=== PATIENT | female | born 1935 ===

== ENCOUNTER 2016-11-06 16:40 | Inpatient (IN) | payer MEDICARE, MEDICAID ==
[2016-11-06 16:40] VITALS: BMI 26.5
--- NOTE | 2016-11-06 17:38 | ED PDOC ---
Lower Extremity Pain/Injury Time Seen by Provider: 11/06/16 16:49 Chief Complaint (Nursing): Lower Extremity Problem/Injury Chief Complaint (Provider): Right lower extremity problem History Per: Other (custodial) History/Exam Limitations: clinical condition (AMS) Additional History Per: Halfway Additional Complaint(s): 81 year old female patient with various chronic illnesses (see PMH for full list ) is unsure why she was sent to ER. Yesi historian. Sent from custodial for further labs and imaging studies after an arterial Doppler which showed a possible iliac artery stenosis of her right leg. She reports pains to both of her legs for a long time. She reports fatigue and diffuse weakness. PMD: Oh Bernard MD, Oliver Cohen MD Past Medical History Reviewed: Historical Data, Nursing Documentation, Vital Signs Vital Signs: Last Vital Signs Temp 98.0 F 11/06/16 16:44 Pulse 72 11/06/16 16:44 Resp 18 11/06/16 16:44 BP 190/97 H 11/06/16 16:44 Pulse Ox 99 11/06/16 16:44 - Medical History PMH: Anemia, Arthritis, Asthma, Atrial Fibrillation, CAD, Cardia Arrhythmia, CHF , COPD, Dementia, Diabetes (type II), Fractures (left tibia), HTN, Hypercholesterolemia, Hypothyroidism, Peripheral Edema, End Stage Renal Disease (stage III), Chronic Kidney Disease Denies: Hepatitis, HIV, Seizures, Sexually Transmitted Disease - Surgical History Surgical History: Back Surgery, Pacemaker, Tonsillectomy - Family History Family History: States: Unknown Family Hx - Living Arrangements Living Arrangements: Halfway/Assist [facility] - Social History Current smoker - smoking cessation education provided: No Alcohol: None Drugs: Denies - Home Medications Home Medications: Ambulatory Orders Medication Instructions Recorded Albuterol/Ipratropium [Duoneb 3 3 ml IH Q6H PRN 09/16/16 mg/0.5 mg (3 ml) UD] Aspirin [Ecotrin] 81 mg PO DAILY 09/16/16 Atorvastatin [Lipitor] 40 mg PO HS 09/16/16 Carvedilol [Coreg] 25 mg PO Q12H 09/16/16 Docusate [Colace] 100 mg PO BID 09/16/16 Enoxaparin [Lovenox] 40 mg SC DAILY 09/16/16 Ferrous Sulfate [Feosol] 325 mg PO BID 09/16/16 Gabapentin [Neurontin] 100 mg PO HS 09/16/16 GlipiZIDE [Glucotrol] 5 mg PO DAILY 09/16/16 Insulin Aspart, Recombinant 2 - 8 unit SC ACHS 09/16/16 [Novolog] Insulin Detemir [Levemir] 8 unit SC HS 09/16/16 Lactulose [Generlac] 30 ml PO DAILY PRN 09/16/16 Levothyroxine [Synthroid] 50 mcg PO DAILY 09/16/16 Lidocaine 5% [Lidoderm] 1 patch TD DAILY 09/16/16 Lorazepam [Ativan] 0.5 mg PO HS 09/16/16 Memantine [Namenda] 10 mg PO BID 09/16/16 Montelukast [Singulair] 10 mg PO HS 09/16/16 Omeprazole [Omeprazole] 40 mg PO DAILY 09/16/16 SITagliptin [Januvia] 50 mg PO DAILY 09/16/16 Sertraline [Zoloft] 100 mg PO HS 09/16/16 Sevelamer Carbonate [Renvela] 800 mg PO DAILY 09/16/16 Valsartan [Diovan] 320 mg PO DAILY 09/16/16 amLODIPine [Norvasc] 5 mg PO DAILY 09/16/16 hydroCHLOROthiazide [Microzide] 12.5 mg PO HS 09/16/16 Budesonide/Formoterol Fumarate 1 inh INH BID 11/06/16 [Symbicort 80-4.5 Mcg Inhaler] Dorzolamide 2% [Trusopt] 1 drop OU BID 11/06/16 Guaifenesin/Dextromethorphan 10 - 100 mg PO Q4 PRN 11/06/16 [Robitussin Cough-Chest Dm Liq] Mupirocin 2% Ointment [Bactroban 1 appl TOP DAILY 11/06/16 Ointment] Zinc Sulfate [Zinc Sulfate] 220 mg PO DAILY 11/06/16 - Allergies Allergies/Adverse Reactions: Allergies Allergy/AdvReac Type Severity Reaction Status Date / Time acetaminophen [From Percocet] AdvReac VOMITING Verified 07/28/16 12:45 oxycodone HCl [From Percocet] AdvReac VOMITING Verified 07/28/16 12:45 Review of Systems ROS Statement: Except As Marked, All Systems Reviewed And Found Negative (may be unreliable as pt is a poor historian) Constitutional: Positive for: Weakness, Malaise. Negative for: Fever, Chills Respiratory: Positive for: Shortness of Breath Gastrointestinal: Positive for: Abdominal Pain Musculoskeletal: Positive for: Leg Pain Physical Exam - Reviewed Nursing Documentation Reviewed: Yes Vital Signs Reviewed: Yes - Physical Exam Appears: Positive for: Non-toxic, No Acute Distress Head Exam: Positive for: ATRAUMATIC, NORMOCEPHALIC Skin: Positive for: Warm, Dry, Pallor Eye Exam: Positive for: Normal appearance, EOMI, PERRL ENT: Positive for: Normal ENT Inspection (moist mucous membranes). Negative for : Pharyngeal Erythema, Tonsillar Exudate Neck: Positive for: Painless ROM, Supple Cardiovascular/Chest: Positive for: Regular Rate, Rhythm, Chest Non Tender. Negative for: Murmur Respiratory: Positive for: Normal Breath Sounds. Negative for: Respiratory Distress Pulses-Dorsalis Pedis (L): 1+ (faint DP pules) Pulses-Dorsalis Pedis (R): 0 Gastrointestinal/Abdominal: Positive for: Normal Exam, Soft. Negative for: Tenderness, Distended Back: Positive for: Normal Inspection. Negative for: Decreased ROM Extremity: Positive for: Other (right leg is cool compared to the left leg. Bilaterally: poor muscle bulk and contracture. Patient is able to move both legs minimally ). Negative for: Pedal Edema, Calf Tenderness Lymphatic: Negative for: Adenopathy Neurologic/Psych: Positive for: Alert, Oriented (x2), Mood/Affect (anxious affect), Other (poor strength bilateral legs) - Laboratory Results Result Diagrams: 11/06/16 17:40 11/06/16 17:40 - ECG O2 Sat by Pulse Oximetry: 99 (RA) Pulse Ox Interpretation: Normal Medical Decision Making Medical Decision Makin:49 Initial impression: iliac artery stenosis Initial plan: Reviewed custodial documents: doppler requires further imaging: CT or MR angiography of right lower extremity. Pt has had pacemaker so unable to undergo MRI. Discuss with Oh Bernard MD and Oliver Cohen MD. * type and screen * CMP * magnesium * phosphorous * CBC with differential * PTT coag * prothrombin time * accucheck * reevaluation GFR decreased, pt cannot have CTA at this time. DW Dr Cohen. Pt will be admitted to hospitalist service with nephrology consult for optimization of renal function to under CTA. LAVERN Oliva Hospitalist. Scribe Attestation: Documented by Gifty Wiseman, acting as a scribe for Luz Maria Spencer MD. Provider Scribe Attestation: All medical record entries made by the Scribe were at my direction and personally dictated by me. I have reviewed the chart and agree that the record accurately reflects my personal performance of the history, physical exam, medical decision making, and the department course for this patient. I have also personally directed, reviewed, and agree with the discharge instructions and disposition. Disposition - Clinical Impression Clinical Impression: Right iliac artery stenosis Counseled Patient/Family Regarding: Studies Performed, Diagnosis - Disposition Disposition Time: 17:30 Condition: GUARDED - Pt Status Changed To: Hospital Disposition Of: Inpatient - Admit Certification Admit to Inpatient:: After my assessment, the patient will require hospitalization for at least two midnights. This is because of the severity of symptoms shown, intensity of services needed, and/or the medical risk in this patient being treated as an outpatient. - POA Present On Arrival: None
[2016-11-06 18:26] LABS: BILIRUBIN,TOTAL 0.6 mg/dl (0.2-1.3); CALCIUM 9.9 mg/dL (8.4-10.2); MAGNESIUM 2.2 MG/DL (1.6-2.3); PHOSPHOROUS 3.9 mg/dl (2.5-4.5); POTASSIUM 4.2 MMOL/L (3.6-5.0); TOTAL PROTEIN 8.5 G/DL (6.3-8.2)
[2016-11-06 18:28] LABS: BASO % 0.3 % (0.0-2.0); EOS # 0.2 K/uL (0.0-0.7); EOS % 1.7 % (0.0-4.0); HEMATOCRIT 33.5 % (34.0-47.0); LYMPH # 1.8 K/uL (1.0-4.3); LYMPH % 19.1 % (20.0-40.0); MEAN CELL VOLUME 85.3 fl (81.0-99.0); MEAN CORPUSCULAR HEMOGLOBIN 28.6 pg (27.0-31.0); MEAN CORPUSCULAR HGB CONC 33.5 g/dL (33.0-37.0); MEAN PLATELET VOLUME 9.2 fl (7.2-11.7); MONO # 0.9 K/uL (0.0-0.8); MONO % 9.5 % (0.0-10.0); NEUT # 6.7 K/uL (1.8-7.0); NEUT % 69.4 % (50.0-75.0); NRBC % 0.3 % (0.0-0.0); RED CELL DISTRIBUTION WIDTH 16.3 % (11.5-14.5); WHITE BLOOD COUNT 9.6 K/uL (4.8-10.8)
[2016-11-06] MEDS ORDERED: Sodium Chloride 0.9% 250 ML IV STA (18:35)
[2016-11-06 19:11] LABS: PARTIAL THROMBOPLASTIN TIME 26.2 SECONDS (23.3-32.5)
--- NOTE | 2016-11-06 19:24 | CP.PCM.HP ---
History of Present Illness - History of Present Illness History of Present Illness: 81 yo female with known history of CAD, HTN, Asthma,/COPD, CHF, Chronic AFib and Dementia brought in from skilled nursing because of possible right iliac artery stenosis found on arterial doppler ordered because her right leg felt cold. Patient had not complained of pain and has been bed bound most of the time. Present on Admission - Present on Admission Any Indicators Present on Admission: No History of DVT/PE: No History of Uncontrolled Diabetes: No Urinary Catheter: No Decubitus Ulcer Present: No Review of Systems - Review of Systems Systems not reviewed;Unavailable: Dementia Past Patient History - Infectious Disease Hx of Infectious Diseases: None - Tetanus Immunizations Tetanus Immunization: Unknown - Past Medical History & Family History Past Medical History?: Yes - Past Social History Alcohol: None Drugs: Denies - CARDIAC Hx Atrial Fibrillation: Yes Hx Cardia Arrhythmia: Yes Hx Congestive Heart Failure: Yes Hx Hypercholesterolemia: Yes Hx Hypertension: Yes Hx Pacemaker: Yes Hx Peripheral Edema: Yes - PULMONARY Hx Asthma: Yes Hx Chronic Obstructive Pulmonary Disease (COPD): Yes - NEUROLOGICAL Hx Dementia: Yes Hx Seizures: No - HEENT Hx HEENT Problems: No - RENAL Hx Chronic Kidney Disease: Yes - ENDOCRINE/METABOLIC Hx Hypothyroidism: Yes - HEMATOLOGICAL/ONCOLOGICAL Hx Anemia: Yes Hx Human Immunodeficiency Virus (HIV): No - INTEGUMENTARY Hx Dermatological Problems: Yes Other/Comment: HERPES ZOSTER - MUSCULOSKELETAL/RHEUMATOLOGICAL Hx Arthritis: Yes Hx Fractures: Yes (left tibia) - GASTROINTESTINAL Hx Gastrointestinal Disorders: No - GENITOURINARY/GYNECOLOGICAL Hx Sexually Transmitted Disorders: No - PSYCHIATRIC Hx Psychophysiologic Disorder: No Hx Substance Use: No - SURGICAL HISTORY Hx Tonsillectomy: Yes - ANESTHESIA Hx Anesthesia: Yes Hx Anesthesia Reactions: No Hx Malignant Hyperthermia: No Meds Allergies/Adverse Reactions: Allergies Allergy/AdvReac Type Severity Reaction Status Date / Time acetaminophen [From Percocet] AdvReac VOMITING Verified 07/28/16 12:45 oxycodone HCl [From Percocet] AdvReac VOMITING Verified 07/28/16 12:45 Physical Exam - Constitutional Appears: No Acute Distress - Head Exam Head Exam: ATRAUMATIC - Eye Exam Eye Exam: PERRL - ENT Exam ENT Exam: Mucous Membranes Moist - Neck Exam Neck exam: Negative for: Meningismus - Respiratory Exam Respiratory Exam: absent: Rhonchi, Wheezes, Respiratory Distress - Cardiovascular Exam Cardiovascular Exam: Irregular Rhythm - GI/Abdominal Exam GI & Abdominal Exam: Soft. absent: Tenderness - Rectal Exam Rectal Exam: Deferred - Extremities Exam Additional comments: right leg felt cooler compared to the left - Neurological Exam Neurological exam: Alert (mostly non-verbal) - Psychiatric Exam Psychiatric exam: Flat Affect - Skin Skin Exam: Dry, Intact Results - Vital Signs Recent Vital Signs: Last Vital Signs Temp 98.0 F 11/06/16 16:44 Pulse 72 11/06/16 16:44 Resp 18 11/06/16 16:44 BP 190/97 H 11/06/16 16:44 Pulse Ox 99 11/06/16 17:54 - Labs Result Diagrams: 11/06/16 17:40 11/06/16 17:40 Labs: Laboratory Results - last 24 hr 11/06/16 17:40 WBC 9.6 RBC 3.92 Hgb 11.2 L D Hct 33.5 L MCV 85.3 MCH 28.6 MCHC 33.5 RDW 16.3 H Plt Count 232 D MPV 9.2 Neut % (Auto) 69.4 Lymph % (Auto) 19.1 L [place] % (Auto) 9.5 Eos % (Auto) 1.7 Baso % (Auto) 0.3 Neut # 6.7 Lymph # 1.8 [place] # 0.9 H Eos # 0.2 Baso # 0.0 PT 10.4 INR 1.00 APTT 26.2 Sodium 138 Potassium 4.2 Chloride 104 Carbon Dioxide 21 L Anion Gap 17 BUN 43 H Creatinine 1.5 H Est GFR ( Amer) 40 Est GFR (Non-Af Amer) 33 Random Glucose 178 H Calcium 9.9 Phosphorus 3.9 Magnesium 2.2 Total Bilirubin 0.6 AST 32 ALT 41 Alkaline Phosphatase 102 Total Protein 8.5 H Albumin 4.2 Globulin 4.4 H Albumin/Globulin Ratio 1.0 BBK History Checked Patient has bt Assessment & Plan (1) Right iliac artery stenosis Status: Acute Comment: admit to med/surg. unable to do MRA because of patient's pacemaker and unable to do CT because of poor renal function (2) Afib Status: Chronic Comment: in ventricular pace rhythm. rate controlled. continue Coreg (3) COPD (chronic obstructive pulmonary disease) Status: Chronic Comment: asymptomatic. Duoneb q 4hrs prn for SOB/wheezing (4) DM2 (diabetes mellitus, type 2) Status: Chronic Comment: HgA1C, BMP in am. accuchek ACHS. Levemir 10 units SC HS. Glipizide 5mg PO at breakfast (5) HTN (hypertension) Status: Chronic Priority: Medium Comment: BP uncontrolled. continue Norvasc, Coreg and Diovan (6) CKD (chronic kidney disease) stage 3, GFR 30-59 ml/min Status: Chronic Comment: careful IV hydration with NSS. renal consult with Dr Vu
[2016-11-06] MEDS ORDERED: Albuterol-Ipratrop 3 mg / 0.5 (3 ml) UD IH PRN (19:46)
[2016-11-06] MEDS: Sodium Chloride 0.9% 1,000 ML IV SCH (22:28)
[2016-11-07 07:13] LABS: CALCIUM 8.8 mg/dL (8.4-10.2); POTASSIUM 3.8 MMOL/L (3.6-5.0)
[2016-11-07 07:49] LABS: BASO % 0.3 % (0.0-2.0); EOS # 0.3 K/uL (0.0-0.7); EOS % 3.9 % (0.0-4.0); HEMATOCRIT 28.5 % (34.0-47.0); LYMPH # 1.9 K/uL (1.0-4.3); LYMPH % 29.1 % (20.0-40.0); MEAN CELL VOLUME 86.6 fl (81.0-99.0); MEAN CORPUSCULAR HEMOGLOBIN 29.3 pg (27.0-31.0); MEAN CORPUSCULAR HGB CONC 33.8 g/dL (33.0-37.0); MEAN PLATELET VOLUME 9.3 fl (7.2-11.7); MONO # 0.8 K/uL (0.0-0.8); MONO % 11.7 % (0.0-10.0); NEUT # 3.7 K/uL (1.8-7.0); NRBC % 0.1 % (0.0-0.0); RED CELL DISTRIBUTION WIDTH 15.7 % (11.5-14.5); WHITE BLOOD COUNT 6.7 K/uL (4.8-10.8)
[2016-11-07 08:37] VITALS: RESP 20
[2016-11-07] MEDS ORDERED: Levothyroxine 50 MCG TAB PO SCH (09:00)
[2016-11-07] MEDS: Lidocaine 5% Patch TD SCH (09:30)
--- NOTE | 2016-11-07 11:10 | PQF CHF ---
This form is a permanent part of the medical record 11/07/16 Dr. Oliva, Would you please clarify the TYPE of CHF if known. Documentation of a history of CHF. Medications include: Coreg, HCTZ. History of DM, CRF stage 3, HTN. Clarification of your documentation is requested to better reflect the severity of illness and intensity of treatment of your patient. Indicators present [x] Diagnosis of a history of CHF [x] BNP > 200 [] Imaging Finding of Pulmonary Edema /Pleural Effusions [] Fluid/Volume Overload [] Pitting edema [] Ejection Fraction < 40% (Indicative of Systolic Heart Failure) [x] Ejection Fraction > 40% (Indicative of Diastolic Heart Failure) [] Dyspnea / Orthopenea / Paroxysmal Nocturnal Dyspnea [] Other: Location in the medical record that reflects the above clinical findings: [] Treatment Provided: [x] PHYSICIAN'S RESPONSE Based on your medical judgment of the clinical indicators outlined above, are you treating this patient for a known or suspected: [] Acute CHF [] Systolic [] Diastolic [] Combined [x] Chronic CHF [] Systolic [x] Diastolic [] Combined [] Acute on Chronic CHF []Systolic [] Diastolic [] Combined [] CHF due hypertension [] Acute systolic []Chronic systolic [] Acute/ chronic systolic [] Other, please indicate: [] [] If Unable to Determine, please check the box, sign and date. Present On Admission (POA) Indicator: [] Present at the time of admission [] Not present at the time of admission [x] Clinically Undetermined In responding to this query, please exercise your independent professional judgment. The fact that a question is asked does not imply that any particular answer is desired or expected. Thank you for your clarification on this documentation. If you have any questions please [phone] * Thank you, Stephy Schumacher RN [facility]
[2016-11-07] MEDS: Sevelamer Carb 0.8 gm/Packet PO SCH (12:21)
--- NOTE | 2016-11-07 13:27 | CP.PCM.PN ---
Subjective - Date & Time of Evaluation Date of Evaluation: 11/07/16 Time of Evaluation: 11:00 - Subjective Subjective: Pt seen and examined. Appeared calm and relaxed while in bed. Denied any pain or numbness of the lower limbs. Objective - Vital Signs/Intake and Output Vital Signs (last 24 hours): Temp Pulse Resp BP Pulse Ox 97.4 F L 63 20 174/68 H 98 11/07/16 08:36 11/07/16 08:36 11/07/16 08:36 11/07/16 12:39 11/07/16 08:36 - Medications Medications: Current Medications Albuterol/Ipratropium (Duoneb 3 Mg/0.5 Mg (3 Ml) Ud) 3 ml IH Q6H PRN PRN Reason: Shortness of Breath Amlodipine Besylate (Norvasc) 5 mg PO DAILY [facility] Last Admin: 11/07/16 12:39 Dose: 5 mg Aspirin (Ecotrin) 81 mg PO DAILY [facility] Last Admin: 11/07/16 12:19 Dose: 81 mg Atorvastatin Calcium (Lipitor) 40 mg PO [facility] Last Admin: 11/07/16 00:16 Dose: 40 mg Carvedilol (Coreg) 25 mg PO 0100,1300 [facility] Docusate Sodium (Colace) 100 mg PO BID [facility] Last Admin: 11/07/16 09:30 Dose: Not Given Ferrous Sulfate (Feosol) 325 mg PO 1300,2100 [facility] Gabapentin (Neurontin) 100 mg PO HS [facility] Last Admin: 11/07/16 00:15 Dose: 100 mg Gabapentin (Neurontin) 300 mg PO TID [facility] Last Admin: 11/07/16 12:18 Dose: 300 mg Glipizide (Glucotrol) 5 mg PO DAILY [facility] Last Admin: 11/07/16 09:30 Dose: Not Given Heparin Sodium (Porcine) (Heparin) 5,000 units SC Q12 [facility] PRN Reason: Protocol Last Admin: 11/07/16 09:30 Dose: 5,000 units Home Med (Desloratadine [Clarinex]) 5 mg PO DAILY [facility] Home Med (Sevelamer Carbonate [Renvela]) 800 mg PO DAILY [facility] Hydrochlorothiazide (Microzide) 12.5 mg PO [facility] Last Admin: 11/07/16 00:16 Dose: 12.5 mg Sodium Chloride (Sodium Chloride 0.9%) 1,000 mls @ 80 mls/hr IV .[id number] [facility] Last Admin: 11/06/16 22:28 Dose: 80 mls/hr Levothyroxine Sodium (Synthroid) 50 mcg PO 0700 [facility] Lidocaine (Lidoderm) 1 ea TD DAILY [facility] Last Admin: 11/07/16 09:30 Dose: 1 ea Loratadine (Claritin) 10 mg PO DAILY [facility] Last Admin: 11/07/16 12:20 Dose: 10 mg Lorazepam (Ativan) 0.25 mg PO DAILY PRN PRN Reason: Anxiety Lorazepam (Ativan) 0.5 mg PO [facility] Last Admin: 11/07/16 00:14 Dose: 0.5 mg Memantine (Namenda) 10 mg PO BID [facility] Last Admin: 11/07/16 09:30 Dose: Not Given Montelukast Sodium (Singulair) 10 mg PO [facility] Last Admin: 11/07/16 00:16 Dose: 10 mg Sertraline HCl (Zoloft) 50 mg PO [facility] Last Admin: 11/07/16 00:17 Dose: 50 mg Sevelamer Carbonate (Renvela) 0.8 gm PO DAILY [facility] Last Admin: 11/07/16 12:21 Dose: 0.8 gm Sitagliptin Phosphate (Januvia) 50 mg PO DAILY [facility] Last Admin: 11/07/16 09:30 Dose: Not Given - Labs Labs: 11/07/16 05:50 11/07/16 05:50 PT 10.4 SECONDS (9.6-11.2) 11/06/16 17:40 INR 1.00 (0.92-1.08) 11/06/16 17:40 APTT 26.2 SECONDS (23.3-32.5) 11/06/16 17:40 - Constitutional Appears: No Acute Distress - Head Exam Head Exam: ATRAUMATIC - Eye Exam Eye Exam: absent: Scleral icterus - ENT Exam ENT Exam: Mucous Membranes Moist - Neck Exam Neck Exam: absent: Meningismus - Respiratory Exam Respiratory Exam: absent: Rhonchi, Wheezes, Respiratory Distress - Cardiovascular Exam Cardiovascular Exam: REGULAR RHYTHM, +S1, +S2 - GI/Abdominal Exam GI & Abdominal Exam: Soft. absent: Tenderness - Rectal Exam Rectal Exam: Deferred - Extremities Exam Extremities Exam: Normal Capillary Refill. absent: Pedal Edema Additional comments: both legs and feet felt equally warm, unable to feel pulsation on both feet but both have normal capillary refill - Neurological Exam Neurological Exam: Alert (but confused) - Psychiatric Exam Psychiatric exam: Flat Affect - Skin Skin Exam: Dry, Intact Assessment and Plan (1) Right iliac artery stenosis Status: Acute (2) Afib Status: Chronic (3) COPD (chronic obstructive pulmonary disease) Status: Chronic (4) DM2 (diabetes mellitus, type 2) Status: Chronic (5) HTN (hypertension) Status: Chronic (6) CKD (chronic kidney disease) stage 3, GFR 30-59 ml/min Status: Chronic - Assessment and Plan (Free Text) Assessment: 81 yo female with known history of CAD, HTN, Asthma,/COPD, CHF, Chronic AFib and Dementia brought in from snf because of possible right iliac artery stenosis found on arterial doppler. Arterial doppler ordered because her right leg felt cold. Patient had not complained of pain and has been bed bound most of the time. (1) Right iliac artery obstruction unable to do MRA because of patient's pacemaker unable to do CT angio because of poor renal function repeat arterial doppler both lower limbs equally warm to touch although yesterday right leg was cooler difficult to feel pedal pulses on both sides (2) Afib rate controlled. continue Coreg unsure why Eliquis was not restarted 2 weeks post CVA Eliquis 2.5mg PO BID (3) COPD (chronic obstructive pulmonary disease) asymptomatic. Duoneb q 4hrs prn for SOB/wheezing (4) DM2 (diabetes mellitus, type 2) BS relatively controlled Levemir 10 units SC HS. continue Januvia and Glipizide (5) HTN (hypertension) BP uncontrolled. continue Norvasc and Coreg (6) CKD (chronic kidney disease) stage 3, GFR 30-59 ml/min BUN/Crea: 42/1.7 careful IV hydration with NSS. renal consult with Dr Vu (7) DVT Prophylaxis pt on Eliquis
--- NOTE | 2016-11-07 14:59 | CP.PCM.CON ---
History of Present Illness - History of Present Illness History of Present Illness: 81 y/o female with Hx/o CHF, chronic A.fib,pace maker.HTN hypothyroidism & mild chronic renal insufficiency is admitted because she was found to have stenosis of Rt iliac artery & Pt had c/o pain in legs Renal consult is requested to evaluate abnormal kidney function Past Patient History - Infectious Disease Hx of Infectious Diseases: None - Tetanus Immunizations Tetanus Immunization: Unknown - Past Medical History & Family History Past Medical History?: Yes - Past Social History Smoking Status: Never Smoked - CARDIAC Hx Cardiac Disorders: Yes Hx Atrial Fibrillation: Yes Hx Cardia Arrhythmia: Yes Hx Congestive Heart Failure: Yes Hx Hypercholesterolemia: Yes Hx Hypertension: Yes Hx Pacemaker: Yes Hx Peripheral Edema: Yes - PULMONARY Hx Respiratory Disorders: Yes Hx Asthma: Yes Hx Chronic Obstructive Pulmonary Disease (COPD): Yes - NEUROLOGICAL Hx Neurological Disorder: Yes Hx Dementia: Yes Hx Seizures: No - HEENT Hx HEENT Problems: No - RENAL Hx Chronic Kidney Disease: Yes Hx Renal Failure: Yes (Stage 3 CKD) - ENDOCRINE/METABOLIC Hx Endocrine Disorders: Yes Hx Diabetes Mellitus Type 1: Yes Hx Hypothyroidism: Yes - HEMATOLOGICAL/ONCOLOGICAL Hx Blood Disorders: Yes Hx AIDS: No Hx Anemia: Yes Hx Bruising: Yes (Abdominal bruising) Hx Human Immunodeficiency Virus (HIV): No - INTEGUMENTARY Hx Dermatological Problems: No - MUSCULOSKELETAL/RHEUMATOLOGICAL Hx Musculoskeletal Disorders: Yes Hx Arthritis: Yes Hx Falls: Yes Hx Fractures: Yes (left tibia) Hx Unsteady Gait: Yes - GASTROINTESTINAL Hx Gastrointestinal Disorders: No - GENITOURINARY/GYNECOLOGICAL Hx Genitourinary Disorders: Yes Hx Incontinence: Yes Hx Sexually Transmitted Disorders: No - PSYCHIATRIC Hx Psychophysiologic Disorder: Yes Hx Anxiety: Yes Hx Depression: Yes Hx Substance Use: No - SURGICAL HISTORY Hx Surgeries: Yes Hx Tonsillectomy: Yes - ANESTHESIA Hx Anesthesia: Yes Hx Anesthesia Reactions: No Hx Malignant Hyperthermia: No Meds Allergies/Adverse Reactions: Allergies Allergy/AdvReac Type Severity Reaction Status Date / Time acetaminophen [From Percocet] AdvReac VOMITING Verified 07/28/16 12:45 oxycodone HCl [From Percocet] AdvReac VOMITING Verified 07/28/16 12:45 - Medications Medications: Current Medications Albuterol/Ipratropium (Duoneb 3 Mg/0.5 Mg (3 Ml) Ud) 3 ml IH Q6H PRN PRN Reason: Shortness of Breath Amlodipine Besylate (Norvasc) 5 mg PO DAILY [facility] Last Admin: 11/07/16 12:39 Dose: 5 mg Apixaban (Eliquis) 2.5 mg PO BID [facility] PRN Reason: Protocol Aspirin (Ecotrin) 81 mg PO DAILY [facility] Last Admin: 11/07/16 12:19 Dose: 81 mg Atorvastatin Calcium (Lipitor) 40 mg PO HS [facility] Last Admin: 11/07/16 00:16 Dose: 40 mg Carvedilol (Coreg) 25 mg PO 0100,1300 [facility] Last Admin: 11/07/16 13:00 Dose: 25 mg Docusate Sodium (Colace) 100 mg PO BID [facility] Last Admin: 11/07/16 09:30 Dose: Not Given Ferrous Sulfate (Feosol) 325 mg PO 1300,2100 [facility] Last Admin: 11/07/16 13:00 Dose: 325 mg Gabapentin (Neurontin) 100 mg PO HS [facility] Last Admin: 11/07/16 00:15 Dose: 100 mg Gabapentin (Neurontin) 300 mg PO TID [facility] Last Admin: 11/07/16 12:18 Dose: 300 mg Glipizide (Glucotrol) 5 mg PO DAILY [facility] Last Admin: 11/07/16 09:30 Dose: Not Given Home Med (Desloratadine [Clarinex]) 5 mg PO DAILY [facility] Home Med (Sevelamer Carbonate [Renvela]) 800 mg PO DAILY [facility] Hydrochlorothiazide (Microzide) 12.5 mg PO HS [facility] Last Admin: 11/07/16 00:16 Dose: 12.5 mg Sodium Chloride (Sodium Chloride 0.9%) 1,000 mls @ 80 mls/hr IV .[id number] [facility] Last Admin: 11/06/16 22:28 Dose: 80 mls/hr Levothyroxine Sodium (Synthroid) 50 mcg PO 0700 [facility] Lidocaine (Lidoderm) 1 ea TD DAILY [facility] Last Admin: 11/07/16 09:30 Dose: 1 ea Loratadine (Claritin) 10 mg PO DAILY [facility] Last Admin: 11/07/16 12:20 Dose: 10 mg Lorazepam (Ativan) 0.25 mg PO DAILY PRN PRN Reason: Anxiety Lorazepam (Ativan) 0.5 mg PO [facility] Last Admin: 11/07/16 00:14 Dose: 0.5 mg Memantine (Namenda) 10 mg PO BID [facility] Last Admin: 11/07/16 09:30 Dose: Not Given Montelukast Sodium (Singulair) 10 mg PO [facility] Last Admin: 11/07/16 00:16 Dose: 10 mg Sertraline HCl (Zoloft) 50 mg PO [facility] Last Admin: 11/07/16 00:17 Dose: 50 mg Sevelamer Carbonate (Renvela) 0.8 gm PO DAILY [facility] Last Admin: 11/07/16 12:21 Dose: 0.8 gm Sitagliptin Phosphate (Januvia) 50 mg PO DAILY [facility] Last Admin: 11/07/16 09:30 Dose: Not Given Physical Exam - Constitutional Appears: No Acute Distress - Head Exam Head Exam: ATRAUMATIC, NORMOCEPHALIC - Eye Exam Additional comments: Sclerae anicteric - ENT Exam ENT Exam: Mucous Membranes Moist - Neck Exam Additional comments: JVD neg @ 35 degrees - Respiratory Exam Respiratory Exam: NORMAL BREATHING PATTERN Additional comments: Lungs clear - Extremities Exam Additional comments: No edema or cyanosis. Rt foot is slighttly cold Results - Vital Signs Recent Vital Signs: Last Vital Signs Temp 97.4 F L 11/07/16 08:36 Pulse 63 11/07/16 08:36 Resp 20 11/07/16 08:36 BP 174/68 H 11/07/16 13:00 Pulse Ox 98 11/07/16 08:36 - Labs Result Diagrams: 11/07/16 05:50 11/07/16 05:50 Labs: Laboratory Results - last 24 hr 11/07/16 11/07/16 11/07/16 01:19 05:37 05:50 WBC 6.7 RBC 3.29 L Hgb 9.6 L Hct 28.5 L MCV 86.6 MCH 29.3 MCHC 33.8 RDW 15.7 H Plt Count 176 MPV 9.3 Neut % (Auto) 55.0 Lymph % (Auto) 29.1 [place] % (Auto) 11.7 H Eos % (Auto) 3.9 Baso % (Auto) 0.3 Neut # 3.7 Lymph # 1.9 [place] # 0.8 Eos # 0.3 Baso # 0.0 Sodium 139 Potassium 3.8 Chloride 106 Carbon Dioxide 25 Anion Gap 12 BUN 42 H Creatinine 1.7 H Est GFR ( Amer) 35 Est GFR (Non-Af Amer) 29 POC Glucose (mg/dL) 188 H 179 H Random Glucose 181 H Calcium 8.8 11/07/16 11:01 WBC RBC Hgb Hct MCV MCH MCHC RDW Plt Count MPV Neut % (Auto) Lymph % (Auto) [place] % (Auto) Eos % (Auto) Baso % (Auto) Neut # Lymph # [place] # Eos # Baso # Sodium Potassium Chloride Carbon Dioxide Anion Gap BUN Creatinine Est GFR ( Amer) Est GFR (Non-Af Amer) POC Glucose (mg/dL) 199 H Random Glucose Calcium Assessment & Plan - Assessment and Plan (Free Text) Assessment: Pt has Stge 111 CKD. Kidney function has been stable HTN Hx/o CHF Rt iliac artery stenisis Plan: Urinalysis Renal US Continue to monitor renal function Avoid potentially nephrotoxic meds
--- NOTE | 2016-11-07 15:26 | US ---
PROCEDURE: Duplex ultrasound of the right lower extremity arteries. HISTORY: cool extremity COMPARISON: None available. TECHNIQUE: Grayscale and duplex Doppler evaluation of the bilateral common femoral, superficial femoral, popliteal, posterior tibial and dorsalis pedis arteries was performed.. FINDINGS: RIGHT LOWER EXTREMITY: RIGHT COMMON FEMORAL ARTERY: Patent with triphasic doppler waveform. Maximal flow velocity of 102.7 cm/s. RIGHT SUPERFICIAL FEMORAL ARTERY: Patent with biphasic doppler waveform.Maximal flow velocity of 52.6 cm/s. RIGHT POPLITEAL ARTERY:Patent with biphasic doppler waveform.Maximal flow velocity of 127.8 cm/s. RIGHT ANTERIOR TIBIAL ARTERY: Patent with mono phasic doppler waveform. Maximal flow velocity of 20.2 cm/s. RIGHT POSTERIOR TIBIAL ARTERY: Patent with mono phasic doppler waveform. Maximal flow velocity of 31.1 cm/s. RIGHT DORSALIS PEDIS ARTERY: Patent with mono phasic doppler waveform. Maximal flow velocity of 32.6 cm/s. LEFT LOWER EXTREMITY: Not imaged. OTHER FINDINGS: Diffuse heterogeneous plaque within the visualized right lower extremity arteries. IMPRESSION: Patent right lower extremity arteries as visualized. Heterogeneous plaque seen diffusely. Reduced flow in the below-knee arteries. Please note that this report is in general agreement with the preliminary report provided by [facility].
--- NOTE | 2016-11-07 17:15 | US ---
PROCEDURE: Ultrasound of the Kidneys HISTORY: chronic renal failure COMPARISON: None available. TECHNIQUE: Sonogram of the kidneys. FINDINGS: RIGHT KIDNEY: Measures: 10.0 cm. Normal in size and contour with mild diffuse increased echogenicity. No stone, solid mass lesion or hydronephrosis visualized. LEFT KIDNEY: Measures: 9.2 cm. Normal in size and contour with mild diffuse increased echogenicity. No stone, solid mass lesion or hydronephrosis visualized. OTHER FINDINGS: None. IMPRESSION: Medical renal disease. No hydronephrosis or nephrolithiasis.
[2016-11-07 20:11] LABS: RBC URINE 7 /hpf (0-3); URINE BACTERIA MANY (<OCC); WBC URINE 59 /hpf (0-5)
[2016-11-07 20:12] LABS: URINE BILIRUBIN NEGATIVE (NEGATIVE); URINE COLOR YELLOW (YELLOW); URINE GLUCOSE (UA) NEGATIVE (Normal); URINE KETONE NEGATIVE (NEGATIVE)
[2016-11-07 20:14] LABS: URINE BLOOD NEGATIVE (NEGATIVE); URINE PROTEIN >=300 mg/dL (NEGATIVE); URINE UROBILINOGEN 0.2 mg/dL (0.2-1.0)
[2016-11-07 20:15] LABS: URINE LEUKOCYTE ESTERASE LARGE Leu/uL (Negative)
[2016-11-07] MEDS: Sodium Chloride 0.9% 1,000 ML IV SCH (20:46)
[2016-11-08] MEDS: Sodium Chloride 0.9% 1,000 ML IV SCH (04:32)
[2016-11-08] MEDS ORDERED: Levothyroxine 50 MCG TAB PO SCH (07:00)
[2016-11-08 09:30] VITALS: PULSE 50; TEMP 97.7; O2SAT 96
[2016-11-08] MEDS: Lidocaine 5% Patch TD SCH (09:44)
[2016-11-08] MEDS: Sevelamer Carb 0.8 gm/Packet PO SCH (09:45)
--- NOTE | 2016-11-08 11:24 | PQF GENQUE ---
This form is a permanent part of the medical record 11/08/16 Dr. Tomlin, Would you please clarify if there is an associated diagnosis or not to go along with the following documentation. 11/07 director cardiology: Right medial malleolus has a 1.0 x 0.5 DTI. Left medial malleolus has a 0.5 x 0.5 DTI. Left lateral malleolus has a 1.5 x 1.5 DTI. Clarification of your documentation is requested to better reflect the severity of illness and intensity of treatment of your patient. Above mentioned DTI were present on admission . Wound care consulted and recommended Prevalon boots, frequent repositioning and cavilon skin prep . PHYSICIAN'S RESPONSE Based on your medical judgment of the clinical indicators outlined above please clarify the following: [] Practitioner response [] If unable to determine, please check the box, sign and date. Present On Admission (POA) Indicator: x] Present at the time of admission [] Not present at the time of admission [] Clinically Undetermined In responding to this query, please exercise your independent professional judgment. The fact that a question is asked does not imply that any particular answer is desired or expected. Thank you for your clarification on this documentation. If you have any questions please [phone] * Thank you, Stephy Schumacher RN CDMP [facility]
--- NOTE | 2016-11-08 12:57 | CP.PCM.DIS ---
Provider - Provider Date of Admission: 11/06/16 18:48 Attending physician: Willie Oliva MD Primary care physician: Dr. Cohen Consults: nephro consult podiatry consult Time Spent in preparation of Discharge (in minutes): 30 Hospital Course - Lab Results Lab Results: Most Recent Lab Values WBC 6.7 K/uL (4.8-10.8) 11/07/16 05:50 RBC 3.29 Mil/uL (3.80-5.20) L 11/07/16 05:50 Hgb 9.6 g/dL (12.0-16.0) L 11/07/16 05:50 Hct 28.5 % (34.0-47.0) L 11/07/16 05:50 MCV 86.6 fl (81.0-99.0) 11/07/16 05:50 MCH 29.3 pg (27.0-31.0) 11/07/16 05:50 MCHC 33.8 g/dL (33.0-37.0) 11/07/16 05:50 RDW 15.7 % (11.5-14.5) H 11/07/16 05:50 Plt Count 176 K/uL (130-400) 11/07/16 05:50 MPV 9.3 fl (7.2-11.7) 11/07/16 05:50 Neut % (Auto) 55.0 % (50.0-75.0) 11/07/16 05:50 Lymph % (Auto) 29.1 % (20.0-40.0) 11/07/16 05:50 [place] % (Auto) 11.7 % (0.0-10.0) H 11/07/16 05:50 Eos % (Auto) 3.9 % (0.0-4.0) 11/07/16 05:50 Baso % (Auto) 0.3 % (0.0-2.0) 11/07/16 05:50 Neut # 3.7 K/uL (1.8-7.0) 11/07/16 05:50 Lymph # 1.9 K/uL (1.0-4.3) 11/07/16 05:50 [place] # 0.8 K/uL (0.0-0.8) 11/07/16 05:50 Eos # 0.3 K/uL (0.0-0.7) 11/07/16 05:50 Baso # 0.0 K/uL (0.0-0.2) 11/07/16 05:50 PT 10.4 SECONDS (9.6-11.2) 11/06/16 17:40 INR 1.00 (0.92-1.08) 11/06/16 17:40 APTT 26.2 SECONDS (23.3-32.5) 11/06/16 17:40 Sodium 139 mmol/l (132-148) 11/07/16 05:50 Potassium 3.8 MMOL/L (3.6-5.0) 11/07/16 05:50 Chloride 106 mmol/L (98-107) 11/07/16 05:50 Carbon Dioxide 25 mmol/L (22-30) 11/07/16 05:50 Anion Gap 12 (10-20) 11/07/16 05:50 BUN 42 mg/dl (7-17) H 11/07/16 05:50 Creatinine 1.7 mg/dL (0.7-1.2) H 11/07/16 05:50 Est GFR ( Amer) 35 11/07/16 05:50 Est GFR (Non-Af Amer) 29 11/07/16 05:50 POC Glucose (mg/dL) 138 mg/dL (65-110) H 11/08/16 06:43 Random Glucose 181 mg/dL (65-105) H 11/07/16 05:50 Calcium 8.8 mg/dL (8.4-10.2) 11/07/16 05:50 Phosphorus 3.9 mg/dl (2.5-4.5) 11/06/16 17:40 Magnesium 2.2 MG/DL (1.6-2.3) 11/06/16 17:40 Total Bilirubin 0.6 mg/dl (0.2-1.3) 11/06/16 17:40 AST 32 U/L (14-36) 11/06/16 17:40 ALT 41 U/L (9-52) 11/06/16 17:40 Alkaline Phosphatase 102 U/L (38-126) 11/06/16 17:40 Total Protein 8.5 G/DL (6.3-8.2) H 11/06/16 17:40 Albumin 4.2 g/dL (3.5-5.0) 11/06/16 17:40 Globulin 4.4 gm/dL (2.2-3.9) H 11/06/16 17:40 Albumin/Globulin Ratio 1.0 (1.0-2.1) 11/06/16 17:40 Urine Color Yellow (YELLOW) 11/07/16 19:00 Urine Clarity Cloudy (Clear) 11/07/16 19:00 Urine pH 5.0 (5.0-8.0) 11/07/16 19:00 Ur Specific [place] 1.016 (1.003-1.030) 11/07/16 19:00 Urine Protein >=300 mg/dL (NEGATIVE) 11/07/16 19:00 Urine Glucose (UA) Negative mg/dL (Normal) 11/07/16 19:00 Urine Ketones Negative mg/dL (NEGATIVE) 11/07/16 19:00 Urine Blood Negative (NEGATIVE) 11/07/16 19:00 Urine Nitrate Negative (NEGATIVE) 11/07/16 19:00 Urine Bilirubin Negative (NEGATIVE) 11/07/16 19:00 Urine Urobilinogen 0.2 mg/dL (0.2-1.0) 11/07/16 19:00 Ur Leukocyte Esterase Large Augie/uL (Negative) 11/07/16 19:00 Urine RBC (Auto) 7 /hpf (0-3) H 11/07/16 19:00 Urine Microscopic WBC 59 /hpf (0-5) H 11/07/16 19:00 Ur Squamous Epith Cells < 1 /hpf (0-5) 11/07/16 19:00 Urine Bacteria Many (<OCC) H 11/07/16 19:00 Blood Type B POSITIVE 11/06/16 17:40 Antibody Screen Negative 11/06/16 17:40 BBK History Checked Patient has bt 11/06/16 17:40 - Hospital Course Hospital Course: 81 yo female with known history of CAD, HTN, Asthma,/COPD, CHF, Chronic AFib and Dementia brought in from skilled nursing because of possible right iliac artery stenosis found on arterial doppler. Arterial doppler ordered because her right leg felt cold. Patient had not complained of pain and has been bed bound most of the time.patient hemodynamically stable, afebrile, pain free. Unable to do MRA because of patient's pacemaker Unable to do CT angio because of poor renal function Arterial doppler showed Patent right lower extremity arteries as visualized. Heterogeneous plaque seen diffusely. Reduced flow in the below-knee arteries. Both lower limbs equally warm to touch with present pulses Patient restarted on Eliquist that she was supposed to be on due to history of Afib . Continue Statin , ASa, gabapentin for neuropathic pain , BP and Dm control will discharge patient back to [facility] (1)Suspected Right iliac artery obstruction unable to do MRA because of patient's pacemaker unable to do CT angio because of poor renal function arterial doppler:Patent right lower extremity arteries as visualized. Heterogeneous plaque seen diffusely. Reduced flow in the below-knee arteries. both lower limbs equally warm to touch with present pulses Continue eliquist, ASa, Sttain, BP and DM control 2. PAD of LE continue current management 3. Afib rate controlled. continue Coreg unsure why Eliquis was not restarted 2 weeks post CVA Eliquis 2.5mg PO BID 4. COPD (chronic obstructive pulmonary disease) asymptomatic. Duoneb q 4hrs prn for SOB/wheezing 5. DM2 (diabetes mellitus, type 2) BS relatively controlled Levemir 10 units SC HS. continue Januvia and Glipizide 6 HTN (hypertension) BP uncontrolled. continue Norvasc , valsartan and Coreg 7. CKD (chronic kidney disease) stage 3, GFR 30-59 ml/min BUN/Crea: 42/1.7 careful IV hydration with NSS. renal consult with Dr Vu appreciated 8 DVT Prophylaxis pt on Eliquis 9. Hypothyroidism on synthroid 10. Anemia of chronic disease' Continue ferrous sulfate ' 11. Dementia on Namenda For [facility] placement 212. History of left ankle ORIF Discharge Exam - Head Exam Head Exam: ATRAUMATIC, NORMOCEPHALIC - Eye Exam Eye Exam: EOMI, PERRL - ENT Exam ENT Exam: Mucous Membranes Moist, Normal Exam - Neck Exam Neck exam: Normal Inspection - Respiratory Exam Respiratory Exam: Clear to PA & Lateral. absent: Rhonchi, Wheezes, Respiratory Distress - Cardiovascular Exam Cardiovascular Exam: Irregular Rhythm. absent: JVD - GI/Abdominal Exam GI & Abdominal Exam: Normal Bowel Sounds, Soft. absent: Rebound, Tenderness - Rectal Exam Rectal Exam: Deferred - Extremities Exam Extremities exam: normal inspection Additional comments: warm to touch both bilateral Le and no pain right medial malleolus , left medial malleolus and left lateral malleolus DT 0.5x 0.5 cm - Neurological Exam Neurological exam: Alert, CN II-XII Intact - Psychiatric Exam Psychiatric exam: Depressed, Flat Affect - Skin Skin Exam: Dry, Pallor, Warm Discharge Plan - Follow Up Plan Condition: STABLE Disposition: TRANSF TO SNF Patient education suggested?: No Referrals: Oliver Cohen MD [Family Provider] -
[2016-11-08 13:22] VITALS: BP 171/50
--- NOTE | 2016-11-08 17:57 | CP.PCM.PN ---
Subjective - Date & Time of Evaluation Date of Evaluation: 11/08/16 Time of Evaluation: 10:00 - Subjective Subjective: pt. is in bed confortable vital noted Objective - Vital Signs/Intake and Output Vital Signs (last 24 hours): Temp Pulse Resp BP Pulse Ox 97.7 F 50 L 20 171/50 H 96 11/08/16 09:00 11/08/16 09:00 11/08/16 09:00 11/08/16 13:21 11/08/16 09:00 - Medications Medications: Current Medications Albuterol/Ipratropium (Duoneb 3 Mg/0.5 Mg (3 Ml) Ud) 3 ml IH Q6H PRN PRN Reason: Shortness of Breath Amlodipine Besylate (Norvasc) 5 mg PO DAILY [facility] Last Admin: 11/08/16 09:46 Dose: 5 mg Apixaban (Eliquis) 2.5 mg PO BID [facility] PRN Reason: Protocol Last Admin: 11/08/16 16:57 Dose: 2.5 mg Aspirin (Ecotrin) 81 mg PO DAILY [facility] Last Admin: 11/08/16 09:44 Dose: 81 mg Atorvastatin Calcium (Lipitor) 40 mg PO [facility] Last Admin: 11/07/16 22:56 Dose: 40 mg Carvedilol (Coreg) 25 mg PO 0100,1300 [facility] Last Admin: 11/08/16 13:21 Dose: 25 mg Docusate Sodium (Colace) 100 mg PO BID [facility] Last Admin: 11/08/16 09:45 Dose: 100 mg Ferrous Sulfate (Feosol) 325 mg PO 1300,2100 [facility] Last Admin: 11/08/16 13:22 Dose: 325 mg Gabapentin (Neurontin) 100 mg PO HS [facility] Last Admin: 11/07/16 22:55 Dose: 100 mg Gabapentin (Neurontin) 300 mg PO TID [facility] Last Admin: 11/08/16 16:58 Dose: 300 mg Glipizide (Glucotrol) 5 mg PO DAILY [facility] Last Admin: 11/08/16 09:45 Dose: 5 mg Home Med (Desloratadine [Clarinex]) 5 mg PO DAILY [facility] Home Med (Sevelamer Carbonate [Renvela]) 800 mg PO DAILY [facility] Hydrochlorothiazide (Microzide) 12.5 mg PO [facility] Last Admin: 11/07/16 22:56 Dose: 12.5 mg Sodium Chloride (Sodium Chloride 0.9%) 1,000 mls @ 80 mls/hr IV .[id number] [facility] Last Admin: 11/08/16 04:32 Dose: 80 mls/hr Levothyroxine Sodium (Synthroid) 50 mcg PO 0700 [facility] Last Admin: 11/08/16 06:49 Dose: 50 mcg Lidocaine (Lidoderm) 1 ea TD DAILY [facility] Last Admin: 11/08/16 09:44 Dose: 1 ea Loratadine (Claritin) 10 mg PO DAILY [facility] Last Admin: 11/08/16 09:45 Dose: 10 mg Lorazepam (Ativan) 0.25 mg PO DAILY PRN PRN Reason: Anxiety Lorazepam (Ativan) 0.5 mg PO HS [facility] Last Admin: 11/08/16 00:07 Dose: 0.5 mg Memantine (Namenda) 10 mg PO BID [facility] Last Admin: 11/08/16 16:58 Dose: 10 mg Montelukast Sodium (Singulair) 10 mg PO HS [facility] Last Admin: 11/07/16 22:57 Dose: 10 mg Sertraline HCl (Zoloft) 50 mg PO HS [facility] Last Admin: 11/07/16 22:54 Dose: 50 mg Sevelamer Carbonate (Renvela) 0.8 gm PO DAILY [facility] Last Admin: 11/08/16 09:45 Dose: 0.8 gm Sitagliptin Phosphate (Januvia) 50 mg PO DAILY [facility] Last Admin: 11/08/16 09:45 Dose: 50 mg - Labs Labs: 11/07/16 05:50 11/07/16 05:50 PT 10.4 SECONDS (9.6-11.2) 11/06/16 17:40 INR 1.00 (0.92-1.08) 11/06/16 17:40 APTT 26.2 SECONDS (23.3-32.5) 11/06/16 17:40 - Constitutional Appears: No Acute Distress - ENT Exam ENT Exam: Mucous Membranes Moist - Respiratory Exam Respiratory Exam: NORMAL BREATHING PATTERN. absent: Chest Wall Tenderness - Cardiovascular Exam Cardiovascular Exam: absent: JVD, Rubs - GI/Abdominal Exam GI & Abdominal Exam: Normal Bowel Sounds - Extremities Exam Extremities Exam: absent: Calf Tenderness - Back Exam Back Exam: absent: CVA tenderness (L), CVA tenderness (R) - Neurological Exam Neurological Exam: Alert Assessment and Plan (1) Acute kidney injury Assessment & Plan: perhaps JOEL we do not have base line creat. pt. reported going home f/up outpatient. Status: Acute
--- NOTE | 2016-11-08 19:17 | CP.PCM.CON ---
History of Present Illness - History of Present Illness History of Present Illness: 81 year old female patient with PMHx of CAD, HTN, Asthma,/COPD, CHF, Chronic AFib and Demetia was seen at bedside this morning. Patient had Left ankle ORIF on 08/02/16 to fix Left bimalleolar fracture by Dr. Moreau. Patient was resting comfortably in bed at the time of visit. Being poor historian, the patient is unable to elaborate as to what happened in the custodial and why she was transferred to this hospital. Patient denies of any pedal complains at this time. No pain is induced upon palpation to bilateral lower extremities. Patient denies of any N/V/F/C or SOB today Past Patient History - Infectious Disease Hx of Infectious Diseases: None - Tetanus Immunizations Tetanus Immunization: Unknown - Past Medical History & Family History Past Medical History?: Yes - Past Social History Smoking Status: Never Smoked - CARDIAC Hx Cardiac Disorders: Yes Hx Atrial Fibrillation: Yes Hx Cardia Arrhythmia: Yes Hx Congestive Heart Failure: Yes Hx Hypercholesterolemia: Yes Hx Hypertension: Yes Hx Pacemaker: Yes Hx Peripheral Edema: Yes - PULMONARY Hx Respiratory Disorders: Yes Hx Asthma: Yes Hx Chronic Obstructive Pulmonary Disease (COPD): Yes - NEUROLOGICAL Hx Neurological Disorder: Yes Hx Dementia: Yes Hx Seizures: No - HEENT Hx HEENT Problems: No - RENAL Hx Chronic Kidney Disease: Yes Hx Renal Failure: Yes (Stage 3 CKD) - ENDOCRINE/METABOLIC Hx Endocrine Disorders: Yes Hx Diabetes Mellitus Type 1: Yes Hx Hypothyroidism: Yes - HEMATOLOGICAL/ONCOLOGICAL Hx Blood Disorders: Yes Hx AIDS: No Hx Anemia: Yes Hx Bruising: Yes (Abdominal bruising) Hx Human Immunodeficiency Virus (HIV): No - INTEGUMENTARY Hx Dermatological Problems: No - MUSCULOSKELETAL/RHEUMATOLOGICAL Hx Musculoskeletal Disorders: Yes Hx Arthritis: Yes Hx Falls: Yes Hx Fractures: Yes (left tibia) Hx Unsteady Gait: Yes - GASTROINTESTINAL Hx Gastrointestinal Disorders: No - GENITOURINARY/GYNECOLOGICAL Hx Genitourinary Disorders: Yes Hx Incontinence: Yes Hx Sexually Transmitted Disorders: No - PSYCHIATRIC Hx Psychophysiologic Disorder: Yes Hx Anxiety: Yes Hx Depression: Yes Hx Substance Use: No - SURGICAL HISTORY Hx Surgeries: Yes Hx Tonsillectomy: Yes - ANESTHESIA Hx Anesthesia: Yes Hx Anesthesia Reactions: No Hx Malignant Hyperthermia: No Meds Home Medications: Home Medication List Medication Instructions Recorded Confirmed Type Apixaban [Eliquis] 2.5 mg PO BID tab 11/08/16 Rx Desloratadine [Clarinex] 5 mg PO DAILY 11/08/16 Rx Gabapentin [Neurontin] 300 mg PO TID cap 11/08/16 Rx Allergies/Adverse Reactions: Allergies Allergy/AdvReac Type Severity Reaction Status Date / Time acetaminophen [From Percocet] AdvReac VOMITING Verified 07/28/16 12:45 oxycodone HCl [From Percocet] AdvReac VOMITING Verified 07/28/16 12:45 Physical Exam - Constitutional Appears: Well, Non-toxic, No Acute Distress - Extremities Exam Additional comments: Bilateral lower extremities exam DERM: No open wound is noted. No erythema is noted. No drainage. No sign of acute infection is noted. VASC: No welling is noted to bilateral lower extremities. Non-palpable DP and PT noted bilaterally. DIGITAL CONTENT SPECIALIST less than 3 seconds to all digits B/L NEURO: Gross sensation is intact ORTHO: No pain induced on palpation to bilateral lower extremities. No pain on palpation to Left ankle (3 month s/p Left ankle ORIF). Decreased dorsiflexion noted to Left ankle less than 10 degrees noted. No pain on passive ROM of left ankle noted. - Neurological Exam Neurological exam: Alert, Oriented x3 - Psychiatric Exam Psychiatric exam: Normal Affect, Normal Mood - Skin Skin Exam: Normal Color, Warm Results - Vital Signs Recent Vital Signs: Last Vital Signs Temp 97.7 F 11/08/16 09:00 Pulse 50 L 11/08/16 09:00 Resp 20 11/08/16 09:00 BP 171/50 H 11/08/16 13:21 Pulse Ox 96 11/08/16 09:00 - Labs Result Diagrams: 11/07/16 05:50 11/07/16 05:50 Labs: Laboratory Results - last 24 hr 11/07/16 11/07/16 11/07/16 17:34 19:00 22:20 POC Glucose (mg/dL) 212 H 124 H Urine Color Yellow Urine Clarity Cloudy Urine pH 5.0 Ur Specific [place] 1.016 Urine Protein >=300 Urine Glucose (UA) Negative Urine Ketones Negative Urine Blood Negative Urine Nitrate Negative Urine Bilirubin Negative Urine Urobilinogen 0.2 Ur Leukocyte Esterase Large Urine RBC (Auto) 7 H Urine Microscopic WBC 59 H Ur Squamous Epith Cells < 1 Urine Bacteria Many H 11/08/16 11/08/16 06:43 10:54 POC Glucose (mg/dL) 138 H 195 H Urine Color Urine Clarity Urine pH Ur Specific [place] Urine Protein Urine Glucose (UA) Urine Ketones Urine Blood Urine Nitrate Urine Bilirubin Urine Urobilinogen Ur Leukocyte Esterase Urine RBC (Auto) Urine Microscopic WBC Ur Squamous Epith Cells Urine Bacteria Assessment & Plan - Assessment and Plan (Free Text) Assessment: 81 year old female patient presenting 3 month s/p Left ankle ORIF Plan: Patient was seen, evaluated and treated with all questions and concerns addressed labs and vitals reviewed discussed in detail with Dr. Moreau Patient is stable from podiatry standpoint No dressing is necessary to bilateral lower extremities at this time Patient was advised to follow up with podiatry clinic as an out patient if any problems occur
== END 2016-11-08 18:24 | DRG 300 ==
LOC: H.ER 16:40 → H.ERHOLD 18:48 → H.MEDSURG1 23:00
DX: I70.291 Other atherosclerosis of native arteries of extremities, right leg (principal); I74.3 Embolism and thrombosis of arteries of the lower extremities; N17.9 Acute kidney failure, unspecified; I13.0 Hypertensive heart and chronic kidney disease with heart failure and stage 1 through stage 4 chronic kidney disease, or unspecified chronic kidney disease; I50.32 Chronic diastolic (congestive) heart failure; N18.3 Chronic kidney disease, stage 3 (moderate); E11.22 Type 2 diabetes mellitus with diabetic chronic kidney disease; I48.2 Chronic atrial fibrillation; D63.8 Anemia in other chronic diseases classified elsewhere; F03.90 Unspecified dementia, unspecified severity, without behavioral disturbance, psychotic disturbance, mood disturbance, and anxiety; I25.10 Atherosclerotic heart disease of native coronary artery without angina pectoris; J44.9 Chronic obstructive pulmonary disease, unspecified; E03.9 Hypothyroidism, unspecified; J45.909 Unspecified asthma, uncomplicated; I73.89 Other specified peripheral vascular diseases; M19.90 Unspecified osteoarthritis, unspecified site; E78.00 Pure hypercholesterolemia, unspecified; Z95.0 Presence of cardiac pacemaker; Z79.82 Long term (current) use of aspirin; Z88.6 Allergy status to analgesic agent; Z74.01 Bed confinement status; Z87.81 Personal history of (healed) traumatic fracture

== ENCOUNTER 2016-11-14 19:04 | Observation (INO) | payer MEDICARE, MEDICAID ==
[2016-11-14 19:04] VITALS: BMI 26.5
[2016-11-14 21:28] LABS: HEMATOCRIT 29.6 % (34.0-47.0); MEAN CORPUSCULAR HGB CONC 33.8 g/dL (33.0-37.0); RED CELL DISTRIBUTION WIDTH 16.2 % (11.5-14.5)
[2016-11-14 22:07] LABS: BILIRUBIN,TOTAL 0.5 mg/dl (0.2-1.3); TOTAL PROTEIN 6.9 G/DL (6.3-8.2)
--- NOTE | 2016-11-14 23:53 | ED PDOC ---
HPI: General Adult Time Seen by Provider: 11/14/16 19:58 Chief Complaint (Nursing): Psychiatric Evaluation Chief Complaint (Provider): Sent from long-term for evaluation by crisis History Per: Patient, Other History/Exam Limitations: no limitations Additional Complaint(s): PT yelling in Er stating to call the police because the EMS who brought her to the hospital are bad men. No report from long-term. When notes reviewed it states that patient is aggressive in long-term. Order for transport and psychiatric consult. Pt denies complaints. Past Medical History Reviewed: Historical Data, Nursing Documentation, Vital Signs Vital Signs: Last Vital Signs Temp Pulse 54 L 11/14/16 23:08 Resp 18 11/14/16 23:08 BP 154/71 H 11/14/16 23:08 Pulse Ox 99 11/14/16 23:08 - Medical History PMH: Anemia, Anxiety, Arthritis, Asthma, Atrial Fibrillation, CAD, Cardia Arrhythmia, CHF, COPD, Dementia, Depression, Diabetes (type II), Fractures ( left tibia), HTN, Hypercholesterolemia, Hypothyroidism, Peripheral Edema, End Stage Renal Disease (stage III), Chronic Kidney Disease Denies: Hepatitis, HIV, Seizures, Sexually Transmitted Disease - Surgical History Surgical History: Back Surgery, Pacemaker, Tonsillectomy - Family History Family History: States: Unknown Family Hx - Home Medications Home Medications: Ambulatory Orders Medication Instructions Recorded Albuterol/Ipratropium [Duoneb 3 3 ml IH Q6H PRN 09/16/16 mg/0.5 mg (3 ml) UD] Aspirin [Ecotrin] 81 mg PO DAILY 09/16/16 Atorvastatin [Lipitor] 40 mg PO HS 09/16/16 Carvedilol [Coreg] 25 mg PO Q12H 09/16/16 Docusate [Colace] 100 mg PO BID 09/16/16 Ferrous Sulfate [Feosol] 325 mg PO BID 09/16/16 GlipiZIDE [Glucotrol] 5 mg PO DAILY 09/16/16 Levothyroxine [Synthroid] 50 mcg PO DAILY 09/16/16 Lorazepam [Ativan] 0.5 mg PO HS 09/16/16 Memantine [Namenda] 10 mg PO BID 09/16/16 Montelukast [Singulair] 10 mg PO HS 09/16/16 SITagliptin [Januvia] 50 mg PO DAILY 09/16/16 Sertraline [Zoloft] 100 mg PO HS 09/16/16 hydroCHLOROthiazide [Microzide] 12.5 mg PO HS 09/16/16 Apixaban [Eliquis] 2.5 mg PO BID tab 11/08/16 Gabapentin [Neurontin] 300 mg PO TID cap 11/08/16 - Allergies Allergies/Adverse Reactions: Allergies Allergy/AdvReac Type Severity Reaction Status Date / Time acetaminophen [From Percocet] AdvReac VOMITING Verified 11/14/16 19:21 oxycodone HCl [From Percocet] AdvReac VOMITING Verified 11/14/16 19:21 Review of Systems ROS Statement: Except As Marked, All Systems Reviewed And Found Negative Psych: Positive for: Other Physical Exam - Reviewed Nursing Documentation Reviewed: Yes Vital Signs Reviewed: Yes - Physical Exam Appears: Positive for: Well, Non-toxic, No Acute Distress Head Exam: Positive for: ATRAUMATIC, NORMAL INSPECTION, NORMOCEPHALIC Skin: Positive for: Normal Color, Warm, DRY Eye Exam: Positive for: Normal appearance ENT: Positive for: Normal ENT Inspection Neck: Positive for: Normal, Painless ROM Cardiovascular/Chest: Positive for: Regular Rate, Rhythm Respiratory: Positive for: CNT, Normal Breath Sounds Gastrointestinal/Abdominal: Positive for: Normal Exam, Bowel Sounds, Soft Back: Positive for: Normal Inspection Extremity: Positive for: Normal ROM Neurologic/Psych: Positive for: Alert, Oriented - Laboratory Results Result Diagrams: 11/14/16 21:21 11/14/16 21:35 - ECG O2 Sat by Pulse Oximetry: 99 Pulse Ox Interpretation: Normal Medical Decision Making Medical Decision Making: Endorsed pending urine and crisis evaluation. Disposition - Clinical Impression Clinical Impression: Aggressive behavior - Patient ED Disposition Is Patient to be Admitted: Transfer of Care - Disposition Disposition: Transfer of Care Disposition Time: 00:05 Condition: STABLE
[2016-11-15] MEDS ORDERED: Sodium Chloride 0.9% 250 ML IV STA (00:52)
[2016-11-15 00:57] LABS: RBC URINE 9 /hpf (0-3); URINE BACTERIA FEW (<OCC); URINE BILIRUBIN NEGATIVE (NEGATIVE); URINE BLOOD NEGATIVE (NEGATIVE); URINE COLOR YELLOW (YELLOW); URINE GLUCOSE (UA) 50 mg/dL (Normal); URINE KETONE NEGATIVE (NEGATIVE); URINE LEUKOCYTE ESTERASE SMALL Leu/uL (Negative); URINE PROTEIN >=500 mg/dL (NEGATIVE); URINE UROBILINOGEN 0.2-1.0 mg/dL (0.2-1.0); WBC URINE 34 /hpf (0-5)
--- NOTE | 2016-11-15 01:41 | ED PDOC ---
- Laboratory Results Result Diagrams: 11/14/16 21:21 11/14/16 21:35 - ECG O2 Sat by Pulse Oximetry: 99 - Progress ED Course And Treament: Care of patient transferred from Marisol Braden PA-C Urine reviewed with elevated wbc noted/neg for nitrate/rbc creatinine 1.6. d/w DR. Garcia Hospitalist. Patient to be admitted for med/surg observation for UTI/renal insufficiency/altered mentation. Disposition - Clinical Impression Clinical Impression: Aggression, Altered mental status - POA Present On Arrival: None - Disposition Disposition: Hospitalized as Observation Patient Disposition Time: 01:41 Condition: STABLE
[2016-11-15] MEDS ORDERED: Albuterol-Ipratrop 3 mg / 0.5 (3 ml) UD IH PRN (01:49)
--- NOTE | 2016-11-15 01:54 | CP.PCM.HP ---
History of Present Illness - History of Present Illness History of Present Illness: CC: agitation, confusion HPI: This is an 81 y/o female with MHx significant for A fib on Apixiban, HTN CAD, CKD with Cr ?1.6 range (unclear), CHF, DM2, asthma, and dementia who is brought in from [place] with worsening agitation and confusion. She somnolent after receiving ativan and while rousable, unable to provide any history at this time. ROS: Unable to obtain due to patient mental status MHx: A fib on Apixiban, HTN CAD, CKD with Cr ?1.6 range (unclear), CHF, DM2, asthma, and dementia SHx: Back surgery, PPM Allergies: Acetaminophen, oxycodone Medication: as per med list Family Hx: Possibly CAD and DM2 in family Social Hx: Lives in [place], no EtOH or tobacco Surrogate: daughter, information on chart Present on Admission - Present on Admission Any Indicators Present on Admission: No Past Patient History - Infectious Disease Hx of Infectious Diseases: None - Tetanus Immunizations Tetanus Immunization: Unknown - Past Medical History & Family History Past Medical History?: Yes - Past Social History Smoking Status: Never Smoked - CARDIAC Hx Atrial Fibrillation: Yes Hx Cardia Arrhythmia: Yes Hx Congestive Heart Failure: Yes Hx Hypercholesterolemia: Yes Hx Hypertension: Yes Hx Pacemaker: Yes Hx Peripheral Edema: Yes - PULMONARY Hx Asthma: Yes Hx Chronic Obstructive Pulmonary Disease (COPD): Yes - NEUROLOGICAL Hx Dementia: Yes Hx Seizures: No - HEENT Hx HEENT Problems: No - RENAL Hx Chronic Kidney Disease: Yes - ENDOCRINE/METABOLIC Hx Hypothyroidism: Yes - HEMATOLOGICAL/ONCOLOGICAL Hx Anemia: Yes Hx Human Immunodeficiency Virus (HIV): No - INTEGUMENTARY Hx Dermatological Problems: No - MUSCULOSKELETAL/RHEUMATOLOGICAL Hx Arthritis: Yes Hx Fractures: Yes (left tibia) - GASTROINTESTINAL Hx Gastrointestinal Disorders: No - GENITOURINARY/GYNECOLOGICAL Hx Sexually Transmitted Disorders: No - PSYCHIATRIC Hx Anxiety: Yes Hx Depression: Yes - SURGICAL HISTORY Hx Tonsillectomy: Yes - ANESTHESIA Hx Anesthesia: Yes Hx Anesthesia Reactions: No Hx Malignant Hyperthermia: No Meds Allergies/Adverse Reactions: Allergies Allergy/AdvReac Type Severity Reaction Status Date / Time acetaminophen [From Percocet] AdvReac VOMITING Verified 11/14/16 19:21 oxycodone HCl [From Percocet] AdvReac VOMITING Verified 11/14/16 19:21 Physical Exam - Constitutional Appears: No Acute Distress, Confused Additional comments: somnolent - Head Exam Head Exam: ATRAUMATIC, NORMOCEPHALIC - Eye Exam Eye Exam: EOMI, PERRL - ENT Exam ENT Exam: Mucous Membranes Moist - Neck Exam Neck exam: Positive for: Full Rom - Respiratory Exam Respiratory Exam: Clear to Auscultation Bilateral, NORMAL BREATHING PATTERN - Cardiovascular Exam Cardiovascular Exam: REGULAR RHYTHM, +S1, +S2 - GI/Abdominal Exam GI & Abdominal Exam: Normal Bowel Sounds, Soft - Extremities Exam Extremities exam: Positive for: full ROM, normal inspection - Neurological Exam Neurological exam: Alert, CN II-XII Intact Additional comments: asleep but rousable; cannot perform much exam at this time - Psychiatric Exam Psychiatric exam: Agitated - Skin Skin Exam: Dry, Warm Results - Vital Signs Recent Vital Signs: Last Vital Signs Temp Pulse 57 L 11/14/16 23:56 Resp 16 11/14/16 23:56 BP 176/73 H 11/14/16 23:56 Pulse Ox 99 11/15/16 01:42 - Labs Result Diagrams: 11/14/16 21:21 11/14/16 21:35 Labs: Laboratory Results - last 24 hr 11/14/16 11/14/16 11/14/16 21:21 21:35 21:41 WBC 7.0 RBC 3.44 L Hgb 10.0 L Hct 29.6 L MCV 86.0 MCH 29.0 MCHC 33.8 RDW 16.2 H Plt Count 226 Sodium 141 Potassium 4.0 Chloride 104 Carbon Dioxide 23 Anion Gap 19 BUN 32 H Creatinine 1.6 H Est GFR ( Amer) 38 Est GFR (Non-Af Amer) 31 Random Glucose 250 H Calcium 9.0 Total Bilirubin 0.5 AST 37 H ALT 35 Alkaline Phosphatase 135 H D Total Protein 6.9 Albumin 3.5 Globulin 3.4 Albumin/Globulin Ratio 1.0 Urine Color Urine Clarity Urine pH Ur Specific [place] Urine Protein Urine Glucose (UA) Urine Ketones Urine Blood Urine Nitrate Urine Bilirubin Urine Urobilinogen Ur Leukocyte Esterase Urine RBC (Auto) Urine Microscopic WBC Ur Squamous Epith Cells Urine Bacteria Urine Opiates Screen Urine Methadone Screen Ur Barbiturates Screen Ur Phencyclidine Scrn Ur Amphetamines Screen U Benzodiazepines Scrn U Oth Cocaine Metabols U Cannabinoids Screen Alcohol, Quantitative < 10 11/15/16 00:32 WBC RBC Hgb Hct MCV MCH MCHC RDW Plt Count Sodium Potassium Chloride Carbon Dioxide Anion Gap BUN Creatinine Est GFR ( Amer) Est GFR (Non-Af Amer) Random Glucose Calcium Total Bilirubin AST ALT Alkaline Phosphatase Total Protein Albumin Globulin Albumin/Globulin Ratio Urine Color Yellow Urine Clarity Cloudy Urine pH 6.0 Ur Specific [place] 1.017 Urine Protein >=500 Urine Glucose (UA) 50 Urine Ketones Negative Urine Blood Negative Urine Nitrate Negative Urine Bilirubin Negative Urine Urobilinogen 0.2-1.0 Ur Leukocyte Esterase Small Urine RBC (Auto) 9 H Urine Microscopic WBC 34 H Ur Squamous Epith Cells 7 H Urine Bacteria Few H Urine Opiates Screen Negative Urine Methadone Screen Negative Ur Barbiturates Screen Negative Ur Phencyclidine Scrn Negative Ur Amphetamines Screen Negative U Benzodiazepines Scrn Negative U Oth Cocaine Metabols Negative U Cannabinoids Screen Negative Alcohol, Quantitative Assessment & Plan (1) Altered mental status, unspecified Assessment and Plan: 81 y/o female with multiple medical conditions coming in for agitation and likely UTI. 1) UTI -- f/u cultures, ceftriaxone for now, can be transitioned to PO medication if improving 2) Dementia/Agitation/AMS -- possibly some contribution by infection -Will cont home dementia medications -PRN ativan or haldol for agitation -Psych consult in AM -Treat UTI 3) CKD -- appears Cr is close to last time; possibly her current baseline -continue low dose IVF -dose medications renally -repeat BMP in AM 4) Afib/CAD/CHF -- no acute issues; continue home regimen; on eliquis which appears renally dosed 5) DM2 -- hold hypoglycemics overnight, if eating and renal function stable, resume; SSI and DM diet for now 6) DVT PPx -- on eliquis Status: Acute (2) Urinary tract infection Status: Acute (3) Atrial fibrillation, chronic Status: Chronic (4) CAD (coronary artery disease) Status: Chronic (5) CHF (congestive heart failure) Status: Chronic (6) DM2 (diabetes mellitus, type 2) Status: Chronic (7) CKD (chronic kidney disease) stage 3, GFR 30-59 ml/min Status: Chronic (8) DVT prophylaxis Status: Acute
[2016-11-15] MEDS ORDERED: Sodium Chloride 0.9% 1,000 ML IV SCH (02:00)
[2016-11-15] MEDS ORDERED: cefTRIAXone (Rocephin) 1 gm Inj ONE (02:47)
[2016-11-15] MEDS ORDERED: Labetalol 5mg/ml (4ml) IVP STA (03:11)
[2016-11-15] MEDS ORDERED: Labetalol 5mg/ml (4ml) ONE (03:15)
[2016-11-15] MEDS ORDERED: Levothyroxine 50 MCG TAB PO SCH (06:30)
[2016-11-15 07:30] LABS: BASO % 0.4 % (0.0-2.0); EOS # 0.4 K/uL (0.0-0.7); EOS % 6.2 % (0.0-4.0); HEMATOCRIT 29.4 % (34.0-47.0); LYMPH # 1.5 K/uL (1.0-4.3); LYMPH % 23.6 % (20.0-40.0); MEAN CELL VOLUME 86.9 fl (81.0-99.0); MEAN CORPUSCULAR HEMOGLOBIN 28.9 pg (27.0-31.0); MEAN CORPUSCULAR HGB CONC 33.3 g/dL (33.0-37.0); MEAN PLATELET VOLUME 8.9 fl (7.2-11.7); MONO # 0.6 K/uL (0.0-0.8); MONO % 8.7 % (0.0-10.0); NEUT # 3.9 K/uL (1.8-7.0); NEUT % 61.1 % (50.0-75.0); RED CELL DISTRIBUTION WIDTH 16.3 % (11.5-14.5); WHITE BLOOD COUNT 6.5 K/uL (4.8-10.8)
[2016-11-15] MEDS: Insulin Lispro (humaLOG) 100 Units/ml Inj SC SCH ×3 (07:40→17:18)
[2016-11-15 07:48] LABS: CALCIUM 8.6 mg/dL (8.4-10.2); POTASSIUM 3.9 MMOL/L (3.6-5.0)
--- NOTE | 2016-11-15 11:20 | CARD ---
APPROVED REPORT EKG Measurement Heart [id number] MI 272P [id number] <Conclusion> Sinus rhythm with 1st degree AV block with premature atrial complexes Left axis deviation Left bundle branch block Abnormal ECG
--- NOTE | 2016-11-15 13:30 | CP.PCM.CON ---
History of Present Illness - History of Present Illness History of Present Illness: psychiatry consult ordered by dr. mathews reason: agitation, dementia cc: "huh" hpi: pt with dementia, chronic medical problems. recently transfered to a new shelter. allegedly aggressive towards staff there. pt receieved ativan in the ER and is sedated currently. pt is slepeing and difficult to arouse as she falls back to sleep. her chart and medications were reviewed. medical- hx of afib, see history/physical for details. social: lives in shelter. daughter is involved no history of substance use mse: somnolent, arouses and answers to name. falls back to sleep. no aggression here. poor i/j. assessment: dementia with behavioral disturbance adjustment disorder plan: continue outpt meds if agitation when pt less sedated, please reconsult psych.- ativan may lead to more confusion and should be avoided. if no agitation, can return to shelter Past Patient History - Infectious Disease Hx of Infectious Diseases: None - Tetanus Immunizations Tetanus Immunization: Unknown - Past Medical History & Family History Past Medical History?: Yes - Past Social History Smoking Status: Never Smoked - CARDIAC Hx Cardiac Disorders: Yes Hx Congestive Heart Failure: Yes Hx Hypertension: Yes - PULMONARY Hx Respiratory Disorders: Yes Hx Chronic Obstructive Pulmonary Disease (COPD): Yes - NEUROLOGICAL Hx Neurological Disorder: Yes - HEENT Hx HEENT Problems: No - RENAL Hx Chronic Kidney Disease: Yes Other/Comment: CKD - ENDOCRINE/METABOLIC Hx Endocrine Disorders: Yes Hx Hypothyroidism: Yes - HEMATOLOGICAL/ONCOLOGICAL Hx Blood Disorders: Yes Hx AIDS: No Hx Anemia: Yes Hx Human Immunodeficiency Virus (HIV): No - INTEGUMENTARY Hx Dermatological Problems: No - MUSCULOSKELETAL/RHEUMATOLOGICAL Hx Musculoskeletal Disorders: Yes Hx Arthritis: Yes Hx Falls: Yes Hx Fractures: Yes (left tibia) Hx Unsteady Gait: Yes - GASTROINTESTINAL Hx Gastrointestinal Disorders: No - GENITOURINARY/GYNECOLOGICAL Hx Genitourinary Disorders: No - PSYCHIATRIC Hx Psychophysiologic Disorder: Yes Hx Anxiety: Yes Hx Depression: Yes - SURGICAL HISTORY Hx Surgeries: Yes Hx Tonsillectomy: Yes Other/Comment: pacemaker left chest - ANESTHESIA Hx Anesthesia: Yes Hx Anesthesia Reactions: No Hx Malignant Hyperthermia: No Meds Allergies/Adverse Reactions: Allergies Allergy/AdvReac Type Severity Reaction Status Date / Time acetaminophen [From Percocet] AdvReac VOMITING Verified 11/14/16 19:21 oxycodone HCl [From Percocet] AdvReac VOMITING Verified 11/14/16 19:21 - Medications Medications: Current Medications Albuterol/Ipratropium (Duoneb 3 Mg/0.5 Mg (3 Ml) Ud) 3 ml IH Q6H PRN PRN Reason: Shortness of Breath Apixaban (Eliquis) 2.5 mg PO BID [facility] PRN Reason: Protocol Last Admin: 11/15/16 09:33 Dose: Not Given Aspirin (Ecotrin) 81 mg PO DAILY [facility] Last Admin: 11/15/16 09:32 Dose: Not Given Atorvastatin Calcium (Lipitor) 40 mg PO HS [facility] Carvedilol (Coreg) 25 mg PO Q12@1000,2200 [facility] Docusate Sodium (Colace) 100 mg PO BID [facility] Last Admin: 11/15/16 09:32 Dose: Not Given Ferrous Sulfate (Feosol) 325 mg PO BID [facility] Last Admin: 11/15/16 09:34 Dose: Not Given Gabapentin (Neurontin) 300 mg PO TID [facility] Last Admin: 11/15/16 09:35 Dose: Not Given Ceftriaxone Sodium 1 gm/ (Sodium Chloride) 100 mls @ 100 mls/hr IVPB DAILY@ 2200 [facility] Insulin Human Lispro (Humalog) 0 units SC ACHS [facility] PRN Reason: Protocol Last Admin: 11/15/16 07:40 Dose: 2 units Levothyroxine Sodium (Synthroid) 50 mcg PO DAILY@0630 [facility] Last Admin: 11/15/16 07:42 Dose: Not Given Lorazepam (Ativan) 0.5 mg PO HS [facility] Memantine (Namenda) 10 mg PO BID [facility] Last Admin: 11/15/16 09:35 Dose: Not Given Montelukast Sodium (Singulair) 10 mg PO HS [facility] Sertraline HCl (Zoloft) 50 mg PO HS [facility] Results - Vital Signs Recent Vital Signs: Last Vital Signs Temp 98.4 F 11/15/16 08:44 Pulse 51 L 11/15/16 08:44 Resp 20 11/15/16 08:44 BP 167/60 H 11/15/16 08:44 Pulse Ox 98 11/15/16 08:44 - Labs Result Diagrams: 11/15/16 07:16 11/15/16 07:16 Labs: Laboratory Results - last 24 hr 11/15/16 11/15/16 11/15/16 05:41 07:16 11:00 WBC 6.5 RBC 3.38 L Hgb 9.8 L Hct 29.4 L MCV 86.9 MCH 28.9 MCHC 33.3 RDW 16.3 H Plt Count 209 MPV 8.9 Neut % (Auto) 61.1 Lymph % (Auto) 23.6 [place] % (Auto) 8.7 Eos % (Auto) 6.2 H Baso % (Auto) 0.4 Neut # 3.9 Lymph # 1.5 [place] # 0.6 Eos # 0.4 Baso # 0.0 Sodium 142 Potassium 3.9 Chloride 105 Carbon Dioxide 23 Anion Gap 18 BUN 28 H Creatinine 1.3 H Est GFR ( Amer) 48 Est GFR (Non-Af Amer) 39 POC Glucose (mg/dL) 210 H 162 H Random Glucose 212 H Calcium 8.6
--- NOTE | 2016-11-15 14:50 | RAD ---
HISTORY: Chest pressure COMPARISON: Comparison made with chest radiograph dated 07/28/2016. FINDINGS: LUNGS: Suspect minor bibasilar atelectasis. PLEURA: No significant pleural effusion identified, no pneumothorax apparent. CARDIOVASCULAR: No change multi lead pacemaker/ defibrillator. Heart is mildly enlarged. Is calcifications seen along the aortic knob. OSSEOUS STRUCTURES: Mild multilevel degenerative spondylosis of the thoracic spine. Mild degenerative changes both shoulder girdles. . VISUALIZED UPPER ABDOMEN: Normal. OTHER FINDINGS: None. IMPRESSION: Suspect minor bibasilar atelectasis.
--- NOTE | 2016-11-15 16:13 | CP.PCM.DIS ---
Provider - Provider Date of Admission: 11/15/16 01:46 Attending physician: Radha Garcia MD Primary care physician: Dr. Cohen Consults: Psychiatry consult Time Spent in preparation of Discharge (in minutes): 20 Hospital Course - Lab Results Lab Results: Most Recent Lab Values WBC 6.5 K/uL (4.8-10.8) 11/15/16 07:16 RBC 3.38 Mil/uL (3.80-5.20) L 11/15/16 07:16 Hgb 9.8 g/dL (12.0-16.0) L 11/15/16 07:16 Hct 29.4 % (34.0-47.0) L 11/15/16 07:16 MCV 86.9 fl (81.0-99.0) 11/15/16 07:16 MCH 28.9 pg (27.0-31.0) 11/15/16 07:16 MCHC 33.3 g/dL (33.0-37.0) 11/15/16 07:16 RDW 16.3 % (11.5-14.5) H 11/15/16 07:16 Plt Count 209 K/uL (130-400) 11/15/16 07:16 MPV 8.9 fl (7.2-11.7) 11/15/16 07:16 Neut % (Auto) 61.1 % (50.0-75.0) 11/15/16 07:16 Lymph % (Auto) 23.6 % (20.0-40.0) 11/15/16 07:16 [place] % (Auto) 8.7 % (0.0-10.0) 11/15/16 07:16 Eos % (Auto) 6.2 % (0.0-4.0) H 11/15/16 07:16 Baso % (Auto) 0.4 % (0.0-2.0) 11/15/16 07:16 Neut # 3.9 K/uL (1.8-7.0) 11/15/16 07:16 Lymph # 1.5 K/uL (1.0-4.3) 11/15/16 07:16 [place] # 0.6 K/uL (0.0-0.8) 11/15/16 07:16 Eos # 0.4 K/uL (0.0-0.7) 11/15/16 07:16 Baso # 0.0 K/uL (0.0-0.2) 11/15/16 07:16 Sodium 142 mmol/l (132-148) 11/15/16 07:16 Potassium 3.9 MMOL/L (3.6-5.0) 11/15/16 07:16 Chloride 105 mmol/L (98-107) 11/15/16 07:16 Carbon Dioxide 23 mmol/L (22-30) 11/15/16 07:16 Anion Gap 18 (10-20) 11/15/16 07:16 BUN 28 mg/dl (7-17) H 11/15/16 07:16 Creatinine 1.3 mg/dL (0.7-1.2) H 11/15/16 07:16 Est GFR ( Amer) 48 11/15/16 07:16 Est GFR (Non-Af Amer) 39 11/15/16 07:16 POC Glucose (mg/dL) 162 mg/dL (65-110) H 11/15/16 11:00 Random Glucose 212 mg/dL (65-105) H 11/15/16 07:16 Calcium 8.6 mg/dL (8.4-10.2) 11/15/16 07:16 Total Bilirubin 0.5 mg/dl (0.2-1.3) 11/14/16 21:35 AST 37 U/L (14-36) H 11/14/16 21:35 ALT 35 U/L (9-52) 11/14/16 21:35 Alkaline Phosphatase 135 U/L (38-126) H D 11/14/16 21:35 Total Protein 6.9 G/DL (6.3-8.2) 11/14/16 21:35 Albumin 3.5 g/dL (3.5-5.0) 11/14/16 21:35 Globulin 3.4 gm/dL (2.2-3.9) 11/14/16 21:35 Albumin/Globulin Ratio 1.0 (1.0-2.1) 11/14/16 21:35 Urine Color Yellow (YELLOW) 11/15/16 00:32 Urine Clarity Cloudy (Clear) 11/15/16 00:32 Urine pH 6.0 (5.0-8.0) 11/15/16 00:32 Ur Specific [place] 1.017 (1.003-1.030) 11/15/16 00:32 Urine Protein >=500 mg/dL (NEGATIVE) 11/15/16 00:32 Urine Glucose (UA) 50 mg/dL (Normal) 11/15/16 00:32 Urine Ketones Negative mg/dL (NEGATIVE) 11/15/16 00:32 Urine Blood Negative (NEGATIVE) 11/15/16 00:32 Urine Nitrate Negative (NEGATIVE) 11/15/16 00:32 Urine Bilirubin Negative (NEGATIVE) 11/15/16 00:32 Urine Urobilinogen 0.2-1.0 mg/dL (0.2-1.0) 11/15/16 00:32 Ur Leukocyte Esterase Small Augie/uL (Negative) 11/15/16 00:32 Urine RBC (Auto) 9 /hpf (0-3) H 11/15/16 00:32 Urine Microscopic WBC 34 /hpf (0-5) H 11/15/16 00:32 Ur Squamous Epith Cells 7 /hpf (0-5) H 11/15/16 00:32 Urine Bacteria Few (<OCC) H 11/15/16 00:32 Urine Opiates Screen Negative (NEGATIVE) 11/15/16 00:32 Urine Methadone Screen Negative (NEGATIVE) 11/15/16 00:32 Ur Barbiturates Screen Negative (NEGATIVE) 11/15/16 00:32 Ur Phencyclidine Scrn Negative (NEGATIVE) 11/15/16 00:32 Ur Amphetamines Screen Negative (NEGATIVE) 11/15/16 00:32 U Benzodiazepines Scrn Negative (NEGATIVE) 11/15/16 00:32 U Oth Cocaine Metabols Negative (NEGATIVE) 11/15/16 00:32 U Cannabinoids Screen Negative (NEGATIVE) 11/15/16 00:32 Alcohol, Quantitative < 10 mg/dl (0-10) 11/14/16 21:41 - Hospital Course Hospital Course: This is an 81 y/o female with PMHx significant for dementia ,A fib on Apixiban, HTN CAD, CKD stage III , PAD , CHF, DM2, asthma, who is brought in from [place] with worsening agitation and confusion. As per [place] patient was more aggressive towards staff so was sent over for psych eval and admission.In Er she received Ativan and became somnolent so was placed under observation in me/surg. Her UA showed bacteria with small LE , suspicious for UTI so she was started on rocephin IV. Psychiatry was consulted for management of her dementia with behavioral problems. Will discharge patient to [facility] for adjustment of her psych meds. AVOID Ativan for now. [employer] change to PO bactrim for 5 days for suspected UTI 1. Dementia with behavioral problems patient has history of dementia with behavioral problems psych management.Will admit to [facility] for further management continue namenda 2. Adjustment disorder recent change of NH placement 3. PAD of LE continue current management with statin, eliquist 4 Afib rate controlled. continue Coreg Eliquis 2.5mg PO BID 5. COPD (chronic obstructive pulmonary disease) asymptomatic. Duoneb q 4hrs prn for SOB/wheezing 6. DM2 (diabetes mellitus, type 2) controlled Levemir 10 units SC HS. continue Januvia and Glipizide 7 HTN (hypertension) BP uncontrolled. continue Norvasc , valsartan and Coreg 8. CKD (chronic kidney disease) stage 3, GFR 30-59 ml/min BUN/Crea: 42/1.7 careful IV hydration with NSS. renal consult with Dr Vu appreciated 9 DVT Prophylaxis pt on Eliquis 10. Hypothyroidism on synthroid 11. Anemia of chronic disease' Continue ferrous sulfate ' 12. History of left ankle ORIF Discharge Exam - Head Exam Head Exam: ATRAUMATIC, NORMOCEPHALIC - Eye Exam Eye Exam: EOMI, Normal appearance, PERRL Pupil Exam: NORMAL ACCOMODATION - ENT Exam ENT Exam: Mucous Membranes Moist, Normal Exam - Neck Exam Neck exam: Full Rom, Normal Inspection - Respiratory Exam Respiratory Exam: Clear to PA & Lateral, NORMAL BREATHING PATTERN. absent: Rhonchi, Wheezes, Respiratory Distress - Cardiovascular Exam Cardiovascular Exam: Irregular Rhythm, +S1. absent: JVD - GI/Abdominal Exam GI & Abdominal Exam: Normal Bowel Sounds, Soft. absent: Distended, Guarding, Rebound, Tenderness - Rectal Exam Rectal Exam: Deferred - Extremities Exam Additional comments: right medial malleolus, left medial and lateral malleolus 1 x 1 cm DTI - Neurological Exam Neurological exam: Alert, CN II-XII Intact Additional comments: demented and agitated - Psychiatric Exam Psychiatric exam: Agitated - Skin Skin Exam: Dry, Pallor, Warm Discharge Plan - Discharge Medications Prescriptions: Sulfamethoxazole/Trimethoprim [Bactrim DS 800 mg-160 mg] 1 tab PO Q12 #10 tab risperiDONE [RisperDAL Tab] 0.25 mg PO Q6 PRN #30 tab PRN Reason: Agitation - Follow Up Plan Condition: STABLE Disposition: DISCHARGE TO PSYCH HOSPITAL Patient education suggested?: No Instructions: Dementia (GEN) Additional Instructions: follow up with Dr. Cohen Follow up with hospitalist team as out patient
[2016-11-15 16:22] VITALS: RESP 18; TEMP 98.5; O2SAT 99
[2016-11-15 17:24] VITALS: BP 160/60; PULSE 60
[2016-11-15] MEDS ORDERED: Povidone Iodine Topical 10% Sol ONE (17:32)
--- NOTE | 2016-11-18 09:16 | AN ---
The patient has been seen today, chart reviewed, case discussed with treatment team members. HISTORY OF PRESENTING COMPLAINT: This is an 81-year-old patient with dementia and also depression and also medical history of hypertension, coronary artery disease, chronic kidney disease, congestive heart failure, diabetes, asthma and also having significant problems with behavior and becoming increasingly agitated, stating she has moved to a new senior care. The patient, therefore, was sent to the [facility] for evaluation of her confusion and agitation. The patient was found to be confused, because of a urinary tract infection and possibly other infections and has been admitted to the [address] [place] [address] Unit and stabilized with antibiotics and other medications and also stabilized for other medical conditions and was seen by the psychiatrist for a consult and has been transferred to [facility] geriatric psych unit of [facility] for further inpatient treatment and stabilization of the behavior disturbance and dementia, as well as there is underlying depression. The patient has been currently maintained on Zoloft 50 mg at bedtime, seroquel 12.5mg q. 6 hours p.r.n. Transferred from [address] [place] [address], presenting with aggressive behaviors to psychiatric unit for further treatnd admission. Also, other p.r.n. medications for stabilization of the aggressive behavior. There is no known history of any previous admissions to psychiatric facilities. The patient currently lives with family and has been recently placed in a senior care and was changed to a different senior care, which may be causing a significant increase in aggressive behaviors and agitation. PAST PSYCHIATRIC HISTORY: Significant for history of dementia and depression. PAST MEDICAL HISTORY: Significant medical problems including atrial fibrillation, hypertension, coronary artery disease, diabetes, status post urinary tract infection, also has chronic kidney disease as well as asthma and medically stabilized in the medical unit before transferred to the psychiatric unit. FAMILY HISTORY: There is no known history of any mental illness in the family. The patient's daughter is power of physiotherapy aide and she was the one who has signed the patient for admission. ALCOHOL AND SUBSTANCE ABUSE: not reported__. Interview at times screaming and does not want to believe that she is in the hospital. She has also been talking about talking to her daughter that is why she has been placed in the hospital. She is also upset about being in the hospital. Mood is very agitated. Affect is labile. She is not exhibiting any hallucinations. Denies suicidal ideation, plan or intent, but remains internally preoccupied with poor insight and poor judgment, suicidal ideation, disorganized thinking and needs to be redirected during the interview. Poor memory, poor concentration and poor cognition, poor insight and poor judgment. DIAGNOSTIC IMPRESSION: DSM-V diagnosis of dementia of Alzheimer's type with behavior disturbances. 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 PLAN OF TREATMENT: I have discussed with the patient the risk and benefits and rationale to continue the medical medications and also to start the patient on Seroquel 12.5 twice a day to address the underlying aggressive behaviors and agitation and also start the patient on Depakote 125 mg sprinkles twice a day for the mood outburst and will use Ativan as p.r.n. for severe agitation. We will continue to monitor the patient very aggressive behaviors and agitation and use the other medications to stabilize the aggressive behaviors and also have hospitalist to follow up with the patient regarding all the medical issues and closely monitor the patient for any medical problems. We will continue to engage the patient in the unit therapeutic regimen and will also engage the patient's family to get more collateral information and also regarding further disposition management. Sudeep Araya MD cc: [phone] TT: 11/17/2016 19:00:08 [place] 11/18/2016 08:14:56 [place]
== END 2016-11-15 18:47 ==
LOC: H.ER 19:04 → INTOOBSV 11-15 01:46 → H.ERHOLD 11-15 01:46 → H.MEDSURG1 11-15 04:01
PROVIDERS: ADMIT Internal Medicine; ATTEND Internal Medicine
DX: F03.91 Unspecified dementia, unspecified severity, with behavioral disturbance (principal); N39.0 Urinary tract infection, site not specified; I13.2 Hypertensive heart and chronic kidney disease with heart failure and with stage 5 chronic kidney disease, or end stage renal disease; I48.2 Chronic atrial fibrillation; I25.10 Atherosclerotic heart disease of native coronary artery without angina pectoris; D63.8 Anemia in other chronic diseases classified elsewhere; E03.9 Hypothyroidism, unspecified; E11.22 Type 2 diabetes mellitus with diabetic chronic kidney disease; F43.20 Adjustment disorder, unspecified; I73.9 Peripheral vascular disease, unspecified; J44.9 Chronic obstructive pulmonary disease, unspecified; E78.00 Pure hypercholesterolemia, unspecified; I50.9 Heart failure, unspecified; N18.3 Chronic kidney disease, stage 3 (moderate)
CPT/HCPCS: 36415; 71010; 80048; 80053; 81003; 82948; 85025; 85027; 87086; 87181; 93005; 96360; 96365; 96372; 96374; 99285; G0378; G0480; J0696; J2060; J7040

== ENCOUNTER 2016-11-15 15:44 | Inpatient (IN) | payer MEDICARE, MEDICAID ==
[2016-11-15] MEDS ORDERED: Magnesium Hydroxide Susp 30 ml UD PO PRN (21:36)
[2016-11-15] MEDS ORDERED: Alum-Mag Hydrox-Simethicone Susp (30 mL) PO PRN (21:36)
[2016-11-15] MEDS ORDERED: Bismuth Subsalicylate 262 mg/15 ml Sus (240 ml) PO PRN (21:36)
[2016-11-16] MEDS: Levothyroxine 50 MCG TAB PO SCH (08:53)
[2016-11-16] MEDS: Albuterol-Ipratrop 3 mg / 0.5 (3 ml) UD IH PRN (09:16)
[2016-11-16 10:12] LABS: CHOLESTEROL 158 mg/dL (0-199); IRON 50 ug/dL (37-170)
--- NOTE | 2016-11-16 11:00 | CP.PCM.CON ---
Addendum entered and electronically signed by Gabby Dunlap DPM 11/16/16 15:14 : Floor consult discussed with Dr. Hardy. Alvaro Moreau Original Note: History of Present Illness - History of Present Illness History of Present Illness: 81 year old female patient with PMHx of CAD, HTN, Asthma,/COPD, CHF, Chronic AFib and Demetia was seen at bedside psych this morning. Patient had Left ankle ORIF on 08/02/16 to fix Left bimalleolar fracture by Dr. Moreau. Patient presents with healing surgical site to lateral aspect of Left ankle. Patient was resting comfortably in bed at the time of visit. Patient denies of any pedal complains at this time. No pain is induced upon palpation to bilateral lower extremities. Patient denies of any N/V/F/C or SOB today Past Patient History - Infectious Disease Hx of Infectious Diseases: None - Tetanus Immunizations Tetanus Immunization: Unknown - Past Medical History & Family History Past Medical History?: Yes - Past Social History Smoking Status: Never Smoked - CARDIAC Hx Cardiac Disorders: Yes Hx Congestive Heart Failure: Yes Hx Hypertension: Yes Hx Pacemaker: Yes - PULMONARY Hx Respiratory Disorders: Yes Hx Chronic Obstructive Pulmonary Disease (COPD): Yes - NEUROLOGICAL Hx Neurological Disorder: Yes Hx Dementia: Yes - HEENT Hx HEENT Problems: No - RENAL Hx Chronic Kidney Disease: Yes Other/Comment: CKD - ENDOCRINE/METABOLIC Hx Endocrine Disorders: Yes Hx Diabetes Mellitus Type 1: Yes Hx Diabetes Mellitus Type 2: Yes Hx Hypothyroidism: Yes - HEMATOLOGICAL/ONCOLOGICAL Hx Blood Disorders: Yes Hx AIDS: No Hx Anemia: Yes Hx Human Immunodeficiency Virus (HIV): No - INTEGUMENTARY Hx Dermatological Problems: No - MUSCULOSKELETAL/RHEUMATOLOGICAL Hx Musculoskeletal Disorders: Yes Hx Arthritis: Yes Hx Falls: Yes Hx Fractures: Yes (left tibia) Hx Unsteady Gait: Yes - GASTROINTESTINAL Hx Gastrointestinal Disorders: No - GENITOURINARY/GYNECOLOGICAL Hx Genitourinary Disorders: No Hx Incontinence: Yes - PSYCHIATRIC Hx Substance Use: No - SURGICAL HISTORY Hx Surgeries: Yes Hx Tonsillectomy: Yes Other/Comment: pacemaker left chest - ANESTHESIA Hx Anesthesia: Yes Hx Anesthesia Reactions: No Hx Malignant Hyperthermia: No Meds Allergies/Adverse Reactions: Allergies Allergy/AdvReac Type Severity Reaction Status Date / Time acetaminophen [From Percocet] AdvReac VOMITING Verified 11/14/16 19:21 oxycodone HCl [From Percocet] AdvReac VOMITING Verified 11/14/16 19:21 - Medications Medications: Current Medications Al Hydrox/Mg Hydrox/Simethicone (Maalox Plus 30 Ml) 30 ml PO Q4 PRN PRN Reason: Dyspepsia Albuterol/Ipratropium (Duoneb 3 Mg/0.5 Mg (3 Ml) Ud) 3 ml IH Q6H PRN PRN Reason: Shortness of Breath Last Admin: 11/16/16 09:16 Dose: 3 ml Apixaban (Eliquis) 2.5 mg PO BID [facility] PRN Reason: Protocol Last Admin: 11/16/16 08:51 Dose: 2.5 mg Aspirin (Ecotrin) 81 mg PO DAILY [facility] Last Admin: 11/16/16 08:47 Dose: 81 mg Atorvastatin Calcium (Lipitor) 40 mg PO HS [facility] Bismuth Subsalicylate (Pepto-Bismol) 524 mg PO Q4 PRN PRN Reason: Diarrhea Carvedilol (Coreg) 25 mg PO Q12H [facility] Last Admin: 11/16/16 09:40 Dose: 25 mg Docusate Sodium (Colace) 100 mg PO BID [facility] Last Admin: 11/16/16 08:48 Dose: 100 mg Ferrous Sulfate (Feosol) 325 mg PO BID [facility] Last Admin: 11/16/16 08:51 Dose: 325 mg Gabapentin (Neurontin) 300 mg PO TID [facility] Last Admin: 11/16/16 08:47 Dose: 300 mg Insulin Human Regular (Humulin R) 0 units SC [facility] PRN Reason: Protocol Levothyroxine Sodium (Synthroid) 50 mcg PO DAILY@0630 [facility] Last Admin: 11/16/16 08:53 Dose: 50 mcg Lorazepam (Ativan) 0.5 mg PO HS PRN PRN Reason: Insomnia Stop: 11/29/16 21:37 Lorazepam (Ativan) 0.5 mg PO Q6 PRN PRN Reason: Anixety/Agitation Stop: 11/29/16 21:37 Last Admin: 11/16/16 08:47 Dose: 0.5 mg Magnesium Hydroxide (Milk Of Magnesia) 30 ml PO HS PRN PRN Reason: Constipation Memantine (Namenda) 10 mg PO BID [facility] Last Admin: 11/16/16 08:52 Dose: 10 mg Montelukast Sodium (Singulair) 10 mg PO HS [facility] Sertraline HCl (Zoloft) 50 mg PO HS [facility] Valsartan (Diovan) 320 mg PO DAILY [facility] Last Admin: 11/16/16 08:50 Dose: 320 mg Physical Exam - Constitutional Appears: Well, Non-toxic, No Acute Distress - Extremities Exam Additional comments: Bilateral lower extremities exam DERM: No open wound is noted. No erythema is noted. No drainage. No sign of acute infection is noted. A dried scab noted to lateral aspect of Left ankle measuring 1.5cm x 1cm. No drainage, No sign of infection is noted. Another dried scab noted to dorsal PIPJ of Left 2nd digit measuring 1cm x 0.6cm. Mild erythema is noted around the scab. No drainage, no sign of infection sis noted. VASC: No welling is noted to bilateral lower extremities. Non-palpable DP and PT noted bilaterally. DIVERSITY INTERN less than 3 seconds to all digits B/L NEURO: Gross sensation is intact ORTHO: No pain induced on palpation to bilateral lower extremities. No pain on palpation to Left ankle (3 month s/p Left ankle ORIF). Decreased dorsiflexion noted to Left ankle less than 10 degrees noted. No pain on passive ROM of left ankle noted. - Psychiatric Exam Psychiatric exam: Depressed, Normal Affect - Skin Skin Exam: Normal Color, Warm Results - Vital Signs Recent Vital Signs: Last Vital Signs Temp Pulse 58 L 11/16/16 09:40 Resp BP 177/70 H 11/16/16 09:40 Pulse Ox - Labs Labs: Laboratory Results - last 24 hr 11/16/16 09:41 Iron 50 TIBC 258 % Saturation 19 L Ferritin 87.6 Triglycerides 173 H D Cholesterol 158 LDL Cholesterol Direct 62 HDL Cholesterol 42 Free T4 0.59 L Thyroxine (T4) 14.0 H TSH 3rd Generation 7.50 H Assessment & Plan - Assessment and Plan (Free Text) Assessment: 81 year old female patient presenting 3 month s/p Left ankle ORIF with healing surgical sites Plan: Patient was seen, evaluated and treated with all questions and concerns addressed labs and vitals reviewed discussed in detail with Dr. Moreau Dressed with DSD Multipodus boots ordered for the patient to prevent decubitus ulcer formation to heels Patient is stable from podiatry standpoint No dressing is necessary to bilateral lower extremities at this time Patient was advised to follow up with podiatry clinic as an out patient if any problems occur
[2016-11-16] MEDS: Insulin Regular 100 units/ml SC SCH ×3 (12:19→21:05)
--- NOTE | 2016-11-16 12:35 | PCM.PYCHPN ---
Psychiatric Progress Note - Psychiatric Progress Note Patient seen today, length of contact: pt seen and evaluated Patient Chief Complaint: pt has remained agitated and anxiious with significant cognitive impairment. Problems Identified/Issues Discussed: pt was admitted from [address] [place] [address] because of severe dementia and behavioral agitation and severe depression DSM 5 Symptoms Update: dementia with behavioral disturbances Medication Change: Yes (seroquel 12.5 mg bid) Mental Status Examination - Cognitive Function Orientation: Person Memory: Impaired Attention: Poor Concentration: Poor Association: WNL Fund of Knowledge: Poor - Mood Mood: Anxious - Affect Affect: Broad - Speech Speech: Soft - Formal Thought Process Formal Thought Process: Paranoia - Suicidal Ideation Suicidal Ideation: No - Homicidal Ideation Homicidal Ideation: No Goal/Treatment Plan - Goal/Treatment Plan Progress Toward Problem(s) and Goals/Treatment Plan: gui continue to titrate meds to stabilize the pt and engage pt in therapy and groups.; will continue to titrate seroquel to stabilize the mood and behavior with seroquel and zoloft momitor for agittation. hospitalist to follow up for hTN,AFIB,cAD,CKD
[2016-11-16 18:12] LABS: FOLATE 18.1 ng/mL
[2016-11-17] MEDS: Levothyroxine 50 MCG TAB PO SCH (09:40)
[2016-11-17] MEDS: Insulin Regular 100 units/ml SC SCH ×3 (13:33→17:24)
--- NOTE | 2016-11-17 14:19 | PCM.PYCHPN ---
Psychiatric Progress Note - Psychiatric Progress Note Patient seen today, length of contact: pt seen and evaluated Patient Chief Complaint: pt has remained agitated and anxiious with significant cognitive impairment. Problems Identified/Issues Discussed: pt was admitted from [address] [place] [address] because of severe dementia and behavioral agitation and severe depression DSM 5 Symptoms Update: dementia with behavior disturbances major depression Medication Change: Yes (will add depakote 125 mg am and hs to the regimen) Mental Status Examination - Cognitive Function Orientation: Person Memory: Impaired Attention: Poor Concentration: Poor Association: WNL Fund of Knowledge: Poor - Mood Mood: Anxious - Affect Affect: Broad - Speech Speech: Soft - Formal Thought Process Formal Thought Process: Paranoia - Suicidal Ideation Suicidal Ideation: No - Homicidal Ideation Homicidal Ideation: No Goal/Treatment Plan - Goal/Treatment Plan Progress Toward Problem(s) and Goals/Treatment Plan: gui continue to titrate meds to stabilize the pt and engage pt in therapy and groups.; will continue to titrate seroquel to stabilize the mood and behavior with seroquel momitor for agittation. hospitalist to follow up for hTN,AFIB,cAD,CKD will add depakote 125v mg bid for severe agitation and mood outbursts
[2016-11-17] MEDS: Divalproex 125 mg Sprinkle Capsule PO SCH (15:39)
[2016-11-17] MEDS ORDERED: Divalproex 125 mg Sprinkle Capsule PO SCH (22:00)
[2016-11-18] MEDS: Divalproex 125 mg Sprinkle Capsule PO SCH (09:54)
[2016-11-18] MEDS: Levothyroxine 50 MCG TAB PO SCH (09:54)
[2016-11-18] MEDS: Insulin Regular 100 units/ml SC SCH ×5 (09:57→21:18)
--- NOTE | 2016-11-18 15:21 | CON ---
DATE: 11/18/2016 ROOM: 305 HISTORY OF PRESENT ILLNESS: This is an 81-year-old female with known history of type 2 diabetes and hypertension, who was admitted here for closer psychiatric evaluation and management because of recen t agitation and generalized anxiety and worsening dementia and is now being referred for diabetic jemal luation and management. PAST MEDICAL HISTORY: As mentioned above, history of type 2 diabetes, previously on glipizide given as 10 mg once daily at home; history of hypertensive cardiovascular disease and dyslipidemia, history of coronary artery disease with previous admissions for congestive heart failure. She also has hist ory of chronic atrial fibrillation as noted. There is significant history of generalized anxiety and depression with senile dementia of the Alzheimer's type and apparently worsening in the last few mon ths prior to admission. She underwent an open reduction and internal fixation of the left ankle in 09/2015 because of a bimalleolar fracture as noted. FAMILY HISTORY: Positive for diabetes and hypertension. SOCIAL HISTORY: The patient has supportive family. No known substance use. REVIEW OF SYSTEMS: Not possible at this time, but as per review of the chart notes, the patient was noted by the family and the nursing staff on the medical floor to be increasing bouts of agitation, r estlessness and worsening dementia with behavioral changes. Also admits to recent easy fatigability and tiredness and suboptimal energy level with episodic dizziness and lightheadedness. No chest pain s or palpitations or PNDs. Her oral intake has been variable and suboptimal with dyspepsia, nausea a nd vague upper abdominal pain and habitual constipation. PHYSICAL EXAMINATION: GENERAL: This is an average built female in no apparent distress. VITAL SIGNS: Blood pressure of 140/80, pulse of 70 beats per minute and regular, temperature 98, res pirations 20. Height is 5 feet 4 inches, weight is 185 pounds. HEENT: Head normocephalic. Eyes anicteric with pink conjunctivae. Fundoscopy not possible at this time. Ears, nose and throat otherwise normal. NECK: Supple. Thyroid gland is normal size. No carotid bruits or cervical adenopathy. CARDIOPULMONARY: An adynamic precordium. S1, S2 is rapid and regular. LUNGS: Show scattered rhonchi. ABDOMEN: Flat, soft with positive bowel sounds. EXTREMITIES: No peripheral edema. Pulses are +2 bilaterally. LABORATORY DATA: Chemistries: Hemoglobin A1c is 7.5%. TSH is 7.50. T4 is 14.0. Free T4 of 0.59. Her chemistries are pending at this time, but there is no current one for this admission. Her gluco se levels have ranged from 227-249 and 293 mg/dL. ASSESSMENT: This is an 81-year-old female with uncontrolled and decompensated type 2 diabetes with r ecent hyperglycemic accelerations related to a subtherapeutic regimen as given. There is also signif icant history of cardiac vasculopathy with coronary artery disease and peripheral arterial disease an d vasculopathy. 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 PLAN OF MANAGEMENT: As discussed with the patient and the staff, we will start her right away on gli pizide given at a dose of 10 mg b.i.d. before meals as ordered. We will titrate incrementally as ind icated to optimize metabolic control. We will also consider the addition of Januvia if hyperglycemic levels persist. We will obtain serial chemistries and supplement accordingly as needed. We will al so repeat the thyroid studies and adjust her levothyroxine dose accordingly. We will follow. Rachel Andersen MD cc: [id number] TT: 11/18/2016 15:20:17 Confirmation # [id number] Dictation # [id number]
[2016-11-18 15:46] LABS: BASO % 0.4 % (0.0-2.0); EOS # 0.3 K/uL (0.0-0.7); EOS % 5.3 % (0.0-4.0); HEMATOCRIT 29.6 % (34.0-47.0); LYMPH # 1.4 K/uL (1.0-4.3); LYMPH % 23.7 % (20.0-40.0); MEAN CELL VOLUME 87.7 fl (81.0-99.0); MEAN CORPUSCULAR HEMOGLOBIN 29.7 pg (27.0-31.0); MEAN CORPUSCULAR HGB CONC 33.8 g/dL (33.0-37.0); MEAN PLATELET VOLUME 8.9 fl (7.2-11.7); MONO # 0.4 K/uL (0.0-0.8); MONO % 7.1 % (0.0-10.0); NEUT # 3.7 K/uL (1.8-7.0); NEUT % 63.5 % (50.0-75.0); NRBC % 0.1 % (0.0-0.0); RED CELL DISTRIBUTION WIDTH 16.2 % (11.5-14.5); WHITE BLOOD COUNT 5.9 K/uL (4.8-10.8)
[2016-11-18 15:55] LABS: BILIRUBIN,TOTAL 0.4 mg/dl (0.2-1.3); CALCIUM 8.6 mg/dL (8.4-10.2); POTASSIUM 4.7 MMOL/L (3.6-5.0); TOTAL PROTEIN 6.4 G/DL (6.3-8.2)
--- NOTE | 2016-11-18 17:10 | PCM.PYCHPN ---
Psychiatric Progress Note - Psychiatric Progress Note Patient seen today, length of contact: chart reviewed and case discussed with team Patient Chief Complaint: pt currently on 3ns for management of mood, dementia and behavior Problems Identified/Issues Discussed: pt with alteration in cognition, intermittent explosive behavior, lability in mood, and behavioral changes Medical Problems: pt with history of diabetes and abnormal thyroid function test-dr hernandez was called for consult. pt with history of fall in 08/03 and fx of ankle, receiving care from wound care nurse, pt was started on valproic acid this weekend, was reported by staff and pt's family that pt is sensitive to valproic acid and becomes overly sedated. Family met with social sciences department chair as well as primary rn and expressed desire to have pt taken off of valproic acid. pt was also started on quetiapine this past weekend. pt has hx of decreased hgb/hct with changes in rdw. pt requires total care per staff, is reportedly requesting to use restroom frequently. Vital signs have been stable for pt, heart rate is been bradycardic with the maintenance of b/p. abnormal thyroid studies were also noted. Dr. hernandez was called to evaluate pt for both diabetes and thyroid disease. pt later part of afternoon was noted to become alert and began yelling, demanding and required frequent redirection. pt with hx of elevated D Dimer. Diagnostic Results: per psychiatry per medicine per nursing per social sciences department chair per recreational therapist Medication Change: Yes (stop depakote, starte quetiapine 12.5 po bid and hs) Medical Record Reviewed: Yes Consults ordered or reviewed: dr. hernandez Mental Status Examination - Cognitive Function Orientation: Person Memory: Impaired Attention: Poor Concentration: Poor Association: WNL Fund of Knowledge: Poor Decription of patient's judgement and insights: poor - Mood Mood: Anxious - Affect Affect: Broad - Speech Speech: Soft - Formal Thought Process Formal Thought Process: Paranoia, Loosening of associations - Suicidal Ideation Suicidal Ideation: No - Homicidal Ideation Homicidal Ideation: No Goal/Treatment Plan - Goal/Treatment Plan Need for Continued Stay: Remain at risks for inpatient hospitalization, Discharge may exacerbated symptoms, Failed transitioning, Severe functional impairment Progress Toward Problem(s) and Goals/Treatment Plan: inpt milieu vital signs and clinical assessment per protocol and per status falls precautions skin precautions-pt being followed by supervisor frame sample and pattern will stop valproic acid 2nd reported somnolence with valproic acid will start quetiapine 12.5 po bid and hs for mood, anxiety will decrease sertraline from 50mg to 25mg po daily possible excitation hospitalist to re evaluate pt related to elevated D dimer pt and ot assessment weight bearing, transfer , ability to feed self discharge planning in progress access to prn [place] Speaking provider Estimated Date of D/C: 11/25/16 - Smoking Cessation Smoking Cessation Initiated: No Reason for not providing: deferred
[2016-11-18] MEDS ORDERED: Lidocaine 5% Patch TD ONE (23:00)
[2016-11-19 08:20] LABS: IRON 75 ug/dL (37-170)
[2016-11-19 08:25] LABS: ALB/GLOB RATIO 0.9 (1.0-2.1); BILIRUBIN,TOTAL 0.4 mg/dl (0.2-1.3); CALCIUM 8.7 mg/dL (8.4-10.2); POTASSIUM 4.6 MMOL/L (3.6-5.0); TOTAL PROTEIN 6.5 G/DL (6.3-8.2)
[2016-11-19 08:39] LABS: T4 11.5 ug/dl (5.5-11.0)
[2016-11-19 08:52] LABS: THYROID STIMULATING HORMONE 4.76 mIU/ML (0.46-4.68)
--- NOTE | 2016-11-19 09:50 | CP.PCM.PN ---
Subjective - Date & Time of Evaluation Date of Evaluation: 11/19/16 Time of Evaluation: 09:46 - Subjective Subjective: 81 year old female was seen resting at bedside regarding healed wound to left 2nd digit. No pain elicited on palpation of the left 2nd digit. Denies any n/v /f/c/sob/cp. Objective - Vital Signs/Intake and Output Vital Signs (last 24 hours): Temp Pulse Resp BP Pulse Ox 97.2 F L 67 20 144/75 11/19/16 06:00 11/19/16 06:00 11/19/16 06:00 11/19/16 06:00 - Medications Medications: Current Medications Al Hydrox/Mg Hydrox/Simethicone (Maalox Plus 30 Ml) 30 ml PO Q4 PRN PRN Reason: Dyspepsia Albuterol/Ipratropium (Duoneb 3 Mg/0.5 Mg (3 Ml) Ud) 3 ml IH Q6H PRN PRN Reason: Shortness of Breath Last Admin: 11/16/16 09:16 Dose: 3 ml Apixaban (Eliquis) 2.5 mg PO BID [facility] PRN Reason: Protocol Last Admin: 11/18/16 16:15 Dose: 2.5 mg Aspirin (Ecotrin) 81 mg PO DAILY [facility] Last Admin: 11/18/16 09:55 Dose: 81 mg Atorvastatin Calcium (Lipitor) 40 mg PO HS [facility] Last Admin: 11/18/16 21:18 Dose: 40 mg Bismuth Subsalicylate (Pepto-Bismol) 524 mg PO Q4 PRN PRN Reason: Diarrhea Carvedilol (Coreg) 25 mg PO Q12H [facility] Last Admin: 11/18/16 21:57 Dose: 25 mg Docusate Sodium (Colace) 100 mg PO BID [facility] Last Admin: 11/18/16 16:16 Dose: 100 mg Ferrous Sulfate (Feosol) 325 mg PO BID [facility] Last Admin: 11/18/16 16:13 Dose: 325 mg Gabapentin (Neurontin) 300 mg PO TID [facility] Last Admin: 11/18/16 16:18 Dose: 300 mg Glipizide (Glucotrol) 10 mg PO BIDAC [facility] Last Admin: 11/18/16 16:13 Dose: 10 mg Ibuprofen (Motrin Tab) 400 mg PO Q6 PRN PRN Reason: Pain, moderate (4-7) Insulin Human Regular (Humulin R) 0 units SC ACHS [facility] PRN Reason: Protocol Last Admin: 11/18/16 21:18 Dose: Not Given Levothyroxine Sodium (Synthroid) 50 mcg PO DAILY@0630 [facility] Last Admin: 11/18/16 09:54 Dose: 50 mcg Lidocaine (Lidoderm) 1 ea TD DAILY [facility] Lorazepam (Ativan) 0.5 mg PO HS PRN PRN Reason: Insomnia Stop: 11/29/16 21:37 Lorazepam (Ativan) 0.5 mg PO Q6 PRN PRN Reason: Anixety/Agitation Stop: 11/29/16 21:37 Last Admin: 11/18/16 21:56 Dose: 0.5 mg Lorazepam (Ativan) 0.5 mg IM Q4H PRN PRN Reason: agitated combative behavior Magnesium Hydroxide (Milk Of Magnesia) 30 ml PO HS PRN PRN Reason: Constipation Memantine (Namenda) 10 mg PO BID [facility] Last Admin: 11/18/16 16:17 Dose: 10 mg Montelukast Sodium (Singulair) 10 mg PO HS [facility] Last Admin: 11/18/16 21:17 Dose: 10 mg Quetiapine Fumarate (Seroquel) 12.5 mg PO BID [facility] Last Admin: 11/18/16 17:31 Dose: 12.5 mg Quetiapine Fumarate (Seroquel) 12.5 mg PO HS [facility] Last Admin: 11/18/16 21:16 Dose: 12.5 mg Sertraline HCl (Zoloft) 25 mg PO DAILY [facility] Last Admin: 11/18/16 17:33 Dose: 25 mg Valsartan (Diovan) 320 mg PO DAILY [facility] Last Admin: 11/18/16 09:57 Dose: 320 mg - Labs Labs: 11/18/16 15:15 11/19/16 07:52 - Constitutional Appears: Well, Non-toxic, No Acute Distress - Extremities Exam Additional comments: Left lower extremity focused exam: VASC: Non-palpable DP and PT pulses. REROLLER HAND less than 3 seconds to all digits. Skin temperature is warm to cool from proximal to distal. DERM: Dried sanginous material noted to the dorsal aspect of the left 2nd digit and lateral aspect of the left ankle. No open lesions, no drainage, no erythema , no acute signs of infection noted. NEURO: Gross sensation is intact ORTHO: No pain induced on palpation to lower extremities. No pain on palpation to Left ankle (3 month s/p Left ankle ORIF). - Neurological Exam Neurological Exam: Alert, Awake, Oriented x3 - Psychiatric Exam Psychiatric exam: Normal Affect, Normal Mood Assessment and Plan - Assessment and Plan (Free Text) Assessment: 81 year old female patient presenting 3 month s/p Left ankle ORIF with healing surgical sites Plan: Patient was seen, evaluated and treated with all questions and concerns addressed Chart and vitals discussed in detail with Dr. Moreau Dressed with DSD Multipodus boots ordered for the patient to prevent decubitus ulcer formation to heels Patient is stable from podiatry standpoint No dressing is necessary to bilateral lower extremities at this time Patient was advised to follow up with podiatry clinic as an out patient if any problems occur
[2016-11-19] MEDS: Lidocaine 5% Patch TD SCH (10:19)
[2016-11-19] MEDS: Insulin Regular 100 units/ml SC SCH ×4 (10:21→21:26)
[2016-11-19] MEDS: Levothyroxine 50 MCG TAB PO SCH (10:22)
--- NOTE | 2016-11-19 11:02 | RAD ---
PROCEDURE: Radiographs of the Left Shoulder HISTORY: Pain COMPARISON: 07/28/2016 FINDINGS: BONES: There is no acute displaced fracture or bone destruction. Bone alignment is normal. JOINTS: There is mild degenerative osteoarthrosis in the acromioclavicular and glenohumeral joints. SOFT TISSUES: There is linear calcification overlying the greater tuberosity. OTHER FINDINGS: None. IMPRESSION: Mild degenerative osteoarthrosis in the acromioclavicular and glenohumeral joints. Linear calcification overlying greater tuberosity could represent calcific tendinitis.
--- NOTE | 2016-11-19 14:20 | PN ---
DATE: 11/19/2016 ROOM: 305 SUBJECTIVE: This is an 81-year-old female with recent acute exacerbation of COPD and is now transfer red to the psychiatric unit because of progressive dementia and associated behavioral disturbances an d is now being followed closely for metabolic management. She remains clinically euthyroid, but the repeat thyroid study showed a T4 of 11.5 mcg/dL with a TSH of 4.76 indicative of subclinical hypothyr oidism as noted thereof. Her latest chemistry showed a BUN of 30, sodium 142, potassium 4.6, chlorid e 104, CO2 29, glucose 120, creatinine 1.4. So, at this time, we will continue the low-dose levothyr oxine replacement therapy with 50 mcg once daily as given. We will titrate incrementally as indicate d to optimize metabolic control. The thyroid antibodies have been sent out, which will confirm and/o r negate the presence of underlying thyroid autoimmunity. Her glycemic levels have ranged from 125 t o 130 mg/dL. So at this time, we will also continue the low dose monotherapy for type 2 diabetes usi ng glipizide 10 mg b.i.d. before meals as ordered. We will titrate incrementally as indicated to opt imize metabolic control. We will consider the addition of a DPP4 inhibitor to optimize her metabolic control if hyperglycemic levels supervene. For now, we will continue the glucose monitoring a.c. an d at bedtime with the low-dose correction scale using regular insulin as ordered. We will also obtai n serial chemistries and supplement accordingly as needed. We will follow and advise accordingly. Rachel Andersen MD cc: [id number] TT: 11/19/2016 14:19:18 Confirmation # [id number] Dictation # [id number] tn
--- NOTE | 2016-11-19 16:56 | PCM.PYCHPN ---
Psychiatric Progress Note - Psychiatric Progress Note Patient seen today, length of contact: chart reviewed and case discussed with team Patient Chief Complaint: pt currently on 3ns for management of mood, dementia and behavior-staff report that pt may be somewhat less agitated with current medication regimen. pt is receiving total care and requires assistance with meals, adls. vital signs are stable per staff. pt was re evaluated by podiatry today. Problems Identified/Issues Discussed: pt with alteration in cognition, intermittent explosive behavior, lability in mood, and behavioral changes , requires total care Medical Problems: pt seen and re evaluated by podiatry Diagnostic Results: per psychiatry per medicine per nursing per nursing home social worker per recreational therapist DSM 5 Symptoms Update: alteration in mood, alteration in self care , alteration in cognition. Medication Change: No Medical Record Reviewed: Yes Consults ordered or reviewed: podiatry Mental Status Examination - Cognitive Function Orientation: Person Memory: Impaired Attention: Poor Concentration: Poor Association: WNL Fund of Knowledge: Poor Decription of patient's judgement and insights: poor - Mood Mood: Anxious - Affect Affect: Broad - Speech Speech: Soft - Formal Thought Process Formal Thought Process: Paranoia, Loosening of associations - Suicidal Ideation Suicidal Ideation: No - Homicidal Ideation Homicidal Ideation: No Goal/Treatment Plan - Goal/Treatment Plan Need for Continued Stay: Remain at risks for inpatient hospitalization, Discharge may exacerbated symptoms, Failed transitioning, Severe functional impairment Progress Toward Problem(s) and Goals/Treatment Plan: inpt milieu vital signs and clinical assessment per protocol and per status falls precautions skin precautions-pt being followed by pattern generator operator pt and ot assessment weight bearing, transfer , ability to feed self discharge planning in progress access to prn [place] Speaking provider Estimated Date of D/C: 11/25/16 - Smoking Cessation Smoking Cessation Initiated: No Reason for not providing: deferred
[2016-11-20] MEDS: Levothyroxine 50 MCG TAB PO SCH (09:25)
[2016-11-20] MEDS: Lidocaine 5% Patch TD SCH (09:27)
[2016-11-20] MEDS: Insulin Regular 100 units/ml SC SCH ×4 (09:28→22:27)
--- NOTE | 2016-11-20 12:11 | CP.PCM.CON ---
History of Present Illness - History of Present Illness History of Present Illness: Hospitalist Consult Note (Patient was seen and examined at 11:45 AM 11/20/16 Psychiatry 305-1) This is an 81 y/o female with PMHx significant for dementia ,A fib on Apixiban, HTN CAD, CKD stage III , PAD , CHF, DM2, asthma, who was brought in from [place] with worsening agitation and confusion. As per NH patient was more aggressive towards staff so was sent over for psych eval and admission.In Er she received Ativan and became somnolent so was placed under observation in me/surg. Her UA showed bacteria with small LE , suspicious for UTI so she was started on rocephin IV and then given 5 days of Bactrim. Psychiatry was consulted for management of her dementia with behavioral problems. She was discharged to in- patient Psychiatry unit on 11/15/16. ROS is not possible as patient is awake but does not answer questions at the time of my exam. The following was obtained from review of prior records: PMHx: Afib, HTN, CAD, CKD, DM 2, HF, Asthma, Dementia PSHx: Back Surgery, Left Ankle ORIF ALL: Acetaminophen, Oxycodone Medications: Please see list below Social Hx: Lives in [place], NO alcohol, NO tobacco Family Hx:CAD, DM2 EXAM: Please see below Assessment and Plan: 1. Dementia with behavioral problems Patient has history of dementia with behavioral problems Treatment as per Psychiatry 2. Adjustment disorder Treatment as per Psychiatry 3. PAD of LE ASA 81 mg PO 1x/day Eliquis 2.5 mg PO 2x/day Atorvastatin 40 mg PO QHS 4. Afib Rate controlled. Coreg 25 mg PO Q12H Eliquis 2.5mg PO BID 5. COPD (chronic obstructive pulmonary disease) Duoneb q 4hrs prn for SOB/wheezing Singulair 10 mg PO QHS 6. DM2 (diabetes mellitus, type 2) Controlled Glucotrol 10 mg PO 2x/day RISS 7. HTN (hypertension) BP uncontrolled Coreg 25 mg PO Q12H Diovan 320 mg PO 1x/day 8. CKD (chronic kidney disease) stage 3, GFR 30-59 ml/min BUN/Cr: 30/1.4 eGFR=36 9. Elevated D-Dimer This could be secondary to the CKD Patient is already on Eliquis as above 10. Hypothyroidism Synthroid 50 mcg PO 1x/day 11. Anemia of chronic disease' HgB/Hct is stable 12. History of left ankle ORIF Review of Systems - Review of Systems Review of Systems: PLEASE SEE HPI Past Patient History - Infectious Disease Hx of Infectious Diseases: None - Tetanus Immunizations Tetanus Immunization: Unknown - Past Medical History & Family History Past Medical History?: Yes Pertinent Family History: PLEASE SEE HPI ABOVE - Past Social History Smoking Status: Never Smoked - CARDIAC Hx Cardiac Disorders: Yes Hx Congestive Heart Failure: Yes Hx Hypertension: Yes Hx Pacemaker: Yes - PULMONARY Hx Respiratory Disorders: Yes Hx Chronic Obstructive Pulmonary Disease (COPD): Yes - NEUROLOGICAL Hx Neurological Disorder: Yes Hx Dementia: Yes - HEENT Hx HEENT Problems: No - RENAL Hx Chronic Kidney Disease: Yes Other/Comment: CKD - ENDOCRINE/METABOLIC Hx Endocrine Disorders: Yes Hx Diabetes Mellitus Type 1: Yes Hx Diabetes Mellitus Type 2: Yes Hx Hypothyroidism: Yes - HEMATOLOGICAL/ONCOLOGICAL Hx Blood Disorders: Yes Hx AIDS: No Hx Anemia: Yes Hx Human Immunodeficiency Virus (HIV): No - INTEGUMENTARY Hx Dermatological Problems: No - MUSCULOSKELETAL/RHEUMATOLOGICAL Hx Musculoskeletal Disorders: Yes Hx Arthritis: Yes Hx Falls: Yes Hx Fractures: Yes (left tibia) Hx Unsteady Gait: Yes - GASTROINTESTINAL Hx Gastrointestinal Disorders: No - GENITOURINARY/GYNECOLOGICAL Hx Genitourinary Disorders: No Hx Incontinence: Yes - PSYCHIATRIC Hx Substance Use: No - SURGICAL HISTORY Hx Surgeries: Yes Hx Tonsillectomy: Yes Other/Comment: pacemaker left chest - ANESTHESIA Hx Anesthesia: Yes Hx Anesthesia Reactions: No Hx Malignant Hyperthermia: No Meds Allergies/Adverse Reactions: Allergies Allergy/AdvReac Type Severity Reaction Status Date / Time acetaminophen [From Percocet] AdvReac VOMITING Verified 11/14/16 19:21 oxycodone HCl [From Percocet] AdvReac VOMITING Verified 11/14/16 19:21 - Medications Medications: Current Medications Al Hydrox/Mg Hydrox/Simethicone (Maalox Plus 30 Ml) 30 ml PO Q4 PRN PRN Reason: Dyspepsia Albuterol/Ipratropium (Duoneb 3 Mg/0.5 Mg (3 Ml) Ud) 3 ml IH Q6H PRN PRN Reason: Shortness of Breath Last Admin: 11/16/16 09:16 Dose: 3 ml Apixaban (Eliquis) 2.5 mg PO BID [facility] PRN Reason: Protocol Last Admin: 11/20/16 09:25 Dose: 2.5 mg Aspirin (Ecotrin) 81 mg PO DAILY [facility] Last Admin: 11/20/16 09:25 Dose: 81 mg Atorvastatin Calcium (Lipitor) 40 mg PO HS [facility] Last Admin: 11/19/16 21:24 Dose: 40 mg Bismuth Subsalicylate (Pepto-Bismol) 524 mg PO Q4 PRN PRN Reason: Diarrhea Carvedilol (Coreg) 25 mg PO Q12H [facility] Last Admin: 11/20/16 09:28 Dose: 25 mg Docusate Sodium (Colace) 100 mg PO BID [facility] Last Admin: 11/20/16 09:24 Dose: 100 mg Ferrous Sulfate (Feosol) 325 mg PO BID [facility] Last Admin: 11/20/16 09:24 Dose: 325 mg Gabapentin (Neurontin) 300 mg PO TID [facility] Last Admin: 11/20/16 09:26 Dose: 300 mg Glipizide (Glucotrol) 10 mg PO BIDAC [facility] Last Admin: 11/20/16 09:25 Dose: 10 mg Ibuprofen (Motrin Tab) 400 mg PO Q6 PRN PRN Reason: Pain, moderate (4-7) Insulin Human Regular (Humulin R) 0 units SC ACHS [facility] PRN Reason: Protocol Last Admin: 11/20/16 09:28 Dose: Not Given Levothyroxine Sodium (Synthroid) 50 mcg PO DAILY@0630 [facility] Last Admin: 11/20/16 09:25 Dose: 50 mcg Lidocaine (Lidoderm) 1 ea TD DAILY [facility] Last Admin: 11/20/16 09:27 Dose: 1 ea Lorazepam (Ativan) 0.5 mg PO HS PRN PRN Reason: Insomnia Stop: 11/29/16 21:37 Lorazepam (Ativan) 0.5 mg PO Q6 PRN PRN Reason: Anixety/Agitation Stop: 11/29/16 21:37 Last Admin: 11/18/16 21:56 Dose: 0.5 mg Lorazepam (Ativan) 0.5 mg IM Q4H PRN PRN Reason: agitated combative behavior Last Admin: 11/19/16 18:15 Dose: 0.5 mg Magnesium Hydroxide (Milk Of Magnesia) 30 ml PO HS PRN PRN Reason: Constipation Memantine (Namenda) 10 mg PO BID [facility] Last Admin: 11/20/16 09:26 Dose: 10 mg Montelukast Sodium (Singulair) [address] [facility] Last Admin: 11/18/16 21:17 Dose: 10 mg Quetiapine Fumarate (Seroquel) 12.5 mg PO BID [facility] Last Admin: 11/20/16 09:26 Dose: 12.5 mg Quetiapine Fumarate (Seroquel) 12.5 mg PO [facility] Last Admin: 11/19/16 21:24 Dose: 12.5 mg Sertraline HCl (Zoloft) 50 mg PO DAILY [facility] Last Admin: 11/20/16 09:25 Dose: 50 mg Valsartan (Diovan) 320 mg PO DAILY [facility] Last Admin: 11/20/16 09:30 Dose: 320 mg Physical Exam - Constitutional Appears: Non-toxic, No Acute Distress - Head Exam Head Exam: ATRAUMATIC, NORMAL INSPECTION, NORMOCEPHALIC - Eye Exam Additional comments: PATIENT WOULD NOT FOLLOW LIGHT TO TEST FOR EOM RIGHT PUPIL IS ROUND, DILATED AND FIXED,NONREACTIVE TO LIGHT LEFT PUPIL IS REACTIVE TO LIGHT AND IS ROUND - ENT Exam ENT Exam: Mucous Membranes Moist, Normal Exam, Normal External Ear Exam Additional comments: PATIENT WOULD NOT OPEN MOUTH TO EXAMINE THE OROPHARYNX - Neck Exam Neck exam: Positive for: Normal Inspection Additional comments: NO LYMPHADENOPATHY NO THYROMEGALY - Respiratory Exam Respiratory Exam: Clear to Auscultation Bilateral, NORMAL BREATHING PATTERN Additional comments: LIMITED BY LACK OF PATIENT PARTICIPATION - Cardiovascular Exam Cardiovascular Exam: REGULAR RHYTHM, +S1, +S2 Additional comments: NO M/R/G - GI/Abdominal Exam Additional comments: BS X 4, SOFT, CENTRAL OBESITY, NO HSM - Extremities Exam Additional comments: PULSES IN THE BILATERAL UE ARE STRONGER THAN IN THE LE NO EDEMA CAPILLAR REFILL IS 2 SECONDS LEFT FOOT LATERAL MALLEOULUS THERE IS A DRY ESCHAR WITHOUT ANY SIGNS OF CELLULITS LEFT FOOT TOE #2 DORSAL ASPECT THERE IS A DRY ESCHAR WITHOUT ANY SIGNS OF CELLULITIS Results - Vital Signs Recent Vital Signs: Last Vital Signs Temp 97 F L 11/20/16 06:00 Pulse 63 11/20/16 09:28 Resp 18 11/20/16 06:00 BP 149/65 11/20/16 09:28 Pulse Ox - Labs Result Diagrams: 11/18/16 15:15 11/19/16 07:52 Labs: Laboratory Results - last 24 hr 11/19/16 11/20/16 20:21 05:53 POC Glucose (mg/dL) 172 H 141 H
--- NOTE | 2016-11-20 16:59 | PN ---
DATE: 11/20/2016 ROOM: 305 SUBJECTIVE: This is an 81-year-old female with recent acute exacerbation of COPD and supervening con gestive heart failure and has since then improved clinically and hemodynamically as noted thereof. S he has been transferred to the psychiatric unit because of behavioral disturbances and increasing shirley tation and progressive dementia and is now being followed closely for metabolic management. Her late st chemistry showed a BUN of , sodium 142, potassium 4.6, chloride 104, CO2 25, glucose 120, cre atinine 1.4. Her glucose values are fluctuating, but improved and have ranged from 141-172 and 242 m g/dL. Her latest thyroid study showed a T4 of 11.5 with a TSH of 4.76. So at this time, we will con tinue low-dose correction scale using regular insulin as ordered. We will also continue the glipizid e given as 10 mg b.i.d. before meals as ordered. We will also continue her levothyroxine given at th e smallest dose of 50 mcg once daily as ordered. We will titrate incrementally as indicated to optim ize metabolic control. We will obtain serial chemistries and supplement accordingly as needed. We w ill also reinforce diabetic education and dietary instructions at the time of this admission. We gui l follow and advise accordingly. Rachel Andersen MD cc: [id number] TT: 11/20/2016 16:58:37 Confirmation # [id number] Dictation # [id number] adriano
--- NOTE | 2016-11-20 21:04 | PCM.PYCHPN ---
Psychiatric Progress Note - Psychiatric Progress Note Patient seen today, length of contact: chart reviewed and case discussed with team Patient Chief Complaint: pt currently on 3ns for management of mood, dementia and behavior-staff report that pt may be somewhat less agitated with current medication regimen. pt is receiving total care and requires assistance with meals, adls. vital signs are stable per staff. staff pt is somewhat calmer in am as progression of day with approx. 5pm -6pm becomes increasingly upset, yelling not responding to verbal redirection moving about in bed continues to require 1 to 1 for safety. Problems Identified/Issues Discussed: pt with alteration in cognition, intermittent explosive behavior, lability in mood, and behavioral changes , requires total care Medical Problems: pt seen and re evaluated by podiatry seen and evaluated by hospitalist Diagnostic Results: per psychiatry per medicine per nursing per social media project manager per recreational therapist DSM 5 Symptoms Update: changes in cognition changes in behavior Medication Change: No Medical Record Reviewed: Yes Mental Status Examination - Cognitive Function Orientation: Person Memory: Impaired Attention: Poor Concentration: Poor Association: WNL Fund of Knowledge: Poor Decription of patient's judgement and insights: poor - Mood Mood: Anxious - Affect Affect: Broad - Speech Speech: Soft - Formal Thought Process Formal Thought Process: Paranoia, Loosening of associations - Suicidal Ideation Suicidal Ideation: No - Homicidal Ideation Homicidal Ideation: No Goal/Treatment Plan - Goal/Treatment Plan Need for Continued Stay: Remain at risks for inpatient hospitalization, Discharge may exacerbated symptoms, Failed transitioning, Severe functional impairment Progress Toward Problem(s) and Goals/Treatment Plan: inpt milieu vital signs and clinical assessment per protocol and per status falls precautions skin precautions-pt being followed by head turning machine operator pt and ot assessment weight bearing, transfer , ability to feed self discharge planning in progress access to prn Portuguese Speaking provider daughter YESI called reviewed clinical status, current medications, case was discussed with dr beavers last evening-review concerns /"sun downing syndrome " -possible consideration of standing medication at 5pm (?0.5mg lorazepam) short acting, perhaps decrease escalation-daughter requests that staff discuss with dr beavers if something like lorazepam, review that seroquel has also recently been started and is gradually being titrated-should this be continued or per shaps rx be written so that alternative rx might be picked up by family and brought in. Estimated Date of D/C: 11/25/16 - Smoking Cessation Smoking Cessation Initiated: No Reason for not providing: deferred
[2016-11-21] MEDS: Levothyroxine 50 MCG TAB PO SCH (06:16)
[2016-11-21] MEDS: Insulin Regular 100 units/ml SC SCH ×4 (07:30→21:01)
[2016-11-21] MEDS: Lidocaine 5% Patch TD SCH (08:32)
--- NOTE | 2016-11-21 17:34 | PCM.PYCHPN ---
Psychiatric Progress Note - Psychiatric Progress Note Patient seen today, length of contact: chart reviewed and case discussed with team Patient Chief Complaint: pt is seen seated in rukhsana chair by nurse's station. pt continues to be on 1 to 1 for safety. staff report that pt was able to participate in unit based bingo, was seen conversing with peers, later eating with assistance. as of this writing pt has not been noted to yelling or screaming, seen to smiling at times , laughing, wearing yankees cap earlier won during unit based bingo. requested to be assisted to bed in order to use toilet/sanders. POA called unit today spoke with one of the primary rn-requesting that per haps nudexta be considered. pt currently on 3ns for management of mood, dementia and behavior-staff report that pt may be somewhat less agitated with current medication regimen. pt is receiving total care and requires assistance with meals, adls. vital signs are stable per staff. staff pt is somewhat calmer in am as progression of day with approx. 5pm -6pm becomes increasingly upset, yelling not responding to verbal redirection moving about in bed continues to require 1 to 1 for safety. Problems Identified/Issues Discussed: pt with alteration in cognition, intermittent explosive behavior, lability in mood, and behavioral changes , requires total care Medical Problems: pt seen and re evaluated by podiatry seen and evaluated by hospitalist pt seen by bander and cellophaner machine Diagnostic Results: per psychiatry per medicine per nursing per high school social science teacher per recreational therapist DSM 5 Symptoms Update: alteration in mood alteration in thought process alteration in cognition Medication Change: No Medical Record Reviewed: Yes Mental Status Examination - Cognitive Function Orientation: Person Memory: Impaired Attention: Poor Concentration: Poor Association: WNL Fund of Knowledge: Poor Decription of patient's judgement and insights: impaired - Mood Mood: Anxious - Affect Affect: Broad - Speech Speech: Soft - Formal Thought Process Formal Thought Process: Paranoia, Loosening of associations - Suicidal Ideation Suicidal Ideation: No - Homicidal Ideation Homicidal Ideation: No Goal/Treatment Plan - Goal/Treatment Plan Need for Continued Stay: Remain at risks for inpatient hospitalization, Discharge may exacerbated symptoms, Failed transitioning, Severe functional impairment Progress Toward Problem(s) and Goals/Treatment Plan: inpt milieu vital signs and clinical assessment per protocol and per status falls precautions skin precautions-pt being followed by rn spine pt and ot assessment weight bearing, transfer , ability to feed self discharge planning in progress access to prn Barbadian Speaking provider daughter POA called reviewed clinical status, current medications, case was discussed with dr beavers last evening-review concerns /"sun downing syndrome " -possible consideration of standing medication at 5pm (?0.5mg lorazepam) short acting, perhaps decrease escalation-daughter requests that staff discuss with dr beavers if something like lorazepam, review that seroquel has also recently been started and is gradually being titrated-should this be continued or per should rx be written so that alternative rx might be picked up by family and brought in. pt's poa later called unit speaking with a member of the care team requesting that nuedexta be considered. pharmacy was called, medication nor individual parts not on formulary. message left outpatient pharmacy manager to call unit in am or if possible provide pharmacy clinical consult related to pt's current medication profile, mildly elevated bun/creatinine along with nuedexta be clinically indicated. once consult is obtained, then should any changes or additions be considered. repeat cmp ordered for am to obtain update results. continue 1 to 1 for safety Estimated Date of D/C: 11/25/16 - Smoking Cessation Smoking Cessation Initiated: No Reason for not providing: pt deferred
[2016-11-22 07:42] LABS: ALB/GLOB RATIO 0.9 (1.0-2.1); BILIRUBIN,TOTAL 0.4 mg/dl (0.2-1.3); TOTAL PROTEIN 6.8 G/DL (6.3-8.2)
[2016-11-22] MEDS: Lidocaine 5% Patch TD SCH (10:14)
[2016-11-22] MEDS: Insulin Regular 100 units/ml SC SCH ×2 (10:17→12:15)
[2016-11-22] MEDS: Levothyroxine 50 MCG TAB PO SCH (10:17)
--- NOTE | 2016-11-22 13:31 | PN ---
DATE: 11/22/2016 ROOM: 305 This is an 81-year-old female with recent behavioral disturbances and underlying progressive dementia and presented initially with congestive heart failure with acute exacerbation of the same and has im proved clinically and hemodynamically as noted thereof. However, her thyroid studies have been sligh tly abnormal as noted on admission and has been followed closely still at the present time. Her latest chemistry showed a BUN of 28, sodium 144, potassium 4.0, chloride 104, CO2 26, glucose 178 and creatinine 1.1. Her latest thyroid study showed a T4 of 11.5 with a TSH of 4.76. So at this time, we will continue the low-dose levothyroxine replacement therapy given as 50 mcg once daily as ordered. We will repeat the thyroid function studies and adjust her dose regimen according ly. We will also continue the glipizide given as 10 mg b.i.d. before meals with a low-dose correctio n scale using regular insulin as given. We will consider the addition of Januvia if hyperglycemic le vels persist accordingly. We will follow. Rachel Andersen MD cc: [id number] TT: 11/22/2016 13:30:50 Confirmation # [id number] Dictation # [id number] en
--- NOTE | 2016-11-22 19:59 | PCM.PYCHPN ---
Psychiatric Progress Note - Psychiatric Progress Note Patient seen today, length of contact: chart reviewed and case discussed with team Patient Chief Complaint: pt seen laying in bed, arrousable to verbal stimulus from sleep. pt report was was yelling, screaming not responding to redirection-required prn lorazepam. pt requires total care. pt was complaining of pain today and medicated with motrin. requires total care. Problems Identified/Issues Discussed: pt with alteration in cognition, intermittent explosive behavior, lability in mood, and behavioral changes , requires total care Medical Problems: pt seen and re evaluated by podiatry seen and evaluated by hospitalist pt seen by cheese pancake roller Diagnostic Results: per psychiatry per medicine per nursing per case management social worker per recreational therapist DSM 5 Symptoms Update: alteration in cognition alteration in self care alteration in glycemic control alteration in thyroid function-hypo Medication Change: No Medical Record Reviewed: Yes Consults ordered or reviewed: pt seen by dr mary lagos physical therapy evaluation and treatment at bedside Mental Status Examination - Cognitive Function Orientation: Person Memory: Impaired Attention: Poor Concentration: Poor Association: WNL Fund of Knowledge: Poor Decription of patient's judgement and insights: poor - Mood Mood: Anxious - Affect Affect: Broad - Speech Speech: Soft - Formal Thought Process Formal Thought Process: Paranoia, Loosening of associations - Suicidal Ideation Suicidal Ideation: No - Homicidal Ideation Homicidal Ideation: No Goal/Treatment Plan - Goal/Treatment Plan Need for Continued Stay: Remain at risks for inpatient hospitalization, Discharge may exacerbated symptoms, Failed transitioning, Severe functional impairment Progress Toward Problem(s) and Goals/Treatment Plan: inpt milieu vital signs and clinical assessment per protocol and per status falls precautions skin precautions-pt being followed by nocturnist physician pt and ot assessment weight bearing, transfer , ability to feed self discharge planning in progress access to prn Korean Speaking provider PHARMACY CALLED PHARMACY WILL PROVIDE EVALUATION OF CURRENT MEDICATIONS, CURRENT BUN/CREAT-ANY POTENTIAL NEED FOR MEDICATION ADJUSTMENT, POSSIBLE INTERACTION OF NUEDEXTA PER PT REQUEST PRIOR NOTES daughter POA called reviewed clinical status, current medications, case was discussed with dr beavers last evening-review concerns /"sun downing syndrome " -possible consideration of standing medication at 5pm (?0.5mg lorazepam) short acting, perhaps decrease escalation-daughter requests that staff discuss with dr beavers if something like lorazepam, review that seroquel has also recently been started and is gradually being titrated-should this be continued or per should rx be written so that alternative rx might be picked up by family and brought in. pt's poa later called unit speaking with a member of the care team requesting that nuedexta be considered. pharmacy was called, medication nor individual parts not on formulary. message left pharmacy informatics manager to call unit in am or if possible provide pharmacy clinical consult related to pt's current medication profile, mildly elevated bun/creatinine along with nuedexta be clinically indicated. once consult is obtained, then should any changes or additions be considered. repeat cmp ordered for am to obtain update results. continue 1 to 1 for safety Estimated Date of D/C: 11/29/16 - Smoking Cessation Smoking Cessation Initiated: No Reason for not providing: DEFERRED
[2016-11-23] MEDS: Lidocaine 5% Patch TD SCH (08:57)
[2016-11-23] MEDS: Levothyroxine 50 MCG TAB PO SCH (08:57)
[2016-11-23] MEDS: Insulin Regular 100 units/ml SC SCH ×4 (09:38→22:18)
--- NOTE | 2016-11-23 12:24 | PCM.PYCHPN ---
Psychiatric Progress Note - Psychiatric Progress Note Patient seen today, length of contact: discussed with team Patient Chief Complaint: help me...help me!! Problems Identified/Issues Discussed: pt in room screaming Medication Change: No Medical Record Reviewed: Yes Mental Status Examination - Cognitive Function Orientation: Person Memory: Impaired Attention: Poor Concentration: Poor Association: Loose Fund of Knowledge: Poor Decription of patient's judgement and insights: poor - Mood Mood: Anxious - Affect Affect: Broad - Speech Speech: Loud - Formal Thought Process Formal Thought Process: Paranoia, Loosening of associations - Suicidal Ideation Suicidal Ideation: No - Homicidal Ideation Homicidal Ideation: No Goal/Treatment Plan - Goal/Treatment Plan Need for Continued Stay: Remain at risks for inpatient hospitalization, Discharge may exacerbated symptoms, Failed transitioning, Severe functional impairment Progress Toward Problem(s) and Goals/Treatment Plan: dementia with behavioral disturbance will increase the seroquel continue current treatment of primary team Estimated Date of D/C: 11/29/16
--- NOTE | 2016-11-23 13:46 | PN ---
DATE: 11/23/2016 ROOM: 305 SUBJECTIVE: This is an 81-year-old female with progressive dementia of the Alzheimer's type and rece nt behavioral disturbances and is now being followed closely in the psychiatric unit for evaluation a nd management. She also has early hypothyroidism and currently tolerating the levothyroxine given at the very low dose of 50 mcg daily as ordered. Her latest chemistries showed a BUN of 28, sodium 144 , potassium 4.0, chloride 104, CO2 26, glucose 178, and creatinine 1.1. Her glucose levels have rang ed from 193-248 and 255 mg/dL, also indicative of suboptimal metabolic control of her diabetic condit ion. So at this time, we will modify her current diabetic regimen and add Januvia given as 50 mg onc e daily in the morning as ordered. We will continue the glipizide given as 10 mg b.i.d. before meals as ordered. We will continue the low-dose correction scale using regular insulin as given. We will also continue the levothyroxine given as 50 mcg once daily in the morning. We will obtain serial ch emistries and supplement accordingly as needed. We will also repeat the thyroid studies and adjust h er dose regimen accordingly. We will follow. Rachel Andersen MD cc: [id number] TT: 11/23/2016 13:45:49 Confirmation # [id number] Dictation # [id number] tn
[2016-11-24] MEDS: Levothyroxine 50 MCG TAB PO SCH (08:44)
[2016-11-24] MEDS: Insulin Regular 100 units/ml SC SCH ×3 (08:46→17:07)
[2016-11-24] MEDS: Lidocaine 5% Patch TD SCH (08:47)
--- NOTE | 2016-11-24 13:41 | PCM.PYCHPN ---
Psychiatric Progress Note - Psychiatric Progress Note Patient seen today, length of contact: discussed with team Patient Chief Complaint: no c/o Problems Identified/Issues Discussed: pt more calm today. no evidence of medication side effects. remains unpredictable. Medication Change: No Medical Record Reviewed: Yes Mental Status Examination - Cognitive Function Orientation: Person Memory: Impaired Attention: Poor Concentration: Poor Association: Loose Fund of Knowledge: Poor Decription of patient's judgement and insights: poor - Mood Mood: Anxious - Affect Affect: Broad - Speech Speech: Appropriate - Formal Thought Process Formal Thought Process: Paranoia, Loosening of associations - Suicidal Ideation Suicidal Ideation: No - Homicidal Ideation Homicidal Ideation: No Goal/Treatment Plan - Goal/Treatment Plan Need for Continued Stay: Remain at risks for inpatient hospitalization, Discharge may exacerbated symptoms, Failed transitioning, Severe functional impairment Progress Toward Problem(s) and Goals/Treatment Plan: dementia with behavioral disturbance will continue the seroquel- may need to increase in upcoming days continue current treatment of primary team Estimated Date of D/C: 11/29/16
--- NOTE | 2016-11-24 15:11 | PN ---
DATE: 11/24/2016 ROOM: 305. SUBJECTIVE: This is an 81-year-old female with recent acute exacerbation of COPD and supervening con gestive heart failure and has since then improved clinically and hemodynamically as noted thereof. S he has been transferred to the psychiatric unit for closer evaluation and management of progressively worsening behavioral disturbances with associated dementia of the Alzheimer's type and is now also b allison followed closely for metabolic management. Her latest chemistry showed a BUN of 28, sodium 144, potassium 4.0, chloride 104, CO2 of 26, glucose 178, and creatinine 1.1. Her glucose levels have ra nged from 193-248 and 245 mg/dL. So at this time, we will continue the Januvia given as 50 mg once d aily in the morning as ordered and we will titrate incrementally as indicated to optimize metabolic c ontrol. We will continue the glipizide given as 10 mg b.i.d. before meals. We will also continue the same lo w dose levothyroxine replacement therapy given as 50 mcg once daily in the morning as ordered. We wi ll titrate incrementally as indicated to optimize metabolic control. We will obtain serial chemistri es and supplement accordingly as needed. We will also obtain serial thyroid studies and titrate her dose regimen accordingly. We will follow. Rachel Andersen MD cc: [phone] TT: 11/24/2016 15:08:42 Confirmation # [id number] Dictation # [id number] jordan
[2016-11-25] MEDS: Levothyroxine 50 MCG TAB PO SCH (06:34)
[2016-11-25 08:59] LABS: ALB/GLOB RATIO 0.9 (1.0-2.1); BILIRUBIN,TOTAL 0.4 mg/dl (0.2-1.3); CALCIUM 8.5 mg/dL (8.4-10.2); POTASSIUM 4.2 MMOL/L (3.6-5.0); TOTAL PROTEIN 6.4 G/DL (6.3-8.2)
[2016-11-25] MEDS: Insulin Regular 100 units/ml SC SCH ×4 (09:04→22:43)
[2016-11-25] MEDS: Lidocaine 5% Patch TD SCH (09:09)
--- NOTE | 2016-11-25 13:49 | PN ---
DATE: 11/25/2016 ROOM: 305 This is an 81-year-old female with recent uncontrolled type 2 diabetes and also concomitant hypothyro idism, now being followed closely for metabolic management. She also had recent behavioral disturban alyssa related to progressive dementia and is now being followed closely at the psychiatric unit. Her glycemic levels have ranged from 168-191 and 193 mg/dL. Her latest chemistry showed a BUN of 28, sodium 144, potassium 4.0, chloride 104, CO2 26, glucose 178 and creatinine 1.1. So at this time, we will continue the modified regimen with Januvia added at 50 mg once daily in the morning together with glipizide given as 10 mg b.i.d. before meals as ordered. We will titrate incre mentally as indicated to optimize metabolic control. We will also continue the levothyroxine given a s 50 mcg once daily in the morning as ordered. We will obtain serial chemistries and supplement acco rdingly as needed. We will also obtain serial thyroid studies and titrate her dose regimen according ly. We will follow. Rachel Andersen MD cc: [phone] TT: 11/25/2016 13:48:58 Confirmation # [id number] Dictation # [id number] en
--- NOTE | 2016-11-25 16:05 | PCM.PYCHPN ---
Psychiatric Progress Note - Psychiatric Progress Note Patient seen today, length of contact: Patient evaluated, case discussed with team, chart reviewed, 35 min Patient Chief Complaint: "I'm okay" Problems Identified/Issues Discussed: Patient was calm during the morning time, but this afternoon has recently started screaming from people to call the police. She continues to need 1:1 was safety and monitoring. She denies AH/VH, but is not able to give a clear reason why she is screaming. She is paranoid towards the staff that they are keeping her prisoner in the hospital. Medication Change: Yes (Increase Seroquel to 25 mg PO HS) Medical Record Reviewed: Yes Mental Status Examination - Cognitive Function Orientation: Person Memory: Impaired Attention: Poor Concentration: Poor Association: Loose Fund of Knowledge: Poor Decription of patient's judgement and insights: Poor I/J - Mood Mood: Anxious - Affect Affect: Broad - Speech Speech: Appropriate - Formal Thought Process Formal Thought Process: Paranoia, Loosening of associations Psychotic Thoughts and Behaviors: +Paranoia towards staff, denies AH/VH - Suicidal Ideation Suicidal Ideation: No - Homicidal Ideation Homicidal Ideation: No Goal/Treatment Plan - Goal/Treatment Plan Need for Continued Stay: Remain at risks for inpatient hospitalization, Discharge may exacerbated symptoms, Failed transitioning, Severe functional impairment Progress Toward Problem(s) and Goals/Treatment Plan: 81 yo female with dementia with behavioral disturbances with acute behavioral problems. -Increase Seroquel to 25 mg PO HS, continue Seroquel 25 mg PO BID -Continue Sertraline 50 mg PO Daily -Individual, group and milieu tx Estimated Date of D/C: 11/29/16
--- NOTE | 2016-11-26 09:50 | CP.PCM.PN ---
Subjective - Date & Time of Evaluation Date of Evaluation: 11/26/16 Time of Evaluation: 09:47 - Subjective Subjective: 81 year old female was seen resting comfortably at bedside regarding healed wound to left 2nd digit. No pain elicited on palpation of the left 2nd digit. Patient has a one to one who states that she has been up all night fighting. Objective - Vital Signs/Intake and Output Vital Signs (last 24 hours): Temp Pulse Resp BP Pulse Ox 97.6 F 55 L 19 164/90 H 11/26/16 05:50 11/26/16 05:50 11/26/16 05:50 11/26/16 05:50 - Medications Medications: Current Medications Al Hydrox/Mg Hydrox/Simethicone (Maalox Plus 30 Ml) 30 ml PO Q4 PRN PRN Reason: Dyspepsia Albuterol/Ipratropium (Duoneb 3 Mg/0.5 Mg (3 Ml) Ud) 3 ml IH Q6H PRN PRN Reason: Shortness of Breath Last Admin: 11/16/16 09:16 Dose: 3 ml Aspirin (Ecotrin) 81 mg PO DAILY [facility] Last Admin: 11/25/16 09:06 Dose: 81 mg Atorvastatin Calcium (Lipitor) 40 mg PO HS [facility] Last Admin: 11/25/16 21:01 Dose: 40 mg Bismuth Subsalicylate (Pepto-Bismol) 524 mg PO Q4 PRN PRN Reason: Diarrhea Carvedilol (Coreg) 12.5 mg PO Q12H [facility] Last Admin: 11/26/16 02:46 Dose: Not Given Docusate Sodium (Colace) 100 mg PO BID [facility] Last Admin: 11/25/16 17:21 Dose: Not Given Ferrous Sulfate (Feosol) 325 mg PO BID [facility] Last Admin: 11/25/16 17:21 Dose: Not Given Gabapentin (Neurontin) 300 mg PO TID [facility] Last Admin: 11/25/16 17:22 Dose: Not Given Glipizide (Glucotrol) 10 mg PO BIDAC [facility] Last Admin: 11/25/16 17:21 Dose: Not Given Ibuprofen (Motrin Tab) 400 mg PO Q6 PRN PRN Reason: Pain, moderate (4-7) Last Admin: 11/26/16 03:01 Dose: 400 mg Insulin Human Regular (Humulin R) 0 units SC ACHS MOUNA PRN Reason: Protocol Last Admin: 11/25/16 22:43 Dose: Not Given Levothyroxine Sodium (Synthroid) 50 mcg PO DAILY@0630 [facility] Last Admin: 11/25/16 06:34 Dose: 50 mcg Lidocaine (Lidoderm) 1 ea TD DAILY [facility] Last Admin: 11/25/16 09:09 Dose: 1 ea Lorazepam (Ativan) 0.5 mg PO HS PRN PRN Reason: Insomnia Stop: 11/29/16 21:37 Last Admin: 11/23/16 22:12 Dose: 0.5 mg Lorazepam (Ativan) 0.5 mg PO Q6 PRN PRN Reason: Anixety/Agitation Stop: 11/29/16 21:37 Last Admin: 11/26/16 03:18 Dose: 0.5 mg Lorazepam (Ativan) 0.5 mg IM Q4H PRN PRN Reason: agitated combative behavior Last Admin: 11/23/16 11:22 Dose: 0.5 mg Magnesium Hydroxide (Milk Of Magnesia) 30 ml PO HS PRN PRN Reason: Constipation Memantine (Namenda) 10 mg PO BID [facility] Last Admin: 11/25/16 17:21 Dose: Not Given Montelukast Sodium (Singulair) 10 mg PO HS [facility] Last Admin: 11/25/16 21:01 Dose: 10 mg Quetiapine Fumarate (Seroquel) 25 mg PO BID [facility] Last Admin: 11/25/16 17:22 Dose: Not Given Quetiapine Fumarate (Seroquel) 25 mg PO HS [facility] Last Admin: 11/25/16 21:01 Dose: 25 mg Sertraline HCl (Zoloft) 50 mg PO DAILY [facility] Last Admin: 11/25/16 09:11 Dose: 50 mg Sitagliptin Phosphate (Januvia) 50 mg PO DAILY [facility] Last Admin: 11/25/16 09:03 Dose: 50 mg Valsartan (Diovan) 320 mg PO DAILY [facility] Last Admin: 11/25/16 09:02 Dose: 320 mg - Labs Labs: 11/18/16 15:15 11/25/16 07:45 - Constitutional Appears: No Acute Distress - Extremities Exam Additional comments: Left lower extremity focused exam: VASC: Non-palpable DP and PT pulses. SHAREMILKER less than 3 seconds to all digits. Skin temperature is warm to cool from proximal to distal. DERM: Dried sanginous material noted to the dorsal aspect of the left 2nd digit and lateral aspect of the left ankle. No open lesions, no drainage, no erythema , no acute signs of infection noted. NEURO: Gross sensation is intact ORTHO: No pain induced on palpation to lower extremities. No pain on palpation to Left ankle (3 month s/p Left ankle ORIF). Assessment and Plan - Assessment and Plan (Free Text) Assessment: 81 year old female patient presenting 3 month s/p Left ankle ORIF with healing surgical sites Plan: Patient was seen, evaluated and treated with all questions and concerns addressed Chart and vitals reviewed Discussed in detail with Dr. Moreau Multipodus boots ordered for the patient to prevent decubitus ulcer formation to heels Patient is stable from podiatry standpoint No dressing is necessary to bilateral lower extremities at this time Patient was advised to follow up with Dr. Moreau as an outpatient if any problems occur
--- NOTE | 2016-11-26 12:10 | PCM.PYCHPN ---
Psychiatric Progress Note - Psychiatric Progress Note Patient seen today, length of contact: Patient evaluated, case discussed with team, chart reviewed Patient Chief Complaint: "I'm okay" Problems Identified/Issues Discussed: Yesterday the patient was very agitated, screaming for several hours in the afternoon and throughout the night. This morning she is calm. She continues to need 1:1 was safety and monitoring. She denies AH/VH, but is not able to give a clear reason why she is screaming. She is paranoid towards the staff. Medication Change: Yes (Increase Seroquel to 50 mg PO Daily@1700/ 50 mg PO HS) Medical Record Reviewed: Yes Mental Status Examination - Cognitive Function Orientation: Person Memory: Impaired Attention: Poor Concentration: Poor Association: Loose Fund of Knowledge: Poor Decription of patient's judgement and insights: Poor I/J - Mood Mood: Anxious - Affect Affect: Broad - Speech Speech: Appropriate - Formal Thought Process Formal Thought Process: Paranoia, Loosening of associations Psychotic Thoughts and Behaviors: +Paranoia - Suicidal Ideation Suicidal Ideation: No - Homicidal Ideation Homicidal Ideation: No Goal/Treatment Plan - Goal/Treatment Plan Need for Continued Stay: Remain at risks for inpatient hospitalization, Discharge may exacerbated symptoms, Failed transitioning, Severe functional impairment Progress Toward Problem(s) and Goals/Treatment Plan: 81 yo female with dementia with behavioral disturbances with acute behavioral problems, continues to have periods of agitation, yelling and paranoia. -Increase Seroquel to 50 mg PO Daily@1700/ 50 mg PO HS -Continue Sertraline 50 mg PO Daily -1:1 for safety -Individual, group and milieu tx Estimated Date of D/C: 11/29/16
[2016-11-26] MEDS: Insulin Regular 100 units/ml SC SCH ×4 (13:08→22:00)
[2016-11-26] MEDS: Levothyroxine 50 MCG TAB PO SCH (13:20)
[2016-11-26] MEDS: Lidocaine 5% Patch TD SCH (13:25)
--- NOTE | 2016-11-26 13:43 | RAD ---
PROCEDURE: Left Ankle Radiographs. HISTORY: s/p left ankle surgery COMPARISON: 08/02/2016 FINDINGS: BONES: Status post ORIF medial malleolar fracture with oblique compression screw and distal fibular fracture with plate and screw fixation device. No evidence of hardware loosening. No change in osseous alignment. No additional abnormality identified. JOINTS: Normal. No osteoarthritis. Ankle mortise maintained. Talar dome intact SOFT TISSUES: Normal. OTHER FINDINGS: None. IMPRESSION: Stable findings status post ORIF medial malleolar and distal fibular fractures.
[2016-11-27] MEDS: Lidocaine 5% Patch TD SCH (12:05)
[2016-11-27] MEDS: Insulin Regular 100 units/ml SC SCH ×3 (12:08→22:00)
[2016-11-27] MEDS: Levothyroxine 50 MCG TAB PO SCH (12:10)
--- NOTE | 2016-11-27 12:13 | PCM.PYCHPN ---
Psychiatric Progress Note - Psychiatric Progress Note Patient seen today, length of contact: Patient evaluated, case discussed with team, chart reviewed Patient Chief Complaint: "I'm okay" Problems Identified/Issues Discussed: Patient was calmer yesterday, but continues to have intermittent periods of agitation/yelling. She continues to need 1:1 due to her erratic behavior. Today she is calm. She continues to need 1:1 was safety and monitoring. She denies AH/VH/paranoia Medication Change: Yes (Increase Seroquel to 50 mg PO BIDHS) Medical Record Reviewed: Yes Mental Status Examination - Cognitive Function Orientation: Person Memory: Impaired Attention: Poor Concentration: Poor Association: Loose Fund of Knowledge: Poor Decription of patient's judgement and insights: Poor insight/judgment - Mood Mood: Anxious - Affect Affect: Broad - Speech Speech: Appropriate - Formal Thought Process Formal Thought Process: Loosening of associations Psychotic Thoughts and Behaviors: Denies AH/VH/paranoia, but continues to have intermittent periods of yelling. - Suicidal Ideation Suicidal Ideation: No - Homicidal Ideation Homicidal Ideation: No Goal/Treatment Plan - Goal/Treatment Plan Need for Continued Stay: Remain at risks for inpatient hospitalization, Discharge may exacerbated symptoms, Failed transitioning, Severe functional impairment Progress Toward Problem(s) and Goals/Treatment Plan: 81 yo female with dementia with behavioral disturbances with acute behavioral problems, continues to have periods of agitation, yelling and paranoia. -Increase Seroquel to 50 mg PO BIDHS -Continue Sertraline 50 mg PO Daily -1:1 for safety -Individual, group and milieu tx Estimated Date of D/C: 12/02/16
[2016-11-28] MEDS: Insulin Regular 100 units/ml SC SCH ×4 (08:19→21:18)
[2016-11-28] MEDS: Levothyroxine 50 MCG TAB PO SCH (09:24)
[2016-11-28] MEDS: Lidocaine 5% Patch TD SCH (09:25)
--- NOTE | 2016-11-28 09:26 | PN ---
DATE: 11/27/2016 ROOM: 305 This is an 81-year-old female with recent uncontrolled type 2 diabetes and hypertension, presenting h ere with congestive heart failure and now being followed closely in the psychiatric unit for endocrin e evaluation and management. Her glycemic levels are fluctuating, but much improved at this time and the latest glucose levels have ranged from 101-192 mg/dL. It was 136-226 last night as noted. Her latest chemistry showed a BUN of 38, sodium 143, potassium 4.2, chloride 104, CO2 of 26, glucose 150, and creatinine 1.7. Her latest thyroid studies showed a T4 of 11.5 mcg/dL with a TSH of 4.76. So, at this time, we will continue the same levothyroxine given at the low dose of 50 mcg once daily as ordered. We will also continue the Januvia given as 50 mg once daily as ordered. We will titrate incrementally as indicated. We will also continue the glipizide given as 10 mg b.i.d. before meals as ordered. We will titrate incrementally as indicated to optimize metabolic control. We will maricel haque. Rachel Andersen MD cc: [id number] TT: 11/27/2016 16:03:07 Confirmation # [id number] Dictation # [id number] sn
--- NOTE | 2016-11-28 09:56 | PCM.PYCHPN ---
Psychiatric Progress Note - Psychiatric Progress Note Patient seen today, length of contact: Patient evaluated, case discussed with team, chart reviewed Patient Chief Complaint: "I'm okay" Problems Identified/Issues Discussed: Patient has been improving clinically. She was calmer yesterday without any episodes of agitation/yelling. She continues to be disoriented due to dementia and loose on conversation. Will continue 1:1 for safety at this time, but will consider discontinuing it due to her improvement clinically. She denies AH/VH/ paranoia Medication Change: No Medical Record Reviewed: Yes Mental Status Examination - Cognitive Function Orientation: Person Memory: Impaired Attention: Poor Concentration: Poor Association: Loose Fund of Knowledge: Poor Decription of patient's judgement and insights: I/J limited by dementia - Mood Mood: Neutral - Affect Affect: Broad - Speech Speech: Appropriate - Formal Thought Process Formal Thought Process: Loosening of associations Psychotic Thoughts and Behaviors: Denies AH/VH/paranoia - Suicidal Ideation Suicidal Ideation: No - Homicidal Ideation Homicidal Ideation: No Goal/Treatment Plan - Goal/Treatment Plan Need for Continued Stay: Remain at risks for inpatient hospitalization, Discharge may exacerbated symptoms, Failed transitioning, Severe functional impairment Progress Toward Problem(s) and Goals/Treatment Plan: 81 yo female with dementia with behavioral disturbances with acute behavioral problems, now starting to improve. -Continue Seroquel 50 mg PO BIDHS -Continue Sertraline 50 mg PO Daily -1:1 for safety -Individual, group and milieu tx Estimated Date of D/C: 12/02/16
--- NOTE | 2016-11-28 18:38 | PN ---
DATE: 11/28/2016 ROOM: 305 This is an 81-year-old female with recent uncontrolled type 2 diabetes and overt hypothyroidism and i s now being followed closely for metabolic management. She also presented here with rapid atrial fib rillation and congestive heart failure and has now improved clinically and hemodynamically as noted t hereof. Her latest glucose levels have ranged from 101-230 and 260 mg/dL. It was 192 at bedtime last night. The latest chemistry showed a BUN of 38, sodium 143, potassium 4.2, chloride 104, CO2 26, glucose 15 2 and creatinine 1.7. Her latest thyroid study showed a T4 of 11.5 with a TSH of 4.76. So at this time, we will continue the levothyroxine given as 50 mcg once daily as ordered. We will r epeat the thyroid studies in the morning and adjust and titrate her dose regimen accordingly. We gui l also continue the dual oral hypoglycemic therapy with Januvia given as 50 mg daily and glipizide gi linda as 10 mg b.i.d. before meals as ordered. We will titrate incrementally as indicated to optimize metabolic control. We will follow. Rachel Andersen MD cc: [id number] TT: 11/28/2016 18:37:47 Confirmation # [id number] Dictation # [id number] en
[2016-11-29 06:08] VITALS: O2SAT 18
[2016-11-29] MEDS: Insulin Regular 100 units/ml SC SCH ×4 (08:35→21:09)
[2016-11-29] MEDS: Levothyroxine 50 MCG TAB PO SCH (09:47)
[2016-11-29] MEDS: Lidocaine 5% Patch TD SCH (09:48)
[2016-11-29 10:47] LABS: ALB/GLOB RATIO 0.9 (1.0-2.1); BILIRUBIN,TOTAL 0.4 mg/dl (0.2-1.3); CALCIUM 9.2 mg/dL (8.4-10.2); POTASSIUM 4.2 MMOL/L (3.6-5.0); TOTAL PROTEIN 6.7 G/DL (6.3-8.2)
[2016-11-29 11:03] LABS: T4 12.4 ug/dl (5.5-11.0)
[2016-11-29 11:17] LABS: THYROID STIMULATING HORMONE 5.25 mIU/ML (0.46-4.68)
--- NOTE | 2016-11-29 11:33 | PN ---
DATE: 11/29/2016 LOCATION: Room 305. SUBJECTIVE: This is an 81-year-old female with recent congestive heart failure and accelerated hyper tension who is now improved hemodynamically and is being followed closely at the psychiatric unit for evaluation of progressively worsening behavioral changes and associated dementia. She is being foll owed also closely from the endocrine viewpoint for management of uncontrolled type 2 diabetes and hyp othyroidism as noted above. LABORATORY DATA: Her latest chemistries showed a BUN of 39, sodium 145, potassium 4.2, chloride 105, CO2 28, glucose 141, and creatinine 1.4. Her glucose levels today have ranged from 141-184 mg/dL. It was 230-260 last night, as noted. The latest thyroid study showed a T4 of 12.4 and a TSH is still pending at this time. PLAN: So for now, we will continue the same dual oral hypoglycemic drug therapy as given with Januvi a at 50 mg once daily and glipizide 10 mg b.i.d. before meals as ordered. We will also continue the levothyroxine 50 mcg daily as ordered. We will titrate incrementally as indicated to optimize metabo lic control. We will follow. Rachel Andersen MD cc: [phone] TT: 11/29/2016 11:32:37 Confirmation # [id number] Dictation # [id number]
--- NOTE | 2016-11-29 12:59 | PCM.PYCHPN ---
Psychiatric Progress Note - Psychiatric Progress Note Patient seen today, length of contact: Patient evaluated, case discussed with team, chart reviewed Patient Chief Complaint: "I'm okay" Problems Identified/Issues Discussed: Patient continues to improve clinically. She was calmer yesterday but had one episode of yelling, otherwise no significant events, no threats. She continues to be disoriented due to dementia and loose on conversation. Will d/ c 1:1 at this time given clinical improvement and continue to monitor the patient. She denies AH/VH/paranoia Medication Change: No Medical Record Reviewed: Yes Mental Status Examination - Cognitive Function Orientation: Person Memory: Impaired Attention: Poor Concentration: Poor Association: Loose Fund of Knowledge: Poor Decription of patient's judgement and insights: I/J poor due to dementia - Mood Mood: Neutral - Affect Affect: Broad - Speech Speech: Appropriate - Formal Thought Process Formal Thought Process: Loosening of associations Psychotic Thoughts and Behaviors: NO AH/VH/paranoia - Suicidal Ideation Suicidal Ideation: No - Homicidal Ideation Homicidal Ideation: No Goal/Treatment Plan - Goal/Treatment Plan Need for Continued Stay: Remain at risks for inpatient hospitalization, Discharge may exacerbated symptoms, Failed transitioning, Severe functional impairment Progress Toward Problem(s) and Goals/Treatment Plan: 81 yo female with dementia with behavioral disturbances with acute behavioral problems, now starting to improve. -Continue Seroquel 50 mg PO BIDHS -Continue Sertraline 50 mg PO Daily -Discontinue 1:1 -Individual, group and milieu tx Estimated Date of D/C: 12/02/16
[2016-11-30] MEDS: Levothyroxine 50 MCG TAB PO SCH (08:23)
[2016-11-30] MEDS: Insulin Regular 100 units/ml SC SCH ×4 (08:33→16:14)
[2016-11-30 08:43] LABS: BASO % 0.4 % (0.0-2.0); EOS # 0.3 K/uL (0.0-0.7); EOS % 5.3 % (0.0-4.0); HEMATOCRIT 32.3 % (34.0-47.0); LYMPH # 1.4 K/uL (1.0-4.3); LYMPH % 20.8 % (20.0-40.0); MEAN CELL VOLUME 86.4 fl (81.0-99.0); MEAN CORPUSCULAR HEMOGLOBIN 28.8 pg (27.0-31.0); MEAN CORPUSCULAR HGB CONC 33.4 g/dL (33.0-37.0); MEAN PLATELET VOLUME 8.8 fl (7.2-11.7); MONO # 0.5 K/uL (0.0-0.8); MONO % 7.9 % (0.0-10.0); NEUT # 4.3 K/uL (1.8-7.0); NEUT % 65.6 % (50.0-75.0); RED CELL DISTRIBUTION WIDTH 15.7 % (11.5-14.5); WHITE BLOOD COUNT 6.6 K/uL (4.8-10.8)
--- NOTE | 2016-11-30 10:24 | PCM.RRTMUL ---
[employer] Nurse Assessment - Ventilator Settings Peak Flow:: 150 - Vital Signs Blood Pressure:: 200/100 Pulse Rate:: 55 Summary - Summary of Event Summary of Event: S: 81 y/o female with a PMHx of dementia, atrial fibrillation, DM, HTN, CAD, and CKD had [employer] called this morning due to hypertension and reported left-sided chest/shoulder pain. Pt had no other complaints. Nurse reports she was not given her antihypertensive medications today. Denied headaches, changes in vision, weakness, numbness/tingling, SOB/palpitations, N/V/D. O: Vitals on presentation: BP: 226/91, HR: 60 RR: 16 O2: 100% on RA Gen: altered secondary to dementia, complaining of left shoulder pain, NAD CVS: irregular, No MRG Lungs: scattered wheezes bilaterally Ext: radial pulses 2+ bilaterally, hands cool but equal bilaterally without cyanosis or discrepancy in temps -Legs: no pedal edema/erythema, Homans neg b/l During [employer] -discovered htn medications as well as Eliquis have been discontinued -12 lead EKG: atrial fibrillation -ordered stat Norvasc 5mg and Diovan 325 -CBC with diff ordered -discontinued Lidocaine patch and Ibuprofen -Given 650mg Tylenol instead as the pt has CKD -Given Vapor Rub for shoulder pain instead of Lidocaine patch -retake BP @ 9:15 am was 174/74, pt no longer complained of arm pain A/P: 81 y/o female had [employer] called for HTN and left shoulder pain -retake BP: 174/74 -stable hemoglobin, restarted on eliquis 2.5 mg BID -arm pain resolved -replaced Lidocaine/Ibuprofen due to pts comorbities -will be given Vicks Vapor Rub for shoulder pain TID
--- NOTE | 2016-11-30 10:54 | PCM.PYCHPN ---
Psychiatric Progress Note - Psychiatric Progress Note Patient seen today, length of contact: Patient evaluated, case discussed with team, chart reviewed Patient Chief Complaint: "I'm okay" Problems Identified/Issues Discussed: Patient reported chest pain to staff early, but then later reported that she did not have chest pain. A [employer] MANAGER was called, patient evaluted by medical team and is currently medically stable, +pacemaker. No current complaints of chest pain. She continues to have periods of yelling and screaming today and had to be placed back on a 1:1 due to erratic behavior and was given a PRN ativan for acute agitation. +Paranoia towards staff. Medication Change: Yes (Increase Seroquel to 100 mg PO HS) Medical Record Reviewed: Yes Mental Status Examination - Cognitive Function Orientation: Person Memory: Impaired Attention: Poor Concentration: Poor Association: Loose Fund of Knowledge: Poor Decription of patient's judgement and insights: Poor I/J - Mood Mood: Neutral - Affect Affect: Broad - Speech Speech: Appropriate - Formal Thought Process Formal Thought Process: Loosening of associations Psychotic Thoughts and Behaviors: NO AH/VH, + paranoia - Suicidal Ideation Suicidal Ideation: No - Homicidal Ideation Homicidal Ideation: No Goal/Treatment Plan - Goal/Treatment Plan Need for Continued Stay: Remain at risks for inpatient hospitalization, Discharge may exacerbated symptoms, Failed transitioning, Severe functional impairment Progress Toward Problem(s) and Goals/Treatment Plan: 81 yo female with dementia with behavioral disturbances with acute behavioral problems, continues to be paranoid with episodes of screaming. -Continue Seroquel 50 mg PO BID and increase Seroquel to 100 mg PO HS -Continue Sertraline 50 mg PO Daily -Place on 1:1 for safety -Individual, group and milieu tx Estimated Date of D/C: 12/03/16 - Smoking Cessation Smoking Cessation Initiated: No Reason for not providing: Not indicated
--- NOTE | 2016-11-30 14:35 | PN ---
DATE: 11/30/2016 ROOM: 305, psychiatry. SUBJECTIVE: This is an 81-year-old female with recent uncontrolled type 2 diabetes and hypothyroidis m and is now being followed closely for metabolic management. She is undergoing closer to a [facility] evaluation and management for recent behavioral changes and progressive dementia as noted thereof . Her latest glucose levels have ranged from 133 to 192 mg/dL. It was 218 to 227 last night as note d. The latest chemistry showed a BUN of 39, sodium 145, potassium 4.2, chloride 105, CO2 28, glucose 141, and creatinine 1.4. Her latest thyroid study showed a T4 of 12.4 with a TSH of 5 ____ . Will follow. Rachel Andersen MD cc: [phone] TT: 11/30/2016 14:35:02 Confirmation # [id number] Dictation # [id number] jn
--- NOTE | 2016-11-30 19:17 | CARD ---
APPROVED REPORT EKG Measurement Heart [id number] <Conclusion> Poor data quality, interpretation may be adversely affected Sinus bradycardia with 1st degree AV block with premature supraventricular complexes Left axis deviation Left bundle branch block Abnormal ECG
[2016-12-01] MEDS: Levothyroxine 50 MCG TAB PO SCH ×2 (05:53→12:53)
--- NOTE | 2016-12-01 08:45 | PCM.PYCHPN ---
Psychiatric Progress Note - Psychiatric Progress Note Patient seen today, length of contact: Patient evaluated, case discussed with team, chart reviewed Patient Chief Complaint: "I'm okay" Problems Identified/Issues Discussed: Patient continues to have intermittent periods of agitation, screaming and yelling. She was placed back on 1:1 for continued erratic behavior. She continues to be paranoid towards staff. No current medical complaints or complaints of chest pain. Medication Change: No Medical Record Reviewed: Yes Mental Status Examination - Cognitive Function Orientation: Person Memory: Impaired Attention: Poor Concentration: Poor Association: Loose Fund of Knowledge: Poor Decription of patient's judgement and insights: Poor I/J - Mood Mood: Neutral - Affect Affect: Broad - Speech Speech: Appropriate - Formal Thought Process Formal Thought Process: Loosening of associations Psychotic Thoughts and Behaviors: +Paranoia - Suicidal Ideation Suicidal Ideation: No - Homicidal Ideation Homicidal Ideation: No Goal/Treatment Plan - Goal/Treatment Plan Need for Continued Stay: Remain at risks for inpatient hospitalization, Discharge may exacerbated symptoms, Failed transitioning, Severe functional impairment Progress Toward Problem(s) and Goals/Treatment Plan: 81 yo female with dementia with behavioral disturbances with acute behavioral problems, continues to be paranoid with episodes of screaming. -Continue Seroquel 50 mg PO BID/100 mg PO HS -Continue Sertraline 50 mg PO Daily -Continue 1:1 for safety -Individual, group and milieu tx Estimated Date of D/C: 12/05/16
[2016-12-01] MEDS: Insulin Regular 100 units/ml SC SCH ×3 (12:58→16:32)
--- NOTE | 2016-12-01 13:36 | PN ---
DATE: 12/01/2016 ROOM: 305 This is an 81-year-old female with recent uncontrolled type 2 diabetes and hypothyroidism, currently being followed closely for metabolic management. She also was transferred to the psychiatric unit fo r evaluation of progressive dementia and behavioral disturbances thereof. Her latest glucose levels have ranged from 133-202 and 210 mg/dL. The latest chemistry showed a BUN of 38, sodium 143, potassium 4.2, chloride 104, CO2 26, glucose 150 and creatinine 1.7. So at this time, we will continue the dual oral hypoglycemic drug therapy as given with glipizide giv en as 10 mg b.i.d. and Januvia given as 50 mg once daily as ordered. We will also continue the levot hyroxine given as 50 mcg once daily as ordered. We will titrate incrementally as indicated to optimi ze metabolic control. We will follow. Rachel Andersen MD cc: [phone] TT: 12/01/2016 13:35:41 Confirmation # [id number] Dictation # [id number] en
[2016-12-02] MEDS: Insulin Regular 100 units/ml SC SCH ×3 (08:16→16:53)
[2016-12-02] MEDS: Levothyroxine 50 MCG TAB PO SCH (09:45)
--- NOTE | 2016-12-02 12:42 | PCM.PYCHPN ---
Psychiatric Progress Note - Psychiatric Progress Note Patient seen today, length of contact: Patient evaluated, case discussed with team, chart reviewed Patient Chief Complaint: "I'm okay" Problems Identified/Issues Discussed: Patient continues to have intermittent periods of agitation, screaming and yelling. She continues to need 1:1 due to erratic behavior and agitation. No current medical complaints or complaints of chest pain. Medication Change: No Medical Record Reviewed: Yes Mental Status Examination - Cognitive Function Orientation: Person Memory: Impaired Attention: Poor Concentration: Poor Association: Loose Fund of Knowledge: Poor Decription of patient's judgement and insights: Poor I/J - Mood Mood: Neutral - Affect Affect: Broad - Speech Speech: Appropriate - Formal Thought Process Formal Thought Process: Loosening of associations Psychotic Thoughts and Behaviors: NO AH/VH/paranoia - Suicidal Ideation Suicidal Ideation: No - Homicidal Ideation Homicidal Ideation: No Goal/Treatment Plan - Goal/Treatment Plan Need for Continued Stay: Remain at risks for inpatient hospitalization, Discharge may exacerbated symptoms, Failed transitioning, Severe functional impairment Progress Toward Problem(s) and Goals/Treatment Plan: 81 yo female with dementia with behavioral disturbances with acute behavioral problems, continues to be paranoid with episodes of screaming. -Continue Seroquel 50 mg PO BID/100 mg PO HS -Continue Sertraline 50 mg PO Daily -Start Ativan 0.5 mg PO Daily@1700 as this has helped the patient remain calm as a PRN -Continue 1:1 for safety -Individual, group and milieu tx Estimated Date of D/C: 12/05/16
--- NOTE | 2016-12-02 16:01 | PN ---
DATE: 12/02/2016 ROOM: 305 This is an 81-year-old female with recent uncontrolled type 2 diabetes now being followed closely on the psychiatric unit for evaluation of progressive dementia and associated behavioral disturbances as noted thereof. Her glucose levels are still fluctuating and have ranged from 210-211 and 220 mg/dL. Her latest chem istry showed a BUN of 39, sodium 145, potassium 4.2, chloride 105, CO2 28, glucose 141, and creatinin e 1.4. Her latest thyroid study showed a T4 of 12.5 with a TSH of 5.25, indicative of subclinical hy pothyroidism with transient effects of the so-called acute sick euthyroid syndrome with elevated thyr oxine levels as noted. She remains clinically euthyroid at this time, however. So for now, we will continue the same dual oral hypoglycemic therapy as ordered and modified with Tylor uvia given as 50 mg once daily and glipizide given as mg b.i.d. before meals. We will repeat t he titrate as indicated. and supplement accordingly as needed. We will follow and advise accordingly. Rachel Andersen MD cc: [id number] TT: 12/02/2016 16:01:07 Confirmation # [id number] Dictation # [id number] en
[2016-12-03 07:57] LABS: BILIRUBIN,TOTAL 0.4 mg/dl (0.2-1.3); CALCIUM 9.3 mg/dL (8.4-10.2); POTASSIUM 3.8 MMOL/L (3.6-5.0); TOTAL PROTEIN 6.8 G/DL (6.3-8.2)
[2016-12-03 08:09] LABS: T4 12.3 ug/dl (5.5-11.0)
[2016-12-03 08:22] LABS: THYROID STIMULATING HORMONE 5.55 mIU/ML (0.46-4.68)
--- NOTE | 2016-12-03 10:00 | PCM.PYCHPN ---
Psychiatric Progress Note - Psychiatric Progress Note Patient seen today, length of contact: Patient evaluated, case discussed with team, chart reviewed Patient Chief Complaint: "I'm okay" Problems Identified/Issues Discussed: Patient did not have any episodes of agitation or screaming yesterday. She is starting to improve clinically. Will discontinue 1:1 at this time and continue to monitor the patient. Patient has no other acute complaints. Medication Change: No Medical Record Reviewed: Yes Mental Status Examination - Cognitive Function Orientation: Person Memory: Impaired Attention: Poor Concentration: Poor Association: Loose Fund of Knowledge: Poor Decription of patient's judgement and insights: Poor I/J - Mood Mood: Neutral - Affect Affect: Broad - Speech Speech: Appropriate - Formal Thought Process Formal Thought Process: Loosening of associations Psychotic Thoughts and Behaviors: Improving clinically, not expressing paranoia - Suicidal Ideation Suicidal Ideation: No - Homicidal Ideation Homicidal Ideation: No Goal/Treatment Plan - Goal/Treatment Plan Need for Continued Stay: Remain at risks for inpatient hospitalization, Failed transitioning, Severe functional impairment Progress Toward Problem(s) and Goals/Treatment Plan: 81 yo female with dementia with behavioral disturbances with acute behavioral problems, now improving clinically. -Continue Seroquel 50 mg PO BID/100 mg PO HS -Continue Sertraline 50 mg PO Daily -Continue Ativan 0.5 mg PO Daily@1700 -Discontinue 1:1 -Individual, group and milieu tx Estimated Date of D/C: 12/06/16
[2016-12-03] MEDS: Levothyroxine 50 MCG TAB PO SCH (10:08)
[2016-12-03] MEDS: Insulin Regular 100 units/ml SC SCH ×4 (10:34→21:01)
--- NOTE | 2016-12-04 07:07 | PN ---
DATE: 12/03/2016 Room 305. SUBJECTIVE: This is an 81-year-old female with recent uncontrolled ____ followed closely for metabol ic management. However, at this time because of the current psychological and mental capacity of the patient with progressive dementia, we will give insulin coverage only for inpatient use at this time . She will be sent home on dual oral hypoglycemic drug therapy as given. Her glucose values today h ave ranged from 127 to ____ mg/dL. Her latest chemistry showed a BUN of 44, sodium 146, potassium 3. 8, chloride ____, CO2 26, glucose 124 and creatinine 1.7. Her thyroid study showed a T4 of 12.3 with a TSH of 5.55 and a free T4 of 0.67 indicative of subclinical hypothyroidism with superimposed acute sick euthyroid syndrome. Because of the advanced age of the patient, we will prudently keep her on the lower dose of the levothyroxine at 50 mcg once daily as ordered. We will continue also the dual oral hypoglycemic drug therapy as given with Januvia given as 50 mg once daily and Glucotrol at 10 mg b.i.d. as ordered. We will titrate incrementally as indicated to optimize metabolic control. We wi ll obtain serial chemistries and supplement accordingly as needed. We will follow. Rachel Andersen MD cc: [id number] TT: 12/03/2016 16:54:58 Confirmation # [id number] Dictation # [id number] tn
[2016-12-04] MEDS: Levothyroxine 50 MCG TAB PO SCH (12:47)
--- NOTE | 2016-12-04 12:51 | PCM.PYCHPN ---
Psychiatric Progress Note - Psychiatric Progress Note Patient seen today, length of contact: Patient evaluated, case discussed with team, chart reviewed Patient Chief Complaint: "I'm okay" Problems Identified/Issues Discussed: Patient had several episodes of screaming yesterday. Insurance Healthcare Representative discussed the patient's lack of significant improvement with the patient's daughter and . As patient is not improving significantly clinically, she would benefit from a retrial of depakote. Medication Change: Yes (Start Depakote 125 mg PO Daily @1700) Medical Record Reviewed: Yes Mental Status Examination - Cognitive Function Orientation: Person Memory: Impaired Attention: Poor Concentration: Poor Association: Loose Fund of Knowledge: Poor Decription of patient's judgement and insights: Poor I/J - Mood Mood: Neutral - Affect Affect: Broad - Speech Speech: Appropriate - Formal Thought Process Formal Thought Process: Paranoia, Loosening of associations Psychotic Thoughts and Behaviors: No AH/VH, +Paranoia - Suicidal Ideation Suicidal Ideation: No - Homicidal Ideation Homicidal Ideation: No Goal/Treatment Plan - Goal/Treatment Plan Need for Continued Stay: Remain at risks for inpatient hospitalization, Failed transitioning, Severe functional impairment Progress Toward Problem(s) and Goals/Treatment Plan: 81 yo female with dementia with behavioral disturbances with acute behavioral problems, improves at times, but patient continues to have intermittent paranoia , episodes of screaming and agitation. -Continue Seroquel 50 mg PO BID/100 mg PO HS -Continue Sertraline 50 mg PO Daily -Continue Ativan 0.5 mg PO Daily@1700 -Start Depakote 125 mg PO Daily@1700 -Individual, group and milieu tx Estimated Date of D/C: 12/10/16
[2016-12-04] MEDS: Insulin Regular 100 units/ml SC SCH ×4 (12:57→21:07)
--- NOTE | 2016-12-04 16:17 | PN ---
DATE: 12/04/2016 ROOM: 305 This is an 81-year-old female with recent transfer to psychiatry for closer evaluation and management of progressive dementia with behavioral changes and is also being followed from the endocrine [facility] for management of type 2 diabetes and hypothyroidism as noted thereof. Her glycemic levels are f luctuating related to the variability of her oral intake. Her latest glucose levels have ranged from 117-154 and 221 mg/dL. It was 185-200 overnight as noted. Her latest chemistry showed a BUN 44, sodium 146, potassium 3.8, chloride 105, CO2 26, glucose 134, and creatinine 1.7. So, at this time, will continue the dual oral hypoglycemic drug therapy as given with Januvia given a s 50 mg once daily and glipizide given as 10 mg b.i.d. before meals as ordered. Will continue also t he levothyroxine given at 50 mcg once daily as ordered. Will titrate incrementally as indicated to o ptimize metabolic control. Will follow and advise accordingly. Rachel Andersen MD cc: [id number] TT: 12/04/2016 16:16:27 Confirmation # [id number] Dictation # [id number] mn
[2016-12-04] MEDS: Divalproex 125 mg Sprinkle Capsule PO SCH (16:49)
[2016-12-05] MEDS: Insulin Regular 100 units/ml SC SCH ×4 (06:07→21:08)
--- NOTE | 2016-12-05 12:14 | PCM.PYCHPN ---
Psychiatric Progress Note - Psychiatric Progress Note Patient seen today, length of contact: Patient evaluated, case discussed with team, chart reviewed Patient Chief Complaint: "I'm okay" Problems Identified/Issues Discussed: Patient had several episodes of screaming yesterday and was paranoid and agitated towards staff. Today the patient is calm this morning, but her episodes of agitation usually start in the afternoon. Medication Change: No Medical Record Reviewed: Yes Mental Status Examination - Cognitive Function Orientation: Person Memory: Impaired Attention: Poor Concentration: Poor Association: Loose Fund of Knowledge: Poor Decription of patient's judgement and insights: Poor I/J - Mood Mood: Neutral - Affect Affect: Broad - Speech Speech: Appropriate - Formal Thought Process Formal Thought Process: Paranoia, Loosening of associations Psychotic Thoughts and Behaviors: +Intermittent paranoia - Suicidal Ideation Suicidal Ideation: No - Homicidal Ideation Homicidal Ideation: No Goal/Treatment Plan - Goal/Treatment Plan Need for Continued Stay: Remain at risks for inpatient hospitalization, Failed transitioning, Severe functional impairment Progress Toward Problem(s) and Goals/Treatment Plan: 81 yo female with dementia with behavioral disturbances with acute behavioral problems, improves at times, but patient continues to have intermittent paranoia , episodes of screaming and agitation. -Continue Seroquel 50 mg PO BID/100 mg PO HS -Continue Sertraline 50 mg PO Daily -Continue Ativan 0.5 mg PO Daily@1700 -Continue Depakote 125 mg PO Daily@1700 -Individual, group and milieu tx Estimated Date of D/C: 12/10/16
[2016-12-05] MEDS: Levothyroxine 50 MCG TAB PO SCH (12:55)
--- NOTE | 2016-12-05 13:45 | CP.PCM.PN ---
Subjective - Date & Time of Evaluation Date of Evaluation: 12/05/16 Time of Evaluation: 13:30 - Subjective Subjective: PODIATRY PROGRESS NOTE FOR DR. MOREAU: 81 yo female patient seen at bedside in [facility] today for f/u of healed ulceration to left 2nd toe. Pt seen resting comfortably in bed at this time eating lunch. Appears calm and cooperative. Denies any pain or discomfort to the feet/ankles today. Of note, patient is 4 months s/p ORIF of left ankle. Objective - Vital Signs/Intake and Output Vital Signs (last 24 hours): Temp Pulse Resp BP Pulse Ox 97.4 F L 61 18 162/76 H 18 L 12/05/16 06:00 12/05/16 12:54 12/05/16 06:00 12/05/16 12:54 11/29/16 06:00 - Medications Medications: Current Medications Al Hydrox/Mg Hydrox/Simethicone (Maalox Plus 30 Ml) 30 ml PO Q4 PRN PRN Reason: Dyspepsia Albuterol/Ipratropium (Duoneb 3 Mg/0.5 Mg (3 Ml) Ud) 3 ml IH Q6H PRN PRN Reason: Shortness of Breath Last Admin: 11/16/16 09:16 Dose: 3 ml Amlodipine Besylate (Norvasc) 5 mg PO DAILY [facility] Last Admin: 12/05/16 12:54 Dose: 5 mg Apixaban (Eliquis) 2.5 mg PO Q12H MOUNA PRN Reason: Protocol Last Admin: 12/05/16 12:49 Dose: 2.5 mg Aspirin (Ecotrin) 81 mg PO DAILY [facility] Last Admin: 12/05/16 12:49 Dose: 81 mg Atorvastatin Calcium (Lipitor) 40 mg PO HS [facility] Last Admin: 12/04/16 21:06 Dose: 40 mg Bismuth Subsalicylate (Pepto-Bismol) 524 mg PO Q4 PRN PRN Reason: Diarrhea Divalproex Sodium (Depakote Sprinkles) 125 mg PO DAILY@1700 [facility] Last Admin: 12/04/16 16:49 Dose: 125 mg Docusate Sodium (Colace) 100 mg PO BID [facility] Last Admin: 12/05/16 12:43 Dose: 100 mg Ferrous Sulfate (Feosol) 325 mg PO BID [facility] Last Admin: 12/05/16 12:51 Dose: 325 mg Gabapentin (Neurontin) 300 mg PO TID [facility] Last Admin: 12/05/16 12:54 Dose: 300 mg Glipizide (Glucotrol) 10 mg PO BIDAC [facility] Last Admin: 12/05/16 12:51 Dose: 10 mg Hydrochlorothiazide (Hydrodiuril) 25 mg PO DAILY [facility] Last Admin: 12/05/16 12:52 Dose: 25 mg Insulin Human Regular (Humulin R) 0 units [facility] PRN Reason: Protocol Last Admin: 12/05/16 12:51 Dose: Not Given Levothyroxine Sodium (Synthroid) 50 mcg PO DAILY@0630 [facility] Last Admin: 12/05/16 12:55 Dose: 50 mcg Lorazepam (Ativan) 0.5 mg IM Q4H PRN PRN Reason: agitated combative behavior Last Admin: 12/01/16 16:55 Dose: 0.5 mg Lorazepam (Ativan) 0.5 mg PO DAILY@1700 [facility] Last Admin: 12/04/16 16:22 Dose: 0.5 mg Magnesium Hydroxide (Milk Of Magnesia) 30 ml PO HS PRN PRN Reason: Constipation Memantine (Namenda) 10 mg PO BID [facility] Last Admin: 12/05/16 12:53 Dose: 10 mg Montelukast Sodium (Singulair) 10 mg PO HS [facility] Last Admin: 12/04/16 21:06 Dose: 10 mg Quetiapine Fumarate (Seroquel) 100 mg PO HS [facility] Last Admin: 12/04/16 21:06 Dose: 100 mg Quetiapine Fumarate (Seroquel) 100 mg PO DAILY@1700 [facility] Last Admin: 12/04/16 16:27 Dose: 100 mg Sertraline HCl (Zoloft) 50 mg PO DAILY [facility] Last Admin: 12/05/16 12:56 Dose: 50 mg Sitagliptin Phosphate (Januvia) 50 mg PO DAILY [facility] Last Admin: 12/05/16 12:52 Dose: 50 mg Tramadol HCl (Ultram) 50 mg PO Q6 PRN PRN Reason: Other Last Admin: 12/04/16 20:30 Dose: 50 mg Valsartan (Diovan) 320 mg PO DAILY [facility] Last Admin: 12/05/16 12:48 Dose: 320 mg - Labs Labs: 11/30/16 08:25 12/03/16 07:20 - Constitutional Appears: Non-toxic, No Acute Distress - Extremities Exam Extremities Exam: absent: Calf Tenderness Additional comments: Left lower extremity exam: VASC: DP/PT pulses are non-palpable, cft <4 sec to digits x 10, skin temp runs warm to cool, slight edema noted to the dorsum of 2nd toe DERM: dried sanginous material noted to the dorsal aspect of the left 2nd digit and lateral aspect of the left ankle (at surgical incision site), no open lesions, no drainage, slight erythema noted to the dorsum of left 2nd toe today , no increase in callor to touch NEURO: gross pedal sensation is intact ORTHO: no pain to palpation of 2nd digit, no pain to palpation of ankle surgical site (medial and laterally). - Neurological Exam Neurological Exam: Alert, Awake - Psychiatric Exam Psychiatric exam: Normal Affect, Normal Mood Assessment and Plan - Assessment and Plan (Free Text) Assessment: 81 year old female patient w/ left 2nd digit digit healed ulceration, 4 months s /p left ankle ORIF w/ healing surgical sites. Plan: -Pt seen and evaluated at bedside in [facility] -Chart, labs and vitals reviewed: afebrile -Pt to wear offloading prevalon boots to heels at all times while in bed for prevention of decubiti to heels -Stable per podiatry -No dressings needed -Will order arterial duplex for left lower extremity to assess pedal flow -Will d/w Dr. Moreau -Pt to f/u w/ Dr. Moreau as an outpatient.
--- NOTE | 2016-12-05 15:27 | PN ---
DATE: 12/05/2016 [facility]. This is an 81-year-old female with known history of type 2 diabetes and hypertension and underlying h ypothyroidism now being followed closely for metabolic management. She is also undergoing closer psy chiatric evaluation and management for recent progressive dementia of the Alzheimer's type and associ ated behavioral disturbances thereof. Her latest glucose levels have improved and have ranged from 121-151 mg/dL. It was 213-221 last nigh t at noted. So at this time, will continue the same dual oral hypoglycemic drug therapy as given with Januvia giv en as 50 mg once daily and glipizide given as 10 mg b.i.d. as ordered. Will continue the low-dose co rrection scale using regular insulin as ordered. Will titrate incrementally as indicated to optimize metabolic control. Will obtain serial chemistries and supplement accordingly as needed. Will maricel haque. Rachel Andersen MD cc: [phone] TT: 12/05/2016 15:27:05 Confirmation # [id number] Dictation # [id number] jordan
[2016-12-05] MEDS: Divalproex 125 mg Sprinkle Capsule PO SCH (16:04)
[2016-12-06] MEDS: Levothyroxine 50 MCG TAB PO SCH (09:05)
[2016-12-06] MEDS: Insulin Regular 100 units/ml SC SCH ×2 (09:08→12:47)
--- NOTE | 2016-12-06 13:47 | PN ---
DATE: 12/06/2016 ROOM: 305 This is an 81-year-old female with recent uncontrolled type 2 diabetes, presenting with glycemic fluc tuations and is now being followed closely for metabolic management. Her glycemic levels have ranged from 155-242 mg/dL. Her bedtime glucoses have ranged from 190-202 mg /dL. Her latest chemistries showed a BUN of 44, sodium 146, potassium 3.8, chloride 105, CO2 26, glu cose 134 and creatinine 1.7. So at this time, we will continue the same dual oral hypoglycemic drug therapy as given with glipizid e given as 10 mg b.i.d. and Januvia at 50 mg once daily. We will consider the addition of basal insu alicja only if hyperglycemic levels persist. We will also continue her levothyroxine given at the low d ose of 50 mcg once daily as ordered. We will titrate incrementally as indicated to optimize metaboli c control. We will also repeat the chemistries and supplement accordingly as needed. We will follow . Rachel Andersen MD cc: [phone] TT: 12/06/2016 13:46:44 Confirmation # [id number] Dictation # [id number] en
[2016-12-06] MEDS: Divalproex 125 mg Sprinkle Capsule PO SCH (16:01)
--- NOTE | 2016-12-06 17:03 | PCM.PYCHPN ---
Psychiatric Progress Note - Psychiatric Progress Note Patient seen today, length of contact: Patient evaluated, case discussed with team, chart reviewed Patient Chief Complaint: "I'm okay" Problems Identified/Issues Discussed: Patient continues to have intermittent periods of screaming, yelling and paranoia towards staff. She has poor insight into her dementia or her disruptive behaviors. When she is not have periods of agitation, she is usually calm and pleasant. Medication Change: No Medical Record Reviewed: Yes Mental Status Examination - Cognitive Function Orientation: Person Memory: Impaired Attention: Poor Concentration: Poor Association: Loose Fund of Knowledge: Poor Decription of patient's judgement and insights: Poor I/J - Mood Mood: Neutral - Affect Affect: Broad - Speech Speech: Appropriate - Formal Thought Process Formal Thought Process: Paranoia, Loosening of associations Psychotic Thoughts and Behaviors: +Intermittent episodes of paranoia - Suicidal Ideation Suicidal Ideation: No - Homicidal Ideation Homicidal Ideation: No Goal/Treatment Plan - Goal/Treatment Plan Need for Continued Stay: Remain at risks for inpatient hospitalization, Failed transitioning, Severe functional impairment Progress Toward Problem(s) and Goals/Treatment Plan: 81 yo female with dementia with behavioral disturbances with acute behavioral problems, improves at times, but patient continues to have intermittent paranoia , episodes of screaming and agitation. -Continue Seroquel 50 mg PO BID/100 mg PO HS -Continue Sertraline 50 mg PO Daily -Continue Ativan 0.5 mg PO Daily@1700 -Continue Depakote 125 mg PO Daily@1700 -Individual, group and milieu tx Estimated Date of D/C: 12/11/16
[2016-12-07] MEDS: Levothyroxine 50 MCG TAB PO SCH (06:58)
[2016-12-07 07:48] LABS: BILIRUBIN,TOTAL 0.4 mg/dl (0.2-1.3); POTASSIUM 3.4 MMOL/L (3.6-5.0); TOTAL PROTEIN 6.5 G/DL (6.3-8.2)
[2016-12-07 08:05] LABS: T4 9.84 ug/dl (5.5-11.0)
[2016-12-07 08:18] LABS: THYROID STIMULATING HORMONE 2.16 mIU/ML (0.46-4.68)
[2016-12-07] MEDS ORDERED: Divalproex 125 mg Sprinkle Capsule PO SCH (09:00)
[2016-12-07] MEDS: Insulin Regular 100 units/ml SC SCH ×4 (09:37→21:19)
--- NOTE | 2016-12-07 10:23 | PN ---
DATE: 12/07/2016 ROOM: 305 SUBJECTIVE: This is an 81-year-old female with recent progressive dementia and associated behavioral disturbances now being followed closely at the psychiatric unit and also being followed for metaboli c management. Her glycemic levels are fluctuating as noted and the glucose levels have ranged from 2 05-217 and 293 mg/dL. Her latest chemistry showed a BUN of 50, sodium 143, potassium 3.4, chloride 1 03, CO2 25, glucose 205 and creatinine 2.0. So at this time, she actually continues to have hypergly cemic accelerations despite the maximal dual oral hypoglycemic therapy as given. With renal insuffic iency, we cannot go higher on the dose of Januvia as given at 50 mg daily. She is also on glipizide given as 10 mg b.i.d. before meals as ordered. She really at this time is insulin-requiring for a mo re suboptimal metabolic control of her diabetic condition. However, with her advanced age and mental and emotional instability, would be very careful and cautions to give and prescribe insulin therapy for outpatient home management. We may decide to add basal insulin and/or premixed insulin just for inpatient diabetic management. We will follow. Rachel Andersen MD cc: [phone] TT: 12/07/2016 10:22:52 Confirmation # [id number] Dictation # [id number] tn
--- NOTE | 2016-12-07 10:57 | PCM.PYCHPN ---
Psychiatric Progress Note - Psychiatric Progress Note Patient seen today, length of contact: discussed with team Patient Chief Complaint: no c/o Problems Identified/Issues Discussed: pt has no complaints of medication side effects. no behavioral problems overnight. Medication Change: No Medical Record Reviewed: Yes Mental Status Examination - Cognitive Function Orientation: Person Memory: Impaired Attention: WNL Concentration: WNL Association: WN Fund of Knowledge: [facility] Decription of patient's judgement and insights: improving - Mood Mood: Neutral - Affect Affect: Broad - Speech Speech: Appropriate - Formal Thought Process Formal Thought Process: No Impairment Psychotic Thoughts and Behaviors: some reports of paranoid thoughts - Suicidal Ideation Suicidal Ideation: No - Homicidal Ideation Homicidal Ideation: No Goal/Treatment Plan - Goal/Treatment Plan Need for Continued Stay: Remain at risks for inpatient hospitalization, Failed transitioning, Severe functional impairment Progress Toward Problem(s) and Goals/Treatment Plan: dementia with behavioral disturbance continue current treatment per primary team Estimated Date of D/C: 12/11/16
[2016-12-07] MEDS: Divalproex 125 mg Sprinkle Capsule PO SCH (16:12)
[2016-12-08] MEDS: Insulin Regular 100 units/ml SC SCH (06:30)
--- NOTE | 2016-12-08 08:56 | CP.PCM.PN ---
Subjective - Date & Time of Evaluation Date of Evaluation: 12/08/16 Time of Evaluation: 08:45 - Subjective Subjective: PODIATRY PROGRESS NOTE FOR DR. MOREAU: 81 yo female patient seen at bedside in [facility] today for f/u of ulceration to left 2nd toe. Pt seen resting comfortably in bed at time of visit. Denies f/n /v/c/sob/cp. Denies any pain or discomfort the left foot or ankle today. Nursing reports low grade fever overnight (100.9) however afebrile currently. Objective - Vital Signs/Intake and Output Vital Signs (last 24 hours): Temp Pulse Resp BP Pulse Ox 97.1 F L 79 20 108/52 L 18 L 12/08/16 06:00 12/08/16 06:00 12/08/16 06:00 12/08/16 06:00 11/29/16 06:00 - Medications Medications: Current Medications Al Hydrox/Mg Hydrox/Simethicone (Maalox Plus 30 Ml) 30 ml PO Q4 PRN PRN Reason: Dyspepsia Albuterol/Ipratropium (Duoneb 3 Mg/0.5 Mg (3 Ml) Ud) 3 ml IH Q6H PRN PRN Reason: Shortness of Breath Last Admin: 11/16/16 09:16 Dose: 3 ml Amlodipine Besylate (Norvasc) 5 mg PO DAILY [facility] Last Admin: 12/07/16 09:38 Dose: 5 mg Apixaban (Eliquis) 2.5 mg PO Q12 MOUNA PRN Reason: Protocol Last Admin: 12/07/16 21:00 Dose: 2.5 mg Aspirin (Ecotrin) 81 mg PO DAILY [facility] Last Admin: 12/07/16 09:34 Dose: 81 mg Atorvastatin Calcium (Lipitor) 40 mg PO HS [facility] Last Admin: 12/07/16 21:01 Dose: 40 mg Bismuth Subsalicylate (Pepto-Bismol) 524 mg PO Q4 PRN PRN Reason: Diarrhea Divalproex Sodium (Depakote Sprinkles) 125 mg PO DAILY@1700 [facility] Last Admin: 12/07/16 16:12 Dose: 125 mg Docusate Sodium (Colace) 100 mg PO BID [facility] Last Admin: 12/07/16 16:13 Dose: 100 mg Ferrous Sulfate (Feosol) 325 mg PO BID [facility] Last Admin: 12/07/16 16:13 Dose: 325 mg Gabapentin (Neurontin) 300 mg PO TID [facility] Last Admin: 12/07/16 16:13 Dose: 300 mg Glipizide (Glucotrol) 10 mg PO BIDAC [facility] Last Admin: 12/07/16 16:13 Dose: 10 mg Hydrochlorothiazide (Hydrodiuril) 25 mg PO DAILY [facility] Last Admin: 12/07/16 09:37 Dose: 25 mg Insulin Human Regular (Humulin R) 0 units SC [facility] PRN Reason: Protocol Last Admin: 12/08/16 06:30 Dose: Not Given Levothyroxine Sodium (Synthroid) 50 mcg PO DAILY@0630 [facility] Last Admin: 12/07/16 06:58 Dose: 50 mcg Lorazepam (Ativan) 0.5 mg PO DAILY@1700 [facility] Last Admin: 12/07/16 16:17 Dose: 0.5 mg Magnesium Hydroxide (Milk Of Magnesia) 30 ml PO HS PRN PRN Reason: Constipation Memantine (Namenda) 10 mg PO BID [facility] Last Admin: 12/07/16 16:13 Dose: 10 mg Montelukast Sodium (Singulair) 10 mg PO HS [facility] Last Admin: 12/07/16 21:00 Dose: 10 mg Quetiapine Fumarate (Seroquel) 100 mg PO HS [facility] Last Admin: 12/07/16 21:00 Dose: 100 mg Quetiapine Fumarate (Seroquel) 100 mg PO DAILY@1700 [facility] Last Admin: 12/07/16 16:13 Dose: 100 mg Sertraline HCl (Zoloft) 50 mg PO DAILY [facility] Last Admin: 12/07/16 09:36 Dose: 50 mg Sitagliptin Phosphate (Januvia) 50 mg PO DAILY [facility] Last Admin: 12/07/16 09:34 Dose: 50 mg Tramadol HCl (Ultram) 50 mg PO Q6 PRN PRN Reason: Other Last Admin: 12/07/16 16:17 Dose: 50 mg Valsartan (Diovan) 320 mg PO DAILY [facility] Last Admin: 12/07/16 09:36 Dose: 320 mg - Labs Labs: 11/30/16 08:25 12/07/16 06:30 - Constitutional Appears: Non-toxic, No Acute Distress - Extremities Exam Extremities Exam: absent: Calf Tenderness Additional comments: Left lower extremity exam: VASC: DP/PT pulses are non-palpable, cft <4 sec to digits x 10, skin temp runs warm to cool, slight edema noted to the dorsum of 2nd toe DERM: dried sanginous material noted to the dorsal aspect of the left 2nd digit and lateral aspect of the left ankle (at surgical incision site), no open lesions, no drainage, slight erythema noted to the dorsum of left 2nd toe today , no increase in callor to touch NEURO: gross pedal sensation is intact ORTHO: no pain to palpation of 2nd digit, no pain to palpation of ankle surgical site (medial and laterally). - Neurological Exam Neurological Exam: Alert, Awake, Oriented x3 - Psychiatric Exam Psychiatric exam: Normal Affect, Normal Mood Assessment and Plan - Assessment and Plan (Free Text) Assessment: 81 year old female patient w/ left 2nd digit digit healed ulceration, 4 months s /p left ankle ORIF w/ healing surgical sites. Plan: -Pt seen and evaluated at bedside in [facility] -Plan discussed w/ attending Dr. Moreau -Chart, labs and vitals reviewed: afebrile -Pt to wear offloading prevalon boots to heels at all times while in bed for prevention of decubiti to heels -Stable per podiatry -No dressings needed at this time -Arterial duplex complete, awaiting report --Pt to f/u w/ Dr. Moreau as an outpatient. -will continue to follow
[2016-12-08] MEDS: Levothyroxine 50 MCG TAB PO SCH (09:32)
--- NOTE | 2016-12-08 11:50 | PN ---
DATE: 12/08/2016 ROOM: 305 This is an 81-year-old female with recent uncontrolled type 2 diabetes and hypothyroidism, now being followed closely for metabolic management. She is also undergoing closer psychiatric management here at the geropsych unit because of recent behavioral disturbances related to progressive dementia of t he Alzheimer's type. Her latest glucose levels are still fluctuating and have ranged from 278-238 and 388 mg/dL. So at this time, we will actually have no choice at this point but to add a basal and bolus insulin t herapy to optimize metabolic control as her glycemic levels continue to have progressively worsening glycemic accelerations as noted over the last few days inpatient. We will actually be adding a very low dose of a basal and bolus insulin drug combination with Humalog to be given as 6 units subQ t.i.d . before meals to start at lunchtime today as ordered. We will titrate incrementally as indicated to optimize metabolic control. We will also be modifying her coverage scale to obviate hypoglycemia an d detailed orders have been given with coverage to be given only above 300 as noted. We will also be adding basal insulin to start with Levemir given as 12 units subQ at bedtime daily to start tonight. We will titrate incrementally as indicated to optimize metabolic control. We will obtain serial ch emistries and supplement accordingly as needed. We will also be continuing her dual oral hypoglycemi c drug therapy as given. She is currently on glipizide given as 10 mg b.i.d. before meals and Januvi a at 50 mg once daily as ordered. We are hoping that this is only a temporary glycemic or metabolic decompensation and we are hoping to give the insulin therapy only for inpatient diabetic management, but if she improves remarkably over the next few days with the initiation of insulin therapy, then we may have to consider continuing the aforementioned also for outpatient diabetic management. We will have to discuss with social studies teacher regarding teaching the family to administer insulin therapy to discharge the patient at this time. We will obtain serial chemistries and supplement accordingly as needed. We will follow. Rachel Andersen MD cc: [id number] TT: 12/08/2016 11:50:01 Confirmation # [id number] Dictation # [id number] en
--- NOTE | 2016-12-08 12:31 | PCM.PYCHPN ---
Psychiatric Progress Note - Psychiatric Progress Note Patient seen today, length of contact: discussed with team Patient Chief Complaint: no c/o Problems Identified/Issues Discussed: pt has no complaints of medication side effects. no behavioral problems overnight. Medication Change: No Medical Record Reviewed: Yes Mental Status Examination - Cognitive Function Orientation: Person Memory: Impaired Attention: WNL Concentration: WNL Association: WN Fund of Knowledge: [facility] Decription of patient's judgement and insights: poor - Mood Mood: Neutral - Affect Affect: Broad - Speech Speech: Appropriate - Formal Thought Process Formal Thought Process: No Impairment - Suicidal Ideation Suicidal Ideation: No - Homicidal Ideation Homicidal Ideation: No Goal/Treatment Plan - Goal/Treatment Plan Need for Continued Stay: Remain at risks for inpatient hospitalization, Failed transitioning, Severe functional impairment Progress Toward Problem(s) and Goals/Treatment Plan: dementia with behavioral disturbance continue current treatment per primary team Estimated Date of D/C: 12/11/16
[2016-12-08] MEDS: Insulin Lispro (humaLOG) 100 Units/ml Inj SC SCH ×4 (12:35→16:43)
[2016-12-08] MEDS: Divalproex 125 mg Sprinkle Capsule PO SCH (16:04)
[2016-12-08] MEDS: Albuterol-Ipratrop 3 mg / 0.5 (3 ml) UD IH PRN (17:37)
[2016-12-08] MEDS: Insulin Detemir 100 Units/ml Inj SC SCH (21:14)
[2016-12-08] MEDS ORDERED: Insulin Regular 100 units/ml SC SCH (22:00)
[2016-12-09] MEDS: Insulin Regular 100 units/ml SC SCH ×6 (06:36→16:52)
[2016-12-09 07:34] LABS: POTASSIUM 3.8 MMOL/L (3.6-5.0)
--- NOTE | 2016-12-09 08:21 | PCM.PYCHPN ---
Psychiatric Progress Note - Psychiatric Progress Note Patient seen today, length of contact: Patient evaluated, case discussed with team, chart reviewed Patient Chief Complaint: "I'm okay" Problems Identified/Issues Discussed: Patient has improved clinically. She did not have episodes of yelling or paranoia over the weekend. She continues to have poor insight into her dementia , but is in better behavioral control. She is calm, pleasant, and able to engage in simple conversations with staff. No adverse effects to medications noted. Medication Change: No Medical Record Reviewed: Yes Mental Status Examination - Cognitive Function Orientation: Person Memory: Impaired Attention: Poor Concentration: Poor Association: Loose Fund of Knowledge: Poor Decription of patient's judgement and insights: Poor I/J due to dementia, but patient has been in good behavioral control - Mood Mood: Neutral - Affect Affect: Broad - Speech Speech: Appropriate - Formal Thought Process Formal Thought Process: No Impairment Psychotic Thoughts and Behaviors: NO AH/VH - Suicidal Ideation Suicidal Ideation: No - Homicidal Ideation Homicidal Ideation: No Goal/Treatment Plan - Goal/Treatment Plan Progress Toward Problem(s) and Goals/Treatment Plan: 81 yo female with dementia with behavioral disturbances with acute behavioral problems, now improving. -Continue Seroquel 50 mg PO BID/100 mg PO HS -Continue Sertraline 50 mg PO Daily -Continue Ativan 0.5 mg PO Daily@1700 -Continue Depakote 125 mg PO Daily@1700 -Individual, group and milieu tx Estimated Date of D/C: 12/11/16
--- NOTE | 2016-12-09 08:26 | US ---
PROCEDURE: Duplex ultrasound of the bilateral lower extremity arteries. HISTORY: Assess pedal flow (left 2nd digit ulcer) COMPARISON: None available. TECHNIQUE: Grayscale and duplex Doppler evaluation of the bilateral common femoral, superficial femoral, popliteal, posterior tibial and dorsalis pedis arteries was performed.. FINDINGS: LEFT LOWER EXTREMITY: LEFT COMMON FEMORAL ARTERY: Atherosclerotic disease, biphasic waveform. Maximal flow velocity of 74 cm/s. LEFT SUPERFICIAL FEMORAL ARTERY: Atherosclerotic disease, biphasic waveform Maximal flow velocity of cm/s. LEFT POPLITEAL ARTERY:Widely patent. Maximal flow velocity of 109 cm/s. LEFT POSTERIOR TIBIAL ARTERY: Monophasic waveform. Maximal flow velocity of 20.0 cm/s. LEFT DORSALIS PEDIS ARTERY: Atherosclerotic disease, monophasic waveform Maximal flow velocity of 75.0 cm/s. OTHER FINDINGS: None. IMPRESSION: Atherosclerotic disease which is diffuse without focal critical stenoses.
[2016-12-09] MEDS: Levothyroxine 50 MCG TAB PO SCH (09:01)
--- NOTE | 2016-12-09 16:13 | PN ---
DATE: 12/09/2016 ROOM: 305 This is an 81-year-old female with recent uncontrolled type 2 diabetes with extremes of glycemic fluc tuations and is now being followed closely for metabolic management. She is also being followed clos diana at the geropsych unit for recent progressive dementia and behavioral disturbances related thereof . Her glycemic levels are fluctuating, but much improved at this time and the latest chemistries lisa wed BUN of 69, sodium 141, potassium 3.8, chloride 101, CO2 of 25, glucose 140 and creatinine 2.8. S o, her glucose levels have ranged from 93-148 and 207 mg/dL. So, at this time, we will continue the basal insulin given as Levemir at 12 units subQ at bedtime christophe ly as ordered. We held off the Humalog ordered as 6 units before meals because of the patient's vari able and suboptimal oral intake. We will continue also the low-dose correction scale using regular i nsulin as ordered. We will follow and advise accordingly. Rachel Andersen MD cc: [id number] TT: 12/09/2016 16:12:29 Confirmation # [id number] Dictation # [id number] sn
[2016-12-09] MEDS: Divalproex 125 mg Sprinkle Capsule PO SCH (16:51)
[2016-12-09] MEDS: Insulin Detemir 100 Units/ml Inj SC SCH (21:23)
[2016-12-10] MEDS: Insulin Regular 100 units/ml SC SCH ×2 (08:46→13:12)
[2016-12-10] MEDS: Levothyroxine 50 MCG TAB PO SCH (08:47)
--- NOTE | 2016-12-10 11:03 | CP.PCM.PN ---
Subjective - Date & Time of Evaluation Date of Evaluation: 12/10/16 Time of Evaluation: 10:45 - Subjective Subjective: PODIATRY PROGRESS NOTE FOR DR. APGAN: 81 yo female patient seen at bedside in [facility] today for f/u of ulceration to left 2nd toe. Pt seen resting comfortably in bed at time of visit. Nursing reports no acute events overnight and stable mood/cooperative. Pt denies any pain or discomfort to the left ankle or foot today. Denies f/n/v/c/sob/cp. Objective - Vital Signs/Intake and Output Vital Signs (last 24 hours): Temp Pulse Resp BP Pulse Ox 97.1 F L 64 20 105/64 18 L 12/10/16 06:00 12/10/16 06:00 12/10/16 06:00 12/10/16 06:00 11/29/16 06:00 - Medications Medications: Current Medications Al Hydrox/Mg Hydrox/Simethicone (Maalox Plus 30 Ml) 30 ml PO Q4 PRN PRN Reason: Dyspepsia Albuterol/Ipratropium (Duoneb 3 Mg/0.5 Mg (3 Ml) Ud) 3 ml IH Q6H PRN PRN Reason: Shortness of Breath Last Admin: 12/08/16 17:37 Dose: 3 ml Amlodipine Besylate (Norvasc) 5 mg PO DAILY [facility] Last Admin: 12/10/16 08:47 Dose: Not Given Apixaban (Eliquis) 2.5 mg PO Q12 MOUNA PRN Reason: Protocol Last Admin: 12/10/16 08:44 Dose: 2.5 mg Aspirin (Ecotrin) 81 mg PO DAILY [facility] Last Admin: 12/10/16 08:45 Dose: 81 mg Atorvastatin Calcium (Lipitor) 40 mg PO HS [facility] Last Admin: 12/09/16 21:22 Dose: 40 mg Bismuth Subsalicylate (Pepto-Bismol) 524 mg PO Q4 PRN PRN Reason: Diarrhea Divalproex Sodium (Depakote Sprinkles) 125 mg PO DAILY@1700 [facility] Last Admin: 12/09/16 16:51 Dose: 125 mg Docusate Sodium (Colace) 100 mg PO BID [facility] Last Admin: 12/10/16 08:45 Dose: 100 mg Ferrous Sulfate (Feosol) 325 mg PO BID [facility] Last Admin: 12/10/16 08:46 Dose: 325 mg Gabapentin (Neurontin) 300 mg PO TID [facility] Last Admin: 12/10/16 08:44 Dose: 300 mg Glipizide (Glucotrol) 10 mg PO BIDAC [facility] Last Admin: 12/10/16 08:46 Dose: 10 mg Hydrochlorothiazide (Hydrodiuril) 25 mg PO DAILY [facility] Last Admin: 12/10/16 08:44 Dose: Not Given Insulin Detemir (Levemir) 12 units SC [facility] Last Admin: 12/09/16 21:23 Dose: 12 u Insulin Human Regular (Humulin R) 0 units SC [facility] PRN Reason: Protocol Last Admin: 12/10/16 08:46 Dose: Not Given Levothyroxine Sodium (Synthroid) 50 mcg PO DAILY@0630 [facility] Last Admin: 12/10/16 08:47 Dose: 50 mcg Lorazepam (Ativan) 0.5 mg PO DAILY@1700 [facility] Last Admin: 12/09/16 16:50 Dose: 0.5 mg Magnesium Hydroxide (Milk Of Magnesia) 30 ml PO HS PRN PRN Reason: Constipation Memantine (Namenda) 10 mg PO BID [facility] Last Admin: 12/10/16 08:42 Dose: 10 mg Montelukast Sodium (Singulair) 10 mg PO [facility] Last Admin: 12/09/16 21:15 Dose: 10 mg Quetiapine Fumarate (Seroquel) 100 mg PO HS [facility] Last Admin: 12/09/16 21:14 Dose: 100 mg Quetiapine Fumarate (Seroquel) 100 mg PO DAILY@1700 [facility] Last Admin: 12/09/16 16:51 Dose: 100 mg Sertraline HCl (Zoloft) 50 mg PO DAILY [facility] Last Admin: 12/10/16 08:48 Dose: 50 mg Sitagliptin Phosphate (Januvia) 50 mg PO DAILY [facility] Last Admin: 12/10/16 08:47 Dose: 50 mg Tramadol HCl (Ultram) 50 mg PO Q6 PRN PRN Reason: Pain, moderate (4-7) Last Admin: 12/09/16 18:35 Dose: 50 mg Valsartan (Diovan) 320 mg PO DAILY [facility] Last Admin: 12/10/16 08:45 Dose: Not Given - Labs Labs: 11/30/16 08:25 12/09/16 07:03 - Constitutional Appears: Non-toxic, No Acute Distress - Extremities Exam Extremities Exam: absent: Calf Tenderness Additional comments: Left lower extremity exam: VASC: DP/PT pulses are non-palpable, cft <4 sec to digits x 10, skin temp runs warm to cool, slight edema noted to the dorsum of 2nd toe DERM: there is a thickened hyperkeratotic lesion noted to dorsum of left 2nd digit, erythema noted to 2nd toe w/ no increase in callor, no fluctuance, no malodor, dried sanguinous material noted to lateral aspect of ankle (surgical incision site) w/ no open wounds, NEURO: gross pedal sensation is intact ORTHO: no pain to palpation of 2nd digit, no pain to palpation of ankle surgical site (medial and laterally). - Neurological Exam Neurological Exam: Alert, Awake - Psychiatric Exam Psychiatric exam: Normal Affect, Normal Mood Assessment and Plan - Assessment and Plan (Free Text) Assessment: 81 year old female patient w/ left 2nd digit digit healed ulceration, 4 months s /p left ankle ORIF w/ healing surgical site & left 2nd digit ulceration. Plan: -Pt S&E at bedside in [facility] -Chart, labs vitals reviewed: afebrile, WBC 6.6 (11/30/16) -Left arterial duplex: atherosclerotic disease w/o focal critical stenosis -Left 2nd digit hyperkeratotic lesion aseptically debrided w/ sterile #15 blade -Upon removal of hyperkeratotic lesion, there was an ulceration noted to dorsum of the PIPJ w/ head of proximal phlanax exposed -Discussed findings w/ nurse Monroy -No purulence noted, healthy granular tissue and bleeding noted -Cleansed and dressed with mupiricin ointment and DSD -Mupiricin ointment ordered -Will change dressing tomorrow -Order in for left foot x-rays (r/o OM 2nd digit) -CBC, ESR ordered, will follow- up -Will continue to follow
--- NOTE | 2016-12-10 11:39 | CP.PCM.CON ---
History of Present Illness - History of Present Illness History of Present Illness: This patient who is 19 years old I was called to see her because of abnormal kidney function. Patient is not giving much history however the chart reviewed and indicated she has history of diabetes hypertension chronic A. fib and asthma coronary artery disease. He was noted that serum creatinine has been rising slowly. The medications reviewed and noted that she has been taking Diovan and hydrochlorothiazide him on the rest of the medication. Review of Systems - Constitutional Constitutional: As Per HPI - EENT Nose/Mouth/Throat: As Per HPI - Cardiovascular Cardiovascular: absent: Chest Pain, Dyspnea, Edema - Respiratory Respiratory: absent: Cough, Dyspnea, Hemoptysis, Dyspnea on Exertion - Gastrointestinal Gastrointestinal: absent: Abdominal Pain, Bloating, Diarrhea, Vomiting - Genitourinary Genitourinary: absent: Hematuria, Pyuria, Urinary Incontinence - Musculoskeletal Musculoskeletal: Muscle Weakness - Neurological Neurological: Abnormal Gait - Psychiatric Psychiatric: As Per HPI Past Patient History - Infectious Disease Hx of Infectious Diseases: None - Tetanus Immunizations Tetanus Immunization: Unknown - Past Medical History & Family History Past Medical History?: Yes - Past Social History Smoking Status: Never Smoked - CARDIAC Hx Cardiac Disorders: Yes Hx Congestive Heart Failure: Yes Hx Hypertension: Yes Hx Pacemaker: Yes - PULMONARY Hx Respiratory Disorders: Yes Hx Chronic Obstructive Pulmonary Disease (COPD): Yes - NEUROLOGICAL Hx Neurological Disorder: Yes Hx Dementia: Yes - HEENT Hx HEENT Problems: No - RENAL Hx Chronic Kidney Disease: Yes Other/Comment: CKD - ENDOCRINE/METABOLIC Hx Endocrine Disorders: Yes Hx Diabetes Mellitus Type 1: Yes Hx Diabetes Mellitus Type 2: Yes Hx Hypothyroidism: Yes - HEMATOLOGICAL/ONCOLOGICAL Hx Blood Disorders: Yes Hx AIDS: No Hx Anemia: Yes Hx Human Immunodeficiency Virus (HIV): No - INTEGUMENTARY Hx Dermatological Problems: No - MUSCULOSKELETAL/RHEUMATOLOGICAL Hx Musculoskeletal Disorders: Yes Hx Arthritis: Yes Hx Falls: Yes Hx Fractures: Yes (left tibia) Hx Unsteady Gait: Yes - GASTROINTESTINAL Hx Gastrointestinal Disorders: No - GENITOURINARY/GYNECOLOGICAL Hx Genitourinary Disorders: No Hx Incontinence: Yes - PSYCHIATRIC Hx Substance Use: No - SURGICAL HISTORY Hx Surgeries: Yes Hx Tonsillectomy: Yes Other/Comment: pacemaker left chest - ANESTHESIA Hx Anesthesia: Yes Hx Anesthesia Reactions: No Hx Malignant Hyperthermia: No Meds Allergies/Adverse Reactions: Allergies Allergy/AdvReac Type Severity Reaction Status Date / Time acetaminophen [From Percocet] AdvReac VOMITING Verified 11/14/16 19:21 oxycodone HCl [From Percocet] AdvReac VOMITING Verified 11/14/16 19:21 - Medications Medications: Current Medications Al Hydrox/Mg Hydrox/Simethicone (Maalox Plus 30 Ml) 30 ml PO Q4 PRN PRN Reason: Dyspepsia Albuterol/Ipratropium (Duoneb 3 Mg/0.5 Mg (3 Ml) Ud) 3 ml IH Q6H PRN PRN Reason: Shortness of Breath Last Admin: 12/08/16 17:37 Dose: 3 ml Amlodipine Besylate (Norvasc) 5 mg PO DAILY [facility] Last Admin: 12/10/16 08:47 Dose: Not Given Apixaban (Eliquis) 2.5 mg PO Q12 [facility] PRN Reason: Protocol Last Admin: 12/10/16 08:44 Dose: 2.5 mg Aspirin (Ecotrin) 81 mg PO DAILY [facility] Last Admin: 12/10/16 08:45 Dose: 81 mg Atorvastatin Calcium (Lipitor) 40 mg PO HS [facility] Last Admin: 12/09/16 21:22 Dose: 40 mg Bismuth Subsalicylate (Pepto-Bismol) 524 mg PO Q4 PRN PRN Reason: Diarrhea Divalproex Sodium (Depakote Sprinkles) 125 mg PO DAILY@1700 [facility] Last Admin: 12/09/16 16:51 Dose: 125 mg Docusate Sodium (Colace) 100 mg PO BID [facility] Last Admin: 12/10/16 08:45 Dose: 100 mg Ferrous Sulfate (Feosol) 325 mg PO BID [facility] Last Admin: 12/10/16 08:46 Dose: 325 mg Gabapentin (Neurontin) 300 mg PO TID [facility] Last Admin: 12/10/16 08:44 Dose: 300 mg Glipizide (Glucotrol) 10 mg PO BIDAC [facility] Last Admin: 12/10/16 08:46 Dose: 10 mg Insulin Detemir (Levemir) 12 units SC HS [facility] Last Admin: 12/09/16 21:23 Dose: 12 u Insulin Human Regular (Humulin R) 0 units SC ACHS [facility] PRN Reason: Protocol Last Admin: 12/10/16 08:46 Dose: Not Given Levothyroxine Sodium (Synthroid) 50 mcg PO DAILY@0630 [facility] Last Admin: 12/10/16 08:47 Dose: 50 mcg Lorazepam (Ativan) 0.5 mg PO DAILY@1700 [facility] Last Admin: 12/09/16 16:50 Dose: 0.5 mg Magnesium Hydroxide (Milk Of Magnesia) 30 ml PO HS PRN PRN Reason: Constipation Memantine (Namenda) 10 mg PO BID [facility] Last Admin: 12/10/16 08:42 Dose: 10 mg Montelukast Sodium (Singulair) 10 mg PO [facility] Last Admin: 12/09/16 21:15 Dose: 10 mg Quetiapine Fumarate (Seroquel) 100 mg PO HS [facility] Last Admin: 12/09/16 21:14 Dose: 100 mg Quetiapine Fumarate (Seroquel) 100 mg PO DAILY@1700 [facility] Last Admin: 12/09/16 16:51 Dose: 100 mg Sertraline HCl (Zoloft) 50 mg PO DAILY [facility] Last Admin: 12/10/16 08:48 Dose: 50 mg Sitagliptin Phosphate (Januvia) 50 mg PO DAILY [facility] Last Admin: 12/10/16 08:47 Dose: 50 mg Tramadol HCl (Ultram) 50 mg PO Q6 PRN PRN Reason: Pain, moderate (4-7) Last Admin: 12/09/16 18:35 Dose: 50 mg Physical Exam - Constitutional Appears: No Acute Distress - ENT Exam ENT Exam: Mucous Membranes Dry - Respiratory Exam Respiratory Exam: NORMAL BREATHING PATTERN. absent: Chest Wall Tenderness, Rales - Cardiovascular Exam Cardiovascular Exam: absent: Gallop, JVD, Rubs - GI/Abdominal Exam GI & Abdominal Exam: Normal Bowel Sounds. absent: Distended - Extremities Exam Extremities exam: Negative for: calf tenderness - Back Exam Back exam: absent: CVA tenderness (L), CVA tenderness (R) - Neurological Exam Neurological exam: Alert Results - Vital Signs Recent Vital Signs: Last Vital Signs Temp 97.1 F L 12/10/16 06:00 Pulse 64 12/10/16 06:00 Resp 20 12/10/16 06:00 BP 105/64 12/10/16 06:00 Pulse Ox 18 L 11/29/16 06:00 - Labs Result Diagrams: 11/30/16 08:25 12/09/16 07:03 Labs: Laboratory Results - last 24 hr 12/09/16 12/09/16 12/10/16 16:02 20:49 05:59 POC Glucose (mg/dL) 106 150 H 93 12/10/16 10:46 POC Glucose (mg/dL) 159 H Assessment & Plan (1) Acute kidney injury Assessment and Plan: Patient appeared to have acute kidney injury serum creatinine has been rising clinically she appeared to be dry and blood pressure coming down Most likely related to dehydration and use of ARB.and diuretics. So my recommendation to discontinue Diovan temporary until kidney function come back to normal also discontinue hydrochlorothiazide temporary as well patient need to be reexamined and reevaluated at later time to decide as to when to go back on this medication. I ordered a stat Spot urine for sodium osmolality and creatinine And forced fluid by mouth Repeat blood work tomorrow Status: Acute
--- NOTE | 2016-12-10 13:16 | PCM.PYCHPN ---
Psychiatric Progress Note - Psychiatric Progress Note Patient seen today, length of contact: Patient evaluated, case discussed with team, chart reviewed Patient Chief Complaint: "I'm okay" Problems Identified/Issues Discussed: Patient has improved clinically. She did not any have episodes of yelling or paranoia for several days. She continues to have poor insight into her dementia, but is in better behavioral control. She is calm, pleasant, and able to engage in simple conversations with staff. No adverse effects to medications noted. Medication Change: Yes Medical Record Reviewed: Yes Mental Status Examination - Cognitive Function Orientation: Person Memory: Impaired Attention: Poor Concentration: Poor Association: Loose Fund of Knowledge: Poor Decription of patient's judgement and insights: Poor I/J due to dementia - Mood Mood: Neutral - Affect Affect: Broad - Speech Speech: Appropriate - Formal Thought Process Formal Thought Process: No Impairment Psychotic Thoughts and Behaviors: Denies AH/VH/paranoia - Suicidal Ideation Suicidal Ideation: No - Homicidal Ideation Homicidal Ideation: No Goal/Treatment Plan - Goal/Treatment Plan Progress Toward Problem(s) and Goals/Treatment Plan: 81 yo female with dementia with behavioral disturbances with acute behavioral problems, now improving. -Continue Seroquel 50 mg PO BID/100 mg PO HS -Continue Sertraline 50 mg PO Daily -Stop Ativan 0.5 mg PO Daily@1700 -Continue Depakote 125 mg PO Daily@1700 -Nephrology consult appreciated -Individual, group and milieu tx -Likely discharged tomorrow if the patient is medically clear Estimated Date of D/C: 12/11/16
[2016-12-10 15:18] LABS: HEMATOCRIT 28.7 % (34.0-47.0); MEAN CELL VOLUME 86.2 fl (81.0-99.0); MEAN CORPUSCULAR HEMOGLOBIN 29.2 pg (27.0-31.0); MEAN CORPUSCULAR HGB CONC 33.9 g/dL (33.0-37.0); WHITE BLOOD COUNT 10.5 K/uL (4.8-10.8)
[2016-12-10] MEDS: Divalproex 125 mg Sprinkle Capsule PO SCH (17:09)
[2016-12-10] MEDS ORDERED: Insulin Detemir 100 Units/ml Inj SC SCH (22:00)
[2016-12-11] MEDS: Levothyroxine 50 MCG TAB PO SCH (06:25)
--- NOTE | 2016-12-11 08:05 | PN ---
DATE: 12/10/2016 ROOM: 305 This is an 81-year-old female with recent uncontrolled type 2 insulin-requiring diabetes and concomit ant hypothyroidism, now being followed closely for metabolic management. She is also undergoing clos er psychiatric management for recent behavioral disturbances associated with progressive dementia. Her glycemic levels are fluctuating but much improved at this time. The latest glucose levels have r anged from 93-159 mg/dL today. Her glucose levels ranged from 106-150 last night as noted. Her late st chemistries showed a BUN of 69, sodium 141, potassium 3.8, chloride 101, CO2 25, glucose 140, and creatinine 2.8. So at this time, will continue the low-dose basal insulin given as Levemir 12 units subQ at bedtime d aily as given ____. Actually we lowered dosing to 8 units subQ at bedtime daily to start tonight. W ill also continue the oral hypoglycemic therapy given as Glucotrol at 10 mg b.i.d. with meals and Tylor uvia 50 mg once daily in the morning as ordered. Will continue the low-dose correction scale using r egular insulin as given. Will continue the levothyroxine ordered at 50 mcg once daily as ordered. W ill titrate incrementally as indicated to optimize metabolic control. Will follow. Rachel Andersen MD cc: [phone] TT: 12/10/2016 15:07:57 Confirmation # [id number] Dictation # [id number] jordan
--- NOTE | 2016-12-11 08:11 | CP.PCM.PN ---
Subjective - Date & Time of Evaluation Date of Evaluation: 12/11/16 Time of Evaluation: 07:00 - Subjective Subjective: PODIATRY PROGRESS NOTE FOR DR. PAGAN: 81 yo female patient seen at bedside in [facility] today for f/u of ulceration to left 2nd toe. Pt seen resting comfortably at bed at time of visit. Appears quite lethargic and dozing to sleep at this time. Unable to answer questions at this time. Per nursing, no acute events overnight. Awaiting x-ray of the left foot. Objective - Vital Signs/Intake and Output Vital Signs (last 24 hours): Temp Pulse Resp BP Pulse Ox 96.8 F L 75 20 128/84 18 L 12/11/16 06:00 12/11/16 06:00 12/10/16 16:07 12/11/16 06:00 11/29/16 06:00 - Medications Medications: Current Medications Al Hydrox/Mg Hydrox/Simethicone (Maalox Plus 30 Ml) 30 ml PO Q4 PRN PRN Reason: Dyspepsia Albuterol/Ipratropium (Duoneb 3 Mg/0.5 Mg (3 Ml) Ud) 3 ml IH Q6H PRN PRN Reason: Shortness of Breath Last Admin: 12/08/16 17:37 Dose: 3 ml Amlodipine Besylate (Norvasc) 5 mg PO DAILY [facility] Last Admin: 12/10/16 08:47 Dose: Not Given Apixaban (Eliquis) 2.5 mg PO Q12 [facility] PRN Reason: Protocol Last Admin: 12/10/16 21:35 Dose: 2.5 mg Aspirin (Ecotrin) 81 mg PO DAILY [facility] Last Admin: 12/10/16 08:45 Dose: 81 mg Atorvastatin Calcium (Lipitor) 40 mg PO HS [facility] Last Admin: 12/10/16 21:35 Dose: 40 mg Bismuth Subsalicylate (Pepto-Bismol) 524 mg PO Q4 PRN PRN Reason: Diarrhea Divalproex Sodium (Depakote Sprinkles) 125 mg PO DAILY@1700 [facility] Last Admin: 12/10/16 17:09 Dose: 125 mg Docusate Sodium (Colace) 100 mg PO BID [facility] Last Admin: 12/10/16 17:07 Dose: 100 mg Ferrous Sulfate (Feosol) 325 mg PO BID [facility] Last Admin: 12/10/16 17:10 Dose: 325 mg Gabapentin (Neurontin) 300 mg PO TID [facility] Last Admin: 12/10/16 17:12 Dose: 300 mg Glipizide (Glucotrol) 10 mg PO BIDAC [facility] Last Admin: 12/10/16 17:09 Dose: 10 mg Insulin Detemir (Levemir) 8 units SC [facility] Last Admin: 12/10/16 21:11 Dose: 8 u Insulin Human Regular (Humulin R) 0 units SC [facility] PRN Reason: Protocol Last Admin: 12/10/16 13:12 Dose: Not Given Levothyroxine Sodium (Synthroid) 50 mcg PO DAILY@0630 [facility] Last Admin: 12/11/16 06:25 Dose: 50 mcg Lorazepam (Ativan) 0.5 mg PO DAILY@1700 [facility] Last Admin: 12/10/16 17:07 Dose: 0.5 mg Magnesium Hydroxide (Milk Of Magnesia) 30 ml PO PRN PRN Reason: Constipation Memantine (Namenda) 10 mg PO BID [facility] Last Admin: 12/10/16 17:09 Dose: 10 mg Montelukast Sodium (Singulair) 10 mg PO [facility] Last Admin: 12/10/16 21:36 Dose: 10 mg Mupirocin (Bactroban Ointment) 1 applic TOP BID [facility] Last Admin: 12/10/16 19:22 Dose: Not Given Quetiapine Fumarate (Seroquel) 100 mg PO [facility] Last Admin: 12/10/16 21:35 Dose: 100 mg Quetiapine Fumarate (Seroquel) 100 mg PO DAILY@1700 [facility] Last Admin: 12/10/16 17:09 Dose: 100 mg Sertraline HCl (Zoloft) 50 mg PO DAILY [facility] Last Admin: 12/10/16 08:48 Dose: 50 mg Sitagliptin Phosphate (Januvia) 50 mg PO DAILY [facility] Last Admin: 12/10/16 08:47 Dose: 50 mg Tramadol HCl (Ultram) 50 mg PO Q6 PRN PRN Reason: Pain, moderate (4-7) Last Admin: 12/09/16 18:35 Dose: 50 mg - Labs Labs: 12/10/16 13:13 12/09/16 07:03 - Constitutional Appears: Non-toxic, No Acute Distress - Extremities Exam Additional comments: Left lower extremity exam: Dressing to LLE appears c/d/i VASC: DP/PT pulses are non-palpable, cft <4 sec to digits x 10, skin temp runs warm to cool, slight edema noted to the dorsum of 2nd toe DERM: ulceration noted to dorsum of PIPJ left 2nd digit, 100% granular, slight sero-sanguinous drainage, no purulence, no malodor, no fluctuance, probe to bone (+) exposed proximal phalangeal head seen, lateral ankle surgical incision site appears scabbed over and healing (no drainage) NEURO: gross pedal sensation is intact ORTHO: no pain to palpation of 2nd digit, no pain to palpation of ankle surgical site (medial and laterally). - Neurological Exam Additional comments: lethargic and sleeping Assessment and Plan - Assessment and Plan (Free Text) Assessment: 81 year old female patient w/ left 2nd digit digit ulceration, 4 months s/p left ankle ORIF w/ healing surgical site Plan: -Pt S&E at bedside in [facility] -Chart, labs vitals reviewed: afebrile, WBC 10.5, ESR elevated (116) -Awaiting x-rays of left foot (r/o osteo) -Left arterial duplex: atherosclerotic disease w/o focal critical stenosis -Bactroban applied to wound, dressed w/ DSD -Will continue to follow
[2016-12-11] MEDS: Insulin Regular 100 units/ml SC SCH ×3 (08:24→16:21)
[2016-12-11 09:48] LABS: CALCIUM 8.9 mg/dL (8.4-10.2); POTASSIUM 3.6 MMOL/L (3.6-5.0)
--- NOTE | 2016-12-11 11:56 | CP.PCM.PN ---
Subjective - Date & Time of Evaluation Date of Evaluation: 12/11/16 Time of Evaluation: 11:53 - Subjective Subjective: No new event reported Appeared to be comfortable Serum creatinine coming down and BUn and coming down. Unfortunately no urinalysis yet Blood pressure noted to be trending up We will add a clonidine 0.1 mg every 12 hours as antihypertensive medication because we cannot use ARB or MANISHA inhibitor at the present we will wait until the for recovery of the kidney function And meantime since kidney function improving acute kidney injury recovering slowly and BUN/creatinine trending down therefore patient can be discharged to custodial and she cannot follow-up and repeat the blood tests in about 2 days at the custodial And blood pressure could be monitored as well He meantime I suggest to force of fluid by mouth In summary Acute kidney injury patient recovering and from renal stand point or you can be discharged to custodial and follow-up at the custodial Objective - Vital Signs/Intake and Output Vital Signs (last 24 hours): Temp Pulse Resp BP Pulse Ox 96.8 F L 56 L 20 162/66 H 18 L 12/11/16 06:00 12/11/16 08:36 12/10/16 16:07 12/11/16 08:36 11/29/16 06:00 - Medications Medications: Current Medications Al Hydrox/Mg Hydrox/Simethicone (Maalox Plus 30 Ml) 30 ml PO Q4 PRN PRN Reason: Dyspepsia Albuterol/Ipratropium (Duoneb 3 Mg/0.5 Mg (3 Ml) Ud) 3 ml IH Q6H PRN PRN Reason: Shortness of Breath Last Admin: 12/08/16 17:37 Dose: 3 ml Amlodipine Besylate (Norvasc) 5 mg PO DAILY [facility] Last Admin: 12/11/16 08:36 Dose: 5 mg Apixaban (Eliquis) 2.5 mg PO Q12 [facility] PRN Reason: Protocol Last Admin: 12/11/16 08:22 Dose: 2.5 mg Aspirin (Ecotrin) 81 mg PO DAILY [facility] Last Admin: 12/11/16 08:22 Dose: 81 mg Atorvastatin Calcium (Lipitor) 40 mg PO HS [facility] Last Admin: 12/10/16 21:35 Dose: 40 mg Bismuth Subsalicylate (Pepto-Bismol) 524 mg PO Q4 PRN PRN Reason: Diarrhea Divalproex Sodium (Depakote Sprinkles) 125 mg PO DAILY@1700 [facility] Last Admin: 12/10/16 17:09 Dose: 125 mg Docusate Sodium (Colace) 100 mg PO BID [facility] Last Admin: 12/11/16 08:21 Dose: 100 mg Ferrous Sulfate (Feosol) 325 mg PO BID [facility] Last Admin: 12/11/16 08:23 Dose: 325 mg Gabapentin (Neurontin) 300 mg PO TID [facility] Last Admin: 12/11/16 08:27 Dose: 300 mg Glipizide (Glucotrol) 10 mg PO BIDAC [facility] Last Admin: 12/11/16 08:23 Dose: 10 mg Insulin Detemir (Levemir) 8 units SC [facility] Last Admin: 12/10/16 21:11 Dose: 8 u Insulin Human Regular (Humulin R) 0 units SC [facility] PRN Reason: Protocol Last Admin: 12/11/16 08:24 Dose: Not Given Levothyroxine Sodium (Synthroid) 50 mcg PO DAILY@0630 [facility] Last Admin: 12/11/16 06:25 Dose: 50 mcg Lorazepam (Ativan) 0.5 mg PO DAILY@1700 [facility] Last Admin: 12/10/16 17:07 Dose: 0.5 mg Magnesium Hydroxide (Milk Of Magnesia) 30 ml PO PRN PRN Reason: Constipation Memantine (Namenda) 10 mg PO BID [facility] Last Admin: 12/11/16 08:26 Dose: 10 mg Montelukast Sodium (Singulair) 10 mg PO HS [facility] Last Admin: 12/10/16 21:36 Dose: 10 mg Mupirocin (Bactroban Ointment) 1 applic TOP BID [facility] Last Admin: 12/11/16 08:19 Dose: 1 applic Quetiapine Fumarate (Seroquel) 100 mg PO [facility] Last Admin: 12/10/16 21:35 Dose: 100 mg Quetiapine Fumarate (Seroquel) 100 mg PO DAILY@1700 [facility] Last Admin: 12/10/16 17:09 Dose: 100 mg Sertraline HCl (Zoloft) 50 mg PO DAILY [facility] Last Admin: 12/11/16 08:27 Dose: 50 mg Sitagliptin Phosphate (Januvia) 50 mg PO DAILY [facility] Last Admin: 12/11/16 08:26 Dose: 50 mg Tramadol HCl (Ultram) 50 mg PO Q6 PRN PRN Reason: Pain, moderate (4-7) Last Admin: 12/09/16 18:35 Dose: 50 mg - Labs Labs: 12/10/16 13:13 12/11/16 09:10 Assessment and Plan (1) Acute kidney injury Status: Acute
--- NOTE | 2016-12-11 12:28 | RAD ---
PROCEDURE: Left Foot Radiographs. HISTORY: L 2nd digit ulcer (r/o OM) COMPARISON: None. FINDINGS: BONES: No acute fracture. Old healed fracture of distal 4th metatarsal diaphysis. There is no bony erosion or periosteal reaction to suggest acute osteomyelitis. There is questionable articular erosion of the 5th proximal phalanx distal aspect. This is seen only in the frontal but not the oblique view. There is some irregularity subchondral sclerosis of the distal 1st metatarsal articular surface. There is no joint space narrowing. Questionable old inflammatory arthropathy versus osteoarthritis. Status post ORIF distal fibula and medial malleolus. JOINTS: As above SOFT TISSUES: Vascular calcification. OTHER FINDINGS: None. IMPRESSION: No acute fracture. No evidence of osteomyelitis 2nd digit. Possible erosion distal articular surface 5th proximal phalanx. Possible old erosion versus osteoarthritis 1st metatarsal head articular surface.
--- NOTE | 2016-12-11 13:43 | PCM.PYCHDC ---
Mental Status Examination - Mental Status Examination Orientation: Person Memory: Impaired Mood: Neutral Affect: Broad Speech: Appropriate Attention: Poor Concentration: Poor Association: Loose Fund of Knowledge: Poor Formal Thought Process: Loosening of associations Description of patient's judgement and insight: Poor I/J due to dementia Psychotic Thoughts and Behaviors: Denies AH/VH/paranoia Suicidal Ideation: No Current Homicidal Ideation?: No Discharge Summary - Discharge Note Reason for Hospitalization: This is an 81 y/o female with PMHx significant for dementia ,A fib on Apixiban, HTN CAD, CKD stage III , PAD , CHF, DM2, asthma, who was brought in from [place] with worsening agitation and confusion. As per NH patient was more aggressive towards staff so was sent over for psych eval and admission.In Er she received Ativan and became somnolent so was placed under observation in me/surg. Her UA showed bacteria with small LE , suspicious for UTI so she was started on rocephin IV and then given 5 days of Bactrim. Psychiatry was consulted for management of her dementia with behavioral problems. She was discharged to in- patient Psychiatry unit on 11/15/16. ROS is not possible as patient is awake but does not answer questions at the time of my exam. The following was obtained from review of prior records: PMHx: Afib, HTN, CAD, CKD, DM 2, HF, Asthma, Dementia PSHx: Back Surgery, Left Ankle ORIF ALL: Acetaminophen, Oxycodone Medications: Please see list below Social Hx: Lives in [place], NO alcohol, NO tobacco Family Hx:CAD, DM2 Laboratory Data: Abnormal Lab Results 12/10/16 12/10/16 12/10/16 13:13 15:38 19:59 WBC 10.5 D RBC 3.33 L Hgb 9.7 L Hct 28.7 L MCV 86.2 MCH 29.2 MCHC 33.9 RDW 15.0 H Plt Count 263 ESR 116 H Sodium Potassium Chloride Carbon Dioxide Anion Gap BUN Creatinine Est GFR ( Amer) Est GFR (Non-Af Amer) POC Glucose (mg/dL) 188 H 213 H Random Glucose Calcium 12/11/16 12/11/16 12/11/16 06:30 09:10 10:58 WBC RBC Hgb Hct MCV MCH MCHC RDW Plt Count ESR Sodium 143 Potassium 3.6 Chloride 104 Carbon Dioxide 24 Anion Gap 19 BUN 74 H Creatinine 2.0 H Est GFR ( Amer) 29 Est GFR (Non-Af Amer) 24 POC Glucose (mg/dL) 143 H 143 H Random Glucose 126 H Calcium 8.9 Consultations:: List each consultation separately and include: 1. Reason for request. 2. Findings. 3. Follow-up Consultations: Medicine consult, nephrology consult, podiatry consult Summary of Hospital Course include:: 1. Description of specific treatment plan utilized for patients during their course of treatmen. 2. Summarize the time- course for resolution of acute symptoms and/or regressed behaviors. 3. Describe issues identified and worked on during hospitalization. 4. Describe medication utilized. 5. Describe medical problems identified and treated. 6. Reassessment of suicide risk Summary of Hospital Course: Patient was admitted to the geriatric psychiatry unit. She was stabilized on Seroquel, Sertraline and Depakote. She no longer has episodes of agitation, yelling or paranoia. She continues to have poor insight into her dementia. - Final Diagnosis (DSM 5) Condition upon Discharge: FAIR DSM 5: Dementia with behavioral disturbances Disposition: TRANSF TO SNF Follow-up Treatment Plan: 81 yo female with dementia with behavioral disturbances with acute behavioral problems, now improved. -Continue Seroquel, Sertraline, Depakote -Nephrology consult appreciated, patient's acute renal insuffiency improving. She is medically stable for discharge -Individual, group and milieu tx -Podiatry consult appreciated -Discharge today back to assisted - Smoking Cessation Smoking Cessation Medication prescribed: No Reason for not providing: Not indicated - Antipsychotic Medications Pt discharged on 2 or more routine antipsychotic medications: No
[2016-12-11 15:37] VITALS: BP 143/60; PULSE 59; RESP 19; TEMP 97.7
[2016-12-11] MEDS: Divalproex 125 mg Sprinkle Capsule PO SCH (16:20)
--- NOTE | 2016-12-11 16:56 | PN ---
DATE: 12/11/2016 ROOM: 305 SUBJECTIVE: This is an 81-year-old female with recent uncontrolled type 2 insulin-requiring diabetes and overt hypothyroidism now being followed closely for metabolic management. Her oral intake lanette nues to be suboptimal and variable at this time and the latest chemistries showed a BUN of 74, sodium 143, potassium 3.6, chloride 104, CO2 24, glucose 126, and creatinine 2.0. Her glucose levels have ranged from 143-213 mg/dL. So at this time, we will continue the low-dose basal insulin given as Lev royce at 8 units subQ at bedtime daily as ordered. We will continue the low-dose correction scale usi ng regular insulin as given. We will also continue the dual oral hypoglycemic drug therapy with Domenico via given as 50 mg once daily and Glucotrol given as 10 mg b.i.d. before meals as ordered. We will t itrate incrementally as indicated to optimize metabolic control. We will follow and advise according ly. Rachel Andersen MD cc: [phone] TT: 12/11/2016 16:54:57 Confirmation # [id number] Dictation # [id number] tn
--- NOTE | 2016-12-13 07:01 | AN ---
DATE OF ADMISSION : 11/16/2016 The patient has been seen today, chart reviewed and case discussed with treatment team members. HISTORY OF PRESENTING COMPLAINT: This is an 81-year-old female with a significant history of dementia with behavior disturbances and also several medical problems including hypertension, coronary artery disease, has been admitted and being transferred from [address] [place] [address] to the psychiatric unit at [facility] because of patient's history of becoming increasingly agitated on the unit and has become very behaviorally disruptive and also her memory and cognitive impairment has significantly impaired her and she is _more agitated, labile, angry and therefore was posing a danger to others and therefore was brought in for inpatient psychiatric admission to the geriatric psych unit. The patient, while at the unit was prescribed medications for blood pressure and coronary artery disease and atrial fibrillation and also she has been prescribed Zoloft 50 mg daily and also on p.r.n. medication. The patient has been presenting on the unit with being agitated, labile and very disorganized with poor memory, poor cognition, poor insight and poor judgment. The patient has been closely observed on the unit for any aggressive behaviors and agitation and being constantly monitored and blood pressure as well as other vital signs and monitoring and medical problems as well. PAST PSYCHIATRIC HISTORY: Not well known, except the patient used to live at home prior to coming to this hospital and had a history of dementia for a while and has not been in proper treatment for the same. MEDICAL HISTORY: Significant for atrial fibrillation, hypertension, coronary artery disease, chronic kidney disease. FAMILY HISTORY: Not known at this time. SOCIAL HISTORY: There is no history of alcohol and substance abuse. Prior history of trauma and abuse not known. PERSONAL HISTORY: Not significant. MENTAL STATUS EXAMINATION: The patient appears to be very confused, disorganized with poor hygiene and poor ADLs. The patient is alert and oriented to self only. Does not know the place, does not know the date, very confused regarding her surroundings. The patient's mood is very anxious, irritable and affect is labile. The patient is not exhibiting any overt hallucinations or paranoid ideation, but appears to be internally preoccupied with poor insight and poor judgment. The patient at this time is being very agitated, labile and angry, but is not exhibiting any suicidal ideation and she is not threatening to hurt anyone in the unit. The patient is being maintained on close observation on the unit. DIAGNOSTIC IMPRESSION: DSM 5 diagnosis is dementia, a neurocognitive disorder _ ___ dementia with behavior disturbances. 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 PLAN OF TREATMENT: We will maintain the patient on close observation because of aggressive behaviors and agitation and use p.r.n. medications for agitation. We will start the patient on Seroquel 12.5 mg twice a day for agitation and aggressive behavior and will also add Depakote 125 mg at 5:00 p.m. for the mood outbursts and anger outbursts and will continue Zoloft 50 mg daily for depression. We will continue to engage the patient in therapy and groups on the unit. Will also have a medical consult called regarding patient's medical issues of hypertension, atrial fibrillation and coronary artery disease. Will continue to monitor the patient for aggressive behavior and agitation and use p.r.n. medications and further titrate the medication to stabilize the patient. Once the patient is stabilized, treatment team will initiate disposition planning. The patient, when stabilized, will benefit from going to a nursing facility for further management. Sudeep Araya MD cc: [phone] TT: 12/12/2016 21:47:02 maria r TAN
== END 2016-12-11 16:45 | DRG 884 ==
LOC: H.STEP 18:21
PROVIDERS: ADMIT Psychiatry & Neurology Psychiatry; ATTEND Psychiatry & Neurology Psychiatry
PROC: GZ51ZZZ Individual Psychotherapy, Behavioral (ICD-10-PCS; principal; 2016-11-16)
DX: F03.91 Unspecified dementia, unspecified severity, with behavioral disturbance (principal); N17.9 Acute kidney failure, unspecified; E11.22 Type 2 diabetes mellitus with diabetic chronic kidney disease; I13.0 Hypertensive heart and chronic kidney disease with heart failure and stage 1 through stage 4 chronic kidney disease, or unspecified chronic kidney disease; E11.65 Type 2 diabetes mellitus with hyperglycemia; I50.9 Heart failure, unspecified; N39.0 Urinary tract infection, site not specified; I48.2 Chronic atrial fibrillation; J44.9 Chronic obstructive pulmonary disease, unspecified; E86.0 Dehydration; E06.3 Autoimmune thyroiditis; D63.8 Anemia in other chronic diseases classified elsewhere; N18.3 Chronic kidney disease, stage 3 (moderate); J45.909 Unspecified asthma, uncomplicated; I25.10 Atherosclerotic heart disease of native coronary artery without angina pectoris; Z95.0 Presence of cardiac pacemaker; I73.9 Peripheral vascular disease, unspecified; Z79.84 Long term (current) use of oral hypoglycemic drugs; F43.20 Adjustment disorder, unspecified; E07.81 Sick-euthyroid syndrome; E78.5 Hyperlipidemia, unspecified

== ENCOUNTER 2017-01-16 18:50 | Inpatient (IN) | payer MEDICARE, MEDICAID ==
--- NOTE | 2017-01-16 19:46 | CP.PCM.CON ---
History of Present Illness - History of Present Illness History of Present Illness: Patient seen in [facility] ED after being sent from Dr. Moreau's office regarding left ankle wound and 2nd digit wound. Patient is unable to provide meaningful responses to questioning at this time, but is accompanied by her daughters who relate HPI. State that Dr. Moreau surgical fixed a left ankle fracture in July of 2016. Admits they were unable to follow up post-operatively until today because patient was admitted to and currently resides at [facility]. Mentions patient was hospitalized in October and November of this year unrelated to left foot or ankle. Presents now complaining of wound at left ankle and 2nd digit. Admits to pain in area, but not able to rate scale of pain. States patient was receiving antibiotics at rehab facility, but do not know names of medications. Unable to assess ROS at this time. Review of Systems - Review of Systems Review of Systems: Unable to assess. Past Patient History - Infectious Disease Hx of Infectious Diseases: None - Tetanus Immunizations Tetanus Immunization: Unknown - Past Medical History & Family History Past Medical History?: Yes - Past Social History Smoking Status: Never Smoked - CARDIAC Hx Cardiac Disorders: Yes Hx Congestive Heart Failure: Yes Hx Hypertension: Yes Hx Pacemaker: Yes - PULMONARY Hx Respiratory Disorders: Yes Hx Chronic Obstructive Pulmonary Disease (COPD): Yes - NEUROLOGICAL Hx Neurological Disorder: Yes Hx Dementia: Yes - HEENT Hx HEENT Problems: No - RENAL Hx Chronic Kidney Disease: Yes Other/Comment: CKD - ENDOCRINE/METABOLIC Hx Endocrine Disorders: Yes Hx Diabetes Mellitus Type 1: Yes Hx Diabetes Mellitus Type 2: Yes Hx Hypothyroidism: Yes - HEMATOLOGICAL/ONCOLOGICAL Hx Blood Disorders: Yes Hx AIDS: No Hx Anemia: Yes Hx Human Immunodeficiency Virus (HIV): No - INTEGUMENTARY Hx Dermatological Problems: No - MUSCULOSKELETAL/RHEUMATOLOGICAL Hx Musculoskeletal Disorders: Yes Hx Arthritis: Yes Hx Falls: Yes Hx Fractures: Yes (left tibia) Hx Unsteady Gait: Yes - GASTROINTESTINAL Hx Gastrointestinal Disorders: No - GENITOURINARY/GYNECOLOGICAL Hx Genitourinary Disorders: No Hx Incontinence: Yes - PSYCHIATRIC Hx Substance Use: No - SURGICAL HISTORY Hx Surgeries: Yes Hx Tonsillectomy: Yes Other/Comment: pacemaker left chest - ANESTHESIA Hx Anesthesia: Yes Hx Anesthesia Reactions: No Hx Malignant Hyperthermia: No Meds Allergies/Adverse Reactions: Allergies Allergy/AdvReac Type Severity Reaction Status Date / Time acetaminophen [From Percocet] AdvReac VOMITING Verified 01/16/17 18:55 oxycodone HCl [From Percocet] AdvReac VOMITING Verified 01/16/17 18:55 - Medications Medications: Current Medications Vancomycin HCl 500 mg/ Sodium (Chloride) 100 mls @ 100 mls/hr IV STAT STA Stop: 01/16/17 20:10 Piperacillin Sod/Tazobactam (Sod 2.25 gm/ Sodium Chloride) 100 mls @ 100 mls/ hr IV STAT STA Stop: 01/16/17 20:09 Physical Exam - Constitutional Appears: Confused - Extremities Exam Additional comments: LLE exam: Vascular: DP and PT pulses non-palpable, CFT >5sec, temperature cool to touch, pedal hair absent. Neuro: unable to assess. Derm: Wound at dorsal 2nd PIPJ, full thickness with head of proximal phalanx exposed, no drainage at this time, no malodor; borders intact, friable; surrounding skin with erythema to 2nd digit, mild edema, no calor. Wound at lateral ankle surgical site full thickness with portion of internal hardware exposed, no drainage, no malodor; borders intact, friable; surrounding skin with localized erythema, mild edema, no calor. MSK: ROM decreased at all joints with flexion contracture at knee and plantarflexion at ankle. Mild pain on palpation of second digit and distal fibula. - Neurological Exam Neurological exam: Altered - Additional Findings Additional findings: Left ankle radiographs: Internal hardware intact with signs of healing at fracture site. Left foot radiographs: 2nd digit proximal phalanx head suspicious for osteomyelitis. Results - Vital Signs Recent Vital Signs: Last Vital Signs Temp 98.0 F 01/16/17 18:56 Pulse 80 01/16/17 18:56 Resp 16 01/16/17 18:56 BP 164/71 H 01/16/17 18:56 Pulse Ox 99 01/16/17 18:56 - Labs Result Diagrams: 01/16/17 20:30 01/16/17 20:00 Assessment & Plan - Assessment and Plan (Free Text) Assessment: Left lateral ankle full thickness wound, 2nd digit full thickness wound. Plan: -evaluated and treated with family present, all questions addressed and answered. -discussed with Dr. Moreau. -discussed treatment plan with family to their understanding. Family signed consent for surgical procedure in Dr. Moreau's office before coming to ED. -wounds cleansed with sterile saline. -wound cultures taken of 2nd digit wound and lateral ankle wound. -left ankle and foot radiographs ordered, reviewed. -wound dressed with silvadene, DSD, kerlix. Dressings to remain clean, dry and intact. -ordered offloading boots to be worn at all times when in bed to offload heel. -patient to be NWB to E. -patient to be admitted for IV abx, pain management and medical optimization for surgery. -patient will need cardiac and renal clearance. -plan for left ankle hardware removal and possible 2nd digit amputation once medically cleared and stable. -Tried to contact Maya at [facility] [phone] to obtain more detailed, but no response.
--- NOTE | 2017-01-16 19:53 | ED PDOC ---
Lower Extremity Pain/Injury Time Seen by Provider: 01/16/17 19:02 Chief Complaint (Nursing): Lower Extremity Problem/Injury Chief Complaint (Provider): LEFT foot pain History Per: Family History/Exam Limitations: clinical condition (dementia) Onset/Duration Of Symptoms: Days (1 month) Current Symptoms Are (Timing): Constant Severity: Severe Additional Complaint(s): Pt sent to ER for further evaluation of severe LEFT foot pain and worsening infection Seen by Dr Moreau Podiatry today. Concern for necrosis. Past Medical History Vital Signs: Last Vital Signs Temp 98.0 F 01/16/17 18:56 Pulse 80 01/16/17 18:56 Resp 16 01/16/17 18:56 BP 164/71 H 01/16/17 18:56 Pulse Ox 99 01/16/17 18:56 - Medical History PMH: Anemia, Anxiety, Arthritis, Asthma, Atrial Fibrillation, CAD, Cardia Arrhythmia, CHF, COPD, Dementia, Depression, Diabetes (type II), Fractures ( left tibia), HTN, Hypercholesterolemia, Hypothyroidism, Peripheral Edema, End Stage Renal Disease (stage III), Chronic Kidney Disease Denies: Hepatitis, HIV, Seizures, Sexually Transmitted Disease - Surgical History Surgical History: Back Surgery, Pacemaker, Tonsillectomy - Family History Family History: States: Unknown Family Hx - Home Medications Home Medications: Ambulatory Orders Medication Instructions Recorded Albuterol/Ipratropium [Duoneb 3 3 ml IH Q6H PRN 09/16/16 mg/0.5 mg (3 ml) UD] Aspirin [Ecotrin] 81 mg PO DAILY 09/16/16 Atorvastatin [Lipitor] 40 mg PO HS 09/16/16 Docusate [Colace] 100 mg PO BID 09/16/16 Ferrous Sulfate [Feosol] 325 mg PO BID 09/16/16 Levothyroxine [Synthroid] 50 mcg PO DAILY 09/16/16 Memantine [Namenda] 10 mg PO BID 09/16/16 Montelukast [Singulair] 10 mg PO HS 09/16/16 SITagliptin [Januvia] 50 mg PO DAILY 09/16/16 Sertraline [Zoloft] 50 mg PO HS 09/16/16 Apixaban [Eliquis] 2.5 mg PO BID tab 11/08/16 amLODIPine [Norvasc] 5 mg PO DAILY #30 tab 11/15/16 Divalproex [Depakote Sprinkles] 125 mg PO DAILY@1700 12/11/16 GlipiZIDE [Glucotrol] 10 mg PO BIDAC tab 12/11/16 Insulin Detemir [Levemir] 8 units SC HS vial 12/11/16 Mupirocin 2% Ointment [Bactroban 1 applic TOP BID 12/11/16 Ointment] QUEtiapine [Seroquel] 100 mg PO DAILY@1700 tab 12/11/16 QUEtiapine [Seroquel] 100 mg PO HS tab 12/11/16 - Allergies Allergies/Adverse Reactions: Allergies Allergy/AdvReac Type Severity Reaction Status Date / Time acetaminophen [From Percocet] AdvReac VOMITING Verified 01/16/17 18:55 oxycodone HCl [From Percocet] AdvReac VOMITING Verified 01/16/17 18:55 Review of Systems Review Of Systems: ROS cannot be obtained secondary to pt's inabilty to answer questions. Physical Exam - Reviewed Nursing Documentation Reviewed: Yes Vital Signs Reviewed: Yes - Physical Exam Appears: Positive for: In Acute Distress (moderate painful distress) Head Exam: Positive for: ATRAUMATIC, NORMOCEPHALIC Skin: Positive for: Warm, Dry, Pallor Eye Exam: Positive for: EOMI, PERRL Neck: Positive for: Painless ROM, Supple Cardiovascular/Chest: Negative for: Murmur, Tachycardia Respiratory: Negative for: Accessory Muscle Use, Respiratory Distress Gastrointestinal/Abdominal: Positive for: Soft. Negative for: Tenderness Back: Positive for: Normal Inspection Extremity: Positive for: Other (LEFT foot dressing: deferred to podiatry) Lymphatic: Negative for: Adenopathy Neurologic/Psych: Positive for: Alert, Mood/Affect (anxious affect). Negative for: Oriented - Laboratory Results Result Diagrams: 01/16/17 20:30 01/16/17 20:00 - ECG ECG Rhythm: Positive for: Sinus Rhythm, Left Bundle Branch Block O2 Sat by Pulse Oximetry: 99 Pulse Ox Interpretation: Normal Medical Decision Making Medical Decision Making: LAVERN Tomlin and Dr Stoery Hospitalists, Podiatry resident, Dr Otoole Cardiology , and Dr Vu Nephrology. Pt to be admitted for infected wound failing outpatient management, potential surgical intervention. Disposition - Clinical Impression Clinical Impression: Foot infection - Disposition Disposition Time: 20:00 Condition: SERIOUS - Pt Status Changed To: Hospital Disposition Of: Inpatient - Admit Certification Admit to Inpatient:: After my assessment, the patient will require hospitalization for at least two midnights. This is because of the severity of symptoms shown, intensity of services needed, and/or the medical risk in this patient being treated as an outpatient. - POA Present On Arrival: None
[2017-01-16 19:58] LABS: VENOUS BLOOD GAS BASE EXCESS 1.7 mmol/L (0.0-2.0); VENOUS BLOOD GAS PCO2 17 mmHg (40-60); VENOUS BLOOD PH 7.67 (7.32-7.43)
[2017-01-16 20:18] LABS: ALB/GLOB RATIO 0.9 (1.0-2.1); ALKALINE PHOSPHATASE 135 U/L (38-126); ALT/SGPT 35 U/L (9-52); AST/SGOT 30 U/L (14-36); BILIRUBIN,TOTAL 0.5 mg/dl (0.2-1.3); BLOOD UREA NITROGEN 28 mg/dl (7-17); CALCIUM 9.1 mg/dL (8.4-10.2); CARBON DIOXIDE 17 mmol/L (22-30); CHLORIDE 105 mmol/L (98-107); GFR AFRICAN-AMERICAN > 60; GLUCOSE,RANDOM 151 mg/dL (65-105); MAGNESIUM 1.9 MG/DL (1.6-2.3); POTASSIUM 3.6 MMOL/L (3.6-5.0); SODIUM 131 mmol/l (132-148); TOTAL PROTEIN 6.9 G/DL (6.3-8.2)
[2017-01-16 20:20] LABS: BASO # 0.1 K/uL (0.0-0.2); BASO % 0.5 % (0.0-2.0); EOS # 0.2 K/uL (0.0-0.7); EOS % 2.1 % (0.0-4.0); HEMATOCRIT 28.9 % (34.0-47.0); LYMPH # 1.9 K/uL (1.0-4.3); LYMPH % 18.5 % (20.0-40.0); MEAN CELL VOLUME 85.3 fl (81.0-99.0); MEAN CORPUSCULAR HEMOGLOBIN 28.2 pg (27.0-31.0); MEAN CORPUSCULAR HGB CONC 33.1 g/dL (33.0-37.0); MEAN PLATELET VOLUME 7.8 fl (7.2-11.7); MONO # 0.6 K/uL (0.0-0.8); NEUT # 7.5 K/uL (1.8-7.0); NEUT % 72.9 % (50.0-75.0); NRBC % 0.1 % (0.0-0.0); RED CELL DISTRIBUTION WIDTH 16.1 % (11.5-14.5); WHITE BLOOD COUNT 10.3 K/uL (4.8-10.8)
[2017-01-16] MEDS ORDERED: Silver Sulfadiazine 1% CREAM (50 gm) ONE (20:34)
[2017-01-16 20:55] LABS: PARTIAL THROMBOPLASTIN TIME 30.8 Seconds (25.6-37.1)
--- NOTE | 2017-01-16 21:25 | CP.PCM.HP ---
History of Present Illness - History of Present Illness History of Present Illness: PCP: Oliver Cohen MD Chief Complaint: Left foot wound with pain HPI: The Hx is obtained from the medical records as the patient Has dementia and is confused. She is an 81 years old female with Hx of A Fib on Apixaban, CHF , COPD, CAD Fractured Left Tibia and PVD who is being followed by Podiatry because of a non healing wound at the left ankle and the 2nd toe of the left foot with severe left foot pain. She was sent to the ED By Dr Moreau of Podiatry for further evaluation with concerning for necrosis of the mentioned wounds. PMH: Anemia, Anxiety, Arthritis, Asthma, A Fib, CAD, Cardiac Arrhythmia, CHF, COPD, Dementia, Depression, DM II), Fractures (left tibia), HTN, HLD, Hypothyroidism, Peripheral Edema, ESRD (stage III), PSH: Back Surgery, Pacemaker, Tonsillectomy FH: Possibly CAD and DM2 in family SH: Lives in [place], no EtOH or tobacco Allergies: Acetaminophen, Oxycokone Present on Admission - Present on Admission Any Indicators Present on Admission: Yes History of DVT/PE: No History of Uncontrolled Diabetes: Yes Urinary Catheter: No Decubitus Ulcer Present: No Review of Systems - Review of Systems Systems not reviewed;Unavailable: Dementia Review of Systems: Review of system is limited because of the Patient's Dementia Past Patient History - Infectious Disease Hx of Infectious Diseases: None - Tetanus Immunizations Tetanus Immunization: Unknown - Past Medical History & Family History Past Medical History?: Yes - Past Social History Smoking Status: Never Smoked Chewing Tobacco Use: No Cigar Use: No Alcohol: None Drugs: Denies Home Situation {Lives}: Fdc - CARDIAC Hx Atrial Fibrillation: Yes Hx Cardia Arrhythmia: Yes Hx Congestive Heart Failure: Yes Hx Hypercholesterolemia: Yes Hx Hypertension: Yes Hx Pacemaker: Yes Hx Peripheral Edema: Yes - PULMONARY Hx Asthma: Yes Hx Chronic Obstructive Pulmonary Disease (COPD): Yes - NEUROLOGICAL Hx Dementia: Yes Hx Seizures: No - HEENT Hx HEENT Problems: No - RENAL Hx Chronic Kidney Disease: Yes - ENDOCRINE/METABOLIC Hx Hypothyroidism: Yes - HEMATOLOGICAL/ONCOLOGICAL Hx Anemia: Yes Hx Human Immunodeficiency Virus (HIV): No - INTEGUMENTARY Hx Dermatological Problems: No - MUSCULOSKELETAL/RHEUMATOLOGICAL Hx Arthritis: Yes Hx Fractures: Yes (left tibia) - GASTROINTESTINAL Hx Gastrointestinal Disorders: No - GENITOURINARY/GYNECOLOGICAL Hx Sexually Transmitted Disorders: No - PSYCHIATRIC Hx Anxiety: Yes Hx Depression: Yes - SURGICAL HISTORY Hx Tonsillectomy: Yes - ANESTHESIA Hx Anesthesia: Yes Hx Anesthesia Reactions: No Hx Malignant Hyperthermia: No Meds Allergies/Adverse Reactions: Allergies Allergy/AdvReac Type Severity Reaction Status Date / Time acetaminophen [From Percocet] AdvReac VOMITING Verified 01/16/17 18:55 oxycodone HCl [From Percocet] AdvReac VOMITING Verified 01/16/17 18:55 Physical Exam - Constitutional Appears: No Acute Distress - Head Exam Head Exam: ATRAUMATIC, NORMAL INSPECTION, NORMOCEPHALIC - Eye Exam Eye Exam: EOMI, Normal appearance Pupil Exam: NORMAL ACCOMODATION, PERRL - ENT Exam ENT Exam: Mucous Membranes Moist, Normal Exam, Normal External Ear Exam, Normal Oropharynx - Neck Exam Neck exam: Positive for: Full Rom, Normal Inspection. Negative for: Lymphadenopathy, Tenderness - Respiratory Exam Respiratory Exam: Clear to Auscultation Bilateral. absent: Rales, Rhonchi, Wheezes - Cardiovascular Exam Cardiovascular Exam: REGULAR RHYTHM, RRR, +S1, +S2 - GI/Abdominal Exam GI & Abdominal Exam: Normal Bowel Sounds, Soft. absent: Mass, Organomegaly, Tenderness - Rectal Exam Rectal Exam: Deferred - Extremities Exam Additional comments: Wound on dorsal of the Second toe left foot, no drainage. second wound at lateral left ankle at the surgical site with portion of the internal hardware esposed. - Back Exam Back exam: NORMAL INSPECTION. absent: CVA tenderness (L), CVA tenderness (R) - Neurological Exam Neurological exam: Alert, CN II-XII Intact, Reflexes Normal Additional comments: The patinet is confused, not oriented to person, place nor time - Psychiatric Exam Psychiatric exam: Flat Affect - Skin Skin Exam: Dry, Intact, Normal Color Results - Vital Signs Recent Vital Signs: Last Vital Signs Temp 98.0 F 01/16/17 18:56 Pulse 80 01/16/17 18:56 Resp 16 01/16/17 18:56 BP 164/71 H 01/16/17 18:56 Pulse Ox 99 01/16/17 21:24 - Labs Result Diagrams: 01/16/17 20:30 01/16/17 20:00 Labs: Laboratory Results - last 24 hr 01/16/17 01/16/1717 19:54 20:00 20:00 WBC RBC Hgb Hct MCV MCH MCHC RDW Plt Count MPV Neut % (Auto) Lymph % (Auto) Arroyo % (Auto) Eos % (Auto) Baso % (Auto) Neut # Lymph # Arroyo # Eos # Baso # PT 13.5 H INR 1.2 APTT 30.8 pO2 147 H VBG pH 7.67 H* VBG pCO2 17 L* VBG HCO3 26.3 VBG Total CO2 20.1 L VBG O2 Sat (Calc) 100.0 H VBG Base Excess 1.7 VBG Potassium 3.6 A-a O2 Difference -19.0 Sodium 132.0 131 L Chloride 105.0 105 Glucose 152 H Lactate 1.1 FiO2 21.0 Crit Value Called To Su champion Crit Value Called By 15 Crit Value Read Back Y Blood Gas Notified Time 1957 Potassium 3.6 Carbon Dioxide 17 L Anion Gap 13 BUN 28 H Creatinine 0.9 Est GFR ( Amer) > 60 Est GFR (Non-Af Amer) > 60 Random Glucose 151 H Calcium 9.1 Phosphorus 3.0 Magnesium 1.9 Total Bilirubin 0.5 AST 30 ALT 35 Alkaline Phosphatase 135 H D Total Protein 6.9 Albumin 3.2 L Globulin 3.7 Albumin/Globulin Ratio 0.9 L Venous Blood Potassium 3.6 01/16/17 20:30 WBC 10.3 RBC 3.39 L Hgb 9.6 L Hct 28.9 L MCV 85.3 MCH 28.2 MCHC 33.1 RDW 16.1 H Plt Count 556 H D MPV 7.8 Neut % (Auto) 72.9 Lymph % (Auto) 18.5 L Arroyo % (Auto) 6.0 Eos % (Auto) 2.1 Baso % (Auto) 0.5 Neut # 7.5 H Lymph # 1.9 Arroyo # 0.6 Eos # 0.2 Baso # 0.1 PT INR APTT pO2 VBG pH VBG pCO2 VBG HCO3 VBG Total CO2 VBG O2 Sat (Calc) VBG Base Excess VBG Potassium A-a O2 Difference Sodium Chloride Glucose Lactate FiO2 Crit Value Called To Crit Value Called By Crit Value Read Back Blood Gas Notified Time Potassium Carbon Dioxide Anion Gap BUN Creatinine Est GFR ( Amer) Est GFR (Non-Af Amer) Random Glucose Calcium Phosphorus Magnesium Total Bilirubin AST ALT Alkaline Phosphatase Total Protein Albumin Globulin Albumin/Globulin Ratio Venous Blood Potassium Assessment & Plan - Assessment and Plan (Free Text) Assessment: #. Non healing surgical wound at Lateral left ankle and second toe of the left foot #. Anemia #. A. Fib #. CHF #. CAD #. DM II #. COPD #. Dementia Plan: 81 years old female with Hx of A Fib on Apixaban, CHF, COPD, CAD Fractured Left Tibia and PVD who is being followed by Podiatry because of a non healing wound at the left ankle and the 2nd toe of the left foot with severe left foot pain. She was sent to the ED By Dr Moreau of Podiatry for further evaluation with concerning for necrosis of the mentioned wounds. #. Non healing surgical wound at Lateral left ankle and second toe of the left foot - Consult Dr Moreau podiatry - Vancomycin - Zosyn #. Anemia - Ferrous Sufate - follow Hb #. A. Fib rate controlled on Apizaban - Hold Apixaban for 24 hours before surgery #. CAD - Consult Dr José Luis Veras for Cardiac clearance for Surgery - ASA/ lipitor #. DM II - Diabetic diet - Novolog sliding scale according to Accucheck - Levemir - Hold Glipizide and Jauniva #. COPD - Duoneb #. Dehydration - IV Fluids #. Hyponatremia - IV NS - Follow Electrolytes #. Dementia - Namenda #. DVT prophylaxis with SCD ,Hold Apixaban 24hrs prior to Surgery - Date & Time Date: 01/16/17 Time: 21:25
[2017-01-17] MEDS: Piperacillin/Tazobact 3.375 GM in Sodium Chloride 0.9% 100 ML IVPB SCH ×4 (03:37→23:01)
[2017-01-17] MEDS ORDERED: LOPERAMIDE HCL 1 MG PO PRN (06:12)
[2017-01-17] MEDS ORDERED: Magnesium Hydroxide Susp 30 ml UD PO PRN (06:12)
[2017-01-17] MEDS ORDERED: CALCIUM CARBONATE 200 MG PO PRN (06:12)
[2017-01-17] MEDS ORDERED: Albuterol-Ipratrop 3 mg / 0.5 (3 ml) UD IH PRN (06:12)
[2017-01-17] MEDS ORDERED: Alum-Mag Hydrox-Simethicone Susp (30 mL) PO PRN (06:51)
[2017-01-17 08:33] LABS: BLOOD UREA NITROGEN 24 mg/dl (7-17); CALCIUM 8.7 mg/dL (8.4-10.2); CARBON DIOXIDE 21 mmol/L (22-30); CHLORIDE 106 mmol/L (98-107); GFR AFRICAN-AMERICAN > 60; GLUCOSE,RANDOM 148 mg/dL (65-105); POTASSIUM 3.7 MMOL/L (3.6-5.0); SODIUM 135 mmol/l (132-148)
--- NOTE | 2017-01-17 08:47 | CARD ---
APPROVED REPORT EKG Measurement Heart [id number] [id number] <Conclusion> Normal sinus rhythm Left axis deviation Left bundle branch block Abnormal ECG
[2017-01-17] MEDS: Levothyroxine 50 MCG TAB PO SCH (08:51)
[2017-01-17] MEDS: Insulin Lispro (humaLOG) 100 Units/ml Inj SC SCH ×4 (08:51→22:24)
[2017-01-17] MEDS ORDERED: QUINIDINE PO SCH (09:00)
[2017-01-17] MEDS ORDERED: DEXTROMETHORPHAN HBR PO SCH (09:00)
--- NOTE | 2017-01-17 10:35 | PQF GENQUE ---
Dr. Moreau, Type of left second digit wound: i.e.post-op or traumatic or unknown etiology ? versus Ulcer of left second digit ?: type if known: i.e. DM: or etiology unknown OR: Unable to determine OR: Other explanation of clinical finding I Signed:Podiatry consult: wounds cleansed with sterile saline-wound cultures taken of 2nd digit wound and lateral ankle wound. -wound dressed with silvadene, DSD, kerlix. Dressings to remain clean, dry and intact. -patient to be admitted for IV abx, pain management and medical optimization for surgery. -plan for left ankle hardware removal and possible 2nd digit amputation once This form is a permanent part of the medical record Clarification of your documentation is requested to better reflect the severity of illness and intensity of treatment of your patient. Indicators present [] Specify: [] [] Specify: [] [] Specify: [] [] Specify: [] Location in the medical record that reflects the above clinical findings: [] Treatment Provided: [] PHYSICIAN'S RESPONSE Based on your medical judgment of the clinical indicators outlined above please clarify the following: [] Practitioner response [] If unable to determine, please check the box, sign and date. Present On Admission (POA) Indicator: [] Present at the time of admission [] Not present at the time of admission [] Clinically Undetermined In responding to this query, please exercise your independent professional judgment. The fact that a question is asked does not imply that any particular answer is desired or expected. Thank you for your clarification on this documentation. If you have any questions please call. * Thank you, Christel Ramirez RN BSN ext. #[phone] MTDD
--- NOTE | 2017-01-17 10:44 | RAD ---
HISTORY: LEFT foot cellulitis/necrosis COMPARISON: November 14, 2016 FINDINGS: LUNGS: No active pulmonary disease. PLEURA: No significant pleural effusion identified, no pneumothorax apparent. CARDIOVASCULAR: Cardiomegaly. No evidence of acute, significant cardiovascular disease. Position/ configuration of pacemaker Satisfactory. OSSEOUS STRUCTURES: No significant abnormalities. VISUALIZED UPPER ABDOMEN: Normal. OTHER FINDINGS: None. IMPRESSION: No active disease. No significant interval change compared to the prior examination(s).
--- NOTE | 2017-01-17 10:45 | PQF GENQUE ---
Dr. Domonique Lopes, 2 (two) queries as follows: (1) In agreement with the following ; 01/16/2017:Nurses Note: Pressure Ulcer Assessment: Right Buttocks:Partial thickness loss of dermis presenting as a shallow open ulcer and Right Heel: Purple or maroon localized area of discolored intact skin (2) If in agreement:Present on Admission? OR: Disagree OR: Other explanation of clinical finding H and P: Pressure Ulcer POA: No Wound consult pending This form is a permanent part of the medical record Clarification of your documentation is requested to better reflect the severity of illness and intensity of treatment of your patient. Indicators present [] Specify: [] [] Specify: [] [] Specify: [] [] Specify: [] Location in the medical record that reflects the above clinical findings: [] Treatment Provided: [] PHYSICIAN'S RESPONSE Based on your medical judgment of the clinical indicators outlined above please clarify the following: [] Practitioner response [] If unable to determine, please check the box, sign and date. Present On Admission (POA) Indicator: [] Present at the time of admission [] Not present at the time of admission [] Clinically Undetermined In responding to this query, please exercise your independent professional judgment. The fact that a question is asked does not imply that any particular answer is desired or expected. Thank you for your clarification on this documentation. If you have any questions please call. * Thank you, Christel Ramirez RN BSN ext. #[phone] MTDD
--- NOTE | 2017-01-17 10:55 | CP.PCM.PN ---
Subjective - Date & Time of Evaluation Date of Evaluation: 01/17/17 Time of Evaluation: 10:45 - Subjective Subjective: [facility] Progress Note (Patient was seen and examined at 10:45 AM 664-1 with Joy who translated Citizen Of [place] and with Nurse Jacquie) 81 year old female (PMHx: Atrial Fibrillation on Apixaban, CHF, COPD/Asthma, CAD , Fractured Left Tibia, PVD, Dementia) who is being followed by Podiatry because of a non healing wound involving the left ankle and the left 2nd toe, was sent to the ED By Care Nurse Rn Dr Moreau of Podiatry for further evaluation and treatment for the aforementioned wounds. ROS Says NO to everything Please note that the realiability of the ROS is low secondary to the patient's history of dementia Exam: General: Could not provide date, day, month, president, but knows that she is in [facility] HEENT: Right Pupil is dilated and fixed, Left Pupil is round and reactive to light and accomodation, NO pharyngeal erythema/exudate, NO thyromegaly, NO cervical/submandibular/supraclavicular lymphadenopathy Cardio: Systolic Ejection Murmur heard in all of the auscultatory saini, Irregularly Irregular Rhythm Respiratory: CTA B/L, NO R/R/W (please note that the patient would not follow instructions for deep respirations GI: BSx4, Soft, Central Obesity, NT, NO guarding/rebound tenderness Ext: Left Lower Extremities with clean dry bandages, Right Foot Lateral Posterior Aspect: dry blister, Pulses in the bilateral LE could not be palpated , B/L Radial Pulses are strong and equal, NO edema noted Skin: Left inner buttock superior aspect: Stage II Ulcer without signs of cellulitis ([facility] [place] and Wound Care Consult) Assessment and Plan: 1). Nonhealing Wound Involving Left Lateral Ankle and Left Foot Toe #2 Ulcer ( possibly secondary to Hx DM 2 and likely PVD cosidering pulse could not be palpated in the Bilateral LE) Zosyn 3.375 gm IV Q6H Vancomycin 1 gm IV Q12H Ultram 50 mg PO Q8H PRN Moderate Pain Silver Sulfadiazine 1% Topical Daily in AM Podiatry Dr. Moreau Plan: Removal of hardware from Left Ankle and Amputation of Left Toe #2 with Podiatry Team on 01/20/17 Awaiting clearance from Nephrology (Dr. Vu) and Cardiology (Dr. Veras) F/U Wound Cultures 01/16/17 F/U Foot/Ankle X Ray 01/16/17 F/U Blood Culture 01/16/17 2). Hyponatremia Na was 131 upon admission and with hydration (NS with 10 mEQ KCl @ 60 mL/hour) it has improved to 135 Monitor 3). Hx Atrial Fibrillation Holding Apixaban after 10 PM 01/17/17 for planned surgery on 01/20/17 As patient's [id number] score is high at 6 (Hx HTN, Age > 75, Hx DM 2, Hx Vascular Disease, and Female Sex), she high risk for thromboembolism and therefore bridging anticoagulation with Lovenox will be used on 01/18/17 and will hold this for 01/19/17 4). Hx CAD/Pacemaker Cardiology Dr. Veras for clearance for planned surgery on 01/20/17 5). Hx HTN Norvasc 5 mg PO 1x/day 6). Hx HLD Atorvastatin 40 mg PO QHS 7). Hx DM 2 Levemir 8 units SC QHS Lispro ISS ACHS 8). Hx Hypothyroidism Synthroid 50 mcg PO 1x/day 9). Hx CKD Stage III Ne[address] Vu for clearance for planned surgery on 01/20/17 10). Hx COPD/Asthma Duoneb Q6H RN SOB/Cough Singulair 10 mg PO QHS 11). Hx Dementia Namenda 10 mg PO 2x/day 12). Hx Anxiety/Depression Seroquel 100 mg PO QHS Zoloft 25 mg PO QHS 13). Stage II Left Superior Inner Buttock Pressure Ulcer Cavilon Nemaha for now and cover and follow up further recommendations from Wound Care. 13). Prophylactic Measures Maalox Plus 30 ml Q4H PRN indigestion Colace 100 mg PO 2x/day Imodium 2 mg PO Q6H PRN Diarrhea MOM 30 mL PO QHS PRN Constipation Prochlorperazine 25 mg RC Q12H PRN N/V Objective - Vital Signs/Intake and Output Vital Signs (last 24 hours): Temp Pulse Resp BP Pulse Ox 97.4 F L 64 20 148/78 99 01/17/17 08:21 01/17/17 08:21 01/17/17 08:21 01/17/17 08:21 01/17/17 08:21 - Medications Medications: Current Medications Al Hydrox/Mg Hydrox/Simethicone (Maalox Plus 30 Ml) 30 ml PO Q4 PRN PRN Reason: INDIGESTION/HEARTBURN Albuterol/Ipratropium (Duoneb 3 Mg/0.5 Mg (3 Ml) Ud) 3 ml IH Q6H PRN PRN Reason: Shortness of Breath Amlodipine Besylate (Norvasc) 5 mg PO DAILY [facility] Atorvastatin Calcium (Lipitor) 40 mg PO HS [facility] Divalproex Sodium (Depakote Sprinkles) 125 mg PO DAILY@1700 [facility] Docusate Sodium (Colace) 100 mg PO BID [facility] Last Admin: 01/17/17 08:53 Dose: 100 mg Ferrous Sulfate (Feosol) 325 mg PO BID [facility] Last Admin: 01/17/17 09:03 Dose: 325 mg Home Med (Dextromethorphan Hbr/Quinidine [Nuedexta 20-10 Mg Capsule]) 20 mg PO BID [facility] Vancomycin HCl 1 gm/ Sodium (Chloride) 250 mls @ 166.667 mls/hr IVPB Q12 [facility] Last Admin: 01/17/17 08:47 Dose: 166.667 mls/hr Potassium Chloride 10 meq/ (Sodium Chloride) 1,005 mls @ 60 mls/hr IV .[id number] [facility] Stop: 01/17/17 19:14 Last Admin: 01/17/17 03:23 Dose: 60 mls/hr Piperacillin Sod/Tazobactam (Sod 3.375 gm/ Sodium Chloride) 100 mls @ 100 mls/ hr IVPB Q6 [facility] Last Admin: 01/17/17 09:01 Dose: 100 mls/hr Insulin Detemir (Levemir) 8 units SC HS [facility] Insulin Human Lispro (Humalog) 0 units SC ACHS [facility] PRN Reason: Protocol Last Admin: 01/17/17 08:51 Dose: Not Given Levothyroxine Sodium (Synthroid) 50 mcg PO DAILY@0630 [facility] Last Admin: 01/17/17 08:51 Dose: 50 mcg Loperamide HCl (Imodium) 2 mg PO Q6 PRN PRN Reason: DIARRHEA Magnesium Hydroxide (Milk Of Magnesia) 30 ml PO HS PRN PRN Reason: Constipation Memantine (Namenda) 10 mg PO BID [facility] Last Admin: 01/17/17 08:51 Dose: 10 mg Montelukast Sodium (Singulair) 10 mg PO HS [facility] Prochlorperazine (Compazine Rectal Supp) 25 mg RC Q12 PRN PRN Reason: Nausea/Vomiting Quetiapine Fumarate (Seroquel) 100 mg PO HS [facility] Sertraline HCl (Zoloft) 25 mg PO HS [facility] Silver Sulfadiazine (Silvadene 1% 20 Gm) 1 ea TOP QAM [facility] Tramadol HCl (Ultram) 50 mg PO Q8 PRN PRN Reason: Pain, moderate (4-7) - Labs Labs: 01/16/17 20:30 01/17/17 07:25 PT 13.5 Seconds (9.8-13.1) H 01/16/17 20:00 INR 1.2 (0.9-1.2) 01/16/17 20:00 APTT 30.8 Seconds (25.6-37.1) 01/16/17 20:00
[2017-01-17] MEDS: Silver Sulfadiazine 1% Cream (20 gm) TOP SCH (10:58)
--- NOTE | 2017-01-17 13:18 | CP.PCM.CON ---
History of Present Illness - History of Present Illness History of Present Illness: This patient who is 81 years of age admitted for foot problem and she has been follow-up by the podiatry and require further follow-up as an hospital. I was called to see her because she has a previous history of chronic kidney disease apparently. Also she was admitted with hyponatremia. Past medical history PMH: Anemia, Anxiety, Arthritis, Asthma, A Fib, CAD, Cardiac Arrhythmia, CHF, COPD, Dementia, Depression, DM II), Fractures (left tibia), HTN, HLD, Hypothyroidism, Peripheral Edema, PSH: Back Surgery, Pacemaker, Tonsillectomy FH: Possibly CAD and DM2 in family SH: Lives in NH, no EtOH or tobacco Allergies: Acetaminophen, Oxycokone Review of Systems - Constitutional Constitutional: As Per HPI - EENT Eyes: As Per HPI - Cardiovascular Cardiovascular: absent: Chest Pain - Respiratory Respiratory: absent: Dyspnea - Gastrointestinal Gastrointestinal: absent: Abdominal Pain - Genitourinary Genitourinary: Nocturia - Musculoskeletal Musculoskeletal: Muscle Weakness - Neurological Neurological: As Per HPI - Psychiatric Psychiatric: As Per HPI Past Patient History - Infectious Disease Hx of Infectious Diseases: None - Tetanus Immunizations Tetanus Immunization: Unknown - Past Medical History & Family History Past Medical History?: Yes - Past Social History Smoking Status: Never Smoked Chewing Tobacco Use: No Cigar Use: No Alcohol: None Drugs: Denies Home Situation {Lives}: Alf - CARDIAC Hx Atrial Fibrillation: Yes Hx Cardia Arrhythmia: Yes Hx Congestive Heart Failure: Yes Hx Hypercholesterolemia: Yes Hx Hypertension: Yes Hx Pacemaker: Yes Hx Peripheral Edema: Yes - PULMONARY Hx Asthma: Yes Hx Chronic Obstructive Pulmonary Disease (COPD): Yes - NEUROLOGICAL Hx Dementia: Yes Hx Seizures: No - HEENT Hx HEENT Problems: No - RENAL Hx Chronic Kidney Disease: Yes - ENDOCRINE/METABOLIC Hx Hypothyroidism: Yes - HEMATOLOGICAL/ONCOLOGICAL Hx Anemia: Yes Hx Human Immunodeficiency Virus (HIV): No - INTEGUMENTARY Hx Dermatological Problems: No - MUSCULOSKELETAL/RHEUMATOLOGICAL Hx Arthritis: Yes Hx Fractures: Yes (left tibia) - GASTROINTESTINAL Hx Gastrointestinal Disorders: No - GENITOURINARY/GYNECOLOGICAL Hx Sexually Transmitted Disorders: No - PSYCHIATRIC Hx Anxiety: Yes Hx Depression: Yes - SURGICAL HISTORY Hx Tonsillectomy: Yes - ANESTHESIA Hx Anesthesia: Yes Hx Anesthesia Reactions: No Hx Malignant Hyperthermia: No Meds Allergies/Adverse Reactions: Allergies Allergy/AdvReac Type Severity Reaction Status Date / Time acetaminophen [From Percocet] AdvReac VOMITING Verified 01/16/17 18:55 oxycodone HCl [From Percocet] AdvReac VOMITING Verified 01/16/17 18:55 - Medications Medications: Current Medications Al Hydrox/Mg Hydrox/Simethicone (Maalox Plus 30 Ml) 30 ml PO Q4 PRN PRN Reason: INDIGESTION/HEARTBURN Albuterol/Ipratropium (Duoneb 3 Mg/0.5 Mg (3 Ml) Ud) 3 ml IH Q6H PRN PRN Reason: Shortness of Breath Amlodipine Besylate (Norvasc) 5 mg PO DAILY [facility] Last Admin: 01/17/17 09:00 Dose: 5 mg Atorvastatin Calcium (Lipitor) 40 mg PO HS [facility] Divalproex Sodium (Depakote Sprinkles) 125 mg PO DAILY@1700 [facility] Docusate Sodium (Colace) 100 mg PO BID [facility] Last Admin: 01/17/17 08:53 Dose: 100 mg Ferrous Sulfate (Feosol) 325 mg PO BID [facility] Last Admin: 01/17/17 09:03 Dose: 325 mg Home Med (Dextromethorphan Hbr/Quinidine [Nuedexta 20-10 Mg Capsule]) 20 mg PO BID [facility] Vancomycin HCl 1 gm/ Sodium (Chloride) 250 mls @ 166.667 mls/hr IVPB Q12 [facility] Last Admin: 01/17/17 08:47 Dose: 166.667 mls/hr Potassium Chloride 10 meq/ (Sodium Chloride) 1,005 mls @ 60 mls/hr IV .[id number] [facility] Stop: 01/17/17 19:14 Last Admin: 01/17/17 03:23 Dose: 60 mls/hr Piperacillin Sod/Tazobactam (Sod 3.375 gm/ Sodium Chloride) 100 mls @ 100 mls/ hr IVPB Q6 [facility] Last Admin: 01/17/17 09:01 Dose: 100 mls/hr Insulin Detemir (Levemir) 8 units SC HS [facility] Insulin Human Lispro (Humalog) 0 units SC ACHS [facility] PRN Reason: Protocol Last Admin: 01/17/17 11:29 Dose: Not Given Levothyroxine Sodium (Synthroid) 50 mcg PO DAILY@0630 [facility] Last Admin: 01/17/17 08:51 Dose: 50 mcg Loperamide HCl (Imodium) 2 mg PO Q6 PRN PRN Reason: DIARRHEA Magnesium Hydroxide (Milk Of Magnesia) 30 ml PO HS PRN PRN Reason: Constipation Memantine (Namenda) 10 mg PO BID [facility] Last Admin: 01/17/17 08:51 Dose: 10 mg Montelukast Sodium (Singulair) 10 mg PO HS [facility] Prochlorperazine (Compazine Rectal Supp) 25 mg RC Q12 PRN PRN Reason: Nausea/Vomiting Quetiapine Fumarate (Seroquel) 100 mg PO HS [facility] Sertraline HCl (Zoloft) 25 mg PO HS [facility] Silver Sulfadiazine (Silvadene 1% 20 Gm) 1 ea TOP QAM [facility] Last Admin: 01/17/17 10:58 Dose: 1 ea Tramadol HCl (Ultram) 50 mg PO Q8 PRN PRN Reason: Pain, moderate (4-7) Physical Exam - Constitutional Appears: No Acute Distress - ENT Exam ENT Exam: Mucous Membranes Moist - Respiratory Exam Respiratory Exam: absent: Chest Wall Tenderness - Cardiovascular Exam Cardiovascular Exam: absent: JVD, Rubs - GI/Abdominal Exam GI & Abdominal Exam: Normal Bowel Sounds - Extremities Exam Extremities exam: Negative for: calf tenderness - Back Exam Back exam: absent: CVA tenderness (L), CVA tenderness (R) Results - Vital Signs Recent Vital Signs: Last Vital Signs Temp 97.4 F L 01/17/17 08:21 Pulse 64 01/17/17 09:00 Resp 20 01/17/17 08:21 BP 148/78 01/17/17 09:00 Pulse Ox 99 01/17/17 08:21 - Labs Result Diagrams: 01/16/17 20:30 01/17/17 07:25 Labs: Laboratory Results - last 24 hr 01/16/17 01/16/17 01/16/17 19:54 20:00 20:00 WBC RBC Hgb Hct MCV MCH MCHC RDW Plt Count MPV Neut % (Auto) Lymph % (Auto) [place] % (Auto) Eos % (Auto) Baso % (Auto) Neut # Lymph # [place] # Eos # Baso # PT 13.5 H INR 1.2 APTT 30.8 pO2 147 H VBG pH 7.67 H* VBG pCO2 17 L* VBG HCO3 26.3 VBG Total CO2 20.1 L VBG O2 Sat (Calc) 100.0 H VBG Base Excess 1.7 VBG Potassium 3.6 A-a O2 Difference -19.0 Sodium 132.0 131 L Chloride 105.0 105 Glucose 152 H Lactate 1.1 FiO2 21.0 Crit Value Called To Su champion Crit Value Called By 15 Crit Value Read Back Y Blood Gas Notified Time 1957 Potassium 3.6 Carbon Dioxide 17 L Anion Gap 13 BUN 28 H Creatinine 0.9 Est GFR ( Amer) > 60 Est GFR (Non-Af Amer) > 60 POC Glucose (mg/dL) Random Glucose 151 H Calcium 9.1 Phosphorus 3.0 Magnesium 1.9 Total Bilirubin 0.5 AST 30 ALT 35 Alkaline Phosphatase 135 H D Total Protein 6.9 Albumin 3.2 L Globulin 3.7 Albumin/Globulin Ratio 0.9 L Venous Blood Potassium 3.6 Blood Type Antibody Screen BBK History Checked 01/16/17 01/16/17 01/17/17 20:00 20:30 06:21 WBC 10.3 RBC 3.39 L Hgb 9.6 L Hct 28.9 L MCV 85.3 MCH 28.2 MCHC 33.1 RDW 16.1 H Plt Count 556 H D MPV 7.8 Neut % (Auto) 72.9 Lymph % (Auto) 18.5 L [place] % (Auto) 6.0 Eos % (Auto) 2.1 Baso % (Auto) 0.5 Neut # 7.5 H Lymph # 1.9 [place] # 0.6 Eos # 0.2 Baso # 0.1 PT INR APTT pO2 VBG pH VBG pCO2 VBG HCO3 VBG Total CO2 VBG O2 Sat (Calc) VBG Base Excess VBG Potassium A-a O2 Difference Sodium Chloride Glucose Lactate FiO2 Crit Value Called To Crit Value Called By Crit Value Read Back Blood Gas Notified Time Potassium Carbon Dioxide Anion Gap BUN Creatinine Est GFR ( Amer) Est GFR (Non-Af Amer) POC Glucose (mg/dL) 168 H Random Glucose Calcium Phosphorus Magnesium Total Bilirubin AST ALT Alkaline Phosphatase Total Protein Albumin Globulin Albumin/Globulin Ratio Venous Blood Potassium Blood Type B POSITIVE Antibody Screen Negative BBK History Checked Patient has bt 01/17/17 01/17/17 07:25 11:11 WBC RBC Hgb Hct MCV MCH MCHC RDW Plt Count MPV Neut % (Auto) Lymph % (Auto) [place] % (Auto) Eos % (Auto) Baso % (Auto) Neut # Lymph # [place] # Eos # Baso # PT INR APTT pO2 VBG pH VBG pCO2 VBG HCO3 VBG Total CO2 VBG O2 Sat (Calc) VBG Base Excess VBG Potassium A-a O2 Difference Sodium 135 Chloride 106 Glucose Lactate FiO2 Crit Value Called To Crit Value Called By Crit Value Read Back Blood Gas Notified Time Potassium 3.7 Carbon Dioxide 21 L Anion Gap 12 BUN 24 H Creatinine 1.0 Est GFR ( Amer) > 60 Est GFR (Non-Af Amer) 53 POC Glucose (mg/dL) 149 H Random Glucose 148 H Calcium 8.7 Phosphorus Magnesium Total Bilirubin AST ALT Alkaline Phosphatase Total Protein Albumin Globulin Albumin/Globulin Ratio Venous Blood Potassium Blood Type Antibody Screen BBK History Checked Assessment & Plan - Assessment and Plan (Free Text) Assessment: Hyponatremia Patient receiving intravenous fluid serum sodium improving and no contraindication from renal point of view for foot procedures to be done. Serum creatinine appeared to be okay so with the electrolyte except serum sodium Continue monitoring
--- NOTE | 2017-01-17 13:25 | CP.PCM.PN ---
Subjective - Date & Time of Evaluation Date of Evaluation: 01/17/17 Time of Evaluation: 13:05 - Subjective Subjective: 81 y/o female seen at bedside with attending Dr. Moreau for left ankle ulceration and left 2nd digit ulceration. Patient is unable to provide meaningful responses to questioning at this time. Patient resting comfortably in bed in NAD. Unable to assess thorough physical exam and ROS at this time. Objective - Vital Signs/Intake and Output Vital Signs (last 24 hours): Temp Pulse Resp BP Pulse Ox 97.4 F L 64 20 148/78 99 01/17/17 08:21 01/17/17 09:00 01/17/17 08:21 01/17/17 09:00 01/17/17 08:21 - Medications Medications: Current Medications Al Hydrox/Mg Hydrox/Simethicone (Maalox Plus 30 Ml) 30 ml PO Q4 PRN PRN Reason: INDIGESTION/HEARTBURN Albuterol/Ipratropium (Duoneb 3 Mg/0.5 Mg (3 Ml) Ud) 3 ml IH Q6H PRN PRN Reason: Shortness of Breath Amlodipine Besylate (Norvasc) 5 mg PO DAILY [facility] Last Admin: 01/17/17 09:00 Dose: 5 mg Atorvastatin Calcium (Lipitor) 40 mg PO HS [facility] Divalproex Sodium (Depakote Sprinkles) 125 mg PO DAILY@1700 [facility] Docusate Sodium (Colace) 100 mg PO BID [facility] Last Admin: 01/17/17 08:53 Dose: 100 mg Ferrous Sulfate (Feosol) 325 mg PO BID [facility] Last Admin: 01/17/17 09:03 Dose: 325 mg Home Med (Dextromethorphan Hbr/Quinidine [Nuedexta 20-10 Mg Capsule]) 20 mg PO BID [facility] Vancomycin HCl 1 gm/ Sodium (Chloride) 250 mls @ 166.667 mls/hr IVPB Q12 [facility] Last Admin: 01/17/17 08:47 Dose: 166.667 mls/hr Potassium Chloride 10 meq/ (Sodium Chloride) 1,005 mls @ 60 mls/hr IV .[id number] [facility] Stop: 01/17/17 19:14 Last Admin: 01/17/17 03:23 Dose: 60 mls/hr Piperacillin Sod/Tazobactam (Sod 3.375 gm/ Sodium Chloride) 100 mls @ 100 mls/ hr IVPB Q6 [facility] Last Admin: 01/17/17 09:01 Dose: 100 mls/hr Insulin Detemir (Levemir) 8 units SC HS [facility] Insulin Human Lispro (Humalog) 0 units SC ACHS [facility] PRN Reason: Protocol Last Admin: 01/17/17 11:29 Dose: Not Given Levothyroxine Sodium (Synthroid) 50 mcg PO DAILY@0630 [facility] Last Admin: 01/17/17 08:51 Dose: 50 mcg Loperamide HCl (Imodium) 2 mg PO Q6 PRN PRN Reason: DIARRHEA Magnesium Hydroxide (Milk Of Magnesia) 30 ml PO HS PRN PRN Reason: Constipation Memantine (Namenda) 10 mg PO BID [facility] Last Admin: 01/17/17 08:51 Dose: 10 mg Montelukast Sodium (Singulair) 10 mg PO HS [facility] Prochlorperazine (Compazine Rectal Supp) 25 mg RC Q12 PRN PRN Reason: Nausea/Vomiting Quetiapine Fumarate (Seroquel) 100 mg PO HS [facility] Sertraline HCl (Zoloft) 25 mg PO HS [facility] Silver Sulfadiazine (Silvadene 1% 20 Gm) 1 ea TOP QAM [facility] Last Admin: 01/17/17 10:58 Dose: 1 ea Tramadol HCl (Ultram) 50 mg PO Q8 PRN PRN Reason: Pain, moderate (4-7) - Labs Labs: 01/16/17 20:30 01/17/17 07:25 PT 13.5 Seconds (9.8-13.1) H 01/16/17 20:00 INR 1.2 (0.9-1.2) 01/16/17 20:00 APTT 30.8 Seconds (25.6-37.1) 01/16/17 20:00 - Constitutional Appears: Non-toxic, No Acute Distress - Extremities Exam Additional comments: LLE exam: Vascular: DP and PT pulses non-palpable, CFT >5sec, temperature cool to touch, pedal hair absent. Neuro: unable to assess. Derm: Wound at dorsal 2nd PIPJ, full thickness with head of proximal phalanx exposed, no drainage at this time, no malodor; borders intact, friable; surrounding skin with erythema to 2nd digit, mild edema, no calor. Wound at lateral ankle surgical site full thickness with portion of internal hardware exposed, no drainage, no malodor; borders intact, friable; surrounding skin with localized erythema, mild edema, no calor. MSK: ROM decreased at all joints with flexion contracture at knee and plantarflexion at ankle. Mild pain on palpation of second digit and distal fibula. Assessment and Plan - Assessment and Plan (Free Text) Assessment: 81 y/o female seen at bedside for left lateral ankle ulceration secondary to pressure, 2nd digit full thickness ulceration Plan: patient evaluated and seen at bedside with attending Dr. Moreau labs and vitals reviewed; WBC 10.3 yesterday, afebrile applied silvadene, DSD to left lower extremity f/u wound cx Left ankle radiographs: Internal hardware intact with signs of healing at fracture site. Left foot radiographs: 2nd digit proximal phalanx head suspicious for osteomyelitis. -ordered offloading boots to be worn at all times when in bed to offload heel. -patient to be NWB to E. -patient to be admitted for IV abx, pain management and medical optimization for surgery. -patient will need cardiac and renal clearance. -plan for left ankle hardware removal and possible 2nd digit amputation once medically cleared and stable. podiatry will continue to follow patient while remains in house
--- NOTE | 2017-01-17 14:59 | RAD ---
PROCEDURE: Left Ankle Radiographs. HISTORY: wound, s/p ankle fracture ORIF COMPARISON: 11/26/2016 FINDINGS: BONES: Examination technically limited. Status post ORIF medial malleolar fracture and distal fibular diaphyseal fracture. Compression screw obliquely traverses medial malleolus, unchanged. Plate and screw fixation of distal fibula unchanged. No new fracture. No additional abnormality. JOINTS: Normal. No osteoarthritis. Ankle mortise maintained. Talar dome intact SOFT TISSUES: Vascular calcifications OTHER FINDINGS: None. IMPRESSION: No acute abnormality. Orthopedic hardware and bony alignment unchanged.
--- NOTE | 2017-01-17 15:02 | RAD ---
PROCEDURE: Left Foot Radiographs. HISTORY: wound COMPARISON: 12/11/2016 FINDINGS: BONES: Technically limited. No oblique view submitted. No acute fracture identified. Healed fracture distal 4th metatarsal diaphysis. Probable osteoarthritis 1st metatarsal phalangeal articulation. Mild flexion deformity of 4th and 5th digits. JOINTS: As above SOFT TISSUES: Normal. OTHER FINDINGS: None. IMPRESSION: Limited examination. No acute abnormality.
--- NOTE | 2017-01-17 17:23 | CP.PCM.CON ---
History of Present Illness - History of Present Illness History of Present Illness: 81 y/o female with the PMHx of HTN, DM, CAD, CMP s/p AICD ,CRI, PVD and dementia who has been follow by desk lieutenant at the [facility] for Tx of left foot ulceration and displacement of previous hardware. Patient is confused and information was obtained from daughter. As per daughter the patient has been stable cardiac thakkar with no admission to the hospital due to chest pain ,SOB or CHF. Patient was last time seen by us in 2010. Last Echo revealed an LVEF =20% and CATH performed in 2008 revealed multi-vessel disease. Review of Systems - Review of Systems Systems not reviewed;Unavailable: Altered Mental Status, Uncooperative Past Patient History - Infectious Disease Hx of Infectious Diseases: None - Tetanus Immunizations Tetanus Immunization: Unknown - Past Medical History & Family History Past Medical History?: Yes Past Family History: Reviewed and not pertinent - Past Social History Smoking Status: Never Smoked Chewing Tobacco Use: No Cigar Use: No Alcohol: None Drugs: Denies Home Situation {Lives}: Residential - CARDIAC Hx Atrial Fibrillation: Yes Hx Cardia Arrhythmia: Yes Hx Congestive Heart Failure: Yes Hx Hypercholesterolemia: Yes Hx Hypertension: Yes Hx Pacemaker: Yes Hx Peripheral Edema: Yes Hx Peripheral Vascular Disease: Yes - PULMONARY Hx Asthma: Yes Hx Chronic Obstructive Pulmonary Disease (COPD): Yes - NEUROLOGICAL Hx Dementia: Yes Hx Seizures: No - HEENT Hx HEENT Problems: No - RENAL Hx Chronic Kidney Disease: Yes - ENDOCRINE/METABOLIC Hx Diabetes Mellitus Type 1: Yes Hx Hypothyroidism: Yes - HEMATOLOGICAL/ONCOLOGICAL Hx Anemia: Yes Hx Human Immunodeficiency Virus (HIV): No - INTEGUMENTARY Hx Dermatological Problems: No - MUSCULOSKELETAL/RHEUMATOLOGICAL Hx Arthritis: Yes Hx Fractures: Yes (left tibia) - GASTROINTESTINAL Hx Gastrointestinal Disorders: No - GENITOURINARY/GYNECOLOGICAL Hx Sexually Transmitted Disorders: No - PSYCHIATRIC Hx Anxiety: Yes Hx Depression: Yes - SURGICAL HISTORY Hx Surgeries: Yes Hx Cataract Extraction: Yes Hx Cardiac Catheterization: Yes (2008) Hx Eye Surgery: Yes Hx Open Reduction Internal Fixation: Yes Hx Tonsillectomy: Yes - ANESTHESIA Hx Anesthesia: Yes Hx Anesthesia Reactions: No Hx Malignant Hyperthermia: No Meds Allergies/Adverse Reactions: Allergies Allergy/AdvReac Type Severity Reaction Status Date / Time acetaminophen [From Percocet] AdvReac VOMITING Verified 01/16/17 18:55 oxycodone HCl [From Percocet] AdvReac VOMITING Verified 01/16/17 18:55 - Medications Medications: Current Medications Al Hydrox/Mg Hydrox/Simethicone (Maalox Plus 30 Ml) 30 ml PO Q4 PRN PRN Reason: INDIGESTION/HEARTBURN Albuterol/Ipratropium (Duoneb 3 Mg/0.5 Mg (3 Ml) Ud) 3 ml IH Q6H PRN PRN Reason: Shortness of Breath Amlodipine Besylate (Norvasc) 5 mg PO DAILY [facility] Last Admin: 01/17/17 09:00 Dose: 5 mg Apixaban (Eliquis) 2.5 mg PO ONCE ONE PRN Reason: Protocol Stop: 01/17/17 22:01 Atorvastatin Calcium (Lipitor) 40 mg PO [facility] Divalproex Sodium (Depakote Sprinkles) 125 mg PO DAILY@1700 [facility] Docusate Sodium (Colace) 100 mg PO BID [facility] Last Admin: 01/17/17 08:53 Dose: 100 mg Enoxaparin Sodium (Lovenox) 80 mg SC ONCE ONE PRN Reason: Protocol Stop: 01/18/17 09:01 Enoxaparin Sodium (Lovenox) 80 mg SC ONCE ONE PRN Reason: Protocol Stop: 01/18/17 21:01 Ferrous Sulfate (Feosol) 325 mg PO BID [facility] Last Admin: 01/17/17 09:03 Dose: 325 mg Home Med (Dextromethorphan Hbr/Quinidine [Nuedexta 20-10 Mg Capsule]) 20 mg PO BID [facility] Vancomycin HCl 1 gm/ Sodium (Chloride) 250 mls @ 166.667 mls/hr IVPB Q12 [facility] Last Admin: 01/17/17 08:47 Dose: 166.667 mls/hr Potassium Chloride 10 meq/ (Sodium Chloride) 1,005 mls @ 60 mls/hr IV .[id number] [facility] Stop: 01/17/17 19:14 Last Admin: 01/17/17 03:23 Dose: 60 mls/hr Piperacillin Sod/Tazobactam (Sod 3.375 gm/ Sodium Chloride) 100 mls @ 100 mls/ hr IVPB Q6 [facility] Last Admin: 01/17/17 09:01 Dose: 100 mls/hr Insulin Detemir (Levemir) 8 units SC [facility] Insulin Human Lispro (Humalog) 0 units SC ACHS [facility] PRN Reason: Protocol Last Admin: 01/17/17 11:29 Dose: Not Given Levothyroxine Sodium (Synthroid) 50 mcg PO DAILY@0630 [facility] Last Admin: 01/17/17 08:51 Dose: 50 mcg Loperamide HCl (Imodium) 2 mg PO Q6 PRN PRN Reason: DIARRHEA Magnesium Hydroxide (Milk Of Magnesia) 30 ml PO HS PRN PRN Reason: Constipation Memantine (Namenda) 10 mg PO BID [facility] Last Admin: 01/17/17 08:51 Dose: 10 mg Montelukast Sodium (Singulair) 10 mg PO HS [facility] Prochlorperazine (Compazine Rectal Supp) 25 mg RC Q12 PRN PRN Reason: Nausea/Vomiting Quetiapine Fumarate (Seroquel) 100 mg PO HS [facility] Saccharomyces Boulardii (Florastor) 250 mg PO BID [facility] Sertraline HCl (Zoloft) 25 mg PO HS [facility] Silver Sulfadiazine (Silvadene 1% 20 Gm) 1 ea TOP QAM [facility] Last Admin: 01/17/17 10:58 Dose: 1 ea Tramadol HCl (Ultram) 50 mg PO Q8 PRN PRN Reason: Pain, moderate (4-7) Physical Exam - Constitutional Appears: No Acute Distress, Confused - Head Exam Head Exam: ATRAUMATIC, NORMOCEPHALIC - Neck Exam Neck exam: Positive for: Full Rom, Normal Inspection - Respiratory Exam Respiratory Exam: Clear to Auscultation Bilateral - Cardiovascular Exam Cardiovascular Exam: Irregular Rhythm, Systolic Murmur (1/6 LUSB) - GI/Abdominal Exam GI & Abdominal Exam: Normal Bowel Sounds, Tenderness (negative) - Rectal Exam Rectal Exam: Deferred - Extremities Exam Extremities exam: Positive for: tenderness (left foot, wound dressed) - Neurological Exam Neurological exam: Alert (but confused) - Psychiatric Exam Psychiatric exam: Flat Affect - Skin Skin Exam: Normal Color Results - Vital Signs Recent Vital Signs: Last Vital Signs Temp 97.9 F 01/17/17 15:53 Pulse 77 01/17/17 15:53 Resp 18 01/17/17 15:53 BP 161/61 H 01/17/17 15:53 Pulse Ox 98 01/17/17 15:53 - Labs Result Diagrams: 01/16/17 20:30 01/17/17 07:25 Labs: Laboratory Results - last 24 hr 01/16/17 01/16/17 01/16/17 19:54 20:00 20:00 WBC RBC Hgb Hct MCV MCH MCHC RDW Plt Count MPV Neut % (Auto) Lymph % (Auto) Pratt % (Auto) Eos % (Auto) Baso % (Auto) Neut # Lymph # Pratt # Eos # Baso # PT 13.5 H INR 1.2 APTT 30.8 pO2 147 H VBG pH 7.67 H* VBG pCO2 17 L* VBG HCO3 26.3 VBG Total CO2 20.1 L VBG O2 Sat (Calc) 100.0 H VBG Base Excess 1.7 VBG Potassium 3.6 A-a O2 Difference -19.0 Sodium 132.0 131 L Chloride 105.0 105 Glucose 152 H Lactate 1.1 FiO2 21.0 Crit Value Called To Su champion Crit Value Called By 15 Crit Value Read Back Y Blood Gas Notified Time 1957 Potassium 3.6 Carbon Dioxide 17 L Anion Gap 13 BUN 28 H Creatinine 0.9 Est GFR ( Amer) > 60 Est GFR (Non-Af Amer) > 60 POC Glucose (mg/dL) Random Glucose 151 H Calcium 9.1 Phosphorus 3.0 Magnesium 1.9 Total Bilirubin 0.5 AST 30 ALT 35 Alkaline Phosphatase 135 H D Total Protein 6.9 Albumin 3.2 L Globulin 3.7 Albumin/Globulin Ratio 0.9 L Venous Blood Potassium 3.6 Blood Type Antibody Screen BBK History Checked 01/16/17 01/16/17 01/17/17 20:00 20:30 06:21 WBC 10.3 RBC 3.39 L Hgb 9.6 L Hct 28.9 L MCV 85.3 MCH 28.2 MCHC 33.1 RDW 16.1 H Plt Count 556 H D MPV 7.8 Neut % (Auto) 72.9 Lymph % (Auto) 18.5 L Pratt % (Auto) 6.0 Eos % (Auto) 2.1 Baso % (Auto) 0.5 Neut # 7.5 H Lymph # 1.9 Pratt # 0.6 Eos # 0.2 Baso # 0.1 PT INR APTT pO2 VBG pH VBG pCO2 VBG HCO3 VBG Total CO2 VBG O2 Sat (Calc) VBG Base Excess VBG Potassium A-a O2 Difference Sodium Chloride Glucose Lactate FiO2 Crit Value Called To Crit Value Called By Crit Value Read Back Blood Gas Notified Time Potassium Carbon Dioxide Anion Gap BUN Creatinine Est GFR ( Amer) Est GFR (Non-Af Amer) POC Glucose (mg/dL) 168 H Random Glucose Calcium Phosphorus Magnesium Total Bilirubin AST ALT Alkaline Phosphatase Total Protein Albumin Globulin Albumin/Globulin Ratio Venous Blood Potassium Blood Type B POSITIVE Antibody Screen Negative BBK History Checked Patient has bt 01/17/17 01/17/17 01/17/17 07:25 11:11 15:48 WBC RBC Hgb Hct MCV MCH MCHC RDW Plt Count MPV Neut % (Auto) Lymph % (Auto) Pratt % (Auto) Eos % (Auto) Baso % (Auto) Neut # Lymph # Pratt # Eos # Baso # PT INR APTT pO2 VBG pH VBG pCO2 VBG HCO3 VBG Total CO2 VBG O2 Sat (Calc) VBG Base Excess VBG Potassium A-a O2 Difference Sodium 135 Chloride 106 Glucose Lactate FiO2 Crit Value Called To Crit Value Called By Crit Value Read Back Blood Gas Notified Time Potassium 3.7 Carbon Dioxide 21 L Anion Gap 12 BUN 24 H Creatinine 1.0 Est GFR ( Amer) > 60 Est GFR (Non-Af Amer) 53 POC Glucose (mg/dL) 149 H 182 H Random Glucose 148 H Calcium 8.7 Phosphorus Magnesium Total Bilirubin AST ALT Alkaline Phosphatase Total Protein Albumin Globulin Albumin/Globulin Ratio Venous Blood Potassium Blood Type Antibody Screen BBK History Checked - EKG Data EKG Interpreted by: Myself ( ,ANTONIO) - Imaging and Cardiology Chest x-ray Status: Report reviewed by me (BRIJESH) Assessment & Plan - Assessment and Plan (Free Text) Assessment: 1 PVD, foot ulcer 2 CMP s/p AICD 3 A.Fib with CVR 4 DM 5 HTN 6 Dementia 7 CAD 8 PVD 9 CRI Plan: 1 Will review old charts 2 Electrocardiogram 3 Have AICD check. 4 Management of Eliquis discussed with Hospitalist. 5 Adjust Cardiac medications. 6 Will follow 7 Add low dose Beta Blockers. 8 Final cardiac clearance after above been reviewed.
[2017-01-17] MEDS: Saccharomyces Boulardi 250 mg Cap PO SCH ×2 (17:31→22:20)
[2017-01-17] MEDS: Divalproex 125 mg Sprinkle Capsule PO SCH (22:20)
[2017-01-17] MEDS: Insulin Detemir 100 Units/ml Inj SC SCH (23:02)
[2017-01-18] MEDS: Piperacillin/Tazobact 3.375 GM in Sodium Chloride 0.9% 100 ML IVPB SCH ×4 (03:36→21:59)
[2017-01-18] MEDS: Levothyroxine 50 MCG TAB PO SCH (06:43)
[2017-01-18] MEDS: Insulin Lispro (humaLOG) 100 Units/ml Inj SC SCH ×4 (08:10→22:06)
[2017-01-18] MEDS ORDERED: Enoxaparin 80 mg Syringe SC ONE ×2 (09:00→21:00)
[2017-01-18] MEDS: Saccharomyces Boulardi 250 mg Cap PO SCH ×2 (09:58→17:32)
--- NOTE | 2017-01-18 11:39 | CP.PCM.PN ---
Subjective - Date & Time of Evaluation Date of Evaluation: 01/18/17 Time of Evaluation: 11:38 - Subjective Subjective: Patient seen and evaluated at bedside, NAD. Patient unable to provide ROS. She has bandage clean dry and intact to the left foot. Objective - Vital Signs/Intake and Output Vital Signs (last 24 hours): Temp Pulse Resp BP Pulse Ox 98.7 F 64 18 173/74 H 98 01/18/17 08:42 01/18/17 08:42 01/18/17 08:42 01/18/17 09:58 01/18/17 08:42 - Medications Medications: Current Medications Al Hydrox/Mg Hydrox/Simethicone (Maalox Plus 30 Ml) 30 ml PO Q4 PRN PRN Reason: INDIGESTION/HEARTBURN Albuterol/Ipratropium (Duoneb 3 Mg/0.5 Mg (3 Ml) Ud) 3 ml IH Q6H PRN PRN Reason: Shortness of Breath Amlodipine Besylate (Norvasc) 5 mg PO Q12H [facility] Atorvastatin Calcium (Lipitor) 40 mg PO [facility] Last Admin: 01/17/17 23:00 Dose: 40 mg Divalproex Sodium (Depakote Sprinkles) 125 mg PO DAILY@1700 [facility] Last Admin: 01/17/17 22:20 Dose: 125 mg Docusate Sodium (Colace) 100 mg PO BID [facility] Last Admin: 01/18/17 09:59 Dose: 100 mg Enoxaparin Sodium (Lovenox) 80 mg SC ONCE ONE PRN Reason: Protocol Stop: 01/18/17 21:01 Ferrous Sulfate (Feosol) 325 mg PO BID [facility] Last Admin: 01/18/17 09:58 Dose: 325 mg Home Med (Dextromethorphan Hbr/Quinidine [Nuedexta 20-10 Mg Capsule]) 20 mg PO BID [facility] Vancomycin HCl 1 gm/ Sodium (Chloride) 250 mls @ 166.667 mls/hr IVPB Q12 [facility] Last Admin: 01/17/17 22:09 Dose: Not Given Piperacillin Sod/Tazobactam (Sod 3.375 gm/ Sodium Chloride) 100 mls @ 100 mls/ hr IVPB Q6 [facility] Last Admin: 01/18/17 09:57 Dose: 100 mls/hr Insulin Detemir (Levemir) 8 units SC [facility] Last Admin: 01/17/17 23:02 Dose: 8 unit Insulin Human Lispro (Humalog) 0 units SC [facility] PRN Reason: Protocol Last Admin: 01/18/17 08:10 Dose: Not Given Levothyroxine Sodium (Synthroid) 50 mcg PO DAILY@0630 [facility] Last Admin: 01/18/17 06:43 Dose: 50 mcg Loperamide HCl (Imodium) 2 mg PO Q6 PRN PRN Reason: DIARRHEA Magnesium Hydroxide (Milk Of Magnesia) 30 ml PO HS PRN PRN Reason: Constipation Memantine (Namenda) 10 mg PO BID [facility] Last Admin: 01/18/17 09:59 Dose: 10 mg Metoprolol Succinate (Toprol Xl) 25 mg PO DAILY [facility] Montelukast Sodium (Singulair) 10 mg PO [facility] Last Admin: 01/17/17 22:21 Dose: 10 mg Prochlorperazine (Compazine Rectal Supp) 25 mg RC Q12 PRN PRN Reason: Nausea/Vomiting Quetiapine Fumarate (Seroquel) 100 mg PO [facility] Last Admin: 01/17/17 23:01 Dose: 100 mg Saccharomyces Boulardii (Florastor) 250 mg PO BID [facility] Last Admin: 01/18/17 09:58 Dose: 250 mg Sertraline HCl (Zoloft) 25 mg PO [facility] Last Admin: 01/17/17 22:21 Dose: 25 mg Silver Sulfadiazine (Silvadene 1% 20 Gm) 1 ea TOP QAM [facility] Last Admin: 01/17/17 10:58 Dose: 1 ea Tramadol HCl (Ultram) 50 mg PO Q8 PRN PRN Reason: Pain, moderate (4-7) Last Admin: 01/18/17 10:07 Dose: 50 mg - Labs Labs: 01/16/17 20:30 01/17/17 07:25 PT 13.5 Seconds (9.8-13.1) H 01/16/17 20:00 INR 1.2 (0.9-1.2) 01/16/17 20:00 APTT 30.8 Seconds (25.6-37.1) 01/16/17 20:00 - Constitutional Appears: Well, Non-toxic, Combative - Neurological Exam Neurological Exam: Alert, Awake - Psychiatric Exam Psychiatric exam: Agitated - Additional Findings Additional findings: DERMATOLOGIC: Left foot second digit dorsal PIPJ ulceration with fibotic base, exposed bone, no drainage at this time, no erythema. Wound at lateral ankle surgical site full thickness with portion of internal hardware exposed, no drainage. VASCULAR: DP/ PT pulses 2/4, COMMERCIAL DIRECTOR<3 seconds, skin temperature is normal NEUROLOGIC: Gross sensation intact, motor function intact ORTHOPEDIC: Pain on palpation to the left lower extremity. The left leg is extremely contracted and is patient is unable to comfortably extend the leg. Assessment and Plan - Assessment and Plan (Free Text) Assessment: 81 year old female with left foot second digit ulceration and exposed phalanx bone, left ankle ulceration. Plan: Patient seen and evaluated, d/w attending Dr. Moreau. Patients left lower extremity dressed with silvadene, DSD. Patient will need second digit amputation and removal of ankle hardware, pending cardiac clearance. Podiatry will continue to follow while in house.
[2017-01-18] MEDS: Metoprolol Succinate 25 mg XL Tab PO SCH (11:42)
[2017-01-18] MEDS: Silver Sulfadiazine 1% Cream (20 gm) TOP SCH (11:42)
--- NOTE | 2017-01-18 13:08 | CP.PCM.PN ---
Subjective - Date & Time of Evaluation Date of Evaluation: 01/18/17 Time of Evaluation: 13:00 - Subjective Subjective: Hospitatlist Progress Note (Patient was seen and examined at 1:00 PM 664-1 ) 81 year old female (PMHx: Atrial Fibrillation on Apixaban, CHF, COPD/Asthma, CAD , Fractured Left Tibia, PVD, Dementia) who is being followed by Podiatry because of a non healing wound involving the left ankle and ulcer on the left 2nd toe, was sent to the ED By [facility] Dr Moreau of Podiatry for further evaluation and treatment for the aforementioned wounds/ulcer. ROS Says NO to everything Please note that the realiability of the ROS is low secondary to the patient's history of dementia Exam: General: Again jennifer could not provide date, day, month, president, but knows that she is in [facility] HEENT: Right Pupil is dilated and fixed, Left Pupil is round and reactive to light and accomodation, NO pharyngeal erythema/exudate, NO thyromegaly, NO cervical/submandibular/supraclavicular lymphadenopathy Cardio: Systolic Ejection Murmur heard in all of the auscultatory saini, Irregularly Irregular Rhythm Respiratory: CTA B/L, NO R/R/W (please note that the patient would not follow instructions for deep respirations) GI: BSx4, Soft, Central Obesity, NT, NO guarding/rebound tenderness Ext: Left Lower Extremitie with clean dry bandages, Right Foot Lateral Posterior Aspect: dry blister, Pulses in the bilateral LE could not be palpated , B/L Radial Pulses are strong and equal, NO edema noted Skin: Left inner buttock superior aspect: Stage II Ulcer without signs of cellulitis (Cav[place]) Assessment and Plan: 1). Nonhealing Wound Involving Left Lateral Ankle and Left Foot Toe #2 Ulcer ( possibly secondary to Hx DM 2 and likely PVD cosidering pulse could not be palpated in the Bilateral LE) Zosyn 3.375 gm IV Q6H Vancomycin 1 gm IV Q12H Vancomycin Trough is 17.1: considering the likelyhood of involvement of bone this is good for now Ultram 50 mg PO Q8H PRN Moderate Pain Silver Sulfadiazine 1% Topical Daily in AM Podiatry Dr. Moreau Plan: Removal of hardware from Left Ankle and Amputation of Left Toe #2 with Podiatry Team on 01/20/17 Nephrology (Dr. Vu) has cleared patient Awaiting Cardiology (Dr. Veras) clearance Left Ankle Wound Culture 01/16/17 is (+) Gram Positive Cocci Left Toe #2 Ulcer Culture 01/16/17 is (+) Gram Positive Cocci Left Ankle X Ray 01/16/17: orthopedic hardware alignment is unchanged Left Foot X Ray 01/16/17: no abnormality Blood Culture 01/16/17 is negative to date ID Consultation with Dr. Lauren Wilburn has been ordered for further antibiotic recommendations 2). Hyponatremia Na was 131 upon admission and with hydration (NS with 10 mEQ KCl @ 60 mL/hour) it has improved to 135 on 01/17/17 Monitor 3). Hx Atrial Fibrillation Holding Apixaban after 10 PM 01/17/17 for planned surgery on 01/20/17 As patient's [id number] score is high at 6 (Hx HTN, Age > 75, Hx DM 2, Hx Vascular Disease, and Female Sex), she high risk for thromboembolism and therefore bridging anticoagulation with Lovenox will be used on 01/18/17 and will hold this for 01/19/17 4). Hx CAD/Pacemaker Awaiting Cardiology Dr. Veras for clearance for planned surgery on 01/20/17 5). Hx HTN Norvasc 5 mg PO 1x/day has been increased to 5 mg PO Q12H starting at 9 PM as the blood pressure has been elevated 6). Hx HLD Atorvastatin 40 mg PO QHS 7). Hx DM 2 Levemir 8 units SC QHS Lispro ISS ACHS 8). Hx Hypothyroidism Synthroid 50 mcg PO 1x/day 9). Hx CKD Stage III Ne[address] Vu has cleared patient for planned surgery on 01/20/17 10). Hx COPD/Asthma Duoneb Q6H RN SOB/Cough Singulair 10 mg PO QHS 11). Hx Dementia Namenda 10 mg PO 2x/day 12). Hx Anxiety/Depression Seroquel 100 mg PO QHS Zoloft 25 mg PO QHS 13). Stage II Left Superior Inner Buttock Pressure Ulcer Cavilon [place] for now and cover and follow up further recommendations from Wound Care. 13). Prophylactic Measures Maalox Plus 30 ml Q4H PRN indigestion Colace 100 mg PO 2x/day Imodium 2 mg PO Q6H PRN Diarrhea MOM 30 mL PO QHS PRN Constipation Prochlorperazine 25 mg RC Q12H PRN N/V Objective - Vital Signs/Intake and Output Vital Signs (last 24 hours): Temp Pulse Resp BP Pulse Ox 98.7 F 64 18 173/74 H 98 01/18/17 08:42 01/18/17 08:42 01/18/17 08:42 01/18/17 09:58 01/18/17 08:42 - Medications Medications: Current Medications Al Hydrox/Mg Hydrox/Simethicone (Maalox Plus 30 Ml) 30 ml PO Q4 PRN PRN Reason: INDIGESTION/HEARTBURN Albuterol/Ipratropium (Duoneb 3 Mg/0.5 Mg (3 Ml) Ud) 3 ml IH Q6H PRN PRN Reason: Shortness of Breath Amlodipine Besylate (Norvasc) 5 mg PO Q12H [facility] Atorvastatin Calcium (Lipitor) 40 mg PO HS [facility] Last Admin: 01/17/17 23:00 Dose: 40 mg Divalproex Sodium (Depakote Sprinkles) 125 mg PO DAILY@1700 [facility] Last Admin: 01/17/17 22:20 Dose: 125 mg Docusate Sodium (Colace) 100 mg PO BID [facility] Last Admin: 01/18/17 09:59 Dose: 100 mg Enoxaparin Sodium (Lovenox) 80 mg SC ONCE ONE PRN Reason: Protocol Stop: 01/18/17 21:01 Ferrous Sulfate (Feosol) 325 mg PO BID [facility] Last Admin: 01/18/17 09:58 Dose: 325 mg Home Med (Dextromethorphan Hbr/Quinidine [Nuedexta 20-10 Mg Capsule]) 20 mg PO BID [facility] Vancomycin HCl 1 gm/ Sodium (Chloride) 250 mls @ 166.667 mls/hr IVPB Q12 [facility] Last Admin: 01/18/17 11:41 Dose: 166.667 mls/hr Piperacillin Sod/Tazobactam (Sod 3.375 gm/ Sodium Chloride) 100 mls @ 100 mls/ hr IVPB Q6 [facility] Last Admin: 01/18/17 09:57 Dose: 100 mls/hr Insulin Detemir (Levemir) 8 units SC [facility] Last Admin: 01/17/17 23:02 Dose: 8 unit Insulin Human Lispro (Humalog) 0 units SC [facility] PRN Reason: Protocol Last Admin: 01/18/17 11:40 Dose: Not Given Levothyroxine Sodium (Synthroid) 50 mcg PO DAILY@0630 [facility] Last Admin: 01/18/17 06:43 Dose: 50 mcg Loperamide HCl (Imodium) 2 mg PO Q6 PRN PRN Reason: DIARRHEA Magnesium Hydroxide (Milk Of Magnesia) 30 ml PO HS PRN PRN Reason: Constipation Memantine (Namenda) 10 mg PO BID [facility] Last Admin: 01/18/17 09:59 Dose: 10 mg Metoprolol Succinate (Toprol Xl) 25 mg PO DAILY [facility] Last Admin: 01/18/17 11:42 Dose: 25 mg Montelukast Sodium (Singulair) 10 mg PO [facility] Last Admin: 01/17/17 22:21 Dose: 10 mg Prochlorperazine (Compazine Rectal Supp) 25 mg RC Q12 PRN PRN Reason: Nausea/Vomiting Quetiapine Fumarate (Seroquel) 100 mg PO [facility] Last Admin: 01/17/17 23:01 Dose: 100 mg Saccharomyces Boulardii (Florastor) 250 mg PO BID [facility] Last Admin: 01/18/17 09:58 Dose: 250 mg Sertraline HCl (Zoloft) 25 mg PO [facility] Last Admin: 01/17/17 22:21 Dose: 25 mg Silver Sulfadiazine (Silvadene 1% 20 Gm) 1 ea TOP QAM [facility] Last Admin: 01/18/17 11:42 Dose: 1 ea Tramadol HCl (Ultram) 50 mg PO Q8 PRN PRN Reason: Pain, moderate (4-7) Last Admin: 01/18/17 10:07 Dose: 50 mg - Labs Labs: 01/16/17 20:30 01/17/17 07:25 PT 13.5 Seconds (9.8-13.1) H 01/16/17 20:00 INR 1.2 (0.9-1.2) 01/16/17 20:00 APTT 30.8 Seconds (25.6-37.1) 01/16/17 20:00
[2017-01-18] MEDS: Divalproex 125 mg Sprinkle Capsule PO SCH (17:32)
--- NOTE | 2017-01-18 19:15 | CP.PCM.PN ---
Subjective - Date & Time of Evaluation Date of Evaluation: 01/18/17 Time of Evaluation: 17:00 - Subjective Subjective: Follow up Nephrology Consultation Note Assessment: Hyponatremia: resolved Anemia, Hypertension Plan Hyponatremia resolved Hypertension control with meds as ordered. Added losartan 50 mg/day Further work up as per primary team Thanks for allowing me to participate in care of your patient. Will follow patient with you. Please call if any Qs Dr Bala [place] Office: [phone] Subjective: Noted events overnight. Patients feels okay. Denies chest pain, palpitation, shortness of breath, leg swelling. No urinary complaints Physical Examination: General Appearance: Comfortable, in no acute respiratory distress, co- operative. Vitals reviewed and noted as below Lungs: Normal respiratory rate/effort. Breath sounds bilateral equal and clear Heart: Normal rate. s1s2 normal. No rub or gallop. Extremities: no edema. Rt leg dressed due to wound Neurological: Patient is alert, awake and oriented to person, place and time. No focal deficit. Strength bilateral appropriate and equal Skin: Warm and dry. Normal turgor. No rash. Palpitation: Normal elasticity for age Abdomen: Abdomen is soft. Bowel sounds +. There is no abdominal tenderness, no guarding/rigidity or organomegaly : kidney or bladder not palpable Labs/imaging reviewed. Past medical history, past surgical history, family history, social history, allergy reviewed Objective - Vital Signs/Intake and Output Vital Signs (last 24 hours): Temp Pulse Resp BP Pulse Ox 98.5 F 58 L 18 168/93 H 99 01/18/17 16:45 01/18/17 16:45 01/18/17 16:45 01/18/17 17:31 01/18/17 16:45 - Medications Medications: Current Medications Al Hydrox/Mg Hydrox/Simethicone (Maalox Plus 30 Ml) 30 ml PO Q4 PRN PRN Reason: INDIGESTION/HEARTBURN Albuterol/Ipratropium (Duoneb 3 Mg/0.5 Mg (3 Ml) Ud) 3 ml IH Q6H PRN PRN Reason: Shortness of Breath Amlodipine Besylate (Norvasc) 5 mg PO Q12H [facility] Atorvastatin Calcium (Lipitor) 40 mg PO HS [facility] Last Admin: 01/17/17 23:00 Dose: 40 mg Divalproex Sodium (Depakote Sprinkles) 125 mg PO DAILY@1700 [facility] Last Admin: 01/18/17 17:32 Dose: 125 mg Docusate Sodium (Colace) 100 mg PO BID [facility] Last Admin: 01/18/17 17:32 Dose: 100 mg Enoxaparin Sodium (Lovenox) 80 mg SC ONCE ONE PRN Reason: Protocol Stop: 01/18/17 21:01 Ferrous Sulfate (Feosol) 325 mg PO BID [facility] Last Admin: 01/18/17 17:31 Dose: 325 mg Home Med (Dextromethorphan Hbr/Quinidine [Nuedexta 20-10 Mg Capsule]) 20 mg PO BID [facility] Piperacillin Sod/Tazobactam (Sod 3.375 gm/ Sodium Chloride) 100 mls @ 100 mls/ hr IVPB Q6 [facility] Last Admin: 01/18/17 16:37 Dose: 100 mls/hr Vancomycin HCl 1 gm/ Sodium (Chloride) 250 mls @ 166.667 mls/hr IVPB Q12@0000, 1200 [facility] Insulin Detemir (Levemir) 8 units SC HS [facility] Last Admin: 01/17/17 23:02 Dose: 8 unit Insulin Human Lispro (Humalog) 0 units SC [facility] PRN Reason: Protocol Last Admin: 01/18/17 16:40 Dose: Not Given Levothyroxine Sodium (Synthroid) 50 mcg PO DAILY@0630 [facility] Last Admin: 01/18/17 06:43 Dose: 50 mcg Loperamide HCl (Imodium) 2 mg PO Q6 PRN PRN Reason: DIARRHEA Losartan Potassium (Cozaar) 50 mg PO DAILY [facility] Last Admin: 01/18/17 17:31 Dose: 50 mg Magnesium Hydroxide (Milk Of Magnesia) 30 ml PO HS PRN PRN Reason: Constipation Memantine (Namenda) 10 mg PO BID [facility] Last Admin: 01/18/17 17:31 Dose: 10 mg Metoprolol Succinate (Toprol Xl) 25 mg PO DAILY [facility] Last Admin: 01/18/17 11:42 Dose: 25 mg Montelukast Sodium (Singulair) 10 mg PO HS [facility] Last Admin: 01/17/17 22:21 Dose: 10 mg Prochlorperazine (Compazine Rectal Supp) 25 mg RC Q12 PRN PRN Reason: Nausea/Vomiting Quetiapine Fumarate (Seroquel) 100 mg PO HS [facility] Last Admin: 01/17/17 23:01 Dose: 100 mg Saccharomyces Boulardii (Florastor) 250 mg PO BID [facility] Last Admin: 01/18/17 17:32 Dose: 250 mg Sertraline HCl (Zoloft) 25 mg PO HS [facility] Last Admin: 01/17/17 22:21 Dose: 25 mg Silver Sulfadiazine (Silvadene 1% 20 Gm) 1 ea TOP QAM [facility] Last Admin: 01/18/17 11:42 Dose: 1 ea Tramadol HCl (Ultram) 50 mg PO Q8 PRN PRN Reason: Pain, moderate (4-7) Last Admin: 01/18/17 10:07 Dose: 50 mg - Labs Labs: 01/16/17 20:30 01/17/17 07:25 PT 13.5 Seconds (9.8-13.1) H 01/16/17 20:00 INR 1.2 (0.9-1.2) 01/16/17 20:00 APTT 30.8 Seconds (25.6-37.1) 01/16/17 20:00
[2017-01-18] MEDS: Insulin Detemir 100 Units/ml Inj SC SCH (22:05)
[2017-01-19] MEDS: Piperacillin/Tazobact 3.375 GM in Sodium Chloride 0.9% 100 ML IVPB SCH ×4 (04:45→22:08)
[2017-01-19] MEDS: Levothyroxine 50 MCG TAB PO SCH (05:55)
[2017-01-19] MEDS: Insulin Lispro (humaLOG) 100 Units/ml Inj SC SCH ×3 (07:30→22:18)
--- NOTE | 2017-01-19 09:06 | CP.PCM.PN ---
Subjective - Date & Time of Evaluation Date of Evaluation: 01/18/17 Time of Evaluation: 12:30 - Subjective Subjective: The patient is seen for cardiovascular follow up. She complaints of pain in the leg. Also feels weak. She denies chest pain or shortness of breath. Objective - Vital Signs/Intake and Output Vital Signs (last 24 hours): Temp Pulse Resp BP Pulse Ox 98.6 F 58 L 20 152/68 H 97 01/19/17 08:17 01/19/17 08:17 01/19/17 08:17 01/19/17 08:17 01/19/17 08:17 - Medications Medications: Current Medications Al Hydrox/Mg Hydrox/Simethicone (Maalox Plus 30 Ml) 30 ml PO Q4 PRN PRN Reason: INDIGESTION/HEARTBURN Albuterol/Ipratropium (Duoneb 3 Mg/0.5 Mg (3 Ml) Ud) 3 ml IH Q6H PRN PRN Reason: Shortness of Breath Amlodipine Besylate (Norvasc) 5 mg PO Q12H [facility] Last Admin: 01/18/17 22:00 Dose: 5 mg Atorvastatin Calcium (Lipitor) 40 mg PO [facility] Last Admin: 01/18/17 22:04 Dose: 40 mg Divalproex Sodium (Depakote Sprinkles) 125 mg PO DAILY@1700 [facility] Last Admin: 01/18/17 17:32 Dose: 125 mg Docusate Sodium (Colace) 100 mg PO BID [facility] Last Admin: 01/18/17 17:32 Dose: 100 mg Ferrous Sulfate (Feosol) 325 mg PO BID [facility] Last Admin: 01/18/17 17:31 Dose: 325 mg Home Med (Dextromethorphan Hbr/Quinidine [Nuedexta 20-10 Mg Capsule]) 20 mg PO BID [facility] Piperacillin Sod/Tazobactam (Sod 3.375 gm/ Sodium Chloride) 100 mls @ 100 mls/ hr IVPB Q6 [facility] Last Admin: 01/19/17 04:45 Dose: 100 mls/hr Vancomycin HCl 1 gm/ Sodium (Chloride) 250 mls @ 166.667 mls/hr IVPB Q12@0000, 1200 [facility] Last Admin: 01/19/17 00:24 Dose: 166.667 mls/hr Insulin Detemir (Levemir) 8 units SC [facility] Last Admin: 01/18/17 22:05 Dose: 8 unit Insulin Human Lispro (Humalog) 0 units SC [facility] PRN Reason: Protocol Last Admin: 01/19/17 07:30 Dose: Not Given Levothyroxine Sodium (Synthroid) 50 mcg PO DAILY@0630 [facility] Last Admin: 01/19/17 05:55 Dose: 50 mcg Loperamide HCl (Imodium) 2 mg PO Q6 PRN PRN Reason: DIARRHEA Losartan Potassium (Cozaar) 50 mg PO DAILY [facility] Last Admin: 01/18/17 17:31 Dose: 50 mg Magnesium Hydroxide (Milk Of Magnesia) 30 ml PO HS PRN PRN Reason: Constipation Memantine (Namenda) 10 mg PO BID [facility] Last Admin: 01/18/17 17:31 Dose: 10 mg Metoprolol Succinate (Toprol Xl) 25 mg PO DAILY [facility] Last Admin: 01/18/17 11:42 Dose: 25 mg Montelukast Sodium (Singulair) 10 mg PO [facility] Last Admin: 01/18/17 22:00 Dose: 10 mg Prochlorperazine (Compazine Rectal Supp) 25 mg RC Q12 PRN PRN Reason: Nausea/Vomiting Quetiapine Fumarate (Seroquel) 100 mg PO [facility] Last Admin: 01/18/17 22:00 Dose: 100 mg Saccharomyces Boulardii (Florastor) 250 mg PO BID [facility] Last Admin: 01/18/17 17:32 Dose: 250 mg Sertraline HCl (Zoloft) 25 mg PO [facility] Last Admin: 01/18/17 22:00 Dose: 25 mg Silver Sulfadiazine (Silvadene 1% 20 Gm) 1 ea TOP QAM [facility] Last Admin: 01/18/17 11:42 Dose: 1 ea Tramadol HCl (Ultram) 50 mg PO Q8 PRN PRN Reason: Pain, moderate (4-7) Last Admin: 01/18/17 10:07 Dose: 50 mg - Labs Labs: 01/16/17 20:30 01/17/17 07:25 PT 13.5 Seconds (9.8-13.1) H 01/16/17 20:00 INR 1.2 (0.9-1.2) 01/16/17 20:00 APTT 30.8 Seconds (25.6-37.1) 01/16/17 20:00 - Constitutional Appears: No Acute Distress, Chronically Ill - Head Exam Head Exam: ATRAUMATIC - Eye Exam Eye Exam: EOMI, Normal appearance - ENT Exam ENT Exam: Mucous Membranes Moist - Neck Exam Neck Exam: Normal Inspection - Respiratory Exam Respiratory Exam: Clear to Ausculation Bilateral - Cardiovascular Exam Cardiovascular Exam: Irregular Rhythm, +S1, +S2 - GI/Abdominal Exam GI & Abdominal Exam: Soft, Normal Bowel Sounds - Extremities Exam Additional comments: foot ulcer noted. no edema. - Psychiatric Exam Psychiatric exam: Flat Affect Assessment and Plan - Assessment and Plan (Free Text) Assessment: Cardiomyopathy Hypertension. Foot ulcer. Plan: 1. Continue present medications. 2. The patient is optimized cardiac thakkar for the procedure. 3. Will follow prn.
[2017-01-19] MEDS: Metoprolol Succinate 25 mg XL Tab PO SCH (11:27)
[2017-01-19] MEDS: Saccharomyces Boulardi 250 mg Cap PO SCH (11:29)
--- NOTE | 2017-01-19 11:42 | CP.PCM.PN ---
Subjective - Date & Time of Evaluation Date of Evaluation: 01/19/17 Time of Evaluation: 11:15 - Subjective Subjective: [facility] Progress Note (Patient was seen and examined at 11:15 AM 664-1 ) 81 year old female (PMHx: Atrial Fibrillation on Apixaban, CHF, COPD/Asthma, CAD , Fractured Left Tibia, PVD, Dementia) who is being followed by Podiatry because of a non healing wound involving the left ankle and ulcer on the left 2nd toe, was sent to the ED By Beverage Manager Dr Moreau of Podiatry for further evaluation and treatment for the aforementioned wounds/ulcer. Please see the individual Assessment and Plans below for details ROS Says NO to everything but asking for help as she has to have a bowel movement. Screamed in pain when helping Nurse Elda turn patient towards the right side to get the bed sanders under her so that she may use the bathroom. Patient more calm after speaking with her and her pain medication Ultram would be provided. Please note that the realiability of the ROS is low secondary to the patient's history of dementia Exam: General: Again patient could not provide date, day, month, president, but knows that she is in [facility] HEENT: Right Pupil is dilated and fixed, Left Pupil is round and reactive to light and accomodation, NO pharyngeal erythema/exudate, NO thyromegaly, NO cervical/submandibular/supraclavicular lymphadenopathy Cardio: Systolic Ejection Murmur heard in all of the auscultatory saini, Irregularly Irregular Rhythm Respiratory: CTA B/L, NO R/R/W (please note that the patient would not follow instructions for deep respirations) GI: BSx4, Soft, Central Obesity, NT, NO guarding/rebound tenderness Ext: Left Lower Extremity with clean dry bandages, Right Foot Lateral Posterior Aspect: dry blister, Pulses in the bilateral LE could not be palpated , B/L Radial Pulses are strong and equal, NO edema noted Skin: Left inner buttock superior aspect: Stage II Ulcer without signs of cellulitis (Cavilon Cass) Assessment and Plan: 1). Nonhealing Wound Involving Left Lateral Ankle and Left Foot Toe #2 Ulcer ( possibly secondary to Hx DM 2 and likely PVD cosidering pulse could not be palpated in the Bilateral LE) Zosyn 3.375 gm IV Q6H Vancomycin 1 gm IV Q12H Vancomycin Trough is 17.1: considering the likelihood of involvement of bone this is good (higher trough) for now F/U next Vancomycin Trough at 11:30 AM 01/20/17 Ultram 50 mg PO Q8H PRN Moderate Pain Silver Sulfadiazine 1% Topical Daily in AM Podiatry Dr. Moreau Plan: Removal of hardware from Left Ankle and Amputation of Left Toe #2 with Podiatry Team on 01/20/17 Nephrology (Dr. Vu) has cleared patient Cardiology (Dr. 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 Lauren Wilburn has been ordered 01/18/17 and pending for further antibiotic recommendations 2). Hyponatremia Na was 131 upon admission and with hydration (NS with 10 mEQ KCl @ 60 mL/hour) it has improved to 135 on 01/17/17 Monitor 3). Hx Atrial Fibrillation Holding Apixaban 2.5 mg PO Q12H after 10 PM 01/17/17 for planned surgery on 01/20/17 As patient's [id number] score is high at 6 (Hx HTN, Age > 75, Hx DM 2, Hx Vascular Disease, and Female Sex), she is high risk for thromboembolism and therefore bridging anticoagulation with Lovenox was used on 01/18/17 and then discontinued Restart the Apixaban 48-72 hours after surgery 01/20/17 as long as hemostasis has been achieved 4). Hx CAD/Pacemaker Cardiology (Dr. Veras/Mouna) has cleared patient: F/U 2D Echocardiogram peformed 01/19/17 5). Hx HTN Norvasc 5 mg PO 1x/day was increased to 5 mg PO Q12H starting at 9 PM 01/18/17 Metoprolol 25 mg PO 1x/day 9 AM was added 01/19/17 Losartan 50 mg PO 1x/day 9 AM was added 01/19/17 6). Hx HLD Atorvastatin 40 mg PO QHS 7). Hx DM 2 Levemir 8 units SC QHS Lispro ISS ACHS 8). Hx Hypothyroidism Synthroid 50 mcg PO 1x/day 9). Hx CKD Stage III Ne[address] Vu has cleared patient for planned surgery on 01/20/17 10). Hx COPD/Asthma Duoneb Q6H RN SOB/Cough Singulair 10 mg PO QHS 11). Hx Dementia Namenda 10 mg PO 2x/day 12). Hx Anxiety/Depression Seroquel 100 mg PO QHS Zoloft 25 mg PO QHS 13). Stage II Left Superior Inner Buttock Pressure Ulcer Cavilon Cass for now and cover and follow up further recommendations from Wound Care. 13). Prophylactic Measures Maalox Plus 30 ml Q4H PRN indigestion Colace 100 mg PO 2x/day Imodium 2 mg PO Q6H PRN Diarrhea MOM 30 mL PO QHS PRN Constipation Protonix 40 mg PO 1x/day Florastor 250 mg PO 2x/day Prochlorperazine 25 mg RC Q12H PRN N/V Objective - Vital Signs/Intake and Output Vital Signs (last 24 hours): Temp Pulse Resp BP Pulse Ox 98.6 F 58 L 20 152/68 H 97 01/19/17 08:17 17 08:17 01/19/17 08:17 01/19/17 08:17 01/19/17 08:17 - Medications Medications: Current Medications Al Hydrox/Mg Hydrox/Simethicone (Maalox Plus 30 Ml) 30 ml PO Q4 PRN PRN Reason: INDIGESTION/HEARTBURN Albuterol/Ipratropium (Duoneb 3 Mg/0.5 Mg (3 Ml) Ud) 3 ml IH Q6H PRN PRN Reason: Shortness of Breath Amlodipine Besylate (Norvasc) 5 mg PO Q12H [facility] Last Admin: 01/18/17 22:00 Dose: 5 mg Atorvastatin Calcium (Lipitor) 40 mg PO HS [facility] Last Admin: 01/18/17 22:04 Dose: 40 mg Divalproex Sodium (Depakote Sprinkles) 125 mg PO DAILY@1700 [facility] Last Admin: 01/18/17 17:32 Dose: 125 mg Docusate Sodium (Colace) 100 mg PO BID [facility] Last Admin: 01/18/17 17:32 Dose: 100 mg Ferrous Sulfate (Feosol) 325 mg PO BID [facility] Last Admin: 01/18/17 17:31 Dose: 325 mg Home Med (Dextromethorphan Hbr/Quinidine [Nuedexta 20-10 Mg Capsule]) 20 mg PO BID [facility] Piperacillin Sod/Tazobactam (Sod 3.375 gm/ Sodium Chloride) 100 mls @ 100 mls/ hr IVPB Q6 [facility] Last Admin: 01/19/17 04:45 Dose: 100 mls/hr Vancomycin HCl 1 gm/ Sodium (Chloride) 250 mls @ 166.667 mls/hr IVPB Q12@0000, 1200 [facility] Last Admin: 01/19/17 00:24 Dose: 166.667 mls/hr Insulin Detemir (Levemir) 8 units SC [facility] Last Admin: 01/18/17 22:05 Dose: 8 unit Insulin Human Lispro (Humalog) 0 units SC [facility] PRN Reason: Protocol Last Admin: 01/19/17 07:30 Dose: Not Given Levothyroxine Sodium (Synthroid) 50 mcg PO DAILY@0630 [facility] Last Admin: 01/19/17 05:55 Dose: 50 mcg Loperamide HCl (Imodium) 2 mg PO Q6 PRN PRN Reason: DIARRHEA Losartan Potassium (Cozaar) 50 mg PO DAILY [facility] Last Admin: 01/18/17 17:31 Dose: 50 mg Magnesium Hydroxide (Milk Of Magnesia) 30 ml PO HS PRN PRN Reason: Constipation Memantine (Namenda) 10 mg PO BID [facility] Last Admin: 01/18/17 17:31 Dose: 10 mg Metoprolol Succinate (Toprol Xl) 25 mg PO DAILY [facility] Last Admin: 01/18/17 11:42 Dose: 25 mg Montelukast Sodium (Singulair) 10 mg PO [facility] Last Admin: 01/18/17 22:00 Dose: 10 mg Prochlorperazine (Compazine Rectal Supp) 25 mg RC Q12 PRN PRN Reason: Nausea/Vomiting Quetiapine Fumarate (Seroquel) 100 mg PO [facility] Last Admin: 01/18/17 22:00 Dose: 100 mg Saccharomyces Boulardii (Florastor) 250 mg PO BID [facility] Last Admin: 01/18/17 17:32 Dose: 250 mg Sertraline HCl (Zoloft) 25 mg PO HS [facility] Last Admin: 01/18/17 22:00 Dose: 25 mg Silver Sulfadiazine (Silvadene 1% 20 Gm) 1 ea TOP QAM [facility] Last Admin: 01/18/17 11:42 Dose: 1 ea Tramadol HCl (Ultram) 50 mg PO Q8 PRN PRN Reason: Pain, moderate (4-7) Last Admin: 01/18/17 10:07 Dose: 50 mg - Labs Labs: 01/16/17 20:30 01/17/17 07:25 PT 13.5 Seconds (9.8-13.1) H 01/16/17 20:00 INR 1.2 (0.9-1.2) 01/16/17 20:00 APTT 30.8 Seconds (25.6-37.1) 01/16/17 20:00
--- NOTE | 2017-01-19 12:28 | CP.PCM.CON ---
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 She was sent to the ED By Dr Moreau of Podiatry for further evaluation with concerning for necrosis of the mentioned wounds. PMH: Anemia, Anxiety, Arthritis, Asthma, A Fib, CAD, Cardiac Arrhythmia, CHF, COPD, Dementia, Depression, DM II), Fractures (left tibia), HTN, HLD, Hypothyroidism, Peripheral Edema, ESRD (stage III), PSH: Back Surgery, Pacemaker, Tonsillectomy FH: Possibly CAD and DM2 in family SH: Lives in [place], no EtOH or tobacco Allergies: Acetaminophen, Oxycokone Review of Systems - Review of Systems Systems not reviewed;Unavailable: Acuity of Condition, Altered Mental Status - Constitutional Constitutional: absent: As Per HPI, Anorexia, Chills, Daytime Sleepiness, Excessive Sweating, Fatigue, Fever, Frequent Falls, Headache, Increased Appetite , Lethargy, Malaise, Night Sweats, Snoring, Sleep Apnea, Weight Gain, Weight Loss, Weakness, Other - EENT Eyes: absent: As Per HPI, Blind Spots, Blurred Vision, Change in Vision, Decreased Night Vision, Diplopia, Discharge, Dry Eye, Exophthalmos, Floaters, Irritation, Itchy Eyes, Loss of Peripheral Vision, Pain, Photophobia, Requires Corrective Lenses, Sees Flashes, Spots in Vision, Tunnel Vision, Other Visual Disturbances, Loss of Vision, Other Ears: absent: As Per HPI, Decreased Hearing, Ear Discharge, Ear Pain, Tinnitus, Abnormal Hearing, Disequilibrium, Dizziness, Other Nose/Mouth/Throat: absent: As Per HPI, Epistaxis, Nasal Congestion, Nasal Discharge, Nasal Obstruction, Nasal Trauma, Nose Pain, Post Nasal Drip, Sinus Pain, Sinus Pressure, Bleeding Gums, Change in Voice, Dental Pain, Dry Mouth, Dysphagia, Halitosis, Hoarsness, Lip Swelling, Mouth Lesions, Mouth Pain, Odynophagia, Sore Throat, Throat Swelling, Tongue Swelling, Facial Pain, Neck Pain, Neck Mass, Other - Breasts Breasts: absent: As Per HPI, Change in Shape, Mass, Pain, Nipple Discharge, Nipple Inversion, Skin Changes, Swelling, Other - Cardiovascular Cardiovascular: absent: As Per HPI, Acrocyanosis, Chest Pain, Chest Pain at Rest , Chest Pain with Activity, Claudication, Diaphoresis, Dyspnea, Dyspnea on Exertion, Edema, Irregular Heart Rhythm, Pain Radiating to Arm/Neck/Jaw, Leg Edema, Leg Ulcers, Lightheadedness, Orthopnea, Palpitations, Paroxysmal Nocturnal Dyspnea, Pedal Edema, Radiating Pain, Rapid Heart Rate, Slow Heart Rate, Syncope, Other - Respiratory Respiratory: absent: As Per HPI, Cough, Dyspnea, Hemoptysis, Dyspnea on Exertion , Wheezing, Snoring, Stridor, Pain on Inspiration, Chest Congestion, Excessive Mucous Production, Change in Mucous Color, Pain with Coughing, Other - Gastrointestinal Gastrointestinal: absent: As Per HPI, Abdominal Pain, Belching, Bloating, Change in Bowel Habits, Change in Stool Character, Coffee Ground Emesis, Constipation, Cramping, Diarrhea, Dyspepsia, Dysphagia, Early Satiety, Excessive Flatus, Fecal Incontinence, Heartburn, Hematemesis, Hematochezia, Loose Stools, Melena, Nausea, Odynophagia, Temesmus, Vomiting, Other - Genitourinary Genitourinary: absent: As Per HPI, Change in Urinary Stream, Difficulty Urinating, Dysuria, Flank Pain, Hematuria, Pyuria, Nocturia, Urinary Incontinence, Urinary Frequency, Urinary Hesitance, Urinary Urgency, Voiding Freq/Small Amts, Freq UTI, Hx Renal/Bladder Calculi, Hx /Renal Surgery, Bladder Distension, Other - Reproductive: Female Reproductive:Female: absent: As Per HPI, Amenorrhea, Amenorrhea/ Control, Currently Menstual, Cycle <21 Days, Cycle >35 Days, Cycle Variable, Menses 1-7 Days, Menses >/= 8 Days, Menses Variable, Cycle > 4 Weeks Between, No Menses for 6 Months, Heavy Menses, Light Menses, Normal Menses, Spotting Between Cycles , S/P Hysterectomy, Menopausal, Post Menopausal, Premenarche, Abnormal Vaginal Bleeding, Dysmenorrhea, Dyspareunia, Genital Lesions, Genital Pruritis, Pelvic Pain, Prolapse Symptoms, Sexual Dysfunction, Vaginal Discharge, Vaginal Dryness , Vaginal Odor, Vaginal Pruritis, Other - Menstruation Menstruation: absent: As Per HPI, Amenorrhea, Amenorrhea/ Control, Currently Menstual, Cycle <21 Days, Cycle >35 Days, Cycle Variable, Menses 1-7 Days, Menses >/= 8 Days, Menses Variable, Cycle > 4 Weeks Between, No Menses for 6 Months, Heavy Menses, Light Menses, Normal Menses, Spotting Between Cycles , S/P Hysterectomy, Menopausal, Post Menopausal, Premenarche, Abnormal Vaginal Bleeding, Dysmenorrhea, Other - Musculoskeletal Musculoskeletal: As Per HPI, Deformity - Integumentary Integumentary: As Per HPI, Non-Healing Lesions, Skin Pain, Wounds - Neurological Neurological: As Per HPI - Psychiatric Psychiatric: As Per HPI - Endocrine Endocrine: absent: As Per HPI, Change in Body Appearance, Change in Libido, Cold Intolorance, Deepening of Voice, Excessive Sweating, Fatigue, Flushing, Heat Intolorance, Increase in Ring/Shoe/Hat Size, Palpitations, Polydipsia, Polyphagia, Polyuria, Other - Hematologic/Lymphatic Hematologic: absent: As Per HPI, Easy Bleeding, Easy Bruising, Lymphadenopathy, Other Past Patient History - Infectious Disease Hx of Infectious Diseases: None - Tetanus Immunizations Tetanus Immunization: Unknown - Past Medical History & Family History Past Medical History?: Yes Past Family History: Reviewed and not pertinent - Past Social History Smoking Status: Never Smoked Chewing Tobacco Use: No Cigar Use: No Alcohol: None Drugs: Denies Home Situation {Lives}: Group Home - CARDIAC Hx Atrial Fibrillation: Yes Hx Cardia Arrhythmia: Yes Hx Congestive Heart Failure: Yes Hx Hypercholesterolemia: Yes Hx Hypertension: Yes Hx Pacemaker: Yes Hx Peripheral Edema: Yes Hx Peripheral Vascular Disease: Yes - PULMONARY Hx Asthma: Yes Hx Chronic Obstructive Pulmonary Disease (COPD): Yes - NEUROLOGICAL Hx Dementia: Yes Hx Seizures: No - HEENT Hx HEENT Problems: No - RENAL Hx Chronic Kidney Disease: Yes - ENDOCRINE/METABOLIC Hx Diabetes Mellitus Type 1: Yes Hx Hypothyroidism: Yes - HEMATOLOGICAL/ONCOLOGICAL Hx Anemia: Yes Hx Human Immunodeficiency Virus (HIV): No - INTEGUMENTARY Hx Dermatological Problems: No - MUSCULOSKELETAL/RHEUMATOLOGICAL Hx Arthritis: Yes Hx Fractures: Yes (left tibia) - GASTROINTESTINAL Hx Gastrointestinal Disorders: No - GENITOURINARY/GYNECOLOGICAL Hx Sexually Transmitted Disorders: No - PSYCHIATRIC Hx Anxiety: Yes Hx Depression: Yes - SURGICAL HISTORY Hx Surgeries: Yes Hx Cataract Extraction: Yes Hx Cardiac Catheterization: Yes (2008) Hx Eye Surgery: Yes Hx Open Reduction Internal Fixation: Yes Hx Tonsillectomy: Yes - ANESTHESIA Hx Anesthesia: Yes Hx Anesthesia Reactions: No Hx Malignant Hyperthermia: No Meds Allergies/Adverse Reactions: Allergies Allergy/AdvReac Type Severity Reaction Status Date / Time acetaminophen [From Percocet] AdvReac VOMITING Verified 01/16/17 18:55 oxycodone HCl [From Percocet] AdvReac VOMITING Verified 01/16/17 18:55 - Medications Medications: Current Medications Al Hydrox/Mg Hydrox/Simethicone (Maalox Plus 30 Ml) 30 ml PO Q4 PRN PRN Reason: INDIGESTION/HEARTBURN Albuterol/Ipratropium (Duoneb 3 Mg/0.5 Mg (3 Ml) Ud) 3 ml IH Q6H PRN PRN Reason: Shortness of Breath Amlodipine Besylate (Norvasc) 5 mg PO Q12H [facility] Last Admin: 01/19/17 11:35 Dose: 5 mg Atorvastatin Calcium (Lipitor) 40 mg PO [facility] Last Admin: 01/18/17 22:04 Dose: 40 mg Divalproex Sodium (Depakote Sprinkles) 125 mg PO DAILY@1700 [facility] Last Admin: 01/18/17 17:32 Dose: 125 mg Docusate Sodium (Colace) 100 mg PO BID [facility] Last Admin: 01/19/17 11:30 Dose: 100 mg Ferrous Sulfate (Feosol) 325 mg PO BID [facility] Last Admin: 01/19/17 11:35 Dose: 325 mg Home Med (Dextromethorphan Hbr/Quinidine [Nuedexta 20-10 Mg Capsule]) 20 mg PO BID [facility] Piperacillin Sod/Tazobactam (Sod 3.375 gm/ Sodium Chloride) 100 mls @ 100 mls/ hr IVPB Q6 [facility] Last Admin: 01/19/17 11:24 Dose: 100 mls/hr Vancomycin HCl 1 gm/ Sodium (Chloride) 250 mls @ 166.667 mls/hr IVPB Q12@0000, 1200 [facility] Last Admin: 01/19/17 11:25 Dose: 166.667 mls/hr Insulin Detemir (Levemir) 8 units SC [facility] Last Admin: 01/18/17 22:05 Dose: 8 unit Insulin Human Lispro (Humalog) 0 units SC ACHS [facility] PRN Reason: Protocol Last Admin: 01/19/17 11:46 Dose: Not Given Levothyroxine Sodium (Synthroid) 50 mcg PO DAILY@0630 [facility] Last Admin: 01/19/17 05:55 Dose: 50 mcg Loperamide HCl (Imodium) 2 mg PO Q6 PRN PRN Reason: DIARRHEA Losartan Potassium (Cozaar) 50 mg PO DAILY [facility] Last Admin: 01/19/17 11:29 Dose: 50 mg Magnesium Hydroxide (Milk Of Magnesia) 30 ml PO HS PRN PRN Reason: Constipation Memantine (Namenda) 10 mg PO BID [facility] Last Admin: 01/19/17 11:28 Dose: 10 mg Metoprolol Succinate (Toprol Xl) 25 mg PO DAILY [facility] Last Admin: 01/19/17 11:27 Dose: 25 mg Montelukast Sodium (Singulair) 10 mg PO [facility] Last Admin: 01/18/17 22:00 Dose: 10 mg Pantoprazole Sodium (Protonix Ec Tab) 40 mg PO DAILY [facility] Prochlorperazine (Compazine Rectal Supp) 25 mg RC Q12 PRN PRN Reason: Nausea/Vomiting Quetiapine Fumarate (Seroquel) 100 mg PO [facility] Last Admin: 01/18/17 22:00 Dose: 100 mg Saccharomyces Boulardii (Florastor) 250 mg PO BID [facility] Last Admin: 01/19/17 11:29 Dose: 250 mg Sertraline HCl (Zoloft) 25 mg PO [facility] Last Admin: 01/18/17 22:00 Dose: 25 mg Silver Sulfadiazine (Silvadene 1% 20 Gm) 1 ea TOP QAM [facility] Last Admin: 01/18/17 11:42 Dose: 1 ea Tramadol HCl (Ultram) 50 mg PO Q8 PRN PRN Reason: Pain, moderate (4-7) Last Admin: 01/19/17 11:36 Dose: 50 mg Physical Exam - Constitutional Appears: Non-toxic, Confused, Cachectic, Chronically Ill - Head Exam Head Exam: ATRAUMATIC, NORMAL INSPECTION, NORMOCEPHALIC - Eye Exam Eye Exam: PERRL. absent: Scleral icterus - ENT Exam ENT Exam: Mucous Membranes Dry, Normal External Ear Exam, Normal Oropharynx - Neck Exam Neck exam: Negative for: Lymphadenopathy, Thyromegaly - Respiratory Exam Respiratory Exam: Decreased Breath Sounds, Rhonchi - Cardiovascular Exam Cardiovascular Exam: REGULAR RHYTHM, +S1, +S2, Systolic Murmur - GI/Abdominal Exam GI & Abdominal Exam: Diminished Bowel Sounds, Distended, Soft. absent: Guarding , Rebound, Rigid, Tenderness - Rectal Exam Rectal Exam: Deferred - Exam Exam: NORMAL INSPECTION - Extremities Exam Extremities exam: Positive for: pedal edema, tenderness. Negative for: calf tenderness, pedal pulses present Additional comments: exposed hardware left ankle s/p open fx several mos ago necrotic 2nd digit left foot with ulcer - Back Exam Back exam: absent: CVA tenderness (L), CVA tenderness (R) - Neurological Exam Neurological exam: Alert, Altered, CN II-XII Intact - Psychiatric Exam Psychiatric exam: Depressed - Skin Skin Exam: Dry Results - Vital Signs Recent Vital Signs: Last Vital Signs Temp 98.6 F 01/19/17 08:17 Pulse 60 01/19/17 11:35 Resp 20 01/19/17 08:17 BP 152/68 H 01/19/17 11:35 Pulse Ox 97 01/19/17 08:17 - Labs Result Diagrams: 01/16/17 20:30 01/17/17 07:25 Labs: Laboratory Results - last 24 hr 01/18/17 01/18/17 01/19/17 16:17 21:16 05:27 POC Glucose (mg/dL) 115 H 116 H 70 Assessment & Plan (1) Foot infection Status: Acute (2) Altered mental status, unspecified Status: Acute (3) CHF exacerbation Status: Acute Priority: High (4) CVA (cerebral vascular accident) Status: Acute (5) CAD (coronary artery disease) Status: Chronic (6) CKD (chronic kidney disease) stage 3, GFR 30-59 ml/min Status: Chronic (7) COPD (chronic obstructive pulmonary disease) Status: Chronic - Assessment and Plan (Free Text) Assessment: for or and removal of hardware would cont iv antibiotics for 6-8 weeks with serial CRP
[2017-01-19 13:07] LABS: BASO % 0.4 % (0.0-2.0); EOS # 0.3 K/uL (0.0-0.7); EOS % 3.9 % (0.0-4.0); HEMATOCRIT 25.2 % (34.0-47.0); LYMPH # 0.8 K/uL (1.0-4.3); LYMPH % 9.6 % (20.0-40.0); MEAN CELL VOLUME 86.9 fl (81.0-99.0); MEAN CORPUSCULAR HEMOGLOBIN 29.7 pg (27.0-31.0); MEAN CORPUSCULAR HGB CONC 34.2 g/dL (33.0-37.0); MEAN PLATELET VOLUME 7.9 fl (7.2-11.7); MONO # 0.5 K/uL (0.0-0.8); NEUT % 80.1 % (50.0-75.0); PLATELET COUNT 393 K/uL (130-400); RED CELL DISTRIBUTION WIDTH 16.3 % (11.5-14.5); WHITE BLOOD COUNT 8.8 K/uL (4.8-10.8)
--- NOTE | 2017-01-19 13:10 | CP.PCM.PN ---
Subjective - Date & Time of Evaluation Date of Evaluation: 01/19/17 Time of Evaluation: 13:09 - Subjective Subjective: Patient seen and evaluated at bedside. Bandage is clean dry and intact to the LLE. Patient complains of pain to her left foot and ankle. Objective - Vital Signs/Intake and Output Vital Signs (last 24 hours): Temp Pulse Resp BP Pulse Ox 98.6 F 60 20 152/68 H 97 01/19/17 08:17 01/19/17 11:35 01/19/17 08:17 01/19/17 11:35 01/19/17 08:17 - Medications Medications: Current Medications Al Hydrox/Mg Hydrox/Simethicone (Maalox Plus 30 Ml) 30 ml PO Q4 PRN PRN Reason: INDIGESTION/HEARTBURN Albuterol/Ipratropium (Duoneb 3 Mg/0.5 Mg (3 Ml) Ud) 3 ml IH Q6H PRN PRN Reason: Shortness of Breath Amlodipine Besylate (Norvasc) 5 mg PO Q12H [facility] Last Admin: 01/19/17 11:35 Dose: 5 mg Atorvastatin Calcium (Lipitor) 40 mg PO [facility] Last Admin: 01/18/17 22:04 Dose: 40 mg Divalproex Sodium (Depakote Sprinkles) 125 mg PO DAILY@1700 [facility] Last Admin: 01/18/17 17:32 Dose: 125 mg Docusate Sodium (Colace) 100 mg PO BID [facility] Last Admin: 01/19/17 11:30 Dose: 100 mg Ferrous Sulfate (Feosol) 325 mg PO BID [facility] Last Admin: 01/19/17 11:35 Dose: 325 mg Home Med (Dextromethorphan Hbr/Quinidine [Nuedexta 20-10 Mg Capsule]) 20 mg PO BID [facility] Piperacillin Sod/Tazobactam (Sod 3.375 gm/ Sodium Chloride) 100 mls @ 100 mls/ hr IVPB Q6 [facility] Last Admin: 01/19/17 11:24 Dose: 100 mls/hr Vancomycin HCl 1 gm/ Sodium (Chloride) 250 mls @ 166.667 mls/hr IVPB Q12@0000, 1200 [facility] Last Admin: 01/19/17 11:25 Dose: 166.667 mls/hr Insulin Detemir (Levemir) 8 units SC [facility] Last Admin: 01/18/17 22:05 Dose: 8 unit Insulin Human Lispro (Humalog) 0 units SC [facility] PRN Reason: Protocol Last Admin: 01/19/17 11:46 Dose: Not Given Levothyroxine Sodium (Synthroid) 50 mcg PO DAILY@0630 [facility] Last Admin: 01/19/17 05:55 Dose: 50 mcg Loperamide HCl (Imodium) 2 mg PO Q6 PRN PRN Reason: DIARRHEA Losartan Potassium (Cozaar) 50 mg PO DAILY [facility] Last Admin: 01/19/17 11:29 Dose: 50 mg Magnesium Hydroxide (Milk Of Magnesia) 30 ml PO HS PRN PRN Reason: Constipation Memantine (Namenda) 10 mg PO BID [facility] Last Admin: 01/19/17 11:28 Dose: 10 mg Metoprolol Succinate (Toprol Xl) 25 mg PO DAILY [facility] Last Admin: 01/19/17 11:27 Dose: 25 mg Montelukast Sodium (Singulair) 10 mg PO [facility] Last Admin: 01/18/17 22:00 Dose: 10 mg Pantoprazole Sodium (Protonix Ec Tab) 40 mg PO DAILY [facility] Prochlorperazine (Compazine Rectal Supp) 25 mg RC Q12 PRN PRN Reason: Nausea/Vomiting Quetiapine Fumarate (Seroquel) 100 mg PO [facility] Last Admin: 01/18/17 22:00 Dose: 100 mg Saccharomyces Boulardii (Florastor) 250 mg PO BID [facility] Last Admin: 01/19/17 11:29 Dose: 250 mg Sertraline HCl (Zoloft) 25 mg PO [facility] Last Admin: 01/18/17 22:00 Dose: 25 mg Silver Sulfadiazine (Silvadene 1% 20 Gm) 1 ea TOP QAM [facility] Last Admin: 01/18/17 11:42 Dose: 1 ea Tramadol HCl (Ultram) 50 mg PO Q8 PRN PRN Reason: Pain, moderate (4-7) Last Admin: 01/19/17 11:36 Dose: 50 mg - Labs Labs: 01/19/17 12:30 01/17/17 07:25 PT 13.5 Seconds (9.8-13.1) H 01/16/17 20:00 INR 1.2 (0.9-1.2) 01/16/17 20:00 APTT 30.8 Seconds (25.6-37.1) 01/16/17 20:00 - Constitutional Appears: Combative - Neurological Exam Neurological Exam: Alert, Awake - Additional Findings Additional findings: DERMATOLOGIC: Left foot second digit dorsal PIPJ ulceration with fibotic base, exposed bone, no drainage at this time, no erythema. Wound at lateral ankle surgical site full thickness with portion of internal hardware exposed, no drainage. VASCULAR: DP/ PT pulses 2/4, LOG STACKER OPERATOR<3 seconds, skin temperature is normal NEUROLOGIC: Gross sensation intact, motor function intact ORTHOPEDIC: Pain on palpation to the left lower extremity. The left leg is extremely contracted and is patient is unable to comfortably extend the leg. Assessment and Plan - Assessment and Plan (Free Text) Assessment: 81 year old female with ulceration and exposed bone of the left second digit, surgical site ulceration at the left lateral ankle with exposed hardware Plan: Patient seen and evaluated, d/w attending Dr. Moreau. Patients dressing changed with silvadene, DSD Culture shows MRSA, ID consult appreciated Patient to OR either Friday or Friday for left second digit amputation and removal of hardware from ankle, pending OR schedule Patient has cardiology clearance and nephrology clearance Podiatry will continue to follow
[2017-01-19 13:16] LABS: BLOOD UREA NITROGEN 14 mg/dl (7-17); CALCIUM 8.6 mg/dL (8.4-10.2); CARBON DIOXIDE 18 mmol/L (22-30); CHLORIDE 109 mmol/L (98-107); GFR AFRICAN-AMERICAN > 60; GLUCOSE,RANDOM 131 mg/dL (65-105); SODIUM 137 mmol/l (132-148)
[2017-01-19 13:19] LABS: POTASSIUM 3.4 MMOL/L (3.6-5.0)
[2017-01-19] MEDS: Pantoprazole 40 mg EC Tab PO SCH (14:14)
[2017-01-19] MEDS: Silver Sulfadiazine 1% Cream (20 gm) TOP SCH (14:15)
--- NOTE | 2017-01-19 14:38 | CARD ---
APPROVED REPORT EXAM: Two-dimensional and M-mode echocardiogram with Doppler and color Doppler. Other Information Quality : FairRhythm : INDICATION CAD 2D DIMENSIONS IVSd1.05 (0.7-1.1cm)LVDd4.95 (3.9-5.9cm) PWd1.24 (0.7-1.1cm)IVSs1.15 (0.8-1.2cm) LVDs4.23 (2.5-4.0cm)FS (%) 14.7 % PWs1.23 (0.8-1.2cm) M-Mode DIMENSIONS Left Atrium (MM)4.08 (2.5-4.0cm)Aortic Root3.04 (2.2-3.7cm) Aortic Cusp Exc.1.40 (1.5-2.0cm) Aortic Valve AoV Peak Vtqbawaz890.1cm/sAoV VTI38.9cmAO Peak GR.12mmHg LVOT Peak Oyfnbofl64.0cm/Jayashree Mean GR.6mmHg Mitral Valve MV E Yqlgnodl549.7cm/sMV E Peak Gr.103mmHgMV DECEL [id number] MV A Tucwtrad833.0cm/sMV YWD66ioR/A ratio0.9 MVA (PHT)3.77cm2 TDI Lateral E' Peak V10.84cm/sMedial E' Peak V5.79cm/sE/Lateral E'9.6 E/Medial E'17.9 Pulmonary Valve PV Peak Dfrqzxww34.4cm/s Tricuspid Valve TR Peak Lbkrqtgu173pq/sRAP [id number] Peak Gr.44mmHg [id number] LEFT VENTRICLE The Left Ventricle is mildly dilated. There is normal left ventricular wall thickness. Left ventricle systolic function is moderately impaired. The Ejection Fraction is 35-40%. Septal motion was abnormal due to IVCD.And it was markedly hypokinetic. Rest of the LV segments were mildly hypokinetic Transmitral Doppler flow pattern is Grade I-abnormal relaxation pattern. RIGHT VENTRICLE The right ventricle is normal size. There is normal right ventricular wall thickness. The right ventricular systolic function is normal. ATRIA The left atrium is moderately dilated. The right atrium size is normal. AORTIC VALVE The aortic valve is normal in structure and function. No aortic regurgitation is present. There is no aortic valvular stenosis. MITRAL VALVE The mitral valve is normal in structure. There is no evidence of mitral valve prolapse. There is no mitral valve stenosis. Mitral regurgitation is moderate. TRICUSPID VALVE The tricuspid valve is normal in structure. There is mild to moderate tricuspid regurgitation. Right ventricular systolic pressure is estimated at 54 mmHg. There is moderate pulmonary hypertension. PULMONIC VALVE The pulmonary valve is normal in structure and function. There is no pulmonic valvular regurgitation. GREAT VESSELS The aortic root is normal in size. The IVC was not visualized. PERICARDIAL EFFUSION The pericardium appears normal. <Conclusion> Because of a poor echo window, the images were poor in quality. The Left Ventricle is mildly dilated. There is normal left ventricular wall thickness. Septal motion was abnormal due to IVCD.And it was markedly hypokinetic. Rest of the LV segments were mildly hypokinetic Left ventricle systolic function is moderately impaired. The Ejection Fraction is 35-40%. Transmitral Doppler flow pattern is Grade I-abnormal relaxation pattern. The left atrium is moderately dilated. Mitral regurgitation is moderate. There is mild to moderate tricuspid regurgitation. There is moderate pulmonary hypertension.
[2017-01-19 15:56] LABS: EOSINOPHIL 4 % (0-7); NEUTROPHIL 83 % (42-75); TOTAL CELLS COUNTED 100
[2017-01-19 15:58] LABS: LARGE PLATELETS PRESENT
[2017-01-19] MEDS ORDERED: Potassium Chloride 20 mEq ER Tab PO ONE (16:56)
--- NOTE | 2017-01-19 16:57 | CP.PCM.PN ---
Subjective - Date & Time of Evaluation Date of Evaluation: 01/19/17 Time of Evaluation: 16:55 - Subjective Subjective: Follow up Nephrology Consultation Note Assessment: Hyponatremia: resolved Anemia, Hypertension NAGMA ? due to saline infusion Hypokalemia Plan Hyponatremia resolved Hypertension control with meds as ordered. Added losartan 50 mg/day yesterday supplement K 40 meq ordered today Further work up as per primary team Thanks for allowing me to participate in care of your patient. Will follow patient with you. Please call if any Qs Dr Bala [place] Office: [phone] Subjective: Noted events overnight. Patients feels okay. Denies chest pain, palpitation, shortness of breath, leg swelling. No urinary complaints Physical Examination: General Appearance: Comfortable, in no acute respiratory distress, co- operative. Vitals reviewed and noted as below Lungs: Normal respiratory rate/effort. Breath sounds bilateral equal and clear Heart: Normal rate. s1s2 normal. No rub or gallop. Extremities: no edema. Rt leg dressed due to wound Neurological: Patient is alert, awake and oriented to person, place and time. No focal deficit. Strength bilateral appropriate and equal Skin: Warm and dry. Normal turgor. No rash. Palpitation: Normal elasticity for age Abdomen: Abdomen is soft. Bowel sounds +. There is no abdominal tenderness, no guarding/rigidity or organomegaly : kidney or bladder not palpable Labs/imaging reviewed. Past medical history, past surgical history, family history, social history, allergy reviewed Objective - Vital Signs/Intake and Output Vital Signs (last 24 hours): Temp Pulse Resp BP Pulse Ox 98.6 F 60 20 152/68 H 97 01/19/17 08:17 01/19/17 11:35 01/19/17 08:17 01/19/17 11:35 01/19/17 08:17 - Medications Medications: Current Medications Al Hydrox/Mg Hydrox/Simethicone (Maalox Plus 30 Ml) 30 ml PO Q4 PRN PRN Reason: INDIGESTION/HEARTBURN Albuterol/Ipratropium (Duoneb 3 Mg/0.5 Mg (3 Ml) Ud) 3 ml IH Q6H PRN PRN Reason: Shortness of Breath Amlodipine Besylate (Norvasc) 5 mg PO Q12H [facility] Last Admin: 01/19/17 11:35 Dose: 5 mg Atorvastatin Calcium (Lipitor) 40 mg PO [facility] Last Admin: 01/18/17 22:04 Dose: 40 mg Divalproex Sodium (Depakote Sprinkles) 125 mg PO DAILY@1700 [facility] Last Admin: 01/18/17 17:32 Dose: 125 mg Docusate Sodium (Colace) 100 mg PO BID [facility] Last Admin: 01/19/17 11:30 Dose: 100 mg Ferrous Sulfate (Feosol) 325 mg PO BID [facility] Last Admin: 01/19/17 11:35 Dose: 325 mg Home Med (Dextromethorphan Hbr/Quinidine [Nuedexta 20-10 Mg Capsule]) 20 mg PO BID [facility] Piperacillin Sod/Tazobactam (Sod 3.375 gm/ Sodium Chloride) 100 mls @ 100 mls/ hr IVPB Q6 [facility] Last Admin: 01/19/17 11:24 Dose: 100 mls/hr Vancomycin HCl 1 gm/ Sodium (Chloride) 250 mls @ 166.667 mls/hr IVPB Q12@0000, 1200 [facility] Last Admin: 01/19/17 11:25 Dose: 166.667 mls/hr Insulin Detemir (Levemir) 8 units SC [facility] Last Admin: 01/18/17 22:05 Dose: 8 unit Insulin Human Lispro (Humalog) 0 units SC [facility] PRN Reason: Protocol Last Admin: 01/19/17 11:46 Dose: Not Given Levothyroxine Sodium (Synthroid) 50 mcg PO DAILY@0630 [facility] Last Admin: 01/19/17 05:55 Dose: 50 mcg Loperamide HCl (Imodium) 2 mg PO Q6 PRN PRN Reason: DIARRHEA Losartan Potassium (Cozaar) 50 mg PO DAILY [facility] Last Admin: 01/19/17 11:29 Dose: 50 mg Magnesium Hydroxide (Milk Of Magnesia) 30 ml PO PRN PRN Reason: Constipation Memantine (Namenda) 10 mg PO BID [facility] Last Admin: 01/19/17 11:28 Dose: 10 mg Metoprolol Succinate (Toprol Xl) 25 mg PO DAILY [facility] Last Admin: 01/19/17 11:27 Dose: 25 mg Montelukast Sodium (Singulair) 10 mg PO [facility] Last Admin: 01/18/17 22:00 Dose: 10 mg Pantoprazole Sodium (Protonix Ec Tab) 40 mg PO DAILY [facility] Last Admin: 01/19/17 14:14 Dose: 40 mg Prochlorperazine (Compazine Rectal Supp) 25 mg RC Q12 PRN PRN Reason: Nausea/Vomiting Quetiapine Fumarate (Seroquel) 100 mg PO HS [facility] Last Admin: 01/18/17 22:00 Dose: 100 mg Saccharomyces Boulardii (Florastor) 250 mg PO BID [facility] Last Admin: 01/19/17 11:29 Dose: 250 mg Sertraline HCl (Zoloft) 25 mg PO HS [facility] Last Admin: 01/18/17 22:00 Dose: 25 mg Silver Sulfadiazine (Silvadene 1% 20 Gm) 1 ea TOP QAM [facility] Last Admin: 01/19/17 14:15 Dose: 1 ea Tramadol HCl (Ultram) 50 mg PO Q8 PRN PRN Reason: Pain, moderate (4-7) Last Admin: 01/19/17 11:36 Dose: 50 mg - Labs Labs: 01/19/17 12:30 01/19/17 12:30 PT 13.5 Seconds (9.8-13.1) H 01/16/17 20:00 INR 1.2 (0.9-1.2) 01/16/17 20:00 APTT 30.8 Seconds (25.6-37.1) 01/16/17 20:00
[2017-01-19] MEDS ORDERED: Potassium Chloride 20 mEq/15 ml LIQ UD PO ONE ×2 (17:12)
[2017-01-19] MEDS: Insulin Detemir 100 Units/ml Inj SC SCH (22:19)
[2017-01-20] MEDS: Piperacillin/Tazobact 3.375 GM in Sodium Chloride 0.9% 100 ML IVPB SCH ×4 (04:00→21:43)
--- NOTE | 2017-01-20 06:34 | CP.PCM.PN ---
Subjective - Date & Time of Evaluation Date of Evaluation: 01/20/17 Time of Evaluation: 06:34 - Subjective Subjective: 81 y.o female seen at bedside this morning resting comfortably in NAD. Patient going to OR today at noon for left ankle removal of hardware and left 2nd digit amputation with Dr. Moreau. Bandage is clean,dry,intact to LLE. Patient has been NPO since midnight. Objective - Vital Signs/Intake and Output Vital Signs (last 24 hours): Temp Pulse Resp BP Pulse Ox 98.6 F 78 20 166/73 H 95 01/19/17 21:31 01/19/17 21:31 01/19/17 21:31 01/19/17 21:31 01/19/17 21:31 - Medications Medications: Current Medications Al Hydrox/Mg Hydrox/Simethicone (Maalox Plus 30 Ml) 30 ml PO Q4 PRN PRN Reason: INDIGESTION/HEARTBURN Albuterol/Ipratropium (Duoneb 3 Mg/0.5 Mg (3 Ml) Ud) 3 ml IH Q6H PRN PRN Reason: Shortness of Breath Amlodipine Besylate (Norvasc) 5 mg PO Q12H [facility] Last Admin: 01/19/17 21:04 Dose: 5 mg Atorvastatin Calcium (Lipitor) 40 mg PO HS [facility] Last Admin: 01/19/17 22:07 Dose: 40 mg Divalproex Sodium (Depakote Sprinkles) 125 mg PO DAILY@1700 [facility] Last Admin: 01/18/17 17:32 Dose: 125 mg Docusate Sodium (Colace) 100 mg PO BID [facility] Last Admin: 01/19/17 11:30 Dose: 100 mg Ferrous Sulfate (Feosol) 325 mg PO BID [facility] Last Admin: 01/19/17 11:35 Dose: 325 mg Home Med (Dextromethorphan Hbr/Quinidine [Nuedexta 20-10 Mg Capsule]) 20 mg PO BID [facility] Piperacillin Sod/Tazobactam (Sod 3.375 gm/ Sodium Chloride) 100 mls @ 100 mls/ hr IVPB Q6 [facility] Last Admin: 01/20/17 04:00 Dose: 100 mls/hr Vancomycin HCl 1 gm/ Sodium (Chloride) 250 mls @ 166.667 mls/hr IVPB Q12@0000, 1200 [facility] Last Admin: 01/20/17 00:30 Dose: 166.667 mls/hr Insulin Detemir (Levemir) 8 units SC [facility] Last Admin: 01/19/17 22:19 Dose: 8 unit Insulin Human Lispro (Humalog) 0 units SC [facility] PRN Reason: Protocol Last Admin: 01/19/17 22:18 Dose: Not Given Levothyroxine Sodium (Synthroid) 50 mcg PO DAILY@0630 [facility] Last Admin: 01/19/17 05:55 Dose: 50 mcg Loperamide HCl (Imodium) 2 mg PO Q6 PRN PRN Reason: DIARRHEA Losartan Potassium (Cozaar) 50 mg PO DAILY [facility] Last Admin: 01/19/17 11:29 Dose: 50 mg Magnesium Hydroxide (Milk Of Magnesia) 30 ml PO HS PRN PRN Reason: Constipation Memantine (Namenda) 10 mg PO BID [facility] Last Admin: 01/19/17 11:28 Dose: 10 mg Metoprolol Succinate (Toprol Xl) 25 mg PO DAILY [facility] Last Admin: 01/19/17 11:27 Dose: 25 mg Montelukast Sodium (Singulair) 10 mg PO [facility] Last Admin: 01/19/17 22:08 Dose: 10 mg Pantoprazole Sodium (Protonix Ec Tab) 40 mg PO DAILY [facility] Last Admin: 01/19/17 14:14 Dose: 40 mg Prochlorperazine (Compazine Rectal Supp) 25 mg RC Q12 PRN PRN Reason: Nausea/Vomiting Quetiapine Fumarate (Seroquel) 100 mg PO [facility] Last Admin: 01/19/17 22:07 Dose: 100 mg Saccharomyces Boulardii (Florastor) 250 mg PO BID [facility] Last Admin: 01/19/17 11:29 Dose: 250 mg Sertraline HCl (Zoloft) 25 mg PO [facility] Last Admin: 01/19/17 22:08 Dose: 25 mg Silver Sulfadiazine (Silvadene 1% 20 Gm) 1 ea TOP QAM [facility] Last Admin: 01/19/17 14:15 Dose: 1 ea - Labs Labs: 01/19/17 12:30 01/19/17 12:30 PT 13.5 Seconds (9.8-13.1) H 01/16/17 20:00 INR 1.2 (0.9-1.2) 01/16/17 20:00 APTT 30.8 Seconds (25.6-37.1) 01/16/17 20:00 - Constitutional Appears: Well, Non-toxic, No Acute Distress - Extremities Exam Additional comments: DERMATOLOGIC: Left foot second digit dorsal PIPJ ulceration with fibotic base, exposed bone, no drainage at this time, no erythema. Wound at lateral ankle surgical site full thickness with portion of internal hardware exposed, no drainage. VASCULAR: DP/ PT pulses 2/4, SOFTWARE COMPUT[employer] SPECIALIST<3 seconds, skin temperature is normal NEUROLOGIC: Gross sensation intact, motor function intact ORTHOPEDIC: Pain on palpation to the left lower extremity. The left leg is extremely contracted and is patient is unable to comfortably extend the leg. - Neurological Exam Neurological Exam: Alert, Awake Assessment and Plan - Assessment and Plan (Free Text) Assessment: 81 year old female with ulceration and exposed bone of the left second digit, surgical site ulceration at the left lateral ankle with exposed hardware going to OR today for removal of hardware and 2nd digit amputation Plan: Patient seen and evaluated, d/w attending Dr. Moreau. labs and vitals reviewed; WBC 11.1 Patients dressing remains c/d/i Culture shows MRSA, ID consult appreciated Patient to OR today for left ankle ASHLEY and 2nd digit amputation Patient has cardiology clearance and nephrology clearance consent was signed by daughter at Dr. Moreau's office who has POA, after all risks, benefits, complications were explained All questions were answered to satisfaction patient has been NPO after midnight Podiatry will continue to follow while patient remains in house
[2017-01-20] MEDS: Insulin Lispro (humaLOG) 100 Units/ml Inj SC SCH ×4 (06:37→21:55)
[2017-01-20] MEDS: Levothyroxine 50 MCG TAB PO SCH (06:39)
[2017-01-20] MEDS ORDERED: Sodium Chloride 0.9% 1,000 ML IV SCH (07:00)
[2017-01-20 07:56] LABS: BASO % 0.3 % (0.0-2.0); EOS # 0.3 K/uL (0.0-0.7); EOS % 3.1 % (0.0-4.0); HEMATOCRIT 24.6 % (34.0-47.0); LYMPH # 0.9 K/uL (1.0-4.3); LYMPH % 8.6 % (20.0-40.0); MEAN CELL VOLUME 85.6 fl (81.0-99.0); MEAN CORPUSCULAR HEMOGLOBIN 28.9 pg (27.0-31.0); MEAN CORPUSCULAR HGB CONC 33.8 g/dL (33.0-37.0); MEAN PLATELET VOLUME 7.9 fl (7.2-11.7); MONO # 0.7 K/uL (0.0-0.8); MONO % 6.2 % (0.0-10.0); NEUT # 9.1 K/uL (1.8-7.0); NEUT % 81.8 % (50.0-75.0); NRBC % 0.1 % (0.0-0.0); RED CELL DISTRIBUTION WIDTH 16.5 % (11.5-14.5); WHITE BLOOD COUNT 11.1 K/uL (4.8-10.8)
[2017-01-20 08:29] LABS: PARTIAL THROMBOPLASTIN TIME 32.4 Seconds (25.6-37.1)
[2017-01-20 08:30] LABS: BLOOD UREA NITROGEN 11 mg/dl (7-17); CALCIUM 8.5 mg/dL (8.4-10.2); CARBON DIOXIDE 21 mmol/L (22-30); CHLORIDE 109 mmol/L (98-107); GFR AFRICAN-AMERICAN > 60; GLUCOSE,RANDOM 135 mg/dL (65-105); POTASSIUM 3.5 MMOL/L (3.6-5.0); SODIUM 135 mmol/l (132-148)
[2017-01-20] MEDS: Saccharomyces Boulardi 250 mg Cap PO SCH ×2 (09:06→16:34)
[2017-01-20] MEDS: Pantoprazole 40 mg EC Tab PO SCH (09:07)
[2017-01-20] MEDS: Metoprolol Succinate 25 mg XL Tab PO SCH (09:08)
[2017-01-20] MEDS ORDERED: Potassium CL 10mEq/100ml 100 ML IVPB ONE (10:00)
[2017-01-20] MEDS ORDERED: Lidocaine 1% Inj (20ml) ONE (11:30)
[2017-01-20] MEDS ORDERED: Dexamethasone 4 mg/1 ml ONE (11:30)
[2017-01-20] MEDS ORDERED: Bupivacaine 0.5% Inj(30mL) ONE (11:30)
[2017-01-20] MEDS ORDERED: Etomidate 20 mg/10ml Inj IV ONE (11:40)
[2017-01-20] MEDS ORDERED: Propofol 10 mg/ml Inj (20 ML) ONE (11:43)
--- NOTE | 2017-01-20 11:44 | CP.PCM.PN ---
Subjective - Date & Time of Evaluation Date of Evaluation: 01/20/17 Time of Evaluation: 09:00 - Subjective Subjective: vanco adjusted rx in progress Objective - Vital Signs/Intake and Output Vital Signs (last 24 hours): Temp Pulse Resp BP Pulse Ox 97.8 F 66 18 162/73 H 94 L 01/20/17 07:33 01/20/17 09:08 01/20/17 07:33 01/20/17 09:08 01/20/17 07:33 - Medications Medications: Current Medications Al Hydrox/Mg Hydrox/Simethicone (Maalox Plus 30 Ml) 30 ml PO Q4 PRN PRN Reason: INDIGESTION/HEARTBURN Albuterol/Ipratropium (Duoneb 3 Mg/0.5 Mg (3 Ml) Ud) 3 ml IH Q6H PRN PRN Reason: Shortness of Breath Amlodipine Besylate (Norvasc) 5 mg PO Q12H [facility] Last Admin: 01/20/17 09:07 Dose: 5 mg Atorvastatin Calcium (Lipitor) 40 mg PO [facility] Last Admin: 01/19/17 22:07 Dose: 40 mg Divalproex Sodium (Depakote Sprinkles) 125 mg PO DAILY@1700 [facility] Last Admin: 01/18/17 17:32 Dose: 125 mg Docusate Sodium (Colace) 100 mg PO BID [facility] Last Admin: 01/20/17 09:02 Dose: Not Given Ferrous Sulfate (Feosol) 325 mg PO BID [facility] Last Admin: 01/20/17 09:05 Dose: Not Given Home Med (Dextromethorphan Hbr/Quinidine [Nuedexta 20-10 Mg Capsule]) 20 mg PO BID [facility] Piperacillin Sod/Tazobactam (Sod 3.375 gm/ Sodium Chloride) 100 mls @ 100 mls/ hr IVPB Q6 [facility] Last Admin: 01/20/17 09:08 Dose: 100 mls/hr Sodium Chloride (Sodium Chloride 0.9%) 1,000 mls @ 40 mls/hr IV .Q24H [facility] Stop: 01/21/17 06:49 Last Admin: 01/20/17 07:25 Dose: 40 mls/hr Insulin Detemir (Levemir) 8 units SC [facility] Last Admin: 01/19/17 22:19 Dose: 8 unit Insulin Human Lispro (Humalog) 0 units SC ACHS [facility] PRN Reason: Protocol Last Admin: 01/20/17 06:37 Dose: Not Given Levothyroxine Sodium (Synthroid) 50 mcg PO DAILY@0630 [facility] Last Admin: 01/20/17 06:39 Dose: 50 mcg Loperamide HCl (Imodium) 2 mg PO Q6 PRN PRN Reason: DIARRHEA Losartan Potassium (Cozaar) 50 mg PO DAILY [facility] Last Admin: 01/20/17 09:04 Dose: 50 mg Magnesium Hydroxide (Milk Of Magnesia) 30 ml PO HS PRN PRN Reason: Constipation Memantine (Namenda) 10 mg PO BID [facility] Last Admin: 01/20/17 09:06 Dose: Not Given Metoprolol Succinate (Toprol Xl) 25 mg PO DAILY [facility] Last Admin: 01/20/17 09:08 Dose: 25 mg Montelukast Sodium (Singulair) 10 mg PO [facility] Last Admin: 01/19/17 22:08 Dose: 10 mg Pantoprazole Sodium (Protonix Ec Tab) 40 mg PO DAILY [facility] Last Admin: 01/20/17 09:07 Dose: Not Given Prochlorperazine (Compazine Rectal Supp) 25 mg RC Q12 PRN PRN Reason: Nausea/Vomiting Quetiapine Fumarate (Seroquel) 100 mg PO [facility] Last Admin: 01/19/17 22:07 Dose: 100 mg Saccharomyces Boulardii (Florastor) 250 mg PO BID [facility] Last Admin: 01/20/17 09:06 Dose: Not Given Sertraline HCl (Zoloft) 25 mg PO [facility] Last Admin: 01/19/17 22:08 Dose: 25 mg Silver Sulfadiazine (Silvadene 1% 20 Gm) 1 ea TOP QAM [facility] Last Admin: 01/19/17 14:15 Dose: 1 ea - Labs Labs: 01/20/17 06:50 01/20/17 06:50 PT 13.8 Seconds (9.8-13.1) H 01/20/17 06:50 INR 1.2 (0.9-1.2) 01/20/17 06:50 APTT 32.4 Seconds (25.6-37.1) 01/20/17 06:50 - Constitutional Appears: Non-toxic, Chronically Ill - Head Exam Head Exam: NORMOCEPHALIC - Eye Exam Eye Exam: PERRL. absent: Scleral icterus - ENT Exam ENT Exam: Mucous Membranes Dry - Neck Exam Neck Exam: absent: Lymphadenopathy - Respiratory Exam Respiratory Exam: Decreased Breath Sounds, Clear to Ausculation Bilateral Assessment and Plan (1) Foot infection Status: Acute (2) Altered mental status, unspecified Status: Acute (3) CHF exacerbation Status: Acute (4) CVA (cerebral vascular accident) Status: Acute (5) CAD (coronary artery disease) Status: Chronic (6) CKD (chronic kidney disease) stage 3, GFR 30-59 ml/min Status: Chronic (7) COPD (chronic obstructive pulmonary disease) Status: Chronic
[2017-01-20] MEDS ORDERED: Sodium Chloride 0.9% 500 ML IV ONE (12:13)
[2017-01-20] MEDS ORDERED: Lidocaine 2% w Epi 1:100,000 Inj IJ ONE (12:16)
[2017-01-20] MEDS ORDERED: Bupivacaine 0.5% Inj(30mL) IJ ONE (12:25)
[2017-01-20] MEDS ORDERED: Silver Sulfadiazine 1% CREAM (50 gm) ONE (13:03)
--- NOTE | 2017-01-20 13:40 | PCM.SURG1 ---
Surgeon's Initial Post Op Note - Surgeon's Notes Surgeon: Dr. Moreau Whipper: Dr. Bryan PGY-1 Type of Anesthesia: General LMA, Local Anesthesia Administered By: Dr. 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 M: 2-0 prolene. I: 10 cc 2% lidocaine + epi to left ankle; 4 cc 0.5% marcaine plain + 1% lidocaine plain 1: 1 mix 2nd toe Post-Operative Diagnosis: same Operation Performed: removal of hardware left ankle, amputation of left 2nd toe Specimen/Specimens Removed: left 2nd digit, synthes plate, synthes screws Estimated Blood Loss: EBL {In ML}: 30 Blood Products Given: N/A Drains Used: No Drains Post-Op Condition: Good Date of Surgery/Procedure: 01/20/17 Time of Surgery/Procedure: 12:15
[2017-01-20 15:00] LABS: HEMATOCRIT 26.1 % (34.0-47.0)
--- NOTE | 2017-01-20 15:33 | RAD ---
PROCEDURE: Left Foot Radiographs. HISTORY: s/p left foot/ankle surgery COMPARISON: 01/16/2017. Preoperative examination FINDINGS: BONES: Status post excision, resection of the 2nd digit. JOINTS: No significant interval change compared to the prior examination(s). SOFT TISSUES: Persistent plantar soft tissue swelling is well as expected postoperative soft tissue findings. OTHER FINDINGS: None. IMPRESSION: Satisfactory postoperative status.
[2017-01-20] MEDS ORDERED: Sodium Chloride 0.9% 1,000 ML IV ONE (15:36)
[2017-01-20] MEDS: Divalproex 125 mg Sprinkle Capsule PO SCH (16:33)
--- NOTE | 2017-01-20 17:08 | CP.PCM.PN ---
Subjective - Date & Time of Evaluation Date of Evaluation: 01/20/17 Time of Evaluation: 17:00 - Subjective Subjective: Pt seen post op- pt is awake, oriented to person and place complained of pain and asking for water no fever no CP no SOB no abd pain Objective - Vital Signs/Intake and Output Vital Signs (last 24 hours): Temp Pulse Resp BP Pulse Ox 97.5 F L 60 18 161/58 H 96 01/20/17 15:51 01/20/17 16:55 01/20/17 16:17 01/20/17 16:17 01/20/17 16:17 Intake and Output: 01/20/17 01/20/17 06:59 18:59 Intake Total 450 Balance 450 - Medications Medications: Current Medications Al Hydrox/Mg Hydrox/Simethicone (Maalox Plus 30 Ml) 30 ml PO Q4 PRN PRN Reason: INDIGESTION/HEARTBURN Albuterol/Ipratropium (Duoneb 3 Mg/0.5 Mg (3 Ml) Ud) 3 ml IH Q6H PRN PRN Reason: Shortness of Breath Last Admin: 01/20/17 16:49 Dose: 3 ml Amlodipine Besylate (Norvasc) 5 mg PO Q12H [facility] Last Admin: 01/20/17 09:07 Dose: 5 mg Atorvastatin Calcium (Lipitor) 40 mg PO HS [facility] Last Admin: 01/19/17 22:07 Dose: 40 mg Divalproex Sodium (Depakote Sprinkles) 125 mg PO DAILY@1700 [facility] Last Admin: 01/20/17 16:33 Dose: 125 mg Docusate Sodium (Colace) 100 mg PO BID [facility] Last Admin: 01/20/17 16:32 Dose: 100 mg Ferrous Sulfate (Feosol) 325 mg PO BID [facility] Last Admin: 01/20/17 16:51 Dose: 325 mg Home Med (Dextromethorphan Hbr/Quinidine [Nuedexta 20-10 Mg Capsule]) 20 mg PO BID [facility] Piperacillin Sod/Tazobactam (Sod 3.375 gm/ Sodium Chloride) 100 mls @ 100 mls/ hr IVPB Q6 [facility] Last Admin: 01/20/17 16:45 Dose: 100 mls/hr Sodium Chloride (Sodium Chloride 0.9%) 1,000 mls @ 40 mls/hr IV .Q24H [facility] Stop: 01/21/17 06:49 Last Admin: 01/20/17 07:25 Dose: 40 mls/hr Vancomycin HCl 1 gm/ Sodium (Chloride) 250 mls @ 166.667 mls/hr IVPB DAILY [facility] Insulin Detemir (Levemir) 8 units SC [facility] Last Admin: 01/19/17 22:19 Dose: 8 unit Insulin Human Lispro (Humalog) 0 units SC [facility] PRN Reason: Protocol Last Admin: 01/20/17 17:01 Dose: 1 unit Levothyroxine Sodium (Synthroid) 50 mcg PO DAILY@0630 [facility] Last Admin: 01/20/17 06:39 Dose: 50 mcg Loperamide HCl (Imodium) 2 mg PO Q6 PRN PRN Reason: DIARRHEA Losartan Potassium (Cozaar) 50 mg PO DAILY [facility] Last Admin: 01/20/17 09:04 Dose: 50 mg Magnesium Hydroxide (Milk Of Magnesia) 30 ml PO HS PRN PRN Reason: Constipation Memantine (Namenda) 10 mg PO BID [facility] Last Admin: 01/20/17 16:38 Dose: 10 mg Metoprolol Succinate (Toprol Xl) 25 mg PO DAILY [facility] Last Admin: 01/20/17 09:08 Dose: 25 mg Montelukast Sodium (Singulair) 10 mg PO [facility] Last Admin: 01/19/17 22:08 Dose: 10 mg Morphine Sulfate (Morphine) 2 mg IVP Q6 PRN PRN Reason: Pain, severe (8-10) Ondansetron HCl (Zofran Inj) 4 mg IVP Q4 PRN PRN Reason: Nausea/Vomiting Pantoprazole Sodium (Protonix Ec Tab) 40 mg PO DAILY [facility] Last Admin: 01/20/17 09:07 Dose: Not Given Prochlorperazine (Compazine Rectal Supp) 25 mg RC Q12 PRN PRN Reason: Nausea/Vomiting Quetiapine Fumarate (Seroquel) 100 mg PO [facility] Last Admin: 01/19/17 22:07 Dose: 100 mg Saccharomyces Boulardii (Florastor) 250 mg PO BID [facility] Last Admin: 01/20/17 16:34 Dose: 250 mg Sertraline HCl (Zoloft) 25 mg PO [facility] Last Admin: 01/19/17 22:08 Dose: 25 mg Silver Sulfadiazine (Silvadene 1% 20 Gm) 1 ea TOP QAM [facility] Last Admin: 01/19/17 14:15 Dose: 1 ea - Labs Labs: 01/20/17 14:45 01/20/17 06:50 PT 13.8 Seconds (9.8-13.1) H 01/20/17 06:50 INR 1.2 (0.9-1.2) 01/20/17 06:50 APTT 32.4 Seconds (25.6-37.1) 01/20/17 06:50 - Constitutional Appears: No Acute Distress, Chronically Ill - Head Exam Head Exam: NORMAL INSPECTION, NORMOCEPHALIC - Eye Exam Eye Exam: Normal appearance Pupil Exam: NORMAL ACCOMODATION - ENT Exam ENT Exam: Mucous Membranes Dry, Normal External Ear Exam - Neck Exam Neck Exam: Full ROM. absent: Meningismus - Respiratory Exam Respiratory Exam: Wheezes (mild wheeze), NORMAL BREATHING PATTERN. absent: Rales, Respiratory Distress - Cardiovascular Exam Cardiovascular Exam: Irregular Rhythm, +S1, +S2 - GI/Abdominal Exam GI & Abdominal Exam: Soft, Normal Bowel Sounds. absent: Tenderness - Extremities Exam Extremities Exam: Normal Capillary Refill. absent: Calf Tenderness Additional comments: left - Neurological Exam Neurological Exam: Alert, Awake, CN II-XII Intact Additional comments: oriented t person and place - Psychiatric Exam Psychiatric exam: Normal Affect, Normal Mood - Skin Skin Exam: Dry, Normal Color, Warm Assessment and Plan - Assessment and Plan (Free Text) Assessment: 1). Nonhealing Wound Involving Left Lateral Ankle and Left Foot Toe #2 Ulcer/ Odteomyelitis(possibly secondary to Hx DM 2 and likely PVD Painful Hardware , left ankle s/p 2nd toe amputation and removal of hardware left ankle done 01/20 cont Zosyn 3.375 gm IV Q6H and Vancomycin 1 gm IV - decrease to once daily due to elevated trough level Vancomycin Trough is 17.1: considering the likelihood of involvement of bone this is good (higher trough) for now Ultram 50 mg PO Q8H PRN Moderate Pain Silver Sulfadiazine 1% Topical Daily in AM Podiatry Dr. Moreau Nephrology (Dr. Vu) has cleared patient Cardiology (Dr. Veras/Mouna) has cleared patient Left Ankle Wound Culture 01/16/17 is (+) MRSA Left Toe #2 Ulcer Culture 01/16/17 is (+) MRSA Left Ankle X Ray 01/16/17: orthopedic hardware alignment is unchanged Left Foot X Ray 01/16/17: no abnormality Blood Culture 01/16/17 is negative to date ID Consultation with Dr. Lauren Wilburn 2). Hyponatremia Na was 131 upon admission and with hydration (NS with 10 mEQ KCl @ 60 mL/hour) it has improved Monitor 3). Hx Atrial Fibrillation Holding Apixaban 2.5 mg PO Q12H - last dose 01/17 As patient's [id number] score is high at 6 (Hx HTN, Age > 75, Hx DM 2, Hx Vascular Disease, and Female Sex), she is high risk for thromboembolism and therefore bridging anticoagulation with Lovenox was used on 01/18/17 and then discontinued Restart the Apixaban 48-72 hours after surgery 01/20/17 as long as hemostasis has been achieved 4). Hx CAD/Pacemaker Cardiology (Dr. Veras/Mouna) has cleared patient 5). Hx HTN Norvasc 5 mg PO 1x/day was increased to 5 mg PO Q12H starting at 9 PM 01/18/17 Metoprolol 25 mg PO 1x/day 9 AM was added 01/19/17 Losartan 50 mg PO 1x/day 9 AM was added 01/19/17 6). Hx HLD Atorvastatin 40 mg PO QHS 7). Hx DM 2 Levemir 8 units SC QHS Lispro ISS ACHS 8). Hx Hypothyroidism Synthroid 50 mcg PO 1x/day 9). Hx CKD Stage III Ne[address] Vu has cleared patient for planned surgery on 01/20/17 10). Hx COPD/Asthma Duoneb Q6H RN SOB/Cough Singulair 10 mg PO QHS 11). Hx Dementia Namenda 10 mg PO 2x/day 12). Hx Anxiety/Depression Seroquel 100 mg PO QHS Zoloft 25 mg PO QHS 13). 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 13). Prophylactic Measures Maalox Plus 30 ml Q4H PRN indigestion Colace 100 mg PO 2x/day Imodium 2 mg PO Q6H PRN Diarrhea MOM 30 mL PO QHS PRN Constipation Protonix 40 mg PO 1x/day Florastor 250 mg PO 2x/day
--- NOTE | 2017-01-20 17:54 | OP ---
PROCEDURE DATE: 01/20/2017 SURGEON: Dr. Moreau. STATE EPIDEMIOLOGIST: Dr. Bryan, PGY-1; Dr. Emerson, PGY-1. FRONT OFFICE CLERK: Dr. Grant. ANESTHESIA: General LMA plus local. PREOPERATIVE DIAGNOSIS: Osteomyelitis, left second toe, painful exposed hardware, left ankle. POSTOPERATIVE DIAGNOSIS: Osteomyelitis, left second toe, painful exposed hardware, left ankle. PROCEDURE PERFORMED: 1. Amputation of left second digit. 2. Removal of painful exposed hardware, left ankle. INDICATIONS: The patient is an 81-year-old female with the above diagnoses. The patient has exhausted all conservative treatment at this time and now requires surgical intervention. The daughter who serves as healthcare proxy for the patient signed the consent after careful explanation of risks, benefits , complication and alternatives for surgical procedure. No guarantees were given nor implied. PREPARATION: The patient was brought into the operating room and placed on operating room table in a supine position. Time-out was performed for identification of the correct patient and procedure. A tourniquet was not indicated or utilized for this procedure. After induction of IV sedation, the patient received a total of mixture of 8 mL consisting of 2% lidocaine plain plus epinephrine to the left ankle and 4 mL consisting of 0.5% Marcaine plain with 1% lidocaine plain to the left forefoot. Once local anesthesia was achieved, the left foot was then prepped and draped in normal sterile manner and the procedure began. It should be noted that the patient is receiving vancomycin and Zosyn on the floor. DESCRIPTION OF PROCEDURE: Procedure #1. Amputation of left second digit. Attention was then drawn to the left second digit where a racquet type incision was made circumferentially at the level of the second metatarsophalangeal joint using a #15 blade. The incision was then extended down through the subcutaneous layers down to the level of bone, taking care to cauterize all bleeders as needed and to avoid vital neurovascular structures. Using a hemostat to stabilize the toe, the second digit was then disarticulated from the foot at the level of the second metatarsophalangeal joint. The specimen was then passed from the operative field and sent to pathology. Using a fresh # 15 blade, the extensor and flexor tendons were then transected proximally at the level of the second metatarsophalangeal joint. The surgical site was then copiously flushed with sterile normal saline. The skin edges were reapproximated using #2-0 Prolene in simple suture technique. Procedure #2: Removal of painful exposed hardware, left ankle. Next, attention was then drawn to the lateral aspect of the ankle where exposed hardware was noted at the distal aspect of the fibula with wound dehiscence noted, superficial ulceration measuring approximately 1 x 1 x 0.3 cm with a granular base. Using the previous incision from the previous surgery, a #15 blade was then used to make an 8 cm linear longitudinal incision over the central aspect of the lateral fibula. Incision was then extended down through the subcutaneous tissues and through the periosteum to the level of bone. Care was taken to cauterize all bleeders as necessary during this dissection. Using the periosteal elevator, the tissues were then freed medially and laterally to expose the fibula and Synthes lateral fibular plate. Using a Synthes hardware removal tray, 2.7 and 3.5 screwdrivers were utilized to remove all screws x #8 and a periosteal elevator was then used to free the lateral plate from the fibula. All removed hardware was then passed from the field and sent for pathology. Next, a curette was then used to debride the wound edges and lateral aspect of the fibula. Next, the wound was flushed copiously. Wound culture taken and skin edges reapproximated with 2-0 Prolene. Silvadene cream was then applied to the distal aspect of the incision at the wound dehiscence site. The lateral incision and the second digit amputation site were then dressed with Adaptic wet to dry dressing, 4 x 4, Kerlix and Austin bandage. POSTOPERATIVE CONDITION: The patient tolerated the anesthesia and procedure well and was escorted to the recovery room with vital signs stable and neurovascular status intact to the left foot. The patient will require an offloading foam boot while in bed to avoid further pressure to the incision site as she is contracted at this time. The patient will be followed daily while on the floors by podiatry and will follow up with Dr. Moreau following discharge. MICHAEL [employer] DPM Gelacio Moreau DPM cc: [id number] TT: 01/20/2017 17:53:33 jn MTDD
[2017-01-20] MEDS: Insulin Detemir 100 Units/ml Inj SC SCH (21:56)
[2017-01-21] MEDS: Piperacillin/Tazobact 3.375 GM in Sodium Chloride 0.9% 100 ML IVPB SCH ×4 (04:00→21:54)
[2017-01-21] MEDS: Levothyroxine 50 MCG TAB PO SCH (06:27)
[2017-01-21 08:12] LABS: HEMATOCRIT 23.5 % (34.0-47.0); MEAN CELL VOLUME 86.9 fl (81.0-99.0); MEAN CORPUSCULAR HEMOGLOBIN 28.8 pg (27.0-31.0); MEAN CORPUSCULAR HGB CONC 33.2 g/dL (33.0-37.0); RED CELL DISTRIBUTION WIDTH 16.2 % (11.5-14.5); WHITE BLOOD COUNT 8.4 K/uL (4.8-10.8)
[2017-01-21 08:21] LABS: BLOOD UREA NITROGEN 10 mg/dl (7-17); CALCIUM 8.3 mg/dL (8.4-10.2); CARBON DIOXIDE 18 mmol/L (22-30); CHLORIDE 110 mmol/L (98-107); GFR AFRICAN-AMERICAN > 60; GLUCOSE,RANDOM 144 mg/dL (65-105); POTASSIUM 3.3 MMOL/L (3.6-5.0); SODIUM 139 mmol/l (132-148)
[2017-01-21] MEDS: Saccharomyces Boulardi 250 mg Cap PO SCH ×2 (09:16→18:05)
[2017-01-21] MEDS: Divalproex 125 mg Sprinkle Capsule PO SCH ×2 (09:16→18:05)
[2017-01-21] MEDS: Metoprolol Succinate 25 mg XL Tab PO SCH (09:18)
[2017-01-21] MEDS: Pantoprazole 40 mg EC Tab PO SCH (09:19)
[2017-01-21] MEDS: Insulin Lispro (humaLOG) 100 Units/ml Inj SC SCH ×4 (09:19→21:46)
[2017-01-21] MEDS: Silver Sulfadiazine 1% Cream (20 gm) TOP SCH (09:20)
--- NOTE | 2017-01-21 09:59 | RAD ---
PROCEDURE: Left Ankle Radiographs. HISTORY: s/p left ankle surgery COMPARISON: 01/16/2017 FINDINGS: BONES: Status post ORIF medial malleolar fracture. Compression screw traverses medial malleolus and distal tibia. Status post removal of hardware from ORIF distal fibular fracture. Plate and screw device has been removed in the interval between these examinations. No osseous erosion or periosteal reaction is appreciated. JOINTS: Normal. No osteoarthritis. Ankle mortise maintained. Talar dome intact SOFT TISSUES: Normal. OTHER FINDINGS: None. IMPRESSION: Removal of hardware from distal fibular ORIF. No acute osseous abnormality.
[2017-01-21] MEDS ORDERED: Potassium Chloride 20 mEq ER Tab PO ONE (10:00)
--- NOTE | 2017-01-21 10:26 | CP.PCM.PN ---
Subjective - Date & Time of Evaluation Date of Evaluation: 01/21/17 Time of Evaluation: 10:23 - Subjective Subjective: 81 y/o female seen bedside this morning s/p left ankle hardware removal and 2nd digit amputation. Pt appears to be resting comfortably and is in NAD. Pt's bandage is dry, clean and intact. Objective - Vital Signs/Intake and Output Vital Signs (last 24 hours): Temp Pulse Resp BP Pulse Ox 98.6 F 61 20 157/65 H 97 01/21/17 07:31 01/21/17 07:31 01/21/17 07:31 01/21/17 09:17 01/21/17 07:31 - Medications Medications: Current Medications Al Hydrox/Mg Hydrox/Simethicone (Maalox Plus 30 Ml) 30 ml PO Q4 PRN PRN Reason: INDIGESTION/HEARTBURN Albuterol/Ipratropium (Duoneb 3 Mg/0.5 Mg (3 Ml) Ud) 3 ml IH Q6H PRN PRN Reason: Shortness of Breath Last Admin: 01/20/17 16:49 Dose: 3 ml Amlodipine Besylate (Norvasc) 5 mg PO Q12H [facility] Last Admin: 01/21/17 09:18 Dose: 5 mg Atorvastatin Calcium (Lipitor) 40 mg PO HS [facility] Last Admin: 01/20/17 21:45 Dose: 40 mg Divalproex Sodium (Depakote Sprinkles) 125 mg PO DAILY@1700 [facility] Last Admin: 01/21/17 09:16 Dose: 125 mg Docusate Sodium (Colace) 100 mg PO BID [facility] Last Admin: 01/21/17 09:18 Dose: 100 mg Ferrous Sulfate (Feosol) 325 mg PO BID [facility] Last Admin: 01/21/17 09:19 Dose: 325 mg Home Med (Dextromethorphan Hbr/Quinidine [Nuedexta 20-10 Mg Capsule]) 20 mg PO BID [facility] Piperacillin Sod/Tazobactam (Sod 3.375 gm/ Sodium Chloride) 100 mls @ 100 mls/ hr IVPB Q6 [facility] Last Admin: 01/21/17 09:13 Dose: 100 mls/hr Vancomycin HCl 1 gm/ Sodium (Chloride) 250 mls @ 166.667 mls/hr IVPB DAILY [facility] Last Admin: 01/21/17 09:12 Dose: 166.667 mls/hr Insulin Detemir (Levemir) 8 units SC [facility] Last Admin: 01/20/17 21:56 Dose: 8 unit Insulin Human Lispro (Humalog) 0 units SC [facility] PRN Reason: Protocol Last Admin: 01/21/17 09:19 Dose: Not Given Levothyroxine Sodium (Synthroid) 50 mcg PO DAILY@0630 [facility] Last Admin: 01/21/17 06:27 Dose: 50 mcg Loperamide HCl (Imodium) 2 mg PO Q6 PRN PRN Reason: DIARRHEA Losartan Potassium (Cozaar) 50 mg PO DAILY [facility] Last Admin: 01/21/17 09:17 Dose: 50 mg Magnesium Hydroxide (Milk Of Magnesia) 30 ml PO HS PRN PRN Reason: Constipation Memantine (Namenda) 10 mg PO BID [facility] Last Admin: 01/21/17 09:18 Dose: 10 mg Metoprolol Succinate (Toprol Xl) 25 mg PO DAILY [facility] Last Admin: 01/21/17 09:18 Dose: 25 mg Montelukast Sodium (Singulair) 10 mg PO [facility] Last Admin: 01/20/17 21:45 Dose: 10 mg Morphine Sulfate (Morphine) 2 mg IVP Q6 PRN PRN Reason: Pain, severe (8-10) Last Admin: 01/21/17 06:17 Dose: 2 mg Ondansetron HCl (Zofran Inj) 4 mg IVP Q4 PRN PRN Reason: Nausea/Vomiting Pantoprazole Sodium (Protonix Ec Tab) 40 mg PO DAILY [facility] Last Admin: 01/21/17 09:19 Dose: 40 mg Prochlorperazine (Compazine Rectal Supp) 25 mg RC Q12 PRN PRN Reason: Nausea/Vomiting Quetiapine Fumarate (Seroquel) 100 mg PO [facility] Last Admin: 01/20/17 21:45 Dose: 100 mg Saccharomyces Boulardii (Florastor) 250 mg PO BID [facility] Last Admin: 01/21/17 09:16 Dose: 250 mg Sertraline HCl (Zoloft) 25 mg PO [facility] Last Admin: 01/20/17 21:45 Dose: 25 mg Silver Sulfadiazine (Silvadene 1% 20 Gm) 1 ea TOP QAM [facility] Last Admin: 01/21/17 09:20 Dose: 1 ea Tramadol HCl (Ultram) 50 mg PO Q6 PRN PRN Reason: Pain, moderate (4-7) - Labs Labs: 01/21/17 07:30 01/21/17 07:30 PT 13.8 Seconds (9.8-13.1) H 01/20/17 06:50 INR 1.2 (0.9-1.2) 01/20/17 06:50 APTT 32.4 Seconds (25.6-37.1) 01/20/17 06:50 - Constitutional Appears: Well, Non-toxic, No Acute Distress - Extremities Exam Additional comments: Left foot focused: VASC: DP/PT: 2/4, M1 [employer]: < 3sec to digits, temperature grad: WNL DERM: surgical site is well coapted and no dehiscence noted at the surgical site , sutures are intact, no edema, no erythema, no active drainage, no malodor, strike through noted on the bandage NEURO: Grossly intact, motor function intact ORTHO: Pain on ROM of the L foot, pain on palpation of the surgical site - Neurological Exam Neurological Exam: Alert, Awake Neuro motor strength exam: Left Upper Extremity: 5 Assessment and Plan - Assessment and Plan (Free Text) Assessment: 81 y/o female 1 day s/p L 2nd digit amputation and removal of ankle hardware seen bedside Plan: Pt evaluated and chart reviewed Pt discussed with attending Dr. Moreau Labs and vitals reviewed Continue IV abx Applied non-adherent dressing, DSD, MANISHA to the left foot and ankle Continue off-loading boots while bed bound Podiatry to follow while in-house
--- NOTE | 2017-01-21 10:29 | PQF GENQUE ---
Dr. Wilburn, ID progress note of 01/20 includes the following diagnoses: 1) Foot Infection: Acute 3) CHF Exacerbation:Acute 4) CVA: Acute versus History of Acute CHF and Acute CVA -coreg This form is a permanent part of the medical record Clarification of your documentation is requested to better reflect the severity of illness and intensity of treatment of your patient. Indicators present [] Specify: [] [] Specify: [] [] Specify: [] [] Specify: [] Location in the medical record that reflects the above clinical findings: [] Treatment Provided: [] PHYSICIAN'S RESPONSE Based on your medical judgment of the clinical indicators outlined above please clarify the following: [] Practitioner response [] If unable to determine, please check the box, sign and date. Present On Admission (POA) Indicator: [] Present at the time of admission [] Not present at the time of admission [] Clinically Undetermined In responding to this query, please exercise your independent professional judgment. The fact that a question is asked does not imply that any particular answer is desired or expected. Thank you for your clarification on this documentation. If you have any questions please call. * Thank you, Christel Ramirez RN BSN ext. #[phone] MTDD
--- NOTE | 2017-01-21 10:47 | CP.PCM.PN ---
Subjective - Date & Time of Evaluation Date of Evaluation: 01/21/17 Time of Evaluation: 10:30 - Subjective Subjective: No fever complains of left foot pain with movement Pt is alert, oriented - discussed test results - need for blood transfusion and PICC line and pt agrees, Pt seem to understand all explanations however asked that pierce Trejo be notified. Called up daughter Maya ( who is out [place] the country- in [facility] right now ) agress to blood transfusion and PICC line placement Pt denies CP no SOB, has sl wheeze no abd pain RN noticed coughing while pt pt was being fed - Speech consulted for Swallow eval had episode of urinary retention overnight - post op Objective - Vital Signs/Intake and Output Vital Signs (last 24 hours): Temp Pulse Resp BP Pulse Ox 98.6 F 61 20 157/65 H 97 01/21/17 07:31 01/21/17 07:31 01/21/17 07:31 01/21/17 09:17 01/21/17 07:31 - Medications Medications: Current Medications Al Hydrox/Mg Hydrox/Simethicone (Maalox Plus 30 Ml) 30 ml PO Q4 PRN PRN Reason: INDIGESTION/HEARTBURN Albuterol/Ipratropium (Duoneb 3 Mg/0.5 Mg (3 Ml) Ud) 3 ml IH Q6H [facility] Amlodipine Besylate (Norvasc) 5 mg PO Q12H [facility] Last Admin: 01/21/17 09:18 Dose: 5 mg Atorvastatin Calcium (Lipitor) 40 mg PO HS [facility] Last Admin: 01/20/17 21:45 Dose: 40 mg Divalproex Sodium (Depakote Sprinkles) 125 mg PO DAILY@1700 [facility] Last Admin: 01/21/17 09:16 Dose: 125 mg Docusate Sodium (Colace) 100 mg PO BID [facility] Last Admin: 01/21/17 09:18 Dose: 100 mg Ferrous Sulfate (Feosol) 325 mg PO BID [facility] Last Admin: 01/21/17 09:19 Dose: 325 mg Home Med (Dextromethorphan Hbr/Quinidine [Nuedexta 20-10 Mg Capsule]) 20 mg PO BID [facility] Piperacillin Sod/Tazobactam (Sod 3.375 gm/ Sodium Chloride) 100 mls @ 100 mls/ hr IVPB Q6 [facility] Last Admin: 01/21/17 09:13 Dose: 100 mls/hr Vancomycin HCl 1 gm/ Sodium (Chloride) 250 mls @ 166.667 mls/hr IVPB DAILY [facility] Last Admin: 01/21/17 09:12 Dose: 166.667 mls/hr Iron Sucrose 100 mg/ Sodium (Chloride) 105 mls @ 105 mls/hr IVPB ONCE ONE Stop: 01/21/17 11:44 Insulin Detemir (Levemir) 8 units SC [facility] Last Admin: 01/20/17 21:56 Dose: 8 unit Insulin Human Lispro (Humalog) 0 units SC [facility] PRN Reason: Protocol Last Admin: 01/21/17 09:19 Dose: Not Given Levothyroxine Sodium (Synthroid) 50 mcg PO DAILY@0630 [facility] Last Admin: 01/21/17 06:27 Dose: 50 mcg Loperamide HCl (Imodium) 2 mg PO Q6 PRN PRN Reason: DIARRHEA Losartan Potassium (Cozaar) 50 mg PO DAILY [facility] Last Admin: 01/21/17 09:17 Dose: 50 mg Magnesium Hydroxide (Milk Of Magnesia) 30 ml PO HS PRN PRN Reason: Constipation Memantine (Namenda) 10 mg PO BID [facility] Last Admin: 01/21/17 09:18 Dose: 10 mg Metoprolol Succinate (Toprol Xl) 25 mg PO DAILY [facility] Last Admin: 01/21/17 09:18 Dose: 25 mg Montelukast Sodium (Singulair) 10 mg PO [facility] Last Admin: 01/20/17 21:45 Dose: 10 mg Morphine Sulfate (Morphine) 2 mg IVP Q6 PRN PRN Reason: Pain, severe (8-10) Last Admin: 01/21/17 06:17 Dose: 2 mg Ondansetron HCl (Zofran Inj) 4 mg IVP Q4 PRN PRN Reason: Nausea/Vomiting Pantoprazole Sodium (Protonix Ec Tab) 40 mg PO DAILY [facility] Last Admin: 01/21/17 09:19 Dose: 40 mg Prochlorperazine (Compazine Rectal Supp) 25 mg RC Q12 PRN PRN Reason: Nausea/Vomiting Quetiapine Fumarate (Seroquel) 100 mg PO [facility] Last Admin: 01/20/17 21:45 Dose: 100 mg Saccharomyces Boulardii (Florastor) 250 mg PO BID [facility] Last Admin: 01/21/17 09:16 Dose: 250 mg Sertraline HCl (Zoloft) 25 mg PO HS [facility] Last Admin: 01/20/17 21:45 Dose: 25 mg Silver Sulfadiazine (Silvadene 1% 20 Gm) 1 ea TOP QAM [facility] Last Admin: 01/21/17 09:20 Dose: 1 ea Tramadol HCl (Ultram) 50 mg PO Q6 PRN PRN Reason: Pain, moderate (4-7) - Labs Labs: 01/21/17 07:30 01/21/17 07:30 PT 13.8 Seconds (9.8-13.1) H 01/20/17 06:50 INR 1.2 (0.9-1.2) 01/20/17 06:50 APTT 32.4 Seconds (25.6-37.1) 01/20/17 06:50 - Constitutional Appears: No Acute Distress, Chronically Ill - Head Exam Head Exam: NORMAL INSPECTION, NORMOCEPHALIC - Eye Exam Eye Exam: Normal appearance Pupil Exam: NORMAL ACCOMODATION - ENT Exam ENT Exam: Mucous Membranes Dry, Normal External Ear Exam - Neck Exam Neck Exam: Full ROM. absent: Meningismus - Respiratory Exam Respiratory Exam: Wheezes (mild wheeze), NORMAL BREATHING PATTERN. absent: Rales, Respiratory Distress - Cardiovascular Exam Cardiovascular Exam: Irregular Rhythm, +S1, +S2 - GI/Abdominal Exam GI & Abdominal Exam: Soft, Normal Bowel Sounds. absent: Tenderness - Extremities Exam Extremities Exam: Normal Capillary Refill. absent: Calf Tenderness Additional comments: left foot with dressing - Neurological Exam Neurological Exam: Alert, Awake, CN II-XII Intact Additional comments: oriented to person and place - Psychiatric Exam Psychiatric exam: Normal Affect, Normal Mood - Skin Skin Exam: Dry, Normal Color, Warm Assessment and Plan - Assessment and Plan (Free Text) Assessment: 81 year old female (PMHx: Atrial Fibrillation on Apixaban, CHF, COPD/Asthma, CAD , Fractured Left Tibia, PVD, Dementia) who is being followed by Podiatry because of a non healing wound involving the left ankle and ulcer on the left 2nd toe, was sent to the ED By Vice Principal Dr Moreau of Podiatry for further evaluation and treatment for the aforementioned wounds/ulcer. Please see the individual Assessment and Plans below for details 1). Nonhealing Wound and Painful Hardware ,Left Lateral Ankle and Left Foot 2nd Toe Ulcer/Osteomyelitis(possibly secondary to Hx DM 2 and likely PVD ) s/p 2nd toe amputation and removal of hardware left ankle done 01/20 cont Zosyn 3.375 gm IV Q6H and Vancomycin 1 gm IV - decrease to once daily due to elevated trough level Vanco trough Ultram 50 mg PO Q8H PRN Moderate Pain Podiatry Dr. Moreau Nephrology (Dr. Vu) and Cardiology (Dr. Veras/Mouna) cleared patient for surgery Left Ankle Wound Culture 01/16/17 is (+) MRSA Left Toe #2 Ulcer Culture 01/16/17 is (+) MRSA Left Ankle X Ray 01/16/17: orthopedic hardware alignment is unchanged Left Foot X Ray 01/16/17: no abnormality Blood Culture 01/16/17 is negative to date ID Consultation with Dr. Lauren Wilburn 2). Hyponatremia Na was 131 upon admission and with hydration (NS with 10 mEQ KCl @ 60 mL/hour) it has improved Monitor 3). Hx Atrial Fibrillation, chronic , rate controlled Holding Apixaban 2.5 mg PO Q12H - last dose 01/17 Restart the Apixaban 48-72 hours after surgery 01/20/17 as long as hemostasis has been achieved 4). Hx CAD/Pacemaker Cardiology (Dr. Veras/oMuna) has cleared patient 5). HTN Norvasc 5 mg PO 1x/day was increased to 5 mg PO Q12H starting at 9 PM 01/18/17 Metoprolol 25 mg PO 1x/day 9 AM was added 01/19/17 Losartan 50 mg PO 1x/day 9 AM was added 01/19/17 6). Hyperlipidemia Atorvastatin 40 mg PO QHS 7). Hx DM 2 Levemir 8 units SC QHS Lispro ISS ACHS 8). Hx Hypothyroidism Synthroid 50 mcg PO 1x/day 9). Hx CKD Stage [address] Vu has cleared patient for planned surgery on 01/20/17 10). COPD/Asthma, chronic Pt has sl cough today, noted to be coughing more with food intake- ? poss irritation post intubation Speech for swallow eval CXR Pt also has sl wheeze Duoneb Q6H SOB/Cough Singulair 10 mg PO QHS 11). Hx Dementia Namenda 10 mg PO 2x/day 12). Hx Anxiety/Depression Seroquel 100 mg PO QHS Zoloft 25 mg PO QHS 13). 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 Prophylactic Measures Maalox Plus 30 ml Q4H PRN indigestion Colace 100 mg PO 2x/day Imodium 2 mg PO Q6H PRN Diarrhea MOM 30 mL PO QHS PRN Constipation Protonix 40 mg PO 1x/day Florastor 250 mg PO 2x/day
[2017-01-21] MEDS: Albuterol-Ipratrop 3 mg / 0.5 (3 ml) UD IH SCH ×3 (11:02→19:35)
[2017-01-21] MEDS ORDERED: Lidocaine 1% Inj (20ml) ONE (15:00)
--- NOTE | 2017-01-21 15:25 | PCM.SURG1 ---
Surgeon's Initial Post Op Note - Surgeon's Notes Surgeon: Ivan Sousa MD Supervisor Belt And Link Assembly: NONE Type of Anesthesia: Local Pre-Operative Diagnosis: Poor venous access Operative Findings: Small right basilic vein, patent. Post-Operative Diagnosis: Poor venous access Operation Performed: Single lumen picc placement right basilic vein, 35 cm. Tip in SVC. Specimen/Specimens Removed: None Estimated Blood Loss: EBL {In ML}: 2 Blood Products Given: N/A Drains Used: No Drains Post-Op Condition: Fair Date of Surgery/Procedure: 01/21/17 Time of Surgery/Procedure: 15:20
[2017-01-21] MEDS ORDERED: Enoxaparin 40 mg Syringe SC STA (17:02)
[2017-01-21] MEDS: Insulin Detemir 100 Units/ml Inj SC SCH (21:45)
[2017-01-22] MEDS: Albuterol-Ipratrop 3 mg / 0.5 (3 ml) UD IH SCH ×3 (01:08→13:29)
[2017-01-22] MEDS: Piperacillin/Tazobact 3.375 GM in Sodium Chloride 0.9% 100 ML IVPB SCH ×2 (04:00→10:03)
[2017-01-22] MEDS: Levothyroxine 50 MCG TAB PO SCH (06:17)
[2017-01-22 07:16] LABS: HEMATOCRIT 25.6 % (34.0-47.0); MEAN CELL VOLUME 86.5 fl (81.0-99.0); MEAN CORPUSCULAR HEMOGLOBIN 28.4 pg (27.0-31.0); MEAN CORPUSCULAR HGB CONC 32.8 g/dL (33.0-37.0); RED CELL DISTRIBUTION WIDTH 15.4 % (11.5-14.5); WHITE BLOOD COUNT 7.9 K/uL (4.8-10.8)
[2017-01-22] MEDS: Insulin Lispro (humaLOG) 100 Units/ml Inj SC SCH ×3 (07:30→17:01)
[2017-01-22 07:46] LABS: BLOOD UREA NITROGEN 7 mg/dl (7-17); CALCIUM 8.1 mg/dL (8.4-10.2); CARBON DIOXIDE 20 mmol/L (22-30); CHLORIDE 109 mmol/L (98-107); GFR AFRICAN-AMERICAN > 60; GLUCOSE,RANDOM 145 mg/dL (65-105); SODIUM 137 mmol/l (132-148)
[2017-01-22 07:48] LABS: POTASSIUM 3.2 MMOL/L (3.6-5.0)
[2017-01-22] MEDS: Saccharomyces Boulardi 250 mg Cap PO SCH ×2 (08:47→16:59)
[2017-01-22] MEDS: Pantoprazole 40 mg EC Tab PO SCH (08:53)
[2017-01-22] MEDS: Metoprolol Succinate 25 mg XL Tab PO SCH (08:54)
--- NOTE | 2017-01-22 09:33 | CP.PCM.PN ---
Subjective - Date & Time of Evaluation Date of Evaluation: 01/22/17 Time of Evaluation: 09:29 - Subjective Subjective: 81 y/o female seen bedside this morning 2 days s/p left ankle hardware removal and 2nd digit amputation. Pt appears to be resting comfortably and is in NAD. Pt 's bandage is dry, clean and intact. No acute events overnight reported. Patient had 1 unit of blood transfusion and picc line placed. Objective - Vital Signs/Intake and Output Vital Signs (last 24 hours): Temp Pulse Resp BP Pulse Ox 97.6 F 77 20 178/84 H 100 01/22/17 08:55 01/22/17 08:55 01/22/17 08:55 01/22/17 08:55 01/22/17 08:55 - Medications Medications: Current Medications Al Hydrox/Mg Hydrox/Simethicone (Maalox Plus 30 Ml) 30 ml PO Q4 PRN PRN Reason: INDIGESTION/HEARTBURN Albuterol/Ipratropium (Duoneb 3 Mg/0.5 Mg (3 Ml) Ud) 3 ml IH RQ6 [facility] Last Admin: 01/22/17 07:49 Dose: 3 ml Amlodipine Besylate (Norvasc) 5 mg PO Q12H [facility] Last Admin: 01/22/17 08:52 Dose: 5 mg Atorvastatin Calcium (Lipitor) 40 mg PO HS [facility] Last Admin: 01/21/17 21:43 Dose: 40 mg Divalproex Sodium (Depakote Sprinkles) 125 mg PO DAILY@1700 [facility] Last Admin: 01/21/17 18:05 Dose: 125 mg Docusate Sodium (Colace) 100 mg PO BID [facility] Last Admin: 01/22/17 08:43 Dose: 100 mg Ferrous Sulfate (Feosol) 325 mg PO BID [facility] Last Admin: 01/22/17 08:46 Dose: 325 mg Home Med (Dextromethorphan Hbr/Quinidine [Nuedexta 20-10 Mg Capsule]) 20 mg PO BID [facility] Piperacillin Sod/Tazobactam (Sod 3.375 gm/ Sodium Chloride) 100 mls @ 100 mls/ hr IVPB Q6 [facility] Last Admin: 01/22/17 04:00 Dose: 100 mls/hr Vancomycin HCl 1 gm/ Sodium (Chloride) 250 mls @ 166.667 mls/hr IVPB DAILY [facility] Last Admin: 01/22/17 08:54 Dose: 166.667 mls/hr Insulin Detemir (Levemir) 8 units SC [facility] Last Admin: 01/21/17 21:45 Dose: 8 unit Insulin Human Lispro (Humalog) 0 units SC [facility] PRN Reason: Protocol Last Admin: 01/22/17 07:30 Dose: 1 unit Levothyroxine Sodium (Synthroid) 50 mcg PO DAILY@0630 [facility] Last Admin: 01/22/17 06:17 Dose: 50 mcg Loperamide HCl (Imodium) 2 mg PO Q6 PRN PRN Reason: DIARRHEA Losartan Potassium (Cozaar) 50 mg PO DAILY [facility] Last Admin: 01/22/17 08:45 Dose: 50 mg Magnesium Hydroxide (Milk Of Magnesia) 30 ml PO HS PRN PRN Reason: Constipation Memantine (Namenda) 10 mg PO BID [facility] Last Admin: 01/22/17 08:50 Dose: 10 mg Metoprolol Succinate (Toprol Xl) 25 mg PO DAILY [facility] Last Admin: 01/22/17 08:54 Dose: 25 mg Montelukast Sodium (Singulair) 10 mg PO [facility] Last Admin: 01/21/17 21:43 Dose: 10 mg Morphine Sulfate (Morphine) 2 mg IVP Q6 PRN PRN Reason: Pain, severe (8-10) Last Admin: 01/21/17 06:17 Dose: 2 mg Ondansetron HCl (Zofran Inj) 4 mg IVP Q4 PRN PRN Reason: Nausea/Vomiting Pantoprazole Sodium (Protonix Ec Tab) 40 mg PO DAILY [facility] Last Admin: 01/22/17 08:53 Dose: 40 mg Prochlorperazine (Compazine Rectal Supp) 25 mg RC Q12 PRN PRN Reason: Nausea/Vomiting Quetiapine Fumarate (Seroquel) 100 mg PO [facility] Last Admin: 01/21/17 21:43 Dose: 100 mg Saccharomyces Boulardii (Florastor) 250 mg PO BID [facility] Last Admin: 01/22/17 08:47 Dose: 250 mg Sertraline HCl (Zoloft) 25 mg PO [facility] Last Admin: 01/21/17 21:43 Dose: 25 mg Silver Sulfadiazine (Silvadene 1% 20 Gm) 1 ea TOP QAM [facility] Last Admin: 01/21/17 09:20 Dose: 1 ea Tramadol HCl (Ultram) 50 mg PO Q6 PRN PRN Reason: Pain, moderate (4-7) Last Admin: 01/21/17 18:02 Dose: 50 mg - Labs Labs: 01/22/17 06:35 01/22/17 06:35 PT 13.8 Seconds (9.8-13.1) H 01/20/17 06:50 INR 1.2 (0.9-1.2) 01/20/17 06:50 APTT 32.4 Seconds (25.6-37.1) 01/20/17 06:50 - Constitutional Appears: Well, Non-toxic, No Acute Distress - Extremities Exam Additional comments: Left foot focused: VASC: DP/PT: 2/4, FILTER PRESS TENDER: < 3sec to digits, temperature grad: WNL DERM: surgical site is well coapted and no dehiscence noted at the surgical site , sutures are intact, no edema, no erythema, no active drainage, no malodor, strike through noted on the bandage NEURO: Grossly intact, motor function intact ORTHO: Pain on ROM of the L foot, pain on palpation of the surgical site - Neurological Exam Neurological Exam: Alert, Awake Assessment and Plan - Assessment and Plan (Free Text) Assessment: 81 y/o female seen at bedside 2 days s/p Left 2nd digit amputation and removal of ankle hardware Plan: Pt evaluated and chart reviewed Pt discussed with attending Dr. Moreau Labs and vitals reviewed; WBC 7.9, afebrile Continue IV abx as per ID, picc line placed ID recommends 6 weeks of IV abx s/p 1 unit of blood transfusion excisional debridement of the distal aspect of surgical site on the left ankle with a sterile#15 blade until healthy bleeding of wound base noted Applied wet to dry adaptic, DSD, MANISHA to the left foot and ankle Continue off-loading foam foot drop boot while bed bound Podiatry to follow while in-house
[2017-01-22] MEDS ORDERED: Metoprolol Succinate 25 mg XL Tab PO ONE (11:40)
--- NOTE | 2017-01-22 13:04 | CP.PCM.DIS ---
Provider - Provider Date of Admission: 01/16/17 19:15 Attending physician: Sam Storey Primary care physician: Dr. Cohen Consults: ID consult Podiatry consult cardiology consult Nephrology consult Time Spent in preparation of Discharge (in minutes): 20 Hospital Course - Lab Results Lab Results: Micro Results 01/16/17 20:00 Blood-Venous Blood Culture - Final NO GROWTH AFTER 5 DAYS 01/16/17 20:00 Blood-Venous Gram Stain - Final TEST NOT PERFORMED 01/20/17 13:00 Ankle - Left Gram Stain - Final 01/20/17 13:00 Ankle - Left Wound Culture - Preliminary NO GROWTH AFTER 24 HOURS 01/16/17 21:26 Toe Gram Stain - Final 01/16/17 21:26 Toe Wound Culture - Final Methicillin Resistant S Aureus 01/16/17 21:26 Ankle - Left Gram Stain - Final 01/16/17 21:26 Ankle - Left Wound Culture - Final Methicillin Resistant S Aureus Most Recent Lab Values WBC 7.9 K/uL (4.8-10.8) 01/22/17 06:35 RBC 2.96 Mil/uL (3.80-5.20) L 01/22/17 06:35 Hgb 8.4 g/dL (12.0-16.0) L 01/22/17 06:35 Hct 25.6 % (34.0-47.0) L 01/22/17 06:35 MCV 86.5 fl (81.0-99.0) 01/22/17 06:35 MCH 28.4 pg (27.0-31.0) 01/22/17 06:35 MCHC 32.8 g/dL (33.0-37.0) L 01/22/17 06:35 RDW 15.4 % (11.5-14.5) H 01/22/17 06:35 Plt Count 275 K/uL (130-400) 01/22/17 06:35 MPV 7.9 fl (7.2-11.7) 01/20/17 06:50 Neut % (Auto) 81.8 % (50.0-75.0) H 01/20/17 06:50 Lymph % (Auto) 8.6 % (20.0-40.0) L 01/20/17 06:50 Jones % (Auto) 6.2 % (0.0-10.0) 01/20/17 06:50 Eos % (Auto) 3.1 % (0.0-4.0) 01/20/17 06:50 Baso % (Auto) 0.3 % (0.0-2.0) 01/20/17 06:50 Neut # 9.1 K/uL (1.8-7.0) H 01/20/17 06:50 Lymph # 0.9 K/uL (1.0-4.3) L 01/20/17 06:50 Jones # 0.7 K/uL (0.0-0.8) 01/20/17 06:50 Eos # 0.3 K/uL (0.0-0.7) 01/20/17 06:50 Baso # 0.0 K/uL (0.0-0.2) 01/20/17 06:50 Neutrophils % (Manual) 83 % (42-75) H 01/19/17 12:30 Lymphocytes % (Manual) 10 % (20-50) L 01/19/17 12:30 Monocytes % (Manual) 3 % (0-10) 01/19/17 12:30 Eosinophils % (Manual) 4 % (0-7) 01/19/17 12:30 Platelet Estimate Normal (NORMAL) 01/19/17 12:30 Large Platelets Present 01/19/17 12:30 Poikilocytosis (manual Slight 01/19/17 12:30 Anisocytosis (manual) Slight 01/19/17 12:30 Ovalocytes Slight 01/19/17 12:30 PT 13.8 Seconds (9.8-13.1) H 01/20/17 06:50 INR 1.2 (0.9-1.2) 01/20/17 06:50 APTT 32.4 Seconds (25.6-37.1) 01/20/17 06:50 pO2 147 mm/Hg (30-55) H 01/16/17 19:54 VBG pH 7.67 (7.32-7.43) H* 01/16/17 19:54 VBG pCO2 17 mmHg (40-60) L* 01/16/17 19:54 VBG HCO3 26.3 mmol/L 01/16/17 19:54 VBG Total CO2 20.1 mmol/L (22-28) L 01/16/17 19:54 VBG O2 Sat (Calc) 100.0 % (40-65) H 01/16/17 19:54 VBG Base Excess 1.7 mmol/L (0.0-2.0) 01/16/17 19:54 VBG Potassium 3.6 mmol/L (3.6-5.2) 01/16/17 19:54 A-a O2 Difference -19.0 mm/Hg 01/16/17 19:54 Sodium 132.0 mmol/L (132-148) 01/16/17 19:54 Chloride 105.0 mmol/L (98-107) 01/16/17 19:54 Glucose 152 mg/dL (65-105) H 01/16/17 19:54 Lactate 1.1 mmol/L (0.7-2.1) 01/16/17 19:54 FiO2 21.0 % 01/16/17 19:54 Crit Value Called To Su champion 01/16/17 19:54 Crit Value Called By Latisha 01/16/17 19:54 Crit Value Read Back Y 01/16/17 19:54 Blood Gas Notified Time 195701/16/17 19:54 Sodium 137 mmol/l (132-148) 01/22/17 06:35 Potassium 3.2 MMOL/L (3.6-5.0) L 01/22/17 06:35 Chloride 109 mmol/L (98-107) H 01/22/17 06:35 Carbon Dioxide 20 mmol/L (22-30) L 01/22/17 06:35 Anion Gap 11 (10-20) 01/22/17 06:35 BUN 7 mg/dl (7-17) 01/22/17 06:35 Creatinine 0.9 mg/dL (0.7-1.2) 01/22/17 06:35 Est GFR ( Amer) > 60 01/22/17 06:35 Est GFR (Non-Af Amer) > 60 01/22/17 06:35 POC Glucose (mg/dL) 235 mg/dL (65-110) H 01/22/17 11:07 Random Glucose 145 mg/dL (65-105) H 01/22/17 06:35 Calcium 8.1 mg/dL (8.4-10.2) L 01/22/17 06:35 Phosphorus 3.0 mg/dl (2.5-4.5) 01/16/17 20:00 Magnesium 1.9 MG/DL (1.6-2.3) 01/16/17 20:00 Total Bilirubin 0.5 mg/dl (0.2-1.3) 01/16/17 20:00 AST 30 U/L (14-36) 01/16/17 20:00 ALT 35 U/L (9-52) 01/16/17 20:00 Alkaline Phosphatase 135 U/L (38-126) H D 01/16/17 20:00 Troponin I 0.0410 ng/mL (0.00-0.120) 01/17/17 18:00 Total Protein 6.9 G/DL (6.3-8.2) 01/16/17 20:00 Albumin 3.2 g/dL (3.5-5.0) L 01/16/17 20:00 Globulin 3.7 gm/dL (2.2-3.9) 01/16/17 20:00 Albumin/Globulin Ratio 0.9 (1.0-2.1) L 01/16/17 20:00 Venous Blood Potassium 3.6 mmol/L (3.6-5.2) 01/16/17 19:54 Vancomycin Trough 34.1 ug/mL (5.0-10.0) H 01/20/17 06:50 Random Vancomycin 17.5 ug/mL 01/21/17 07:58 Blood Type B POSITIVE 01/20/17 06:50 Antibody Screen Negative 01/20/17 06:50 Crossmatch See Detail 01/20/17 06:50 BBK History Checked Patient has bt 01/20/17 06:50 - Hospital Course Hospital Course: 81 year old female with PMHx: Atrial Fibrillation on Apixaban, CHF, COPD/Asthma , CAD, Fractured Left Tibia, PVD, Dementia) who is being followed by Podiatry because of a non healing wound involving the left ankle and ulcer on the left 2nd toe, was sent to the ED By [employer] Worker Dr Moreau of Podiatry for further evaluation and treatment for the aforementioned wounds/ulcer. Patient underwent removal of hardware of left ankle and 2nd toe amputation on 01/20/17 . She was started on IV antibiotics for osteomyelitis.Wound cultures reported positive for MRSA.As per ID patient will need to be in IV Vancomycibn for total of 6 weeks. At present POD#2 , doing well, hemodynamically sable. Cleared for discharge to [place] by podiatry. Patient to follow up with Dr. Moreau in 1 week 1. Nonhealing Wound and Painful Hardware ,Left Lateral Ankle and Left Foot 2nd Toe Ulcer/Osteomyelitis(possibly secondary to Hx DM 2 and likely PVD ) s/p 2nd toe amputation and removal of hardware left ankle done 01/20 Continue Vancomycin 1 gm IV daily for total 6 weeks PICC line in place wound cultures postive for MRSA vanco levels 17 Continue pain management Wound dressings changed today by podiatry. Do not remove dressings for 1 week. Patient to follow up with Dr. Moreau in 1 week at his office Keep prevalon boots i n place Non weight bearing to LLE 2. Hyponatremia-- most likely volume depletion Na was 131 upon admission and with hydration improved 3. Hx Atrial Fibrillation, chronic , rate controlled Apixaban was on hold for surgery -last dose 01/17 Restart the Apixaban 48-72 hours after surgery 01/20/17 as long as hemostasis has been achieved 4. Hx CAD/Pacemaker Cardiology (Dr. Veras/Mouna) cleared patient Continue metoprolol, ASA, statin , Losartan 5. HTN labile Continue Norvasc,Losartan and metoprolol 6. Hyperlipidemia Atorvastatin 40 mg PO QHS 7. Hx DM 2 controlled on Levemir 8 units SC QHS Lispro ISS ACHS 8. Hx Hypothyroidism on Synthroid 50 mcg PO QD 9.. Hx CKD Stage [address] Vu has cleared patient for planned surgery on 01/20/17 10. COPD/Asthma, chronic Pt has sl cough today, noted to be coughing more with food intake- ? poss irritation post intubation Speech for swallow eval CXR Pt also has sl wheeze Duoneb Q6H SOB/Cough Singulair 10 mg PO QHS 11. Hx Dementia with behavioral problems Namenda 10 mg , depakote, seroquel and zoloft 12. Hx Anxiety/Depression Seroquel 100 mg PO QHS Zoloft 25 mg PO QHS 13. Stage II Left Superior Inner Buttock Pressure Ulcer amndf right heel DTI [facility] consulted 14.Urinary retention Alba catheter inserted after 3 attempts of straight cath Will need bladder training in [place] and alba removal 15.Anemia of chronic disease and worsened by dilution s/p 1 unit PRBC transfusion and venofer IV x 1 dose Hgb 8.4 Continue ferrous sulfate 16. CHF- compensated diastolic dysfunction Continue medical manageemnt 17. History of CVA ( occipital and parietal) on ASA, statin , BP meds Discharge Exam - Head Exam Head Exam: NORMAL INSPECTION, NORMOCEPHALIC - Eye Exam Eye Exam: EOMI Pupil Exam: NORMAL ACCOMODATION - ENT Exam ENT Exam: Mucous Membranes Moist - Neck Exam Neck exam: Normal Inspection - Respiratory Exam Respiratory Exam: Clear to PA & Lateral, NORMAL BREATHING PATTERN. absent: Rhonchi, Wheezes - Cardiovascular Exam Cardiovascular Exam: Irregular Rhythm. absent: JVD - GI/Abdominal Exam GI & Abdominal Exam: Normal Bowel Sounds, Soft. absent: Distended, Rebound, Tenderness - Rectal Exam Rectal Exam: Deferred - Extremities Exam Additional comments: LLE dressing in place right heel DTI bilateral LE contracted - Neurological Exam Neurological exam: Alert - Psychiatric Exam Psychiatric exam: Agitated, Anxious, Flat Affect - Skin Skin Exam: Dry, Pallor, Warm Discharge Plan - Discharge Medications Prescriptions: Vancomycin 1 GM [Vancomycin 1GM in Normal Saline Addvantage] 1 gm IVPB DAILY # 42 bag - Follow Up Plan Condition: FAIR Disposition: TRANSF TO SNF Referrals: Gelacio Moreau MD [Staff Provider] - Oliver Cohen MD [Family Provider] - Clinical Quality Measures - CQM - Heart Failure Ejection Fraction: 40 % or Greater Left Ventricular Function to be assessed after discharge: No MANISHA Inhibitor Prescribed: No Contraindication/Reason for not providing: on ARB Beta-Kailey Prescribed: Metoprolol Succinate Angiotensin II Receptor Kailey Prescribed: Yes AnticoagulationTherapy for Atrial Fibrillation/Atrialflutter: Yes Will be discharged to: Shelter Facility
[2017-01-22] MEDS: Potassium CL 10 MEQ/50 ML 50 ML IVPB SCH ×3 (14:00→15:30)
--- NOTE | 2017-01-22 14:38 | CP.PCM.PN ---
Subjective - Date & Time of Evaluation Date of Evaluation: 01/22/17 Time of Evaluation: 09:00 - Subjective Subjective: discussed on rounds needs 6 weeks iv rx Objective - Vital Signs/Intake and Output Vital Signs (last 24 hours): Temp Pulse Resp BP Pulse Ox 97.6 F 77 20 178/84 H 100 01/22/17 08:55 01/22/17 08:55 01/22/17 08:55 01/22/17 08:55 01/22/17 08:55 - Medications Medications: Current Medications Al Hydrox/Mg Hydrox/Simethicone (Maalox Plus 30 Ml) 30 ml PO Q4 PRN PRN Reason: INDIGESTION/HEARTBURN Albuterol/Ipratropium (Duoneb 3 Mg/0.5 Mg (3 Ml) Ud) 3 ml IH RQ6 [facility] Last Admin: 01/22/17 13:29 Dose: 3 ml Amlodipine Besylate (Norvasc) 5 mg PO Q12H [facility] Last Admin: 01/22/17 08:52 Dose: 5 mg Atorvastatin Calcium (Lipitor) 40 mg PO [facility] Last Admin: 01/21/17 21:43 Dose: 40 mg Divalproex Sodium (Depakote Sprinkles) 125 mg PO DAILY@1700 [facility] Last Admin: 01/21/17 18:05 Dose: 125 mg Docusate Sodium (Colace) 100 mg PO BID [facility] Last Admin: 01/22/17 08:43 Dose: 100 mg Ferrous Sulfate (Feosol) 325 mg PO BID [facility] Last Admin: 01/22/17 08:46 Dose: 325 mg Home Med (Dextromethorphan Hbr/Quinidine [Nuedexta 20-10 Mg Capsule]) 20 mg PO BID [facility] Vancomycin HCl 1 gm/ Sodium (Chloride) 250 mls @ 166.667 mls/hr IVPB DAILY [facility] Last Admin: 01/22/17 08:54 Dose: 166.667 mls/hr Insulin Detemir (Levemir) 8 units SC [facility] Last Admin: 01/21/17 21:45 Dose: 8 unit Insulin Human Lispro (Humalog) 0 units SC [facility] PRN Reason: Protocol Last Admin: 01/22/17 12:01 Dose: 2 unit Levothyroxine Sodium (Synthroid) 50 mcg PO DAILY@0630 [facility] Last Admin: 01/22/17 06:17 Dose: 50 mcg Loperamide HCl (Imodium) 2 mg PO Q6 PRN PRN Reason: DIARRHEA Losartan Potassium (Cozaar) 50 mg PO DAILY [facility] Last Admin: 01/22/17 08:45 Dose: 50 mg Magnesium Hydroxide (Milk Of Magnesia) 30 ml PO HS PRN PRN Reason: Constipation Memantine (Namenda) 10 mg PO BID [facility] Last Admin: 01/22/17 08:50 Dose: 10 mg Metoprolol Succinate (Toprol Xl) 50 mg PO DAILY [facility] Montelukast Sodium (Singulair) 10 mg PO HS [facility] Last Admin: 01/21/17 21:43 Dose: 10 mg Morphine Sulfate (Morphine) 2 mg IVP Q6 PRN PRN Reason: Pain, severe (8-10) Last Admin: 01/22/17 13:23 Dose: 2 mg Ondansetron HCl (Zofran Inj) 4 mg IVP Q4 PRN PRN Reason: Nausea/Vomiting Pantoprazole Sodium (Protonix Ec Tab) 40 mg PO DAILY [facility] Last Admin: 01/22/17 08:53 Dose: 40 mg Prochlorperazine (Compazine Rectal Supp) 25 mg RC Q12 PRN PRN Reason: Nausea/Vomiting Quetiapine Fumarate (Seroquel) 100 mg PO [facility] Last Admin: 01/21/17 21:43 Dose: 100 mg Saccharomyces Boulardii (Florastor) 250 mg PO BID [facility] Last Admin: 01/22/17 08:47 Dose: 250 mg Sertraline HCl (Zoloft) 25 mg PO HS [facility] Last Admin: 01/21/17 21:43 Dose: 25 mg Silver Sulfadiazine (Silvadene 1% 20 Gm) 1 ea TOP QAM [facility] Last Admin: 01/21/17 09:20 Dose: 1 ea Tramadol HCl (Ultram) 50 mg PO Q6 PRN PRN Reason: Pain, moderate (4-7) Last Admin: 01/21/17 18:02 Dose: 50 mg - Labs Labs: 01/22/17 06:35 01/22/17 06:35 PT 13.8 Seconds (9.8-13.1) H 01/20/17 06:50 INR 1.2 (0.9-1.2) 01/20/17 06:50 APTT 32.4 Seconds (25.6-37.1) 01/20/17 06:50 - Constitutional Appears: Non-toxic, Chronically Ill - Head Exam Head Exam: NORMOCEPHALIC - Eye Exam Eye Exam: PERRL. absent: Scleral icterus - ENT Exam ENT Exam: Mucous Membranes Dry - Neck Exam Neck Exam: absent: Lymphadenopathy - Respiratory Exam Respiratory Exam: Decreased Breath Sounds, Rhonchi - Cardiovascular Exam Cardiovascular Exam: REGULAR RHYTHM, +S1, +S2 - GI/Abdominal Exam GI & Abdominal Exam: Distended, Soft. absent: Tenderness - Rectal Exam Rectal Exam: Deferred Assessment and Plan (1) Foot infection Status: Acute (2) Altered mental status, unspecified Status: Acute (3) CHF exacerbation Status: Acute (4) CVA (cerebral vascular accident) Status: Acute (5) CAD (coronary artery disease) Status: Chronic (6) CKD (chronic kidney disease) stage 3, GFR 30-59 ml/min Status: Chronic (7) COPD (chronic obstructive pulmonary disease) Status: Chronic
--- NOTE | 2017-01-22 15:03 | RAD ---
HISTORY: r/o infiltrate COMPARISON: Chest x-ray performed 01/16/17 TECHNIQUE: Chest, one view. FINDINGS: Examination limited by habitus. Right-sided PICC extends expected location of the SVC, partially obscured by overlying AICD leads. LUNGS: No focal consolidation. Please note that chest x-ray has limited sensitivity for the detection of pulmonary masses. PLEURA: No significant pleural effusion identified. No definite pneumothorax . CARDIOVASCULAR: Left-sided AICD. Cardiomegaly. Dense atherosclerotic calcifications of the aortic knob. OSSEOUS STRUCTURES: Degenerative changes of the spine and shoulders. VISUALIZED UPPER ABDOMEN: Unremarkable. OTHER FINDINGS: None. IMPRESSION: Right-sided PICC extends expected location of the SVC, partially obscured by overlying AICD leads. Left-sided AICD. Cardiomegaly. Dense atherosclerotic calcifications of the aortic knob.
[2017-01-22 16:05] VITALS: BP 157/68; PULSE 84; RESP 18; TEMP 98.4; O2SAT 98
[2017-01-22] MEDS: Divalproex 125 mg Sprinkle Capsule PO SCH (16:59)
[2017-01-23] MEDS ORDERED: Metoprolol Succinate 50 mg XL Tab PO SCH (09:00)
--- NOTE | 2017-01-23 15:22 | VASCULAR ---
PROCEDURE: Date of procedure: 01/21/2017 Procedure: 1. Placement of a right arm PICC with ultrasound and fluoroscopic guidance, CPT 64102 2. PICC tip confirmation with spot radiograph and is in the superior vena cava Medications: 1 percent lidocaine Total Fluoro time: 40.7 seconds Radiation: 6.52 mGy EBL: 2 cc HISTORY: Bacteremia requiring long-term IV antibiotics TECHNIQUE: Following informed consent and procedure time-out, the patient was placed supine on the interventional table and the right arm prepped and draped in the usual sterile fashion. Ultrasound showed a patent and compressible right basilic vein. After the skin was anesthetized with lidocaine, the basilic vein was accessed with micro micropuncture technique using ultrasound guidance. A guidewire was then advanced under fluoroscopic guidance into the superior vena cava. An image documenting ultrasound guidance for vascular access was permanently saved. The length of the single-lumen 4 Urdu PICC was trimmed to 35 centimeters and advanced through a peel-away sheath. The PICC was position with tip of PICC confirm a spot radiograph the superior vena cava. The PICC was secured to the patient's skin. The PICC was flushed. A biopatch and sterile dressing was applied. IMPRESSION: Placement of a single-lumen 4 Urdu PICC trimmed to 35 centimeters via right basilic vein. The tip of the PICC is confirmed with spot radiograph and is in the superior vena cava.
== END 2017-01-22 20:08 | DRG 857 ==
LOC: H.ER 18:50 → H.ERHOLD 19:15 → H.MEDSURG1 22:00
PROVIDERS: ADMIT Internal Medicine; ATTEND Internal Medicine
PROC: 0Y6S0Z0 Detachment at Left 2nd Toe, Complete, Open Approach (ICD-10-PCS; principal; 2017-01-20 12:00)
PROC: 02HV33Z Insertion of Infusion Device into Superior Vena Cava, Percutaneous Approach (ICD-10-PCS; 2017-01-21)
PROC: B518ZZA Fluoroscopy of Superior Vena Cava, Guidance (ICD-10-PCS; 2017-01-21)
PROC: B548ZZA Ultrasonography of Superior Vena Cava, Guidance (ICD-10-PCS; 2017-01-21)
DX: T81.4XXA Infection following a procedure, initial encounter (principal); I13.0 Hypertensive heart and chronic kidney disease with heart failure and stage 1 through stage 4 chronic kidney disease, or unspecified chronic kidney disease; L89.322 Pressure ulcer of left buttock, stage 2; F03.91 Unspecified dementia, unspecified severity, with behavioral disturbance; I42.9 Cardiomyopathy, unspecified; I50.30 Unspecified diastolic (congestive) heart failure; M86.8X8 Other osteomyelitis, other site; E87.1 Hypo-osmolality and hyponatremia; L97.329 Non-pressure chronic ulcer of left ankle with unspecified severity; T84.84XA Pain due to internal orthopedic prosthetic devices, implants and grafts, initial encounter; E11.22 Type 2 diabetes mellitus with diabetic chronic kidney disease; N18.3 Chronic kidney disease, stage 3 (moderate); D63.8 Anemia in other chronic diseases classified elsewhere; E03.9 Hypothyroidism, unspecified; E11.51 Type 2 diabetes mellitus with diabetic peripheral angiopathy without gangrene; E78.00 Pure hypercholesterolemia, unspecified; E78.5 Hyperlipidemia, unspecified; E87.6 Hypokalemia; I25.10 Atherosclerotic heart disease of native coronary artery without angina pectoris; E11.622 Type 2 diabetes mellitus with other skin ulcer; E11.621 Type 2 diabetes mellitus with foot ulcer; E11.69 Type 2 diabetes mellitus with other specified complication; I48.2 Chronic atrial fibrillation; J44.9 Chronic obstructive pulmonary disease, unspecified; L97.529 Non-pressure chronic ulcer of other part of left foot with unspecified severity; R33.9 Retention of urine, unspecified; Y83.1 Surgical operation with implant of artificial internal device as the cause of abnormal reaction of the patient, or of later complication, without mention of misadventure at the time of the procedure; Z79.01 Long term (current) use of anticoagulants; Z79.4 Long term (current) use of insulin; Z86.73 Personal history of transient ischemic attack (TIA), and cerebral infarction without residual deficits; Z95.810 Presence of automatic (implantable) cardiac defibrillator; F32.9 Major depressive disorder, single episode, unspecified; F41.9 Anxiety disorder, unspecified; M19.90 Unspecified osteoarthritis, unspecified site; Z79.84 Long term (current) use of oral hypoglycemic drugs

== ENCOUNTER 2017-07-01 11:35 | Inpatient (IN) | payer MEDICARE, MEDICAID ==
[2017-07-01 11:39] VITALS: BMI 23.2
[2017-07-01] MEDS ORDERED: Sodium Chloride 0.9% 1,000 ML IV STA (11:49)
--- NOTE | 2017-07-01 11:54 | ED PDOC ---
HPI: Abdomen Time Seen by Provider: 07/01/17 11:42 Chief Complaint (Nursing): GI Problem History Per: Other Onset/Duration Of Symptoms: Days (1) Current Symptoms Are (Timing): Still Present Severity: Moderate Pain Scale Rating Of: 1 Location Of Pain/Discomfort: Epigastric Quality Of Discomfort: Unable To Describe Associated Symptoms: Nausea, Vomiting Exacerbating Factors: None Alleviating Factors: None Additional Complaint(s): [place] [facility] [place] coffee ground material. Pt states mild epigastric pain. Unable to describe stool. No fever. Past Medical History Vital Signs: Last Vital Signs Temp 98.3 F 07/01/17 11:38 Pulse 83 07/01/17 11:38 Resp 20 07/01/17 11:38 BP 149/76 07/01/17 11:38 Pulse Ox 99 07/01/17 11:54 - Medical History PMH: Anemia, Anxiety, Arthritis, Asthma, Atrial Fibrillation, CAD, Cardia Arrhythmia, CHF, COPD, Dementia, Depression, Diabetes (type II), Fractures ( left tibia), HTN, Hypercholesterolemia, Hypothyroidism, Peripheral Edema, End Stage Renal Disease (stage III), Chronic Kidney Disease Denies: Hepatitis, HIV, Seizures, Sexually Transmitted Disease - Surgical History Surgical History: Back Surgery, Pacemaker, Tonsillectomy - Family History Family History: States: Unknown Family Hx - Home Medications Home Medications: Ambulatory Orders Medication Instructions Recorded Montelukast [Singulair] 10 mg PO HS 09/16/16 Loperamide HCl [Loperamide] 2 mg PO Q6 PRN 01/17/17 Magnesium Hydroxide [Milk Of 30 ml PO HS PRN 01/17/17 Magnesia] Prochlorperazine [Compro] 25 mg ME Q12 PRN 01/17/17 Losartan [Cozaar] 50 mg PO DAILY tab 01/22/17 Metoprolol Succinate [Toprol XL] 50 mg PO DAILY tab 01/22/17 amLODIPine [Norvasc] 5 mg PO Q12H tab 01/22/17 Albuterol/Ipratropium [Duoneb 3 3 ml IH RQ6 PRN 07/01/17 mg/0.5 mg (3 ml) UD] Insulin Aspart, Recombinant 1 - 7 unit SC 1130,2100 07/01/17 [Novolog] Insulin Detemir [Levemir] 6 unit SC HS 07/01/17 Levothyroxine [Synthroid] 75 mcg PO DAILY 07/01/17 Mag Hydrox/Aluminum Hyd/Simeth 30 ml PO Q4H PRN 07/01/17 [Maalox Advanced Suspension] Megestrol Acetate [Megace Es] 5 ml PO DAILY 07/01/17 Potassium Chloride [Klor-Con M10] 10 meq PO DAILY 07/01/17 Saccharomyces Boulardi [Florastor] 250 mg PO BID 07/01/17 - Allergies Allergies/Adverse Reactions: Allergies Allergy/AdvReac Type Severity Reaction Status Date / Time acetaminophen [From Percocet] AdvReac VOMITING Verified 07/01/17 11:44 oxycodone HCl [From Percocet] AdvReac VOMITING Verified 07/01/17 11:44 Review of Systems ROS Statement: Except As Marked, All Systems Reviewed And Found Negative Gastrointestinal: Positive for: Vomiting, Abdominal Pain, Hematemesis Physical Exam - Reviewed Nursing Documentation Reviewed: Yes Vital Signs Reviewed: Yes - Physical Exam Appears: Positive for: Non-toxic, No Acute Distress Head Exam: Positive for: ATRAUMATIC, NORMAL INSPECTION, NORMOCEPHALIC Skin: Positive for: Warm, Pallor Eye Exam: Positive for: EOMI, PERRL, Other (Conjunctivae palr) ENT: Positive for: Normal ENT Inspection Neck: Positive for: Normal, Painless ROM Cardiovascular/Chest: Positive for: Regular Rate, Rhythm Respiratory: Positive for: CNT, Normal Breath Sounds Gastrointestinal/Abdominal: Positive for: Bowel Sounds, Soft, Tenderness (Mild epigastric tenderness) Back: Positive for: Normal Inspection Extremity: Positive for: Normal ROM Neurologic/Psych: Positive for: Alert. Negative for: Motor/Sensory Deficits - Laboratory Results Result Diagrams: 07/01/17 12:20 07/01/17 12:20 - ECG O2 Sat by Pulse Oximetry: 99 Disposition - Clinical Impression Clinical Impression: GI bleed, Dehydration - Patient ED Disposition Is Patient to be Admitted: Yes - Disposition Disposition Time: 15:15 Condition: FAIR Forms: [facility] (Faroese) - Pt Status Changed To: Hospital Disposition Of: Observation - POA Present On Arrival: None
--- NOTE | 2017-07-01 12:29 | RAD ---
HISTORY: cough COMPARISON: Portable chest 01/22/2017. FINDINGS: LUNGS: No active pulmonary disease. PLEURA: No significant pleural effusion identified, no pneumothorax apparent. CARDIOVASCULAR: Pacemaker/implanted defibrillator again identified in position. Stable cardiomegaly. No pulmonary vascular derangement identified. OSSEOUS STRUCTURES: No significant abnormalities. VISUALIZED UPPER ABDOMEN: Surgical clips are again noted in the right upper quadrant abdomen incidentally. OTHER FINDINGS: None. IMPRESSION: No acute cardiopulmonary findings. Cardiomegaly appears stable with pacemaker/defibrillator again identified in place.
[2017-07-01 12:33] LABS: BASO % 0.2 % (0.0-2.0); EOS # 0.1 K/uL (0.0-0.7); EOS % 0.4 % (0.0-4.0); HEMATOCRIT 34.6 % (34.0-47.0); LYMPH # 1.6 K/uL (1.0-4.3); LYMPH % 8.9 % (20.0-40.0); MEAN CELL VOLUME 86.1 fl (81.0-99.0); MEAN CORPUSCULAR HEMOGLOBIN 28.5 pg (27.0-31.0); MEAN CORPUSCULAR HGB CONC 33.1 g/dL (33.0-37.0); MEAN PLATELET VOLUME 9.8 fl (7.2-11.7); MONO # 1.1 K/uL (0.0-0.8); MONO % 5.8 % (0.0-10.0); NEUT # 15.4 K/uL (1.8-7.0); NEUT % 84.7 % (50.0-75.0); NRBC % 0.1 % (0.0-0.0); PLATELET COUNT 259 K/uL (130-400); RED CELL DISTRIBUTION WIDTH 16.7 % (11.5-14.5); WHITE BLOOD COUNT 18.1 K/uL (4.8-10.8)
[2017-07-01 12:48] LABS: ALB/GLOB RATIO 1.1 (1.0-2.1); BILIRUBIN,TOTAL 0.5 mg/dl (0.2-1.3); CALCIUM 9.6 mg/dL (8.4-10.2); POTASSIUM 3.8 MMOL/L (3.6-5.0); TOTAL PROTEIN 7.4 G/DL (6.3-8.2)
[2017-07-01 12:52] LABS: EOSINOPHIL 1 % (0-7); NEUTROPHIL 90 % (42-75); TOTAL CELLS COUNTED 100
[2017-07-01 12:53] LABS: LARGE PLATELETS PRESENT
[2017-07-01 13:08] LABS: VENOUS BLOOD GAS BASE EXCESS -4.2 mmol/L (0.0-2.0); VENOUS BLOOD GAS PCO2 33 mmHg (40-60); VENOUS BLOOD PH 7.39 (7.32-7.43)
[2017-07-01 14:44] LABS: RBC URINE 7 /hpf (0-3); URINE BACTERIA MANY (<OCC); URINE BILIRUBIN NEGATIVE (NEGATIVE); URINE BLOOD NEGATIVE (NEGATIVE); URINE COLOR YELLOW (YELLOW); URINE GLUCOSE (UA) 50 mg/dL (Normal); URINE KETONE NEGATIVE (NEGATIVE); URINE LEUKOCYTE ESTERASE LARGE Leu/uL (Negative); URINE PROTEIN >=500 mg/dL (NEGATIVE); URINE UROBILINOGEN 0.2-1.0 mg/dL (0.2-1.0); WBC CLUMPS MANY /hpf; WBC URINE 865 /hpf (0-5)
--- NOTE | 2017-07-01 15:14 | CT ---
PROCEDURE: CT Abdomen and Pelvis without intravenous contrast HISTORY: r/o kidney stone COMPARISON: None. TECHNIQUE: CT scan of the abdomen and pelvis was performed without administration of intravenous contrast. Oral contrast was not administered. Coronal and sagittal reformatted images were obtained. Radiation dose: Total exam DLP = 671.80 mGy-cm. This CT exam was performed using one or more of the following dose reduction techniques: Automated exposure control, adjustment of the mA and/or kV according to patient size, and/or use of iterative reconstruction technique. FINDINGS: LOWER THORAX: The lung bases are clear. There is mild cardiomegaly. LIVER: Normal in size. No gross lesion or ductal dilatation. GALLBLADDER AND BILE DUCTS: Surgically absent. PANCREAS: Mild diffuse fatty atrophy. No gross lesion or ductal dilatation. SPLEEN: Normal in size. ADRENALS: No discrete nodule. KIDNEYS AND URETERS: Mild cortical atrophy and nonspecific perinephric fat stranding. No nephrolithiasis or hydronephrosis. VASCULATURE: There are atherosclerotic aortoiliac calcifications. No aortic aneurysm. BOWEL: The small bowel loops are normal in caliber. There is large amount of stool in the colon and fecal stasis in the rectum with rectal distention. There is mild left colonic diverticulosis without CT evidence for acute diverticulitis. APPENDIX: Unremarkable. Normal appendix. PERITONEUM: Unremarkable. No free fluid. No free air. LYMPH NODES: Unremarkable. No enlarged lymph nodes. BLADDER: Decompressed. REPRODUCTIVE: Unremarkable. BONES: No acute fracture. There is diffuse bone demineralization and severe dextroscoliosis in the lumbar spine. There is posterior spinal fixation at L4-5 and grade 1 anterior listhesis of L4 on L5. OTHER FINDINGS: There is mild diffuse anasarca. IMPRESSION: No nephrolithiasis, hydronephrosis or obstructive uropathy. Constipation and fecal stasis in the rectum with rectal distention. No bowel obstruction.
[2017-07-01] MEDS ORDERED: Albuterol-Ipratrop 3 mg / 0.5 (3 ml) UD IH PRN (16:52)
[2017-07-01] MEDS ORDERED: cefTRIAXone IV 1 gm in Dextros 50 ML IVPB ONE (17:18)
--- NOTE | 2017-07-01 17:28 | CP.PCM.HP ---
History of Present Illness - History of Present Illness History of Present Illness: PCP: Oliver Cohen MD Chief Complaint: coffee ground emesis HPI: History obtained from chart review as well as discussion with hospital staff. Patient is an 81 year old female PMH dementia with behavioral issues, IDDM2, afib no longer on Apixaban, CHF, copd, CAD with PPM, fractured L tibia, PVD, nonhealing wound L ankle and 2nd toe L foot, hypothyroid, CKD stage III, decubitus ulcer L superior inner buttock, hx CVA presents with history of coffee ground emesis. AFEBRILE, WBC 18.1, Na 149, Cr 1.4 BUN 48,. baseline 0.9/7, UA large LE, neg nitrites. Neg occult blood. H/H 11.5/34.6, PRIOR 01/22/17 8.4/25.6. OBS for dehydration, coffee ground emesis HD stable, H/H stable, acute on chronic RF, UTI. ROS: UNABLE TO BE OBTAINED 2/2 DEMENTIA, NO FAMILY MEMBERS AVAILABLE TO OBTAIN. PMH: dementia with behavioral issues, afib no longer on Apixaban, CHF, copd, CAD with PPM, fractured L tibia, PVD, nonhealing wound L ankle and 2nd toe L foot, hypothyroid, CKD stage III, decubitus ulcer L superior inner buttock, hx CVA PSH: Back Surgery, Pacemaker, Tonsillectomy FH: Possibly CAD and DM2 in family SH: Lives in OR, no EtOH or tobacco Allergies: Acetaminophen, Oxycodone Vitals Reviewed 98.3, 83, 149/76, 16, 100 RA GEN: DEMENTIA, SOMNOLENT HEENT: NCAT, PERRL, EOMI HEART: RRR, +S1S2, NO MRG LUNG: CTAB, NO WRR ABD: SOFT, NT, ND, NO HSM, NO MASSES EXT: NORMAL PEDAL PULSES, GOOD CAPILLARY REFILL NEURO: +Dementia, awake but somnolent SKIN: WARM, DRY PSYCH: unable to obtain 2/2 dementia LABS 07/01/17 12:20 07/01/17 12:20 CT ABD: + large stool ASSESSMENT AND PLAN History obtained from chart review as well as discussion with hospital staff. Patient is an 81 year old female PMH dementia with behavioral issues, IDDM2, afib no longer on Apixaban, CHF, copd, CAD with PPM, fractured L tibia, PVD, nonhealing wound L ankle and 2nd toe L foot, hypothyroid, CKD stage III, decubitus ulcer L superior inner buttock, hx CVA presents with history of coffee ground emesis. AFEBRILE, WBC 18.1, Na 149, Cr 1.4 BUN 48,. baseline 0.9/7, UA large LE, neg nitrites. Neg occult blood. H/H 11.5/34.6, PRIOR 01/22/17 8.4/25.6. OBS for dehydration, coffee ground emesis HD stable, H/H stable, acute on chronic RF, UTI. COFFEE GROUND EMESIS, CONCERN FOR UGIB? - no longer on Apixaban for AFIB - INR 1.0 - no further episodes - H/H 11.5/34.6, PRIOR 01/22/17 8.4/25.6. - protonix 40 mg IV Q12 - OCC BLOOD NEG - NPO UTI - + UA for LE - WBC 18.1 K - afebrile - Ceftriaxone 07/01/17 DAY 1 - cultures pending, blood and urine HYPERNATREMIA - Na 149 - likely secondary to volume contraction - complete NS started in ER, then follow with D5 1/2 NS 20 KCl for maintenance while NPO for GIB - recheck DEHYDRATION - Cr 1.4 BUN 48,. baseline 0.9/7 - hydrate with 1L NS and then follow with D5 1/2 NS 20 KCl for maintenance while NPO for GIB ACUTE ON CHRONIC RENAL FAILURE - Cr 1.4 BUN 48,. baseline 0.9/7 - secondary to dehydration - monitor COPD - stable - cont duonebs and Singulair IDDM2 - cont levemir ISS - accuechecks DEMENTIA - cont megace for appetite HYPERTENSION, CAD S/P PPM - cont norvasc, losartan, toprol HYPOTHYROID - cont synthroid STOOL RETENTION - fleet enema DECUBITUS ULCER PRESENT ON ADMISSION - L Superior buttock - wound care Hx CVA - no ASA for bleed CHF DIASTOLIC DYSFUNCTION - stable VTE PPX SCDS 2/2 Coffee ground emesis Present on Admission - Present on Admission Any Indicators Present on Admission: Yes Decubitus Ulcer Present: Yes Past Patient History - Infectious Disease Hx of Infectious Diseases: None - Tetanus Immunizations Tetanus Immunization: Unknown - Past Medical History & Family History Past Medical History?: Yes - Past Social History Smoking Status: Never Smoked - CARDIAC Hx Atrial Fibrillation: Yes Hx Cardia Arrhythmia: Yes Hx Congestive Heart Failure: Yes Hx Hypercholesterolemia: Yes Hx Hypertension: Yes Hx Pacemaker: Yes Hx Peripheral Edema: Yes - PULMONARY Hx Asthma: Yes Hx Chronic Obstructive Pulmonary Disease (COPD): Yes - NEUROLOGICAL Hx Dementia: Yes Hx Seizures: No - HEENT Hx HEENT Problems: No - RENAL Hx Chronic Kidney Disease: Yes - ENDOCRINE/METABOLIC Hx Hypothyroidism: Yes - HEMATOLOGICAL/ONCOLOGICAL Hx Anemia: Yes Hx Human Immunodeficiency Virus (HIV): No - INTEGUMENTARY Hx Dermatological Problems: No - MUSCULOSKELETAL/RHEUMATOLOGICAL Hx Arthritis: Yes Hx Fractures: Yes (left tibia) - GASTROINTESTINAL Hx Gastrointestinal Disorders: No - GENITOURINARY/GYNECOLOGICAL Hx Sexually Transmitted Disorders: No - PSYCHIATRIC Hx Anxiety: Yes Hx Depression: Yes - SURGICAL HISTORY Hx Tonsillectomy: Yes - ANESTHESIA Hx Anesthesia: Yes Hx Anesthesia Reactions: No Hx Malignant Hyperthermia: No Meds Allergies/Adverse Reactions: Allergies Allergy/AdvReac Type Severity Reaction Status Date / Time acetaminophen [From Percocet] AdvReac VOMITING Verified 07/01/17 11:44 oxycodone HCl [From Percocet] AdvReac VOMITING Verified 07/01/17 11:44 Results - Vital Signs Recent Vital Signs: Last Vital Signs Temp 98.3 F 07/01/17 11:38 Pulse 83 07/01/17 11:38 Resp 20 07/01/17 11:38 BP 149/76 07/01/17 11:38 Pulse Ox 99 07/01/17 15:15 - Labs Result Diagrams: 07/01/17 12:20 07/01/17 12:20 Labs: Laboratory Results - last 24 hr 07/01/17 07/01/17 07/01/17 12:20 12:20 12:20 WBC 18.1 H D RBC 4.02 Hgb 11.5 L D Hct 34.6 MCV 86.1 MCH 28.5 MCHC 33.1 RDW 16.7 H Plt Count 259 MPV 9.8 Neut % (Auto) 84.7 H Lymph % (Auto) 8.9 L [place] % (Auto) 5.8 Eos % (Auto) 0.4 Baso % (Auto) 0.2 Neut # 15.4 H Lymph # 1.6 [place] # 1.1 H Eos # 0.1 Baso # 0.0 Neutrophils % (Manual) 90 H Lymphocytes % (Manual) 6 L Monocytes % (Manual) 3 Eosinophils % (Manual) 1 Platelet Estimate Normal Large Platelets Present Hypochromasia (manual) Slight Anisocytosis (manual) Slight Tear Drop Cells Slight Ovalocytes Slight Schistocytes Slight PT INR pO2 VBG pH VBG pCO2 VBG HCO3 VBG Total CO2 VBG O2 Sat (Calc) VBG Base Excess VBG Potassium A-a O2 Difference Glucose Lactate FiO2 Crit Value Called To Crit Value Called By Crit Value Read Back Blood Gas Notified Time Sodium 149 H Potassium 3.8 Chloride 119 H Carbon Dioxide 17 L Anion Gap 17 BUN 48 H Creatinine 1.4 H Est GFR ( Amer) 44 Est GFR (Non-Af Amer) 36 Random Glucose 236 H Calcium 9.6 Total Bilirubin 0.5 AST 15 ALT 27 Alkaline Phosphatase 72 Total Protein 7.4 Albumin 3.8 Globulin 3.6 Albumin/Globulin Ratio 1.1 Lipase 91 Venous Blood Potassium Urine Color Urine Clarity Urine pH Ur Specific [place] Urine Protein Urine Glucose (UA) Urine Ketones Urine Blood Urine Nitrate Urine Bilirubin Urine Urobilinogen Ur Leukocyte Esterase Urine RBC (Auto) Urine WBC Clumps (Auto) Urine Microscopic WBC Ur Squamous Epith Cells Urine Bacteria Urine Yeast (Budding) Stool Occult Blood Blood Type B POSITIVE Antibody Screen Negative BBK History Checked Patient has bt 07/01/17 07/01/17 07/01/17 12:20 12:20 12:42 WBC RBC Hgb Hct MCV MCH MCHC RDW Plt Count MPV Neut % (Auto) Lymph % (Auto) [place] % (Auto) Eos % (Auto) Baso % (Auto) Neut # Lymph # [place] # Eos # Baso # Neutrophils % (Manual) Lymphocytes % (Manual) Monocytes % (Manual) Eosinophils % (Manual) Platelet Estimate Large Platelets Hypochromasia (manual) Anisocytosis (manual) Tear Drop Cells Ovalocytes Schistocytes PT 11.1 INR 1.0 pO2 24 L VBG pH 7.39 VBG pCO2 33 L VBG HCO3 20.6 VBG Total CO2 21.0 L VBG O2 Sat (Calc) 53.6 VBG Base Excess -4.2 L VBG Potassium 3.4 L A-a O2 Difference 84.0 Glucose 253 H Lactate 2.0 FiO2 21.0 Crit Value Called To [facility] Crit Value Called By 15 Crit Value Read Back Y Blood Gas Notified Time 1306 Sodium 147.0 Potassium Chloride 116.0 H Carbon Dioxide Anion Gap BUN Creatinine Est GFR ( Amer) Est GFR (Non-Af Amer) Random Glucose Calcium Total Bilirubin AST ALT Alkaline Phosphatase Total Protein Albumin Globulin Albumin/Globulin Ratio Lipase Venous Blood Potassium 3.4 L Urine Color Urine Clarity Urine pH Ur Specific [place] Urine Protein Urine Glucose (UA) Urine Ketones Urine Blood Urine Nitrate Urine Bilirubin Urine Urobilinogen Ur Leukocyte Esterase Urine RBC (Auto) Urine WBC Clumps (Auto) Urine Microscopic WBC Ur Squamous Epith Cells Urine Bacteria Urine Yeast (Budding) Stool Occult Blood Negative Blood Type Antibody Screen BBK History Checked 07/01/17 14:23 WBC RBC Hgb Hct MCV MCH MCHC RDW Plt Count MPV Neut % (Auto) Lymph % (Auto) [place] % (Auto) Eos % (Auto) Baso % (Auto) Neut # Lymph # [place] # Eos # Baso # Neutrophils % (Manual) Lymphocytes % (Manual) Monocytes % (Manual) Eosinophils % (Manual) Platelet Estimate Large Platelets Hypochromasia (manual) Anisocytosis (manual) Tear Drop Cells Ovalocytes Schistocytes PT INR pO2 VBG pH VBG pCO2 VBG HCO3 VBG Total CO2 VBG O2 Sat (Calc) VBG Base Excess VBG Potassium A-a O2 Difference Glucose Lactate FiO2 Crit Value Called To Crit Value Called By Crit Value Read Back Blood Gas Notified Time Sodium Potassium Chloride Carbon Dioxide Anion Gap BUN Creatinine Est GFR ( Amer) Est GFR (Non-Af Amer) Random Glucose Calcium Total Bilirubin AST ALT Alkaline Phosphatase Total Protein Albumin Globulin Albumin/Globulin Ratio Lipase Venous Blood Potassium Urine Color Yellow Urine Clarity Turbid Urine pH 6.0 Ur Specific [place] 1.017 Urine Protein >=500 Urine Glucose (UA) 50 Urine Ketones Negative Urine Blood Negative Urine Nitrate Negative Urine Bilirubin Negative Urine Urobilinogen 0.2-1.0 Ur Leukocyte Esterase Large Urine RBC (Auto) 7 H Urine WBC Clumps (Auto) Many H Urine Microscopic WBC 865 H Ur Squamous Epith Cells 1 Urine Bacteria Many H Urine Yeast (Budding) Few H Stool Occult Blood Blood Type Antibody Screen BBK History Checked
[2017-07-01] MEDS: cefTRIAXone IV 1 gm in Dextros 50 ML IVPB SCH (17:35)
[2017-07-01] MEDS: Potassium Ch 20mEq in D5-1/2NS 1,000 ML IV SCH (17:46)
[2017-07-01] MEDS: Insulin Detemir 100 Units/ml Inj SC SCH (22:12)
[2017-07-02] MEDS: Potassium Ch 20mEq in D5-1/2NS 1,000 ML IV SCH ×2 (02:18→12:03)
[2017-07-02 05:50] LABS: HEMATOCRIT 31.1 % (34.0-47.0); MEAN CELL VOLUME 85.5 fl (81.0-99.0); MEAN CORPUSCULAR HEMOGLOBIN 28.3 pg (27.0-31.0); MEAN CORPUSCULAR HGB CONC 33.1 g/dL (33.0-37.0); WHITE BLOOD COUNT 16.3 K/uL (4.8-10.8)
[2017-07-02 06:25] LABS: CALCIUM 8.9 mg/dL (8.4-10.2); POTASSIUM 3.9 MMOL/L (3.6-5.0)
[2017-07-02] MEDS ORDERED: Metoprolol Succinate 50 mg XL Tab PO SCH (09:00)
[2017-07-02] MEDS ORDERED: Megestrol Acetate 40 mg/ml Cup PO SCH (09:00)
[2017-07-02] MEDS: cefTRIAXone IV 1 gm in Dextros 50 ML IVPB SCH (10:02)
--- NOTE | 2017-07-02 11:50 | CARD ---
APPROVED REPORT EKG Measurement Heart [id number] <Conclusion> Sinus rhythm with 1st degree AV block Left bundle branch block Abnormal ECG
[2017-07-02 11:57] LABS: HEMATOCRIT 28.3 % (34.0-47.0); MEAN CELL VOLUME 84.9 fl (81.0-99.0); MEAN CORPUSCULAR HEMOGLOBIN 28.9 pg (27.0-31.0); RED CELL DISTRIBUTION WIDTH 16.4 % (11.5-14.5)
[2017-07-02 12:15] LABS: CALCIUM 8.6 mg/dL (8.4-10.2); POTASSIUM 4.2 MMOL/L (3.6-5.0)
--- NOTE | 2017-07-02 12:31 | CP.PCM.PN ---
Subjective - Date & Time of Evaluation Date of Evaluation: 07/02/17 Time of Evaluation: 11:00 - Subjective Subjective: No fever episodes of confusion poor PO intake denies CP no SOB no abd pain no further episode of coffee ground emesis- will start Liquid diet hang episode on tele monitoring noted- will hold off on BB Objective - Vital Signs/Intake and Output Vital Signs (last 24 hours): Temp Pulse Resp BP Pulse Ox 98.2 F 77 20 130/71 100 07/02/17 12:25 07/02/17 12:25 07/02/17 12:25 07/02/17 12:25 07/02/17 12:25 - Medications Medications: Current Medications Albuterol/Ipratropium (Duoneb 3 Mg/0.5 Mg (3 Ml) Ud) 3 ml IH RQ6 PRN PRN Reason: Wheezing Potassium Chloride/Dextrose/Sod Cl (Potassium Chl 20 Meq In D5-1/2ns) 1,000 mls @ 100 mls/hr IV .Q10H [facility] Stop: 07/02/17 16:54 Last Admin: 07/02/17 12:03 Dose: 100 mls/hr Ceftriaxone Sodium (Rocephin Iv 1 Gm Duplex) 50 mls @ 50 mls/hr IVPB DAILY MOUNA PRN Reason: Protocol Last Admin: 07/02/17 10:02 Dose: 50 mls/hr Insulin Detemir (Levemir) 6 units SC HS [facility] Last Admin: 07/01/17 22:12 Dose: 6 units Levothyroxine Sodium (Synthroid) 75 mcg PO DAILY [facility] Losartan Potassium (Cozaar) 50 mg PO DAILY [facility] Megestrol Acetate (Megace) 200 mg PO DAILY [facility] Metoprolol Succinate (Toprol Xl) 50 mg PO DAILY [facility] Montelukast Sodium (Singulair) 10 mg PO HS [facility] Ondansetron HCl (Zofran Inj) 4 mg IVP Q6 PRN PRN Reason: Nausea/Vomiting Pantoprazole Sodium (Protonix Inj) 40 mg IVP Q12 MOU[facility] Last Admin: 07/02/17 09:26 Dose: 40 mg - Labs Labs: 07/02/17 11:20 07/02/17 11:20 PT 11.1 Seconds (9.8-13.1) 07/01/17 12:20 INR 1.0 (0.9-1.2) 07/01/17 12:20 - Constitutional Appears: Non-toxic, No Acute Distress, Confused, Chronically Ill - Head Exam Head Exam: NORMAL INSPECTION, NORMOCEPHALIC - Eye Exam Eye Exam: EOMI, Normal appearance Pupil Exam: NORMAL ACCOMODATION - ENT Exam ENT Exam: Mucous Membranes Dry, Normal External Ear Exam - Neck Exam Neck Exam: Full ROM. absent: Meningismus - Respiratory Exam Respiratory Exam: Rhonchi, NORMAL BREATHING PATTERN. absent: Wheezes, Respiratory Distress - Cardiovascular Exam Cardiovascular Exam: Irregular Rhythm, +S1, +S2 - GI/Abdominal Exam GI & Abdominal Exam: Soft, Normal Bowel Sounds. absent: Tenderness - Extremities Exam Extremities Exam: Normal Capillary Refill. absent: Calf Tenderness, Pedal Edema - Back Exam Back Exam: absent: CVA tenderness (L), CVA tenderness (R) - Neurological Exam Neurological Exam: Alert, Awake Additional comments: oriented to person - Psychiatric Exam Psychiatric exam: Normal Affect, Normal Mood - Skin Skin Exam: Dry, Normal Color, Warm Assessment and Plan - Assessment and Plan (Free Text) Assessment: Patient is an 81 year old female PMH dementia with behavioral issues, IDDM2, afib no longer on Apixaban, CHF, copd, CAD with PPM, fractured L tibia, PVD, nonhealing wound L ankle and 2nd toe L foot, hypothyroid, CKD stage III, decubitus ulcer L superior inner buttock, hx CVA presents with history of coffee ground emesis. Found to have UTI. COFFEE GROUND EMESIS, CONCERN FOR UGIB no further episode of emesis noted start clear liquid diet and will upgrade as tolerated - no longer on Apixaban for AFIB - INR 1.0 - drop in H/H from 11.5 to 9.6 , poss dilutional , however , we will continue to monitor - protonix 40 mg IV Q12 - OCCult BLOOD in stool : NEG UTI - + UA for LE - WBC 18.1 K , improving - afebrile - Ceftriaxone IV Day 2 - culture Urine : Gram negative rods HYPERNATREMIA - Na 149 - likely secondary to volume contraction - complete NS started in ER, then follow with D5 1/2 NS 20 KCl for maintenance - recheck DEHYDRATION - Cr 1.4 BUN 48,. baseline 0.9/7 - hydrate with 1L NS and then follow with D5 1/2 NS 20 KCl for maintenance while NPO for GIB ACUTE ON CHRONIC RENAL FAILURE - Cr 1.4 BUN 48,. baseline 0.9/7 - secondary to dehydration - monitor COPD - stable - cont duonebs and Singulair IDDM2 - cont levemir ISS - accuechecks DEMENTIA - cont megace for appetite HYPERTENSION, CAD S/P PPM - cont norvasc, losartan, toprol - no ASA due to poss GIB HYPOTHYROID - cont synthroid STOOL RETENTION - fleet enema - had 2 BMafter the enema DECUBITUS ULCER PRESENT ON ADMISSION - L Superior buttock - wound care Hx CVA - no ASA bec of poss GI bleed CHF DIASTOLIC DYSFUNCTION - stable - cont Norvasc VTE PPX SCDS 2/2 Coffee ground emesis
[2017-07-02] MEDS: Insulin Detemir 100 Units/ml Inj SC SCH (21:38)
[2017-07-02] MEDS ORDERED: Sodium Chloride 0.45% 1,000 ML IV SCH (21:45)
[2017-07-02] MEDS: Insulin Lispro (humaLOG) 100 Units/ml Inj SC SCH (23:06)
[2017-07-03] MEDS: Insulin Lispro (humaLOG) 100 Units/ml Inj SC SCH ×2 (06:42→11:47)
[2017-07-03] MEDS: cefTRIAXone IV 1 gm in Dextros 50 ML IVPB SCH (08:48)
[2017-07-03] MEDS: Levothyroxine 75 MCG TAB PO SCH ×2 (08:57→10:24)
[2017-07-03 11:08] LABS: MEAN CELL VOLUME 86.1 fl (81.0-99.0); MEAN CORPUSCULAR HEMOGLOBIN 28.2 pg (27.0-31.0); MEAN CORPUSCULAR HGB CONC 32.8 g/dL (33.0-37.0); RED CELL DISTRIBUTION WIDTH 16.5 % (11.5-14.5); WHITE BLOOD COUNT 10.6 K/uL (4.8-10.8)
--- NOTE | 2017-07-03 12:41 | CP.PCM.DIS ---
Provider - Provider Date of Admission: 07/02/17 17:43 Attending physician: Vivienne Tellez DO Consults: 07/01/17 17:29 Wound Care [Nursing Referral for Wound Care] Routine Comment: Physician Instructions: Reason For Exam: decub Time Spent in preparation of Discharge (in minutes): 30 Diagnosis - Discharge Diagnosis (1) Dehydration Status: Acute (2) GI bleed Status: Acute Hospital Course - Lab Results Lab Results: Micro Results 07/01/17 14:23 Urine Urine Culture - Final Escherichia Coli 07/01/17 13:30 Blood Blood Culture - Preliminary NO GROWTH AFTER 24 HOURS Most Recent Lab Values WBC 10.6 K/uL (4.8-10.8) 07/03/17 10:25 RBC 3.48 Mil/uL (3.80-5.20) L 07/03/17 10:25 Hgb 9.8 g/dL (12.0-16.0) L 07/03/17 10:25 Hct 30.0 % (34.0-47.0) L 07/03/17 10:25 MCV 86.1 fl (81.0-99.0) 07/03/17 10:25 MCH 28.2 pg (27.0-31.0) 07/03/17 10:25 MCHC 32.8 g/dL (33.0-37.0) L 07/03/17 10:25 RDW 16.5 % (11.5-14.5) H 07/03/17 10:25 Plt Count 221 K/uL (130-400) 07/03/17 10:25 MPV 9.8 fl (7.2-11.7) 07/01/17 12:20 Neut % (Auto) 84.7 % (50.0-75.0) H 07/01/17 12:20 Lymph % (Auto) 8.9 % (20.0-40.0) L 07/01/17 12:20 [place] % (Auto) 5.8 % (0.0-10.0) 07/01/17 12:20 Eos % (Auto) 0.4 % (0.0-4.0) 07/01/17 12:20 Baso % (Auto) 0.2 % (0.0-2.0) 07/01/17 12:20 Neut # 15.4 K/uL (1.8-7.0) H 07/01/17 12:20 Lymph # 1.6 K/uL (1.0-4.3) 07/01/17 12:20 [place] # 1.1 K/uL (0.0-0.8) H 07/01/17 12:20 Eos # 0.1 K/uL (0.0-0.7) 07/01/17 12:20 Baso # 0.0 K/uL (0.0-0.2) 07/01/17 12:20 Neutrophils % (Manual) 90 % (42-75) H 07/01/17 12:20 Lymphocytes % (Manual) 6 % (20-50) L 07/01/17 12:20 Monocytes % (Manual) 3 % (0-10) 07/01/17 12:20 Eosinophils % (Manual) 1 % (0-7) 07/01/17 12:20 Platelet Estimate Normal (NORMAL) 07/01/17 12:20 Large Platelets Present 07/01/17 12:20 Hypochromasia (manual) Slight 07/01/17 12:20 Anisocytosis (manual) Slight 07/01/17 12:20 Tear Drop Cells Slight 07/01/17 12:20 Ovalocytes Slight 07/01/17 12:20 Schistocytes Slight 07/01/17 12:20 PT 11.1 Seconds (9.8-13.1) 07/01/17 12:20 INR 1.0 (0.9-1.2) 07/01/17 12:20 pO2 24 mm/Hg (30-55) L 07/01/17 12:42 VBG pH 7.39 (7.32-7.43) 07/01/17 12:42 VBG pCO2 33 mmHg (40-60) L 07/01/17 12:42 VBG HCO3 20.6 mmol/L 07/01/17 12:42 VBG Total CO2 21.0 mmol/L (22-28) L 07/01/17 12:42 VBG O2 Sat (Calc) 53.6 % (40-65) 07/01/17 12:42 VBG Base Excess -4.2 mmol/L (0.0-2.0) L 07/01/17 12:42 VBG Potassium 3.4 mmol/L (3.6-5.2) L 07/01/17 12:42 A-a O2 Difference 84.0 mm/Hg 07/01/17 12:42 Sodium 147.0 mmol/L (132-148) 07/01/17 12:42 Chloride 116.0 mmol/L (98-107) H 07/01/17 12:42 Glucose 253 mg/dL (65-105) H 07/01/17 12:42 Lactate 2.0 mmol/L (0.7-2.1) 07/01/17 12:42 FiO2 21.0 % 07/01/17 12:42 Crit Value Called To Zen gilmore 07/01/17 12:42 Crit Value Called By Latisha 07/01/17 12:42 Crit Value Read Back Y 07/01/17 12:42 Blood Gas Notified Time 1306 07/01/17 12:42 Sodium 145 mmol/l (132-148) 07/02/17 11:20 Potassium 4.2 MMOL/L (3.6-5.0) 07/02/17 11:20 Chloride 120 mmol/L (98-107) H 07/02/17 11:20 Carbon Dioxide 18 mmol/L (22-30) L 07/02/17 11:20 Anion Gap 12 (10-20) 07/02/17 11:20 BUN 31 mg/dl (7-17) H 07/02/17 11:20 Creatinine 1.3 mg/dl (0.7-1.2) H 07/02/17 11:20 Est GFR ( Amer) 48 07/02/17 11:20 Est GFR (Non-Af Amer) 39 07/02/17 11:20 POC Glucose (mg/dL) 88 mg/dL (65-110) 07/03/17 11:30 Random Glucose 218 mg/dL (65-105) H 07/02/17 11:20 Calcium 8.6 mg/dL (8.4-10.2) 07/02/17 11:20 Total Bilirubin 0.5 mg/dl (0.2-1.3) 07/01/17 12:20 AST 15 U/L (14-36) 07/01/17 12:20 ALT 27 U/L (9-52) 07/01/17 12:20 Alkaline Phosphatase 72 U/L (38-126) 07/01/17 12:20 Total Protein 7.4 G/DL (6.3-8.2) 07/01/17 12:20 Albumin 3.8 g/dL (3.5-5.0) 07/01/17 12:20 Globulin 3.6 gm/dL (2.2-3.9) 07/01/17 12:20 Albumin/Globulin Ratio 1.1 (1.0-2.1) 07/01/17 12:20 Lipase 91 U/L (23-300) 07/01/17 12:20 Venous Blood Potassium 3.4 mmol/L (3.6-5.2) L 07/01/17 12:42 Urine Color Yellow (YELLOW) 07/01/17 14:23 Urine Clarity Turbid (Clear) 07/01/17 14:23 Urine pH 6.0 (5.0-8.0) 07/01/17 14:23 Ur Specific [place] 1.017 (1.003-1.030) 07/01/17 14:23 Urine Protein >=500 mg/dL (NEGATIVE) 07/01/17 14:23 Urine Glucose (UA) 50 mg/dL (Normal) 07/01/17 14:23 Urine Ketones Negative mg/dL (NEGATIVE) 07/01/17 14:23 Urine Blood Negative (NEGATIVE) 07/01/17 14:23 Urine Nitrate Negative (NEGATIVE) 07/01/17 14:23 Urine Bilirubin Negative (NEGATIVE) 07/01/17 14:23 Urine Urobilinogen 0.2-1.0 mg/dL (0.2-1.0) 07/01/17 14:23 Ur Leukocyte Esterase Large Augie/uL (Negative) 07/01/17 14:23 Urine RBC (Auto) 7 /hpf (0-3) H 07/01/17 14:23 Urine WBC Clumps (Auto) Many /hpf (NONE) H 07/01/17 14:23 Urine Microscopic WBC 865 /hpf (0-5) H 07/01/17 14:23 Ur Squamous Epith Cells 1 /hpf (0-5) 07/01/17 14:23 Urine Bacteria Many (<OCC) H 07/01/17 14:23 Urine Yeast (Budding) Few /hpf (NEGATIVE) H 07/01/17 14:23 Stool Occult Blood Negative (NEGATIVE) 07/01/17 12:20 Blood Type B POSITIVE 07/01/17 12:20 Antibody Screen Negative 07/01/17 12:20 BBK History Checked Patient has bt 07/01/17 12:20 - Hospital Course Hospital Course: Patient is an 81 year old female PMH dementia with behavioral issues, IDDM2, afib no longer on Apixaban, CHF, copd, CAD with PPM, fractured L tibia, PVD, nonhealing wound L ankle and 2nd toe L foot, hypothyroid, CKD stage III, decubitus ulcer L superior inner buttock, hx CVA presents with history of coffee ground emesis. Found to have UTI. patient UTI treated with ceftriaxone. No further episodes of bleed or coffee-ground emesis on admission. Patient is stable for discharge back to care home. Discussed extensively with patient's daughter Maya Navarro as well as Dr. Cohen. patient's family to meet with palliative care services at care home, to discuss future goals of care as patient is bedbound, decreased appetite, multiple comorbidities with dementia. Patient is stable to be discharged back to care home. COFFEE GROUND EMESIS, CONCERN FOR UGIB no further episode of emesis noted start clear liquid diet and will upgrade as tolerated - no longer on Apixaban for AFIB - INR 1.0 - drop in H/H from 11.5 to 9.6 , stable today - protonix 40 mg IV Q12 - OCCult BLOOD in stool : NEG UTI - + UA for LE - WBC 18.1 K , improving - afebrile - Ceftriaxone IV Day 2 - culture Urine : Gram negative rods HYPERNATREMIA - Na 149 - likely secondary to volume contraction - complete NS started in ER, then follow with D5 1/2 NS 20 KCl for maintenance - recheck DEHYDRATION - Cr 1.4 BUN 48,. baseline 0.9/7 - hydrate with 1L NS and then follow with D5 1/2 NS 20 KCl for maintenance while NPO for GIB ACUTE ON CHRONIC RENAL FAILURE - Cr 1.4 BUN 48,. baseline 0.9/7 - secondary to dehydration - monitor COPD - stable - cont duonebs and Singulair IDDM2 - cont levemir ISS - accuechecks DEMENTIA - cont megace for appetite HYPERTENSION, CAD S/P PPM - cont norvasc, losartan, toprol - no ASA due to poss GIB HYPOTHYROID - cont synthroid STOOL RETENTION - fleet enema - had 2 BMafter the enema DECUBITUS ULCER PRESENT ON ADMISSION - L Superior buttock - wound care Hx CVA - no ASA bec of poss GI bleed CHF DIASTOLIC DYSFUNCTION - stable - cont Norvasc VTE PPX SCDS 2/2 Coffee ground emesis Discharge Exam - Head Exam Head Exam: NORMAL INSPECTION, NORMOCEPHALIC - Eye Exam Eye Exam: EOMI, Normal appearance, PERRL Pupil Exam: NORMAL ACCOMODATION - ENT Exam ENT Exam: Mucous Membranes Moist, Normal Oropharynx - Respiratory Exam Respiratory Exam: Clear to PA & Lateral, NORMAL BREATHING PATTERN - Cardiovascular Exam Cardiovascular Exam: RRR, +S1, +S2 - GI/Abdominal Exam GI & Abdominal Exam: Normal Bowel Sounds, Soft. absent: Mass - Extremities Exam Extremities exam: normal capillary refill, pedal pulses present - Back Exam Back exam: absent: CVA tenderness (L), CVA tenderness (R) - Neurological Exam Neurological exam: Alert, Reflexes Normal - Psychiatric Exam Psychiatric exam: Normal Affect, Normal Mood - Skin Skin Exam: Dry, Warm Discharge Plan - Follow Up Plan Condition: FAIR Disposition: TRANSF TO SNF Additional Instructions: ppatient to follow-up with primary care physician. Patient family to also meet with palliative care services upon arrival to care home.
[2017-07-03 12:43] VITALS: BP 152/75; PULSE 67; RESP 18; TEMP 97.9; O2SAT 98
--- NOTE | 2017-07-03 15:02 | PQF GENQUE ---
Dr. Tellez, Etiology of GI Bleed? if known OR: Unable to determine D/C Summary: COFFEE GROUND EMESIS, CONCERN FOR UGIB no further episode of emesis noted start clear liquid diet and will upgrade as tolerated - no longer on Apixaban for AFIB - INR 1.0 - drop in H/H from 11.5 to 9.6 , stable today - protonix 40 mg IV Q12 - OCCult BLOOD in stool : NEG This form is a permanent part of the medical record Clarification of your documentation is requested to better reflect the severity of illness and intensity of treatment of your patient. Indicators present [] Specify: [] [] Specify: [] [] Specify: [] [] Specify: [] Location in the medical record that reflects the above clinical findings: [] Treatment Provided: [] PHYSICIAN'S RESPONSE unknown Based on your medical judgment of the clinical indicators outlined above please clarify the following: [] Practitioner response [] If unable to determine, please check the box, sign and date. Present On Admission (POA) Indicator: [] Present at the time of admission [] Not present at the time of admission [] Clinically Undetermined In responding to this query, please exercise your independent professional judgment. The fact that a question is asked does not imply that any particular answer is desired or expected. Thank you for your clarification on this documentation. If you have any questions please call. * Thank you, Christel Ramirez RN ext. #[phone] MTDD
--- NOTE | 2017-07-03 15:08 | PQF GENQUE ---
Dr. Tellez, Please specify stage of each pressure ulcer (National Pressure Ulcer Advisory Panel definitions): Stage I: Intact skin with non-blanchable redness of a localized area Stage II: Partial thickness skin loss involving dermis with a shallow open ulcer or an open serum-filled blister Stage III: Full thickness skin loss involving damage or necrosis of subcutaneous tissue Stage IV: Full thickness skin loss with exposed bone, tendon or muscle Unstageable: Full thickness tissue loss in which the base of the of ulcer is covered by slough and/or eschar in the wound bed Deep tissue Injury (DTI):Purple or maroon localized area of intact skin due to damage of underlying soft tissue from pressure and/or shear Other (please specify) Clinically unable to determine Unknown H and P: DECUBITUS ULCER PRESENT ON ADMISSION - L Superior buttock - wound care Wound RN ; Patient allowed ad writer to examine sacrum and right foot. There was an eschar on the right lateral great toe measuring 1 cm x 1 cm. Skin prep and bandaid applied to protect it. Sacrum is clean and intact Nurses Admission database; Decubitus POA: No This form is a permanent part of the medical record Clarification of your documentation is requested to better reflect the severity of illness and intensity of treatment of your patient. Indicators present [] Specify: [] [] Specify: [] [] Specify: [] [] Specify: [] Location in the medical record that reflects the above clinical findings: [] Treatment Provided: [] PHYSICIAN'S RESPONSE AREA OF REDNESS, PRESENT ON ADMISSION Based on your medical judgment of the clinical indicators outlined above please clarify the following: [] Practitioner response [] If unable to determine, please check the box, sign and date. Present On Admission (POA) Indicator: [] Present at the time of admission [] Not present at the time of admission [] Clinically Undetermined In responding to this query, please exercise your independent professional judgment. The fact that a question is asked does not imply that any particular answer is desired or expected. Thank you for your clarification on this documentation. If you have any questions please call. * Thank you, Christel Ramirez RN ext. #[phone] MTDD
== END 2017-07-03 15:30 | DRG 378 ==
LOC: H.ER 11:35 → H.ERHOLD 15:16 → H.TEL 18:12 → OBSVTOIN 07-02 17:43
PROVIDERS: ADMIT Student in an Organized Health Care Education/Training Program; ATTEND Student in an Organized Health Care Education/Training Program
DX: K92.2 Gastrointestinal hemorrhage, unspecified (principal); E87.0 Hyperosmolality and hypernatremia; N17.9 Acute kidney failure, unspecified; I13.0 Hypertensive heart and chronic kidney disease with heart failure and stage 1 through stage 4 chronic kidney disease, or unspecified chronic kidney disease; I50.32 Chronic diastolic (congestive) heart failure; E86.0 Dehydration; E11.22 Type 2 diabetes mellitus with diabetic chronic kidney disease; I48.91 Unspecified atrial fibrillation; E11.51 Type 2 diabetes mellitus with diabetic peripheral angiopathy without gangrene; F03.90 Unspecified dementia, unspecified severity, without behavioral disturbance, psychotic disturbance, mood disturbance, and anxiety; N39.0 Urinary tract infection, site not specified; J44.9 Chronic obstructive pulmonary disease, unspecified; Z79.4 Long term (current) use of insulin; N18.3 Chronic kidney disease, stage 3 (moderate); I25.10 Atherosclerotic heart disease of native coronary artery without angina pectoris; J45.909 Unspecified asthma, uncomplicated; E03.9 Hypothyroidism, unspecified; E78.00 Pure hypercholesterolemia, unspecified; Z86.73 Personal history of transient ischemic attack (TIA), and cerebral infarction without residual deficits; Z95.0 Presence of cardiac pacemaker; F32.9 Major depressive disorder, single episode, unspecified; F41.9 Anxiety disorder, unspecified; M19.90 Unspecified osteoarthritis, unspecified site; Z88.6 Allergy status to analgesic agent; Z88.5 Allergy status to narcotic agent; K59.00 Constipation, unspecified

== ENCOUNTER 2017-09-06 11:33 | Inpatient (IN) | payer MEDICARE, MEDICAID ==
[2017-09-06 11:34] VITALS: BMI 23.2
--- NOTE | 2017-09-06 12:15 | ED PDOC ---
HPI:STROKE - Time Time: 14:00 - Historian Historian: [facility] - Notes: Notes:: Pt sent from [place] for evaluation of facial droop, last seen normal yesterday @ 4 PM. NIHSS Stroke Scale - Date/Time Evaluation Performed When Was NIHSS Performed: 24 hours post onset S/S - How Severe is the Stroke Level of Consciousness: 1=Drowsy LOC to Questions: 2=Neither correct LOC to commands: 2=Neither correct Best Gaze: 0=Normal Visual: 0=No visual loss Facial: 3=Complete unilateral paralysis Motor Arm - Left: 4=No movement Motor Arm - Right: 3=No effort against gravity (falls immediately) Motor Leg - Left: 4=No movement Motor Leg - Right: 4=No movement Limb Ataxia: 0=Absent Sensory: 0=Normal Best Language: 2=Severe aphasia Dysarthia: 2=Severe, near unintelligible or worse Extinction & Inattention (Neglect): 0=Normal, no object Score: 27 rTPA Inclusion/Exclusion - Refusal of Treatment Patient Refused Treatment: No - Inclusion Criteria for Altepase Patient is 18 years or Older: Yes The Clinical Diagnosis of Ischemic Stroke That is Causing a Potentially Disabling Neurological Deficit: Yes Time of Onset is Well Established to be Less Than 270 Minute Before Treatment Would Begin: No Risk/Benefit Discussed With Patient/Family Member Present: No - Warning to TPA With Conditions Condition: Age Greater Than 75 years, Stroke Severity Too Severe (NIHSS greater than 22) Additional Condition (For 3-4.5 Hour Window): Age Greater Than 80, NIHSS Above 25 Past Medical History Reviewed: Nursing Documentation, Vital Signs Vital Signs: Last Vital Signs Temp Pulse 58 L 09/06/17 12:05 Resp 16 09/06/17 12:05 BP 156/78 H 09/06/17 12:05 Pulse Ox 100 09/06/17 12:05 - Medical History PMH: Anemia, Anxiety, Arthritis, Asthma, Atrial Fibrillation, CAD, Cardia Arrhythmia, CHF, COPD, Dementia, Depression, Diabetes (type II), Fractures ( left tibia), HTN, Hypercholesterolemia, Hypothyroidism, Peripheral Edema, End Stage Renal Disease (stage III), Chronic Kidney Disease Denies: Hepatitis, HIV, Seizures, Sexually Transmitted Disease - Surgical History Surgical History: Back Surgery, Pacemaker, Tonsillectomy - Family History Family History: States: Unknown Family Hx - Home Medications Home Medications: Ambulatory Orders Medication Instructions Recorded Montelukast [Singulair] 10 mg PO HS 09/16/16 Loperamide HCl [Loperamide] 2 mg PO Q6 PRN 01/17/17 Magnesium Hydroxide [Milk Of 30 ml PO HS PRN 01/17/17 Magnesia] Prochlorperazine [Compro] 25 mg [place] Q12 PRN 01/17/17 Losartan [Cozaar] 50 mg PO DAILY tab 01/22/17 Metoprolol Succinate [Toprol XL] 50 mg PO DAILY tab 01/22/17 Albuterol/Ipratropium [Duoneb 3 3 ml IH RQ6 PRN 07/01/17 mg/0.5 mg (3 ml) UD] Insulin Aspart, Recombinant 1 - 7 unit SC 1130,2100 07/01/17 [Novolog] Insulin Detemir [Levemir] 6 unit SC HS 07/01/17 Levothyroxine [Synthroid] 75 mcg PO DAILY 07/01/17 Mag Hydrox/Aluminum Hyd/Simeth 30 ml PO Q4H PRN 07/01/17 [Maalox Advanced Suspension] Megestrol Acetate [Megace Es] 5 ml PO DAILY 07/01/17 Potassium Chloride [Klor-Con M10] 10 meq PO DAILY 07/01/17 Saccharomyces Boulardi [Florastor] 250 mg PO BID 07/01/17 Docusate [Colace] 100 mg PO BID cap 07/03/17 - Allergies Allergies/Adverse Reactions: Allergies Allergy/AdvReac Type Severity Reaction Status Date / Time acetaminophen [From Percocet] AdvReac VOMITING Verified 07/01/17 11:44 oxycodone HCl [From Percocet] AdvReac VOMITING Verified 07/01/17 11:44 Review of Systems Review Of Systems: ROS cannot be obtained secondary to pt's inabilty to answer questions. Physical Exam - Reviewed Nursing Documentation Reviewed: Yes Vital Signs Reviewed: Yes - Physical Exam Appears: Positive for: No Acute Distress Head Exam: Positive for: ATRAUMATIC, NORMAL INSPECTION Skin: Positive for: Warm, Dry, Pallor Eye Exam: Positive for: Normal appearance, EOMI, PERRL, Other (Favoring R side) Cardiovascular/Chest: Positive for: Regular Rate, Rhythm Respiratory: Positive for: Normal Breath Sounds Gastrointestinal/Abdominal: Positive for: Soft Extremity: Positive for: Other (BLE contracted). Negative for: Swelling Neurologic/Psych: Positive for: Aphasia, Facial Droop (L). Negative for: Alert (Lethargic), toddler lead teacher II-XII, Oriented - Laboratory Results Result Diagrams: 09/06/17 12:39 09/06/17 12:39 - ECG Interpretation Of ECG: SR @ 63, 1st degree AVB, LBBB (old compared to 07/01/17). O2 Sat by Pulse Oximetry: 100 Pulse Ox Interpretation: Normal - Critical Care Total Time (In Min): 45 Medical Decision Making Medical Decision Making: --13:03 PROCEDURE: CT HEAD WITHOUT CONTRAST. FINDINGS: HEMORRHAGE: No intracranial hemorrhage. BRAIN: Age related neuro degenerative changes are reiterated comprised of diffuse cerebral atrophy chronic microangiopathy. 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 There is a gyrus at the posterior right frontal distribution superiorly which has lost posterior cortical signal suspicious for an acute subacute brain infarction which follow-up MRI is advised when feasible if there is no contraindication. Chronic lacune is seen at the right basal ganglia with the posterior fossa contents unremarkable appear including the brainstem. VENTRICLES: Unremarkable. No hydrocephalus. CALVARIUM: Unremarkable. PARANASAL SINUSES: Unremarkable as visualized. No significant inflammatory changes. MASTOID AIR CELLS: Unremarkable as visualized. No inflammatory changes. OTHER FINDINGS: None. IMPRESSION: Potential acute or subacute infarct right frontal lobe posterosuperiorly. No significant mass effect. No definite intracranial hemorrhage. Follow up CT or MRI is advised. Reiterated age related neuro degenerative findings. 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 Disposition - Clinical Impression Clinical Impression: CVA (cerebral vascular accident), NSTEMI (non-ST elevated myocardial infarction ) - Patient ED Disposition Is Patient to be Admitted: Yes - Disposition Disposition Time: 13:43 Condition: GUARDED - Pt Status Changed To: Hospital Disposition Of: Inpatient - Admit Certification Admit to Inpatient:: After my assessment, the patient will require hospitalization for at least two midnights. This is because of the severity of symptoms shown, intensity of services needed, and/or the medical risk in this patient being treated as an outpatient. - POA Present On Arrival: None
[2017-09-06 12:59] LABS: BASO % 0.4 % (0.0-2.0); EOS # 0.1 K/uL (0.0-0.7); EOS % 0.7 % (0.0-4.0); HEMOGLOBIN 11.1 g/dL (12.0-16.0); LYMPH # 1.2 K/uL (1.0-4.3); LYMPH % 9.9 % (20.0-40.0); MEAN CELL VOLUME 89.4 fl (81.0-99.0); MEAN CORPUSCULAR HEMOGLOBIN 31.1 pg (27.0-31.0); MEAN CORPUSCULAR HGB CONC 34.8 g/dL (33.0-37.0); MEAN PLATELET VOLUME 8.7 fl (7.2-11.7); MONO # 0.7 K/uL (0.0-0.8); MONO % 5.9 % (0.0-10.0); NEUT # 9.8 K/uL (1.8-7.0); NEUT % 83.1 % (50.0-75.0); PLATELET COUNT 286 K/uL (130-400); RBC 3.57 Mil/uL (3.80-5.20); RED CELL DISTRIBUTION WIDTH 15.6 % (11.5-14.5); WHITE BLOOD COUNT 11.8 K/uL (4.8-10.8)
--- NOTE | 2017-09-06 13:04 | CT ---
PROCEDURE: CT HEAD WITHOUT CONTRAST. HISTORY: L sided weakness COMPARISON: Head CT without contrast 09/16/2016. TECHNIQUE: Axial computed tomography images were obtained through the head/brain without intravenous contrast. Radiation dose: Total exam DLP = 1350.69 mGy-cm. This CT exam was performed using one or more of the following dose reduction techniques: Automated exposure control, adjustment of the mA and/or kV according to patient size, and/or use of iterative reconstruction technique. FINDINGS: HEMORRHAGE: No intracranial hemorrhage. BRAIN: Age related neuro degenerative changes are reiterated comprised of diffuse cerebral atrophy chronic microangiopathy. 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 There is a gyrus at the posterior right frontal distribution superiorly which has lost posterior cortical signal suspicious for an acute subacute brain infarction which follow-up MRI is advised when feasible if there is no contraindication. Chronic lacune is seen at the right basal ganglia with the posterior fossa contents unremarkable appear including the brainstem. VENTRICLES: Unremarkable. No hydrocephalus. CALVARIUM: Unremarkable. PARANASAL SINUSES: Unremarkable as visualized. No significant inflammatory changes. MASTOID AIR CELLS: Unremarkable as visualized. No inflammatory changes. OTHER FINDINGS: None. IMPRESSION: Potential acute or subacute infarct right frontal lobe posterosuperiorly. No significant mass effect. No definite intracranial hemorrhage. Follow up CT or MRI is advised. Reiterated age related neuro degenerative findings. Chronic right SELF PAY SPECIALIST infarct now identified.
[2017-09-06 13:12] LABS: ALBUMIN 3.1 g/dL (3.5-5.0); CALCIUM 8.8 mg/dL (8.4-10.2)
[2017-09-06] MEDS ORDERED: Sodium Chloride 0.9% 1,000 ML IV STA (13:15)
--- NOTE | 2017-09-06 13:18 | RAD ---
HISTORY: CVA COMPARISON: Portable chest 07/01/2017. FINDINGS: LUNGS: No active pulmonary disease. PLEURA: No significant pleural effusion identified, no pneumothorax apparent. CARDIOVASCULAR: Mild to moderate cardiomegaly appears stable. No pulmonary vascular derangement identified at this time. Implanted cardiac pacemaker/ defibrillator unchanged in position and appearance overall. OSSEOUS STRUCTURES: No significant abnormalities. VISUALIZED UPPER ABDOMEN: Prior cholecystectomy changes again noted right upper quadrant. OTHER FINDINGS: None. IMPRESSION: Stable cardiomegaly. No definite pulmonary vascular derangement. No definitive interval airspace disease bilaterally.
[2017-09-06 13:20] LABS: PARTIAL THROMBOPLASTIN TIME 20.3 Seconds (25.6-37.1); PROTHROMBIN TIME 11.5 Seconds (9.8-13.1)
[2017-09-06 13:30] LABS: ALB/GLOB RATIO 0.9 (1.0-2.1)
[2017-09-06 13:31] LABS: TROPONIN I 0.137 ng/mL (0.00-0.120)
[2017-09-06] MEDS ORDERED: Enoxaparin 60 mg Syringe SC STA (13:39)
[2017-09-06] MEDS ORDERED: Dextrose 5%/0.9% NS 1,000 ML IV ONE (14:01)
[2017-09-06 14:22] LABS: ANISOCYTOSIS SLIGHT; HYPOCHROMIC SLIGHT; LYMPHOCYTE 10 % (20-50); MONOCYTE 8 % (0-10); NEUTROPHIL 82 % (42-75); PLATELET ESTIMATE NORMAL (NORMAL); TOTAL CELLS COUNTED 100
[2017-09-06 14:23] LABS: OVALOCYTES SLIGHT
[2017-09-06] MEDS: Sodium Chloride 0.9% 1,000 ML IV SCH (14:30)
--- NOTE | 2017-09-06 14:41 | CP.PCM.HP ---
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 The patient is unable to give any history due to her baseline of dementia and acute aphasia. At baseline she is able to speak fluently per family. CT of the brain was performed in the ED revealing a potential acute or subacute infarct right frontal lobe posterosuperiorly. There is no significant mass effect. No definite intracranial hemorrhage. Chronic right [employer] infarct also identified. Labwork reveals WBC 11.8, Hg 11.1, BUN of 34, Cr of 1.2, Glucose of 178. Troponin is mildly elevated at 0.1370. Cholesterol 200, LDL 137, HDL 27. TPA was not given in ED as the stroke initiation time is unknown and the patient is > 75 years old. In addition NIHSS > 22. The patient is to be admitted for further workup and management of acute CVA, along with monitoring of her troponins to r/o acute coronary syndrome. PMH: dementia with behavioral issues, afib no longer on Apixaban, CHF, copd, CAD with PPM, fractured L tibia, PVD, nonhealing wound L ankle and 2nd toe L foot, hypothyroid, CKD stage III, decubitus ulcer L superior inner buttock, hx CVA PSH: Back Surgery, Pacemaker, Tonsillectomy FH: Possibly CAD and DM2 in family SH: Lives in [place], no EtOH or tobacco Allergies: Acetaminophen, Oxycodone Present on Admission - Present on Admission Any Indicators Present on Admission: No Review of Systems - Review of Systems Systems not reviewed;Unavailable: Dementia Review of Systems: A 12 point review of systems conducted with the patient's daughter and found to be negative other than what was mentioned in the HPI. Past Patient History - Infectious Disease Hx of Infectious Diseases: None - Tetanus Immunizations Tetanus Immunization: Unknown - Past Medical History & Family History Past Medical History?: Yes - Past Social History Smoking Status: Never Smoked - CARDIAC Hx Atrial Fibrillation: Yes Hx Cardia Arrhythmia: Yes Hx Congestive Heart Failure: Yes Hx Hypercholesterolemia: Yes Hx Hypertension: Yes Hx Pacemaker: Yes Hx Peripheral Edema: Yes - PULMONARY Hx Asthma: Yes Hx Chronic Obstructive Pulmonary Disease (COPD): Yes - NEUROLOGICAL Hx Dementia: Yes Hx Seizures: No - HEENT Hx HEENT Problems: No - RENAL Hx Chronic Kidney Disease: Yes - ENDOCRINE/METABOLIC Hx Hypothyroidism: Yes - HEMATOLOGICAL/ONCOLOGICAL Hx Anemia: Yes Hx Human Immunodeficiency Virus (HIV): No - INTEGUMENTARY Hx Dermatological Problems: No - MUSCULOSKELETAL/RHEUMATOLOGICAL Hx Arthritis: Yes Hx Fractures: Yes (left tibia) - GASTROINTESTINAL Hx Gastrointestinal Disorders: No - GENITOURINARY/GYNECOLOGICAL Hx Sexually Transmitted Disorders: No - PSYCHIATRIC Hx Anxiety: Yes Hx Depression: Yes - SURGICAL HISTORY Hx Tonsillectomy: Yes - ANESTHESIA Hx Anesthesia: Yes Hx Anesthesia Reactions: No Hx Malignant Hyperthermia: No Meds Allergies/Adverse Reactions: Allergies Allergy/AdvReac Type Severity Reaction Status Date / Time acetaminophen [From Percocet] AdvReac VOMITING Verified 07/01/17 11:44 oxycodone HCl [From Percocet] AdvReac VOMITING Verified 07/01/17 11:44 Physical Exam - Additional Findings Additional findings: GEN: DEMENTIA, Awake, Severely aphasic, confused HEENT: NCAT, PERRL, EOMI + Cataracts HEART: RRR, +S1S2, NO MRG LUNG: CTAB, NO WRR ABD: SOFT, NT, ND, NO HSM, NO MASSES EXT: NORMAL PEDAL PULSES, GOOD CAPILLARY REFILL NEURO: + Left facial droop. +Dementia, awake but confused. Severely aphasic SKIN: WARM, DRY PSYCH: unable to obtain 2/2 dementia Results - Vital Signs Recent Vital Signs: Last Vital Signs Temp 98.5 F 09/06/17 14:10 Pulse 60 09/06/17 14:10 Resp 16 09/06/17 14:10 BP 179/80 H 09/06/17 14:10 Pulse Ox 100 09/06/17 14:37 - Labs Result Diagrams: 09/06/17 12:39 09/06/17 12:39 Labs: Laboratory Results - last 24 hr 0109/06/17 09/06/17 12:39 12:39 12:39 WBC 11.8 H RBC 3.57 L Hgb 11.1 L Hct 31.9 L MCV 89.4 D MCH 31.1 H MCHC 34.8 RDW 15.6 H Plt Count 286 MPV 8.7 Neut % (Auto) 83.1 H Lymph % (Auto) 9.9 L [place] % (Auto) 5.9 Eos % (Auto) 0.7 Baso % (Auto) 0.4 Neut # 9.8 H Lymph # 1.2 [place] # 0.7 Eos # 0.1 Baso # 0.0 Neutrophils % (Manual) 82 H Lymphocytes % (Manual) 10 L Monocytes % (Manual) 8 Platelet Estimate Normal Hypochromasia (manual) Slight Anisocytosis (manual) Slight Ovalocytes Slight PT 11.5 INR 1.0 APTT 20.3 L Sodium 145 Potassium 3.9 Chloride 113 H Carbon Dioxide 21 L Anion Gap 15 BUN 34 H Creatinine 1.2 Est GFR ( Amer) 52 Est GFR (Non-Af Amer) 43 Random Glucose 178 H Calcium 8.8 Total Bilirubin 0.6 AST 16 ALT 32 Alkaline Phosphatase 50 Troponin I 0.1370 H* Total Protein 6.4 Albumin 3.1 L Globulin 3.3 Albumin/Globulin Ratio 0.9 L Triglycerides 140 Cholesterol 200 H LDL Cholesterol Direct 137 H HDL Cholesterol 27 L Blood Type Antibody Screen BBK History Checked 09/06/17 12:39 WBC RBC Hgb Hct MCV MCH MCHC RDW Plt Count MPV Neut % (Auto) Lymph % (Auto) [place] % (Auto) Eos % (Auto) Baso % (Auto) Neut # Lymph # [place] # Eos # Baso # Neutrophils % (Manual) Lymphocytes % (Manual) Monocytes % (Manual) Platelet Estimate Hypochromasia (manual) Anisocytosis (manual) Ovalocytes PT INR APTT Sodium Potassium Chloride Carbon Dioxide Anion Gap BUN Creatinine Est GFR ( Amer) Est GFR (Non-Af Amer) Random Glucose Calcium Total Bilirubin AST ALT Alkaline Phosphatase Troponin I Total Protein Albumin Globulin Albumin/Globulin Ratio Triglycerides Cholesterol LDL Cholesterol Direct HDL Cholesterol Blood Type B POSITIVE Antibody Screen Negative BBK History Checked Patient has bt Assessment & Plan - Assessment and Plan (Free Text) Plan: This is an 82 yo female with multiple comorbidities, advanced dementia, admitted for recurrent CVA. Acute Right frontal lobe CVA/infarct - Admit to telemetry floor - Consultation with Dr. Valera await further recs - Conservative strategy at this point given hx and multiple comorbidities, advanced dementia - Nursing swallow evaluation- NPO for now - Neuro checks q 4 hours - Fall precautions - Code status DNR/DNI Elevated troponin, mild, 0.1370, may be due to CKD or stress demand ischemia, r/ o ACS - Lovenox given in ED - Continue serial troponins; if similar level or trending down will discontinue - EKG similar to previous with 1st degree AV block and chronic LBBB. - Dr. Taylor on consultation for further recommendations. Stage III CHRONIC RENAL FAILURE - Cr 1.2, BUN 34 - At baseline - monitor COPD - stable - cont duonebs and Singulair IDDM2 - cont levemir ISS - accuchecks DEMENTIA - cont megace for appetite when able to take PO HYPERTENSION, CAD S/P PPM - cont norvasc, losartan, toprol HYPOTHYROID - cont synthroid History of GI BLEED - Hg stable CHF DIASTOLIC DYSFUNCTION - stable VTE PPX SCDS 2/2 Coffee ground emesis
--- NOTE | 2017-09-06 16:28 | CT ---
PROCEDURE: CT Angiography of the Brain. HISTORY: CVA COMPARISON: None available. TECHNIQUE: CT angiography of the intracranial arteries was performed. Coronal and sagittal maximum intensity projection reformated images were generated. This CT exam was performed using one or more of the following dose reduction techniques: Automated exposure control, adjustment of the mA and/or kV according to patient size, and/or use of iterative reconstruction technique. FINDINGS: INTERNAL CEREBRAL ARTERIES: Unremarkable. The skull base, petrous, cavernous and supraclinoid segments are bilaterally patent. However, there is a moderate stenosis of the intracranial left ICA. ANTERIOR CEREBRAL ARTERIES: Unremarkable. A1 and A2 segments are widely patent. Smaller distal branches unremarkable, as visualized. MIDDLE CEREBRAL ARTERIES: Unremarkable. M1 and M2 segments are widely patent. Perisylvian branches grossly symmetric. POSTERIOR CIRCULATION: Basilar Artery: Unremarkable. Distal Vertebral Arteries: Hypoplastic right vertebral artery. Unremarkable left vertebral artery. Posterior Cerebral Arteries: Unremarkable. Posterior Inferior Cerebellar Arteries: Unremarkable. NECK CTA: Common Carotid arteries: The right common carotid artery is widely patent up to the distal segment which is mildly atherosclerotic increasingly as it extends into the level of the bulb. A mild stenosis of present at the right CCA proximal to the bulb. No significant stenosis identified at the left vertebral artery which is wire left common carotid artery which is widely patent. No evidence to suggest common carotid artery dissection. Internal Carotid arteries: There is no evidence of cervical internal carotid artery dissection bilaterally or significant stenosis at the right internal carotid artery in the neck. However, there is prominent atherosclerotic plaque identified at the left carotid bulb and origin of the left ICA resulting in a moderate to severe stenosis which is difficult to characterize due to ectasis but is at least 60-75 percent. External Carotid arteries: Appear unremarkable bilaterally. Vertebral arteries: There is a hypoplastic right vertebral artery. The left vertebral artery is normal appearing up to its junction with the basilar artery. No definite dissection or significant stenosis is seen associated. The vertebra system is clearly left dominant. Incidentally, the bilateral subclavian arteries are widely patent as well as the brachiocephalic artery which is markedly ectatic. ANEURYSM/ VASCULAR MALFORMATIONS: None. OTHER FINDINGS: None. IMPRESSION: 1. Symmetric anterior, middle and posterior artery circulation without significant stenosis grossly appreciable. Nor torus malformation identified or aneurysm. 2. Moderate stenosis intracranial left ICA. 3. Moderate to severe stenosis proximal right ICA and mild stenosis distal right CCA. 4. Widely patent left CCA.
[2017-09-06] MEDS ORDERED: Albuterol-Ipratrop 3 mg / 0.5 (3 ml) UD IH PRN (16:31)
[2017-09-06] MEDS ORDERED: Magnesium Hydroxide Susp 30 ml UD PO PRN (16:31)
[2017-09-06] MEDS ORDERED: Metoprolol Succinate 25 mg XL Tab PO SCH (17:00)
[2017-09-06] MEDS: Megestrol Acetate 40 mg/ml Cup PO SCH (17:23)
[2017-09-06] MEDS: Saccharomyces Boulardi 250 mg Cap PO SCH (17:23)
--- NOTE | 2017-09-06 17:54 | CP.PCM.CON ---
History of Present Illness - History of Present Illness History of Present Illness: Mrs. 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 head showed an evolving right frontal lobe infarct. CTA showed severe right carotid stenosis. The patient is restless and seems to be agitated. She was not conversant. Review of Systems - Review of Systems Systems not reviewed;Unavailable: Acuity of Condition, Altered Mental Status Past Patient History - Infectious Disease Hx of Infectious Diseases: None - Tetanus Immunizations Tetanus Immunization: Unknown - Past Medical History & Family History Past Medical History?: Yes - Past Social History Smoking Status: Never Smoked - CARDIAC Hx Atrial Fibrillation: Yes Hx Cardia Arrhythmia: Yes Hx Congestive Heart Failure: Yes Hx Hypercholesterolemia: Yes Hx Hypertension: Yes Hx Pacemaker: Yes Hx Peripheral Edema: Yes - PULMONARY Hx Asthma: Yes Hx Chronic Obstructive Pulmonary Disease (COPD): Yes - NEUROLOGICAL Hx Dementia: Yes Hx Seizures: No - HEENT Hx HEENT Problems: No - RENAL Hx Chronic Kidney Disease: Yes - ENDOCRINE/METABOLIC Hx Hypothyroidism: Yes - HEMATOLOGICAL/ONCOLOGICAL Hx Anemia: Yes Hx Human Immunodeficiency Virus (HIV): No - INTEGUMENTARY Hx Dermatological Problems: No - MUSCULOSKELETAL/RHEUMATOLOGICAL Hx Arthritis: Yes Hx Fractures: Yes (left tibia) - GASTROINTESTINAL Hx Gastrointestinal Disorders: No - GENITOURINARY/GYNECOLOGICAL Hx Sexually Transmitted Disorders: No - PSYCHIATRIC Hx Anxiety: Yes Hx Depression: Yes - SURGICAL HISTORY Hx Tonsillectomy: Yes - ANESTHESIA Hx Anesthesia: Yes Hx Anesthesia Reactions: No Hx Malignant Hyperthermia: No Meds Allergies/Adverse Reactions: Allergies Allergy/AdvReac Type Severity Reaction Status Date / Time acetaminophen [From Percocet] AdvReac VOMITING Verified 07/01/17 11:44 oxycodone HCl [From Percocet] AdvReac VOMITING Verified 07/01/17 11:44 - Medications Medications: Current Medications Albuterol/Ipratropium (Duoneb 3 Mg/0.5 Mg (3 Ml) Ud) 3 ml IH RQ6 PRN PRN Reason: Wheezing Aspirin (Aspirin Supp) 300 mg UT DAILY [facility] Docusate Sodium (Colace) 100 mg PO BID [facility] Last Admin: 09/06/17 17:23 Dose: Not Given Enoxaparin Sodium (Lovenox) 60 mg SC Q12 MOUNA PRN Reason: Protocol Sodium Chloride (Sodium Chloride 0.9%) 1,000 mls @ 100 mls/hr IV .Q10H [facility] Stop: 09/07/17 14:30 Last Admin: 09/06/17 14:30 Dose: 100 mls/hr Levothyroxine Sodium (Synthroid) 75 mcg PO DAILY@0630 [facility] Loperamide HCl (Imodium) 2 mg PO Q6 PRN PRN Reason: Diarrhea Losartan Potassium (Cozaar) 50 mg PO DAILY [facility] Magnesium Hydroxide (Milk Of Magnesia) 30 ml PO HS PRN PRN Reason: Constipation Megestrol Acetate (Megace) 200 mg PO DAILY [facility] Last Admin: 09/06/17 17:23 Dose: Not Given Metoprolol Succinate (Toprol Xl) 25 mg PO BID [facility] Last Admin: 09/06/17 17:23 Dose: Not Given Montelukast Sodium (Singulair) 10 mg PO HS [facility] Potassium Chloride (Klor-Con 10) 10 meq PO DAILY [facility] Prochlorperazine (Compazine Rectal Supp) 25 mg UT Q12 PRN PRN Reason: Nausea/Vomiting Saccharomyces Boulardii (Florastor) 250 mg PO BID [facility] Last Admin: 09/06/17 17:23 Dose: Not Given Physical Exam - Constitutional Appears: Cachectic, Chronically Ill - Head Exam Head Exam: ATRAUMATIC, NORMAL INSPECTION, NORMOCEPHALIC - Neurological Exam Neurological exam: Altered, CN II-XII Intact Additional comments: Confused, non-verbal, left facial droop, left arm is 2/5 in strength, left leg is 3/5 in strength, she did not follow commands to perform full NIHSS, but based on exam she has an NIHSS of 18. Results - Vital Signs Recent Vital Signs: Last Vital Signs Temp 97.9 F 09/06/17 16:50 Pulse 65 09/06/17 16:50 Resp 20 09/06/17 16:50 BP 130/85 01/20/18 16:50 Pulse Ox 95 09/06/17 16:50 - Labs Result Diagrams: 09/06/17 12:39 09/06/17 12:39 Labs: Laboratory Results - last 24 hr 09/06/17 09/06/17 09/06/17 11:49 12:39 12:39 WBC 11.8 H RBC 3.57 L Hgb 11.1 L Hct 31.9 L MCV 89.4 D MCH 31.1 H MCHC 34.8 RDW 15.6 H Plt Count 286 MPV 8.7 Neut % (Auto) 83.1 H Lymph % (Auto) 9.9 L [place] % (Auto) 5.9 Eos % (Auto) 0.7 Baso % (Auto) 0.4 Neut # 9.8 H Lymph # 1.2 [place] # 0.7 Eos # 0.1 Baso # 0.0 Neutrophils % (Manual) 82 H Lymphocytes % (Manual) 10 L Monocytes % (Manual) 8 Platelet Estimate Normal Hypochromasia (manual) Slight Anisocytosis (manual) Slight Ovalocytes Slight PT INR APTT Sodium 145 Potassium 3.9 Chloride 113 H Carbon Dioxide 21 L Anion Gap 15 BUN 34 H Creatinine 1.2 Est GFR ( Amer) 52 Est GFR (Non-Af Amer) 43 POC Glucose (mg/dL) 167 H Random Glucose 178 H Calcium 8.8 Total Bilirubin 0.6 AST 16 ALT 32 Alkaline Phosphatase 50 Troponin I 0.1370 H* Total Protein 6.4 Albumin 3.1 L Globulin 3.3 Albumin/Globulin Ratio 0.9 L Triglycerides 140 Cholesterol 200 H LDL Cholesterol Direct 137 H HDL Cholesterol 27 L Blood Type Antibody Screen BBK History Checked 09/06/17 09/06/17 12:39 12:39 WBC RBC Hgb Hct MCV MCH MCHC RDW Plt Count MPV Neut % (Auto) Lymph % (Auto) [place] % (Auto) Eos % (Auto) Baso % (Auto) Neut # Lymph # [place] # Eos # Baso # Neutrophils % (Manual) Lymphocytes % (Manual) Monocytes % (Manual) Platelet Estimate Hypochromasia (manual) Anisocytosis (manual) Ovalocytes PT 11.5 INR 1.0 APTT 20.3 L Sodium Potassium Chloride Carbon Dioxide Anion Gap BUN Creatinine Est GFR ( Amer) Est GFR (Non-Af Amer) POC Glucose (mg/dL) Random Glucose Calcium Total Bilirubin AST ALT Alkaline Phosphatase Troponin I Total Protein Albumin Globulin Albumin/Globulin Ratio Triglycerides Cholesterol LDL Cholesterol Direct HDL Cholesterol Blood Type B POSITIVE Antibody Screen Negative BBK History Checked Patient has bt Assessment & Plan (1) CVA (cerebral vascular accident) Assessment and Plan: The patient has had a new acute to subacute ischemic stroke of the right frontal lobe, likely due to the MAJOR severe stenosis. I recommend antiplatelet agents with aspirin/plavix; however, she was unable to swallow. Therefor, aspirin suppository can be given. Furthermore, I recommend the followin. Telemetry 2. Echocardiogram with bubble study 3. Lipid panel 4. PT/OT eval and treat 5. Permissive HTN (only treat BP higher than 220/110 mm Hg for the next 24 hours , then begin to normalize) 6. Fluids: NS at 100 mL/hr 7. Case management consult Thank you. Status: Acute
--- NOTE | 2017-09-06 19:22 | CARD ---
APPROVED REPORT EKG Measurement Heart [id number] HI 222P [id number] <Conclusion> Sinus rhythm with 1st degree AV block Left axis deviation Left bundle branch block Abnormal ECG
[2017-09-06] MEDS: Enoxaparin 60 mg Syringe SC SCH (20:56)
[2017-09-07] MEDS: Sodium Chloride 0.9% 1,000 ML IV SCH ×3 (00:44→22:28)
[2017-09-07] MEDS: Levothyroxine 75 MCG TAB PO SCH (07:06)
[2017-09-07 07:07] LABS: HEMOGLOBIN 10.1 g/dL (12.0-16.0); MEAN CELL VOLUME 90.2 fl (81.0-99.0); MEAN CORPUSCULAR HEMOGLOBIN 30.7 pg (27.0-31.0); RBC 3.29 Mil/uL (3.80-5.20); RED CELL DISTRIBUTION WIDTH 16.1 % (11.5-14.5); WHITE BLOOD COUNT 10.1 K/uL (4.8-10.8)
[2017-09-07 07:11] LABS: CALCIUM 8.6 mg/dL (8.4-10.2)
--- NOTE | 2017-09-07 09:23 | CP.PCM.CON ---
History of Present Illness - History of Present Illness History of Present Illness: This 82-year-old female with multiple past hospitalizations who has been chronically institutionalized for dementia and has a history of diffuse vascular disease resulting in past cerebrovascular accident as well as severe vascular disease and a history of having of left second toe, chronic kidney disease, congestive cardiac failure with a AICD implant with diabetes mellitus was brought to the hospital because of deficient and suspicion of an evolving cerebrovascular accident. Incidentally an elevated troponin was detected and this consultation was requested. The patient has been bedbound with advanced dementia and inability to communicate. Physical examination shows an elderly female mildly restless but in no apparent distress breathing at 16-18 breaths per minute and unaware of her surroundings. Does not follow simple commands. Afebrile with a pulse rate of 70 bpm and regular and a blood pressure of 134/72 mmHg. Her jugular venous pressure was not elevated the left lower extremity had a contracture at the knee and could not BX pending. The patient was able to move the rest of her extremities but unable to follow commands. Her extremities were warm and her nailbeds were pink. There was no central or peripheral cyanosis and there was no pedal or sacral edema. [place] was not palpable. The first and second heart sounds were normal there was a brief ejection systolic murmur in the aortic area. There was a carotid bruit over the left carotid. There were no rales abdomen was soft no guarding or rigidity or tenderness or organomegaly was detected. Her electrocardiogram showed sinus rhythm with a left bundle branch block which was also seen on electrocardiograms of last year as well. Her lab data showed elevated BUN/creatinine and a depressed GFR, findings that were seen on earlier admissions as well. Her troponin levels appear elevated with all 3 readings virtually identical. An echocardiogram done in mid 2017 shows a depressed left ventricular systolic function with abnormal septal motion. Impression: Doubt acute myocardial infarction in this patient with diffuse vascular disease secondary to diabetes mellitus and CK D stage III. The patient has advanced dementia and the family has requested comfort care. Under the circumstances aggressive interventions would be fruitless and will not lead to any management decisions. The patient does not appear to be any respiratory distress and is hemodynamically stable and I do not recommend any further interventions. Past Patient History - Infectious Disease Hx of Infectious Diseases: None - Tetanus Immunizations Tetanus Immunization: Unknown - Past Medical History & Family History Past Medical History?: Yes - Past Social History Smoking Status: Never Smoked - CARDIAC Hx Cardiac Disorders: Yes Hx Atrial Fibrillation: Yes Hx Cardia Arrhythmia: Yes Hx Congestive Heart Failure: Yes Hx Hypercholesterolemia: Yes Hx Hypertension: Yes Hx Pacemaker: Yes Hx Peripheral Edema: Yes - PULMONARY Hx Respiratory Disorders: Yes Hx Asthma: Yes Hx Chronic Obstructive Pulmonary Disease (COPD): Yes - NEUROLOGICAL Hx Neurological Disorder: Yes Hx Dementia: Yes - HEENT Hx HEENT Problems: No - RENAL Hx Chronic Kidney Disease: No Hx Renal Failure: Yes - ENDOCRINE/METABOLIC Hx Endocrine Disorders: Yes Hx Diabetes Mellitus Type 2: Yes Hx Hypothyroidism: Yes - HEMATOLOGICAL/ONCOLOGICAL Hx Blood Disorders: Yes Hx AIDS: No Hx Anemia: Yes Hx Human Immunodeficiency Virus (HIV): No - INTEGUMENTARY Hx Dermatological Problems: No - MUSCULOSKELETAL/RHEUMATOLOGICAL Hx Musculoskeletal Disorders: Yes Hx Arthritis: Yes Hx Falls: No Hx Fractures: Yes (left tibia) - GASTROINTESTINAL Hx Gastrointestinal Disorders: No - GENITOURINARY/GYNECOLOGICAL Hx Genitourinary Disorders: No Hx Sexually Transmitted Disorders: No - PSYCHIATRIC Hx Psychophysiologic Disorder: Yes Hx Anxiety: Yes Hx Depression: Yes Hx Substance Use: No - SURGICAL HISTORY Hx Surgeries: Yes Hx Tonsillectomy: Yes - ANESTHESIA Hx Anesthesia: Yes Hx Anesthesia Reactions: No Hx Malignant Hyperthermia: No Has any member of the family had a problem w/ anesthesia?: No Meds Allergies/Adverse Reactions: Allergies Allergy/AdvReac Type Severity Reaction Status Date / Time acetaminophen [From Percocet] AdvReac VOMITING Verified 07/01/17 11:44 oxycodone HCl [From Percocet] AdvReac VOMITING Verified 07/01/17 11:44 - Medications Medications: Current Medications Albuterol/Ipratropium (Duoneb 3 Mg/0.5 Mg (3 Ml) Ud) 3 ml IH RQ6 PRN PRN Reason: Wheezing Aspirin (Aspirin Supp) 300 mg [place] DAILY [facility] Docusate Sodium (Colace) 100 mg PO BID [facility] Last Admin: 09/06/17 17:23 Dose: Not Given Enoxaparin Sodium (Lovenox) 60 mg [place] Q12 MOUNA PRN Reason: Protocol Last Admin: 09/06/17 20:56 Dose: 60 mg Sodium Chloride (Sodium Chloride 0.9%) 1,000 mls @ 100 mls/hr IV .Q10H MOUNA Stop: 09/07/17 14:30 Last Admin: 09/07/17 00:44 Dose: 100 mls/hr Levothyroxine Sodium (Synthroid) 75 mcg PO DAILY@0630 [facility] Last Admin: 09/07/17 07:06 Dose: Not Given Loperamide HCl (Imodium) 2 mg PO Q6 PRN PRN Reason: Diarrhea Losartan Potassium (Cozaar) 50 mg PO DAILY [facility] Magnesium Hydroxide (Milk Of Magnesia) 30 ml PO HS PRN PRN Reason: Constipation Megestrol Acetate (Megace) 200 mg PO DAILY [facility] Last Admin: 09/06/17 17:23 Dose: Not Given Metoprolol Succinate (Toprol Xl) 25 mg PO BID [facility] Last Admin: 09/06/17 17:23 Dose: Not Given Montelukast Sodium (Singulair) 10 mg PO HS [facility] Last Admin: 09/06/17 21:06 Dose: Not Given Potassium Chloride (Klor-Con 10) 10 meq PO DAILY [facility] Prochlorperazine (Compazine Rectal Supp) 25 mg [place] Q12 PRN PRN Reason: Nausea/Vomiting Saccharomyces Boulardii (Florastor) 250 mg PO BID [facility] Last Admin: 09/06/17 17:23 Dose: Not Given Results - Vital Signs Recent Vital Signs: Last Vital Signs Temp 98.9 F 09/07/17 08:00 Pulse 63 09/07/17 08:00 Resp 18 09/07/17 08:00 BP 159/72 H 09/07/17 08:00 Pulse Ox 93 L 09/07/17 08:00 - Labs Result Diagrams: 09/07/17 06:18 09/07/17 06:18 Labs: Laboratory Results - last 24 hr 09/06/17 09/06/17 09/06/17 11:49 12:39 12:39 WBC 11.8 H RBC 3.57 L Hgb 11.1 L Hct 31.9 L MCV 89.4 D MCH 31.1 H MCHC 34.8 RDW 15.6 H Plt Count 286 MPV 8.7 Neut % (Auto) 83.1 H Lymph % (Auto) 9.9 L [place] % (Auto) 5.9 Eos % (Auto) 0.7 Baso % (Auto) 0.4 Neut # 9.8 H Lymph # 1.2 [place] # 0.7 Eos # 0.1 Baso # 0.0 Neutrophils % (Manual) 82 H Lymphocytes % (Manual) 10 L Monocytes % (Manual) 8 Platelet Estimate Normal Hypochromasia (manual) Slight Anisocytosis (manual) Slight Ovalocytes Slight PT INR APTT Sodium 145 Potassium 3.9 Chloride 113 H Carbon Dioxide 21 L Anion Gap 15 BUN 34 H Creatinine 1.2 Est GFR ( Amer) 52 Est GFR (Non-Af Amer) 43 POC Glucose (mg/dL) 167 H Random Glucose 178 H Calcium 8.8 Total Bilirubin 0.6 AST 16 ALT 32 Alkaline Phosphatase 50 Troponin I 0.1370 H* Total Protein 6.4 Albumin 3.1 L Globulin 3.3 Albumin/Globulin Ratio 0.9 L Triglycerides 140 Cholesterol 200 H LDL Cholesterol Direct 137 H HDL Cholesterol 27 L Blood Type Antibody Screen BBK History Checked 09/06/17 09/06/17 09/06/17 12:39 12:39 20:18 WBC RBC Hgb Hct MCV MCH MCHC RDW Plt Count MPV Neut % (Auto) Lymph % (Auto) [place] % (Auto) Eos % (Auto) Baso % (Auto) Neut # Lymph # [place] # Eos # Baso # Neutrophils % (Manual) Lymphocytes % (Manual) Monocytes % (Manual) Platelet Estimate Hypochromasia (manual) Anisocytosis (manual) Ovalocytes PT 11.5 INR 1.0 APTT 20.3 L Sodium Potassium Chloride Carbon Dioxide Anion Gap BUN Creatinine Est GFR ( Amer) Est GFR (Non-Af Amer) POC Glucose (mg/dL) Random Glucose Calcium Total Bilirubin AST ALT Alkaline Phosphatase Troponin I 0.1350 H* Total Protein Albumin Globulin Albumin/Globulin Ratio Triglycerides Cholesterol LDL Cholesterol Direct HDL Cholesterol Blood Type B POSITIVE Antibody Screen Negative BBK History Checked Patient has bt 09/06/17 09/07/17 09/07/17 21:17 05:55 06:18 WBC 10.1 RBC 3.29 L Hgb 10.1 L Hct 29.7 L MCV 90.2 MCH 30.7 MCHC 34.0 RDW 16.1 H Plt Count 282 MPV Neut % (Auto) Lymph % (Auto) [place] % (Auto) Eos % (Auto) Baso % (Auto) Neut # Lymph # [place] # Eos # Baso # Neutrophils % (Manual) Lymphocytes % (Manual) Monocytes % (Manual) Platelet Estimate Hypochromasia (manual) Anisocytosis (manual) Ovalocytes PT INR APTT Sodium Potassium Chloride Carbon Dioxide Anion Gap BUN Creatinine Est GFR ( Amer) Est GFR (Non-Af Amer) POC Glucose (mg/dL) 111 H 106 Random Glucose Calcium Total Bilirubin AST ALT Alkaline Phosphatase Troponin I Total Protein Albumin Globulin Albumin/Globulin Ratio Triglycerides Cholesterol LDL Cholesterol Direct HDL Cholesterol Blood Type Antibody Screen BBK History Checked 09/07/17 09/07/17 06:18 06:18 WBC RBC Hgb Hct MCV MCH MCHC RDW Plt Count MPV Neut % (Auto) Lymph % (Auto) [place] % (Auto) Eos % (Auto) Baso % (Auto) Neut # Lymph # [place] # Eos # Baso # Neutrophils % (Manual) Lymphocytes % (Manual) Monocytes % (Manual) Platelet Estimate Hypochromasia (manual) Anisocytosis (manual) Ovalocytes PT INR APTT Sodium 146 Potassium 3.7 Chloride 114 H Carbon Dioxide 20 L Anion Gap 16 BUN 28 H Creatinine 1.2 Est GFR ( Amer) 52 Est GFR (Non-Af Amer) 43 POC Glucose (mg/dL) Random Glucose 112 H Calcium 8.6 Total Bilirubin AST ALT Alkaline Phosphatase Troponin I 0.1290 H* Total Protein Albumin Globulin Albumin/Globulin Ratio Triglycerides Cholesterol LDL Cholesterol Direct HDL Cholesterol Blood Type Antibody Screen BBK History Checked
--- NOTE | 2017-09-07 10:19 | CP.PCM.PN ---
Subjective - Date & Time of Evaluation Date of Evaluation: 09/07/17 Time of Evaluation: 09:00 - Subjective Subjective: Pt is awake- mumbling incomprehensible words no fever does not follow command noted to move all extremities however noted that left LE is contracted Objective - Vital Signs/Intake and Output Vital Signs (last 24 hours): Temp Pulse Resp BP Pulse Ox 98.9 F 63 18 159/72 H 93 L 09/07/17 08:00 09/07/17 08:00 09/07/17 08:00 09/07/17 08:00 09/07/17 08:00 - Medications Medications: Current Medications Albuterol/Ipratropium (Duoneb 3 Mg/0.5 Mg (3 Ml) Ud) 3 ml IH RQ6 PRN PRN Reason: Wheezing Aspirin (Aspirin Supp) 300 mg [place] DAILY [facility] Docusate Sodium (Colace) 100 mg PO BID [facility] Last Admin: 09/06/17 17:23 Dose: Not Given Enoxaparin Sodium (Lovenox) 60 mg SC Q12 MOUNA PRN Reason: Protocol Last Admin: 09/06/17 20:56 Dose: 60 mg Sodium Chloride (Sodium Chloride 0.9%) 1,000 mls @ 100 mls/hr IV .Q10H [facility] Stop: 09/07/17 14:30 Last Admin: 09/07/17 00:44 Dose: 100 mls/hr Levothyroxine Sodium (Synthroid) 75 mcg PO DAILY@0630 [facility] Last Admin: 09/07/17 07:06 Dose: Not Given Loperamide HCl (Imodium) 2 mg PO Q6 PRN PRN Reason: Diarrhea Losartan Potassium (Cozaar) 50 mg PO DAILY [facility] Magnesium Hydroxide (Milk Of Magnesia) 30 ml PO HS PRN PRN Reason: Constipation Megestrol Acetate (Megace) 200 mg PO DAILY [facility] Last Admin: 09/06/17 17:23 Dose: Not Given Montelukast Sodium (Singulair) 10 mg PO HS [facility] Last Admin: 09/06/17 21:06 Dose: Not Given Potassium Chloride (Klor-Con 10) 10 meq PO DAILY [facility] Prochlorperazine (Compazine Rectal Supp) 25 mg [place] Q12 PRN PRN Reason: Nausea/Vomiting Saccharomyces Boulardii (Florastor) 250 mg PO BID [facility] Last Admin: 09/06/17 17:23 Dose: Not Given - Labs Labs: 09/07/17 06:18 09/07/17 06:18 PT 11.5 Seconds (9.8-13.1) 09/06/17 12:39 INR 1.0 (0.9-1.2) 09/06/17 12:39 APTT 20.3 Seconds (25.6-37.1) L 09/06/17 12:39 - Constitutional Appears: Agitated, Chronically Ill - Head Exam Head Exam: NORMAL INSPECTION, NORMOCEPHALIC - Eye Exam Eye Exam: EOMI, Normal appearance Pupil Exam: NORMAL ACCOMODATION - ENT Exam ENT Exam: Mucous Membranes Dry, Normal External Ear Exam - Neck Exam Neck Exam: Full ROM. absent: Meningismus - Respiratory Exam Respiratory Exam: NORMAL BREATHING PATTERN. absent: Wheezes, Respiratory Distress - Cardiovascular Exam Cardiovascular Exam: Bradycardia, REGULAR RHYTHM, +S1, +S2 - GI/Abdominal Exam GI & Abdominal Exam: Soft, Normal Bowel Sounds. absent: Tenderness - Extremities Exam Extremities Exam: Normal Capillary Refill Additional comments: LLE contracted right 2nd toe amputated - Neurological Exam Neurological Exam: Alert, Awake Additional comments: dysarthric does not follow command - Psychiatric Exam Psychiatric exam: Agitated - Skin Skin Exam: Dry, Normal Color, Warm Assessment and Plan - Assessment and Plan (Free Text) Assessment: 82 yo female with Hx of HTN, DM, Dementia, CAD,CHF, Paroxysmal A Fib, CVA,CKD, COPD,Hypothyroidism sent in from SNF because of facial droop and aphasia. CT of Head : Acute/Subacute Infarct frontal lobe. Pt is NOT Hospice 1. Acute Right frontal lobe CVA/infarct -cont to monitor in Tele -cont Rectal ASA, start statin once able to take PO - Neuro consult : Dr. Valera - Conservative strategy at this point given hx and multiple comorbidities, advanced dementia - Nursing swallow evaluation- NPO for now - Neuro checks q 4 hours - Fall precautions - PT,OT , Speech tx consult - unable to do MRI due to presence of AICD 2. Elevated troponin - mild Trop elevation may be due to demand ischemia , unlikely ACS - discussed case with Dr Gamez - unlikely ACS - started on therapeutic Lovenox given in ED - EKG similar to previous with 1st degree AV block and chronic LBBB. - will d/c Lovenox 3. Paroxysmal A Fib - has Pacemaker - previously on Eliquis d/c due to hx of GI bleed and hx of fall - pt is Sinus at present - discussed with Dr Gamez - started on Therapeutic dose of Lovenox - will change to DVT proph dose 4. Stage III CHRONIC RENAL FAILURE - Cr 1.2, BUN 34 - At baseline - monitor 5. COPD - stable - cont duonebs and Singulair 6. DM Type II - Accucheck - hold DM meds as pt NPO and glucose level normal 7. Dementia 8. HTN - hold antihypertensives to allow for permissive HTN 9. HYPOTHYROID - cont synthroid when able to take PO 10. History of GI BLEED - Hg stable 11. CHF DIASTOLIC DYSFUNCTION, chronic - stable VTE PPX Lovenox
[2017-09-07] MEDS: Saccharomyces Boulardi 250 mg Cap PO SCH ×2 (10:58→16:07)
[2017-09-07] MEDS: Megestrol Acetate 40 mg/ml Cup PO SCH (10:59)
[2017-09-07] MEDS: Potassium Chloride 10 mEq ER Tab PO SCH (10:59)
[2017-09-07] MEDS: Enoxaparin 60 mg Syringe SC SCH (11:00)
--- NOTE | 2017-09-07 11:56 | CP.PCM.PN ---
Subjective - Date & Time of Evaluation Date of Evaluation: 09/07/17 Time of Evaluation: 11:53 - Subjective Subjective: Ms. Maciel was seen and examined at the bedside. She is awake, but very confused. She moans with facial grimacing with pain stimuli. She is unable to follow simple commands. She is on bed alarm for patient safety. There was no untoward events overnight. Objective - Vital Signs/Intake and Output Vital Signs (last 24 hours): Temp Pulse Resp BP Pulse Ox 98.9 F 63 18 159/72 H 93 L 09/07/17 08:00 09/07/17 08:00 09/07/17 08:00 09/07/17 08:00 09/07/17 08:00 - Medications Medications: Current Medications Albuterol/Ipratropium (Duoneb 3 Mg/0.5 Mg (3 Ml) Ud) 3 ml IH RQ6 PRN PRN Reason: Wheezing Aspirin (Aspirin Supp) 300 mg [place] DAILY [facility] Docusate Sodium (Colace) 100 mg PO BID [facility] Last Admin: 09/07/17 10:57 Dose: Not Given Enoxaparin Sodium (Lovenox) 60 mg [place] Q12 MOUNA PRN Reason: Protocol Last Admin: 09/07/17 11:00 Dose: 60 mg Sodium Chloride (Sodium Chloride 0.9%) 1,000 mls @ 100 mls/hr IV .Q10H [facility] Stop: 09/07/17 14:30 Last Admin: 09/07/17 11:00 Dose: 100 mls/hr Levothyroxine Sodium (Synthroid) 75 mcg PO DAILY@0630 [facility] Last Admin: 09/07/17 07:06 Dose: Not Given Loperamide HCl (Imodium) 2 mg PO Q6 PRN PRN Reason: Diarrhea Losartan Potassium (Cozaar) 50 mg PO DAILY [facility] Last Admin: 09/07/17 10:58 Dose: Not Given Magnesium Hydroxide (Milk Of Magnesia) 30 ml PO HS PRN PRN Reason: Constipation Megestrol Acetate (Megace) 200 mg PO DAILY [facility] Last Admin: 09/07/17 10:59 Dose: Not Given Montelukast Sodium (Singulair) 10 mg PO HS [facility] Last Admin: 09/06/17 21:06 Dose: Not Given Potassium Chloride (Klor-Con 10) 10 meq PO DAILY [facility] Last Admin: 09/07/17 10:59 Dose: Not Given Prochlorperazine (Compazine Rectal Supp) 25 mg [place] Q12 PRN PRN Reason: Nausea/Vomiting Saccharomyces Boulardii (Florastor) 250 mg PO BID [facility] Last Admin: 09/07/17 10:58 Dose: Not Given - Labs Labs: 09/07/17 06:18 09/07/17 06:18 PT 11.5 Seconds (9.8-13.1) 09/06/17 12:39 INR 1.0 (0.9-1.2) 09/06/17 12:39 APTT 20.3 Seconds (25.6-37.1) L 09/06/17 12:39 - Constitutional Appears: No Acute Distress - Head Exam Head Exam: NORMAL INSPECTION - Neurological Exam Neurological Exam: Awake Neuro motor strength exam: Left Upper Extremity: 2/1, Right Upper Extremity: 2/1 , Left Lower Extremity: 2/1, Right Lower Extremity: 2/1 Additional comments: She is very confused (baseline according to staff) and unable to participate during assessment , appropriate response to pain stimuli Assessment and Plan (1) CVA (cerebral vascular accident) Assessment & Plan: Case discussed with Dr. Valera, continue all current medical regimen. Recommend PT/OT eval and treat. Permissive HTN (only treat BP higher than 220/110 mm Hg for the next 24 hours, then begin to normalize) Status: Acute
--- NOTE | 2017-09-07 13:59 | CT ---
PROCEDURE: CT HEAD WITHOUT CONTRAST. HISTORY: CVA COMPARISON: None available. TECHNIQUE: Axial computed tomography images were obtained through the head/brain without intravenous contrast. Radiation dose: Total exam DLP = 1735.95 mGy-cm. This CT exam was performed using one or more of the following dose reduction techniques: Automated exposure control, adjustment of the mA and/or kV according to patient size, and/or use of iterative reconstruction technique. FINDINGS: Extensive motion artifacts limit the interpretation of this exam. Numerous series were performed to attempt to overcome excessive motion by the patient. HEMORRHAGE: No intracranial hemorrhage. BRAIN: Cortical lucency remains at a solitary gyrus in the posterior right frontal lobe remaining suspicious for probable subacute infarct at this point. MRI would be useful for follow-up if the patient is able to comply with positioning requirements. Diffuse cerebral atrophy chronic microangiopathy are reiterated. VENTRICLES: Unremarkable. No hydrocephalus. CALVARIUM: Unremarkable. PARANASAL SINUSES: Unremarkable as visualized. No significant inflammatory changes. MASTOID AIR CELLS: Unremarkable as visualized. No inflammatory changes. OTHER FINDINGS: None. IMPRESSION: Stable unenhanced but limited head CT given motion artifacts. Limited small lobar infarction other upper right frontal lobe is again questioned posteriorly. No intra hemorrhage or significant mass effect. Follow-up MRI would be useful if patient can comply with positioning requirements. Otherwise, continued clinical and possible CT follow-up are recommended. Age-related degenerative change are again identified as well as chronic lobar infarction right [employer] distribution.
[2017-09-08 05:19] LABS: HEMOGLOBIN 9.4 g/dL (12.0-16.0); RBC 3.13 Mil/uL (3.80-5.20); RED CELL DISTRIBUTION WIDTH 15.7 % (11.5-14.5); WHITE BLOOD COUNT 9.6 K/uL (4.8-10.8)
[2017-09-08 05:34] LABS: CALCIUM 8.6 mg/dL (8.4-10.2)
[2017-09-08] MEDS: Potassium Chloride 10 mEq ER Tab PO SCH (09:51)
[2017-09-08] MEDS: Saccharomyces Boulardi 250 mg Cap PO SCH ×2 (09:51→16:48)
[2017-09-08] MEDS: Enoxaparin 40 mg Syringe SC SCH (09:51)
[2017-09-08] MEDS: Megestrol Acetate 40 mg/ml Cup PO SCH (09:52)
[2017-09-08] MEDS: Sodium Chloride 0.9% 1,000 ML IV SCH (09:52)
[2017-09-08] MEDS: Levothyroxine 75 MCG TAB PO SCH (09:53)
[2017-09-08] MEDS ORDERED: Valproate 500 MG in Sodium Chloride 0.9% 100 ML IVPB ONE (10:37)
--- NOTE | 2017-09-08 11:15 | CP.PCM.PN ---
Subjective - Date & Time of Evaluation Date of Evaluation: 09/08/17 Time of Evaluation: 10:30 - Subjective Subjective: Pt failed swallow eval by Speech -will keep NPO episodes of agitation - discussed with Dr Valera- junior starting Depakote pt is dysarthric with facial droop noted to move extremities however noted some ext contraction no fever Objective - Vital Signs/Intake and Output Vital Signs (last 24 hours): Temp Pulse Resp BP Pulse Ox 98.2 F 81 18 175/74 H 99 09/08/17 08:42 09/08/17 08:42 09/08/17 08:42 09/08/17 08:42 09/08/17 08:42 - Medications Medications: Current Medications Albuterol/Ipratropium (Duoneb 3 Mg/0.5 Mg (3 Ml) Ud) 3 ml IH RQ6 PRN PRN Reason: Wheezing Aspirin (Aspirin Supp) 300 mg [place] DAILY [facility] Last Admin: 09/08/17 09:50 Dose: 300 mg Docusate Sodium (Colace) 100 mg PO BID [facility] Last Admin: 09/08/17 09:47 Dose: Not Given Enoxaparin Sodium (Lovenox) 40 mg SC DAILY [facility] PRN Reason: Protocol Last Admin: 09/08/17 09:51 Dose: 40 mg Sodium Chloride (Sodium Chloride 0.9%) 1,000 mls @ 100 mls/hr IV .Q10H [facility] Stop: 09/08/17 17:38 Last Admin: 09/08/17 09:52 Dose: 100 mls/hr Levothyroxine Sodium (Synthroid) 75 mcg PO DAILY@0630 [facility] Last Admin: 09/08/17 09:53 Dose: Not Given Loperamide HCl (Imodium) 2 mg PO Q6 PRN PRN Reason: Diarrhea Losartan Potassium (Cozaar) 50 mg PO DAILY [facility] Last Admin: 09/08/17 09:51 Dose: Not Given Magnesium Hydroxide (Milk Of Magnesia) 30 ml PO HS PRN PRN Reason: Constipation Megestrol Acetate (Megace) 200 mg PO DAILY [facility] Last Admin: 09/08/17 09:52 Dose: Not Given Montelukast Sodium (Singulair) 10 mg PO HS [facility] Last Admin: 09/07/17 22:27 Dose: Not Given Potassium Chloride (Klor-Con 10) 10 meq PO DAILY [facility] Last Admin: 09/08/17 09:51 Dose: Not Given Prochlorperazine (Compazine Rectal Supp) 25 mg [place] Q12 PRN PRN Reason: Nausea/Vomiting Saccharomyces Boulardii (Florastor) 250 mg PO BID [facility] Last Admin: 09/08/17 09:51 Dose: Not Given - Labs Labs: 09/08/17 04:20 09/08/17 04:20 PT 11.5 Seconds (9.8-13.1) 09/06/17 12:39 INR 1.0 (0.9-1.2) 09/06/17 12:39 APTT 20.3 Seconds (25.6-37.1) L 09/06/17 12:39 - Constitutional Appears: Agitated, Chronically Ill - Head Exam Head Exam: NORMAL INSPECTION, NORMOCEPHALIC - Eye Exam Eye Exam: EOMI, Normal appearance Pupil Exam: NORMAL ACCOMODATION - ENT Exam ENT Exam: Mucous Membranes Dry, Normal External Ear Exam - Neck Exam Neck Exam: Full ROM. absent: Meningismus - Respiratory Exam Respiratory Exam: NORMAL BREATHING PATTERN. absent: Wheezes, Respiratory Distress - Cardiovascular Exam Cardiovascular Exam: Bradycardia, REGULAR RHYTHM, +S1, +S2 - GI/Abdominal Exam GI & Abdominal Exam: Soft, Normal Bowel Sounds. absent: Tenderness - Extremities Exam Extremities Exam: Normal Capillary Refill Additional comments: LE contracted left 2nd toe amputated - Neurological Exam Neurological Exam: Alert, Awake Additional comments: dysarthric does not follow command - Psychiatric Exam Psychiatric exam: Agitated - Skin Skin Exam: Dry, Normal Color, Warm Assessment and Plan - Assessment and Plan (Free Text) Assessment: 82 yo female with Hx of HTN, DM, Dementia, CAD,CHF, Paroxysmal A Fib, CVA,CKD, COPD,Hypothyroidism sent in from SNF because of facial droop and aphasia. CT of Head : Acute/Subacute Infarct frontal lobe. Pt is NOT Hospice 1. Acute Right frontal lobe CVA/infarct -cont to monitor in Tele -cont Rectal ASA, start statin once able to take PO - Neuro consult : Dr. Valera - Conservative strategy at this point given hx and multiple comorbidities, advanced dementia - Neuro checks q 4 hours - Fall precautions - PT,OT , Speech tx consulted - Failed Swallow eval - keep NPO, discussed with Dr Cohen that pt may need PEG placement - unable to do MRI due to presence of AICD - Rpt CT of head : , no change , no hemorrhogic conversion 2. Elevated troponin - mild Trop elevation may be due to demand ischemia , unlikely ACS - discussed case with Dr Gamez - unlikely ACS - started on therapeutic Lovenox given in ED - EKG similar to previous with 1st degree AV block and chronic LBBB. - will d/c Lovenox 3. Paroxysmal A Fib - has Pacemaker - previously on Eliquis- d/c due to hx of GI bleed and hx of fall - pt is Sinus at present - discussed with Dr Gamez - given pt's multiple comorbidities, dementia, risk of fall and recent GI bleed - he does not rec anticoag - pt was initially started on Therapeutic dose of Lovenox - will change to DVT proph dose 4. Stage III CHRONIC RENAL FAILURE - Cr 1.2, BUN 34 - At baseline - monitor 5. COPD - stable - cont duonebs and Singulair 6. DM Type II - Accucheck - hold DM meds as pt NPO and glucose level normal - IVF with D5 for now as glucose reading showed low glucose 7. Dementia chronic , prob vascular 8. HTN - hold antihypertensives to allow for permissive HTN 9. HYPOTHYROIDISM - cont synthroid when able to take PO - check TSH, if elevated , will give IV Levothyroxine 10. History of GI BLEED - Hgb drop prob dilutional due to IVF - Occult blood 11. CHF DIASTOLIC DYSFUNCTION, chronic - stable 12. Agitation - started on Depakote IV while NPO VTE PPX Lovenox
--- NOTE | 2017-09-08 11:18 | CP.PCM.PN ---
Subjective - Date & Time of Evaluation Date of Evaluation: 09/08/17 Time of Evaluation: 11:16 - Subjective Subjective: Ms. Maciel was seen and examined at the bedside. She is awake, but every confused. She mumbles words that are incomprehensible. According to staff, she has episode of agitation/ restlessness. Her lower extremities are contracted. She is unable to follow any commands or answer any questions. Repeat CT of the head showed limited small lobar infarction in the right upper frontal lobe is questionable due to motion artifacts. There is no intrahemorrhage or significant mass effect. There is also an age related degenerative change age was identified and a chronic lobar infarction right [facility] [facility]. There was no untoward events overnight. Objective - Vital Signs/Intake and Output Vital Signs (last 24 hours): Temp Pulse Resp BP Pulse Ox 98.2 F 81 18 175/74 H 99 09/08/17 08:42 09/08/17 08:42 09/08/17 08:42 09/08/17 08:42 09/08/17 08:42 - Medications Medications: Current Medications Albuterol/Ipratropium (Duoneb 3 Mg/0.5 Mg (3 Ml) Ud) 3 ml IH RQ6 PRN PRN Reason: Wheezing Aspirin (Aspirin Supp) 300 mg [place] DAILY [facility] Last Admin: 09/08/17 09:50 Dose: 300 mg Docusate Sodium (Colace) 100 mg PO BID [facility] Last Admin: 09/08/17 09:47 Dose: Not Given Enoxaparin Sodium (Lovenox) 40 mg SC DAILY [facility] PRN Reason: Protocol Last Admin: 09/08/17 09:51 Dose: 40 mg Sodium Chloride (Sodium Chloride 0.9%) 1,000 mls @ 100 mls/hr IV .Q10H [facility] Stop: 09/08/17 17:38 Last Admin: 09/08/17 09:52 Dose: 100 mls/hr Valproate Sodium 500 mg/ (Sodium Chloride) 105 mls @ 0 mls/hr IVPB Q12 [facility] PRN Reason: Per Protocol Levothyroxine Sodium (Synthroid) 75 mcg PO DAILY@0630 [facility] Last Admin: 09/08/17 09:53 Dose: Not Given Loperamide HCl (Imodium) 2 mg PO Q6 PRN PRN Reason: Diarrhea Losartan Potassium (Cozaar) 50 mg PO DAILY [facility] Last Admin: 09/08/17 09:51 Dose: Not Given Magnesium Hydroxide (Milk Of Magnesia) 30 ml PO HS PRN PRN Reason: Constipation Megestrol Acetate (Megace) 200 mg PO DAILY [facility] Last Admin: 09/08/17 09:52 Dose: Not Given Montelukast Sodium (Singulair) 10 mg PO HS [facility] Last Admin: 09/07/17 22:27 Dose: Not Given Potassium Chloride (Klor-Con 10) 10 meq PO DAILY [facility] Last Admin: 09/08/17 09:51 Dose: Not Given Prochlorperazine (Compazine Rectal Supp) 25 mg [place] Q12 PRN PRN Reason: Nausea/Vomiting Saccharomyces Boulardii (Florastor) 250 mg PO BID [facility] Last Admin: 09/08/17 09:51 Dose: Not Given - Labs Labs: 09/08/17 04:20 09/08/17 04:20 PT 11.5 Seconds (9.8-13.1) 09/06/17 12:39 INR 1.0 (0.9-1.2) 09/06/17 12:39 APTT 20.3 Seconds (25.6-37.1) L 09/06/17 12:39 - Constitutional Appears: No Acute Distress - Head Exam Head Exam: NORMAL INSPECTION - Neurological Exam Neuro motor strength exam: Left Upper Extremity: 4, Right Upper Extremity: 4, Left Lower Extremity: 2/1 (contracted), Right Lower Extremity: 2/1 (contracted) Additional comments: Neurological unchanged form previous examination. Assessment and Plan (1) CVA (cerebral vascular accident) Assessment & Plan: Case discussed with Dr. Vaughan, continue all current medical regimen. Pending swallowing evaluation. Recommend Depakote 500 mg IVPB Q 12 hours for mood stabilizer since patient remains NPO. Status: Acute
[2017-09-08] MEDS: Valproate 500 MG in Sodium Chloride 0.9% 100 ML IVPB SCH ×2 (11:42→22:28)
[2017-09-08] MEDS: Potassium Chl 20 mEq in D5-NS 1,000 ML IV SCH (16:52)
[2017-09-09 05:55] LABS: HEMOGLOBIN 9.7 g/dL (12.0-16.0); MEAN CORPUSCULAR HEMOGLOBIN 30.6 pg (27.0-31.0); MEAN CORPUSCULAR HGB CONC 33.6 g/dL (33.0-37.0); RBC 3.16 Mil/uL (3.80-5.20); RED CELL DISTRIBUTION WIDTH 15.7 % (11.5-14.5); WHITE BLOOD COUNT 10.8 K/uL (4.8-10.8)
[2017-09-09 06:06] LABS: CALCIUM 8.7 mg/dL (8.4-10.2)
[2017-09-09] MEDS: Levothyroxine 75 MCG TAB PO SCH (06:20)
[2017-09-09] MEDS: Potassium Chl 20 mEq in D5-NS 1,000 ML IV SCH ×2 (07:39)
--- NOTE | 2017-09-09 07:52 | CP.PCM.PN ---
Subjective - Date & Time of Evaluation Date of Evaluation: 09/09/17 Time of Evaluation: 07:52 - Subjective Subjective: PT SOMNOLENT THIS MORNING DOES NOT APPEAR TO BE IN ANY DISTRESS HYPERTENSIVE, GIVEN LABETALOL AND HYDRALAZINE ATC 2/2 NO PO FAILED SWALLOW EVAL AGAIN Objective - Vital Signs/Intake and Output Vital Signs (last 24 hours): Temp Pulse Resp BP Pulse Ox 98.3 F 75 18 193/82 H 99 09/09/17 05:36 09/09/17 05:36 09/09/17 05:36 09/09/17 05:36 09/09/17 05:36 - Medications Medications: Current Medications Albuterol/Ipratropium (Duoneb 3 Mg/0.5 Mg (3 Ml) Ud) 3 ml IH RQ6 PRN PRN Reason: Wheezing Aspirin (Aspirin Supp) 300 mg [place] DAILY [facility] Last Admin: 09/08/17 09:50 Dose: 300 mg Docusate Sodium (Colace) 100 mg PO BID [facility] Last Admin: 09/08/17 16:48 Dose: Not Given Enoxaparin Sodium (Lovenox) 40 mg SC DAILY [facility] PRN Reason: Protocol Last Admin: 09/08/17 09:51 Dose: 40 mg Valproate Sodium 500 mg/ (Sodium Chloride) 105 mls @ 105 mls/hr IVPB Q12 [facility] PRN Reason: Per Protocol Last Admin: 09/08/17 22:28 Dose: 105 mls/hr Potassium Chloride/Dextrose/Sod Cl (Potassium Chl 20 Meq In D5-Ns) 1,000 mls @ 100 mls/hr IV .Q10H [facility] Stop: 09/09/17 14:00 Last Admin: 09/09/17 07:39 Dose: 100 mls/hr Levothyroxine Sodium (Synthroid) 75 mcg PO DAILY@0630 [facility] Last Admin: 09/09/17 06:20 Dose: Not Given Loperamide HCl (Imodium) 2 mg PO Q6 PRN PRN Reason: Diarrhea Losartan Potassium (Cozaar) 50 mg PO DAILY [facility] Last Admin: 09/08/17 09:51 Dose: Not Given Magnesium Hydroxide (Milk Of Magnesia) 30 ml PO HS PRN PRN Reason: Constipation Megestrol Acetate (Megace) 200 mg PO DAILY [facility] Last Admin: 09/08/17 09:52 Dose: Not Given Montelukast Sodium (Singulair) 10 mg PO HS [facility] Last Admin: 09/08/17 22:32 Dose: Not Given Potassium Chloride (Klor-Con 10) 10 meq PO DAILY [facility] Last Admin: 09/08/17 09:51 Dose: Not Given Prochlorperazine (Compazine Rectal Supp) 25 mg [place] Q12 PRN PRN Reason: Nausea/Vomiting Saccharomyces Boulardii (Florastor) 250 mg PO BID [facility] Last Admin: 09/08/17 16:48 Dose: Not Given - Labs Labs: 09/09/17 05:05 09/09/17 05:05 PT 11.5 Seconds (9.8-13.1) 09/06/17 12:39 INR 1.0 (0.9-1.2) 09/06/17 12:39 APTT 20.3 Seconds (25.6-37.1) L 09/06/17 12:39 - Constitutional Appears: Non-toxic, No Acute Distress - Head Exam Head Exam: ATRAUMATIC, NORMOCEPHALIC - Eye Exam Eye Exam: EOMI, PERRL - ENT Exam ENT Exam: Mucous Membranes Dry, Normal Oropharynx - Respiratory Exam Respiratory Exam: Clear to Ausculation Bilateral, NORMAL BREATHING PATTERN - Cardiovascular Exam Cardiovascular Exam: RRR, +S1, +S2 - GI/Abdominal Exam GI & Abdominal Exam: Soft, Normal Bowel Sounds - Extremities Exam Extremities Exam: Normal Capillary Refill. absent: Calf Tenderness - Back Exam Back Exam: absent: CVA tenderness (L), CVA tenderness (R) - Neurological Exam Neurological Exam: Alert, Awake - Psychiatric Exam Psychiatric exam: Flat Affect, Normal Affect - Skin Skin Exam: Dry, Warm Assessment and Plan - Assessment and Plan (Free Text) Plan: 82 yo female with Hx of HTN, DM, Dementia, CAD,CHF, Paroxysmal A Fib, CVA,CKD, COPD,Hypothyroidism sent in from SNF because of facial droop and aphasia. CT of Head : Acute/Subacute Infarct frontal lobe. Pt is NOT Hospice 1. Acute Right frontal lobe CVA/infarct -cont to monitor in Tele -cont Rectal ASA, start statin once able to take PO - Neuro consult : Dr. Valera - Conservative strategy at this point given hx and multiple comorbidities, advanced dementia - Neuro checks q 4 hours - Fall precautions - PT,OT , Speech tx consulted - Failed Swallow eval X2- keep NPO, discussed with Dr Cohen that pt may need PEG placement - unable to do MRI due to presence of AICD - Rpt CT of head : , no change , no hemorrhogic conversion 2. Elevated troponin - mild Trop elevation may be due to demand ischemia , unlikely ACS - discussed case with Dr Gamez - unlikely ACS - started on therapeutic Lovenox given in ED - EKG similar to previous with 1st degree AV block and chronic LBBB. - will d/c Lovenox 3. Paroxysmal A Fib - has Pacemaker - previously on Eliquis- d/c due to hx of GI bleed and hx of fall - pt is Sinus at present - discussed with Dr Gamez - given pt's multiple comorbidities, dementia, risk of fall and recent GI bleed - he does not rec anticoag - pt was initially started on Therapeutic dose of Lovenox - will change to DVT proph dose 4. Stage III CHRONIC RENAL FAILURE - Cr 1.2, BUN 34 - At baseline - monitor 5. COPD - stable - cont duonebs and Singulair 6. DM Type II - Accucheck - hold DM meds as pt NPO and glucose level normal - IVF with D5 for now as glucose reading showed low glucose 7. Dementia chronic , prob vascular 8. HTN - hold antihypertensives to allow for permissive HTN 9. HYPOTHYROIDISM - cont synthroid when able to take PO - check TSH, if elevated , will give IV Levothyroxine 10. History of GI BLEED - Hgb drop prob dilutional due to IVF - Occult blood 11. CHF DIASTOLIC DYSFUNCTION, chronic - stable 12. Agitation - started on Depakote IV while NPO VTE PPX Lovenox
[2017-09-09] MEDS: Enoxaparin 40 mg Syringe SC SCH (10:00)
[2017-09-09] MEDS: Saccharomyces Boulardi 250 mg Cap PO SCH ×2 (10:00→17:17)
[2017-09-09] MEDS: Megestrol Acetate 40 mg/ml Cup PO SCH (10:02)
[2017-09-09] MEDS: Potassium Chloride 10 mEq ER Tab PO SCH (10:02)
[2017-09-09] MEDS ORDERED: Chlorhexidine Gluconate 1 APPL/PKT TP ONE ×2 (10:06→19:07)
[2017-09-09] MEDS: Valproate 500 MG in Sodium Chloride 0.9% 100 ML IVPB SCH ×3 (10:10→21:42)
[2017-09-09] MEDS ORDERED: Labetalol 5 mg/ml Inj 20ML IVP STA (11:24)
[2017-09-09] MEDS: Potassium Ch 20mEq in D5-1/2NS 1,000 ML IV SCH ×2 (12:43→17:59)
[2017-09-09] MEDS ORDERED: Labetalol 5 mg/ml Inj 20ML IVP PRN (14:08)
[2017-09-09 20:34] LABS: ABG ALLEN TEST YES; ARTERIAL BLOOD GAS HCO3 18.3 mmol/L (21-28); ARTERIAL BLOOD GAS HEMOGLOBIN 9.7 g/dL (11.7-17.4); ARTERIAL BLOOD GAS O2 SAT 100.9 % (95-98); ARTERIAL BLOOD GAS PCO2 36 mm/Hg (35-45); ARTERIAL BLOOD GAS PH 7.29 (7.35-7.45); ARTERIAL BLOOD GAS PO2 231 mm/Hg (80-100); ARTERIAL BLOOD GAS TCO2 18.4 mmol/L (22-28)
[2017-09-10] MEDS: Potassium Ch 20mEq in D5-1/2NS 1,000 ML IV SCH ×3 (03:11→23:00)
[2017-09-10] MEDS: Levothyroxine 75 MCG TAB PO SCH (06:05)
[2017-09-10 06:08] LABS: HEMOGLOBIN 9.4 g/dL (12.0-16.0); MEAN CELL VOLUME 92.8 fl (81.0-99.0); MEAN CORPUSCULAR HEMOGLOBIN 30.3 pg (27.0-31.0); MEAN CORPUSCULAR HGB CONC 32.7 g/dL (33.0-37.0); RBC 3.1 Mil/uL (3.80-5.20); RED CELL DISTRIBUTION WIDTH 16.1 % (11.5-14.5); WHITE BLOOD COUNT 18.7 K/uL (4.8-10.8)
[2017-09-10 06:26] LABS: CALCIUM 8.3 mg/dL (8.4-10.2)
[2017-09-10] MEDS: Saccharomyces Boulardi 250 mg Cap PO SCH ×2 (09:46→19:17)
[2017-09-10] MEDS: Enoxaparin 40 mg Syringe SC SCH (09:47)
[2017-09-10] MEDS: Potassium Chloride 10 mEq ER Tab PO SCH (09:47)
[2017-09-10] MEDS: Valproate 500 MG in Sodium Chloride 0.9% 100 ML IVPB SCH ×2 (09:47→22:11)
[2017-09-10] MEDS: Megestrol Acetate 40 mg/ml Cup PO SCH (09:48)
--- NOTE | 2017-09-10 10:38 | CP.PCM.PN ---
Subjective - Date & Time of Evaluation Date of Evaluation: 09/10/17 Time of Evaluation: 10:38 - Subjective Subjective: very lethargic this morning. afebrile overnight. HD stable will continue to monitor Objective - Vital Signs/Intake and Output Vital Signs (last 24 hours): Temp Pulse Resp BP Pulse Ox 98.5 F 75 18 115/61 94 L 09/10/17 08:10 09/10/17 09:50 09/10/17 08:10 09/10/17 09:50 09/10/17 08:10 - Medications Medications: Current Medications Albuterol/Ipratropium (Duoneb 3 Mg/0.5 Mg (3 Ml) Ud) 3 ml IH RQ6 PRN PRN Reason: Wheezing Last Admin: 09/10/17 00:43 Dose: 3 ml Aspirin (Aspirin Supp) 300 mg [place] DAILY [facility] Last Admin: 09/10/17 09:47 Dose: 300 mg Docusate Sodium (Colace) 100 mg PO BID [facility] Last Admin: 09/10/17 09:40 Dose: Not Given Enoxaparin Sodium (Lovenox) 40 mg SC DAILY [facility] PRN Reason: Protocol Last Admin: 09/10/17 09:47 Dose: 40 mg Hydralazine HCl (Apresoline) 10 mg IV Q6 [facility] Last Admin: 09/10/17 09:50 Dose: 10 mg Valproate Sodium 500 mg/ (Sodium Chloride) 105 mls @ 105 mls/hr IVPB Q12 [facility] PRN Reason: Per Protocol Last Admin: 09/10/17 09:47 Dose: 105 mls/hr Labetalol HCl (Trandate) 20 mg IVP Q6H PRN PRN Reason: FOR SBP >180 Levothyroxine Sodium (Synthroid) 75 mcg PO DAILY@0630 [facility] Last Admin: 09/10/17 06:05 Dose: Not Given Loperamide HCl (Imodium) 2 mg PO Q6 PRN PRN Reason: Diarrhea Losartan Potassium (Cozaar) 50 mg PO DAILY [facility] Last Admin: 09/10/17 09:40 Dose: Not Given Magnesium Hydroxide (Milk Of Magnesia) 30 ml PO HS PRN PRN Reason: Constipation Megestrol Acetate (Megace) 200 mg PO DAILY [facility] Last Admin: 09/10/17 09:48 Dose: Not Given Montelukast Sodium (Singulair) 10 mg PO HS [facility] Last Admin: 09/09/17 21:45 Dose: Not Given Potassium Chloride (Klor-Con 10) 10 meq PO DAILY [facility] Last Admin: 09/10/17 09:47 Dose: Not Given Prochlorperazine (Compazine Rectal Supp) 25 mg [place] Q12 PRN PRN Reason: Nausea/Vomiting Saccharomyces Boulardii (Florastor) 250 mg PO BID [facility] Last Admin: 09/10/17 09:46 Dose: Not Given - Labs Labs: 09/10/17 05:53 09/10/17 05:53 PT 11.5 Seconds (9.8-13.1) 09/06/17 12:39 INR 1.0 (0.9-1.2) 09/06/17 12:39 APTT 20.3 Seconds (25.6-37.1) L 09/06/17 12:39 - Constitutional Appears: Cachectic, Chronically Ill - Head Exam Head Exam: ATRAUMATIC, NORMOCEPHALIC - Eye Exam Eye Exam: EOMI, PERRL - ENT Exam ENT Exam: Mucous Membranes Dry, Normal Oropharynx - Respiratory Exam Respiratory Exam: Clear to Ausculation Bilateral, NORMAL BREATHING PATTERN - Cardiovascular Exam Cardiovascular Exam: RRR, +S1, +S2 - GI/Abdominal Exam GI & Abdominal Exam: Soft, Normal Bowel Sounds - Extremities Exam Extremities Exam: Normal Capillary Refill. absent: Pedal Edema - Back Exam Back Exam: absent: CVA tenderness (L), CVA tenderness (R) - Neurological Exam Neurological Exam: Alert, Awake - Psychiatric Exam Psychiatric exam: absent: Normal Affect, Normal Mood - Skin Skin Exam: Dry, Warm Assessment and Plan - Assessment and Plan (Free Text) Plan: 82 yo female with Hx of HTN, DM, Dementia, CAD,CHF, Paroxysmal A Fib, CVA,CKD, COPD,Hypothyroidism sent in from SNF because of facial droop and aphasia. CT of Head : Acute/Subacute Infarct frontal lobe. Pt is NOT Hospice 09/10/17 - very lethargic this morning. afebrile overnight. patient +WBC jumped to 24.4, with high neutrophil count, without bands, procalcitonin ordered. Blood , Urine cultures, UA pending. Chest XR completed awaiting read. Possible aspiration pna vs. UTI. Also discussed with patient's daughter and son in law regarding failed swallow eval again, they do not wish to pursue PEG. 1. Acute Right frontal lobe CVA/infarct -cont to monitor in Tele -cont Rectal ASA, start statin once able to take PO - Neuro consult : Dr. Valera - Conservative strategy at this point given hx and multiple comorbidities, advanced dementia - Neuro checks q 4 hours - Fall precautions - PT,OT , Speech tx consulted - Failed Swallow eval X2- keep NPO, discussed with Dr Cohen that pt may need PEG placement - unable to do MRI due to presence of AICD - Rpt CT of head : , no change , no hemorrhagic conversion 2. Elevated troponin - mild Trop elevation may be due to demand ischemia , unlikely ACS - discussed case with Dr Gamez - unlikely ACS - started on therapeutic Lovenox given in ED - EKG similar to previous with 1st degree AV block and chronic LBBB. - will d/c Lovenox 3. Paroxysmal A Fib - has Pacemaker - previously on Eliquis- d/c due to hx of GI bleed and hx of fall - pt is Sinus at present - discussed with Dr Gamez - given pt's multiple comorbidities, dementia, risk of fall and recent GI bleed - he does not rec anticoag - pt was initially started on Therapeutic dose of Lovenox - will change to DVT proph dose 4. Stage III CHRONIC RENAL FAILURE - Cr 1.2, BUN 34 - At baseline - monitor 5. COPD - stable - cont duonebs and Singulair 6. DM Type II - Accucheck - hold DM meds as pt NPO and glucose level normal - IVF with D5 for now as glucose reading showed low glucose 7. Dementia chronic , prob vascular 8. HTN - hold antihypertensives to allow for permissive HTN 9. HYPOTHYROIDISM - cont synthroid when able to take PO - check TSH, if elevated , will give IV Levothyroxine 10. History of GI BLEED - Hgb drop prob dilutional due to IVF - Occult blood 11. CHF DIASTOLIC DYSFUNCTION, chronic - stable 12. Agitation - started on Depakote IV while NPO VTE PPX Lovenox
[2017-09-10] MEDS ORDERED: Potassium Ch 20mEq in D5-1/2NS 1,000 ML IV SCH (10:45)
[2017-09-10 13:15] LABS: HEMOGLOBIN 9.3 g/dL (12.0-16.0); LYMPH # 0.7 K/uL (1.0-4.3); MEAN CELL VOLUME 92.4 fl (81.0-99.0); MEAN CORPUSCULAR HEMOGLOBIN 30.3 pg (27.0-31.0); MEAN CORPUSCULAR HGB CONC 32.8 g/dL (33.0-37.0); MEAN PLATELET VOLUME 9.2 fl (7.2-11.7); MONO # 0.7 K/uL (0.0-0.8); MONO % 2.7 % (0.0-10.0); NEUT % 94.3 % (50.0-75.0); PLATELET COUNT 252 K/uL (130-400); RBC 3.07 Mil/uL (3.80-5.20); RED CELL DISTRIBUTION WIDTH 16.4 % (11.5-14.5); WHITE BLOOD COUNT 24.4 K/uL (4.8-10.8)
[2017-09-10 13:32] LABS: CALCIUM 8.3 mg/dL (8.4-10.2)
--- NOTE | 2017-09-10 14:38 | RAD ---
HISTORY: hypoxia COMPARISON: 09/06/2017 FINDINGS: LUNGS: Interval airspace opacities right lung base and left mid to lower lung zone noted -coalescing infiltrates and/or coalescent pulmonary edema considerations. PLEURA: No significant pleural effusion identified ;, no pneumothorax apparent. CARDIOVASCULAR: Cardiomegaly similar Position/ configuration of pacemaker device: Satisfactory. OSSEOUS STRUCTURES: Bilateral shoulder arthrosis. Old posttraumatic deformity right proximal humerus VISUALIZED UPPER ABDOMEN: Normal. OTHER FINDINGS: None. IMPRESSION: Interval bilateral coalescing infiltrates and/or pulmonary edema Cardiomegaly-similar Position/ configuration of pacemaker device: Satisfactory.
[2017-09-10 15:34] LABS: BANDS 23 % (0-2); LYMPHOCYTE 3 % (20-50); MONOCYTE 2 % (0-10); NEUTROPHIL 72 % (42-75); PLATELET ESTIMATE NORMAL (NORMAL); TOTAL CELLS COUNTED 100
[2017-09-10 15:35] LABS: ANISOCYTOSIS SLIGHT; BURR CELLS SLIGHT; LARGE PLATELETS PRESENT; OVALOCYTES SLIGHT; POIKILOCYTOSIS SLIGHT
[2017-09-10] MEDS ORDERED: Piperacillin/Tazobact 3.375 GM in Sodium Chloride 0.9% 100 ML IVPB SCH (16:00)
[2017-09-10 17:41] LABS: SQUAMOUS EPITHIAL 4 /hpf (0-5); URINE BACTERIA MANY (<OCC); URINE BILIRUBIN SMALL (NEGATIVE); URINE BLOOD MODERATE (NEGATIVE); URINE CLARITY TURBID (Clear); URINE COLOR AMBER (YELLOW); URINE GLUCOSE (UA) 150 mg/dL (Normal); URINE LEUKOCYTE ESTERASE MOD Leu/uL (Negative); URINE NITRATE NEGATIVE (NEGATIVE); URINE PROTEIN 100 mg/dL (NEGATIVE); WBC CLUMPS MANY /hpf
[2017-09-10] MEDS ORDERED: Amiodarone 150mg/3 ml vial ONE (18:16)
--- NOTE | 2017-09-10 19:47 | PCM.RRT ---
[employer] Nurse Assessment - Situation Location: [address] [place] [address] Room Number: [id number] [employer] Reason for Call: Tachycardia [employer] Called By: RN - Respiratory Oxygen Delivery Method: Mask Received Nebulizer Treatments: No Was the Patient Ventilated with Bag/Mask 100% O2?: No Secretions Suctioned?: Yes Was the Patient Intubated?: No Was the Patient Placed on a Ventilator?: No - Ventilator Settings Peak Flow: 150 - Medication Medications Administered During [employer]: Amiodarone 150mg IV x1 - Diagnostic Test Ordered EKG: Yes Chest X-Ray: No CT Scan: No CPR started during [employer]IST?: No - Vital Signs Vital Signs: Rapid Response Vital Sign Blood Pressure 130/71 Pulse Rate 160 Respiratory Rate 22 Temperature 98 F Oxygen Saturation 98 - Time [employer] Ended Time [employer] Ended: 18:25 - Vital Signs at end of [employer] Vital Signs at end of [employer]: Rapid Response End Vital Sign Blood Pressure 99/57 Pulse Rate 117 Respiratory Rate 18 Temperature 98 F O2 Sat by Pulse Oximetry 98 - Recommendations [employer] Level of Care Recommendations: Remain in current setting I.Reason for [employer] - A) Acute Change in Patient: (Select all that apply): Acute change in heart rate less than 50 or greater than 120 - Neurological Status (Select all that apply): Lethargic - Constitutional Appears: Chronically Ill, Other (Lethargic) - Eyes Eye Exam: PERRL - Respiratory Exam Respiratory Exam: Wheezes (Diffuse, scattered) - Cardiovascular Exam Cardiovascular Exam: Tachycardia, Irregular Rhythm - GI/Abdominal Exam GI & Abdominal Exam: Soft. absent: Distended, Tenderness, Organomegaly - Neurological Exam Neurological Exam: Awake. absent: Oriented x3 Additional exam: Lethargic - Extremities Exam Extremities Exam: absent: Joint Swelling Plan - Assessment of Findings&Treatment Plan 82 yo female with Hx of HTN, DM, Dementia, CAD, CHF, Paroxysmal A Fib, CVA, CKD , COPD, Hypothyroidism admitted for acute CVA was called [employer]IST for increased HR. Upon arrival patient was found to be lethargic, Responsive to painful stimuli. Initial VS: Blood Pressure 130/71 Pulse Rate 160 Respiratory Rate 22 Temperature 98 F Oxygen Saturation 98 EKG showed A.Fib with RVR A&P: A.Fib with RPR Patient was given Amiodarone 150 mg IV once Repeat VS: HR 120s, BP 108/60, O2sat 98 Patient was persistently tachy up to 130s after Amiodarone bolus and was decided to start on Amiodarone Drip. NO need for CPR or intubation during [employer]. VS at the end of [employer] Blood Pressure 99/57 Pulse Rate 117 Respiratory Rate 18 Temperature 98 F O2 Sat by Pulse Oximetry [address] Tomlin
[2017-09-11] MEDS: Potassium Ch 20mEq in D5-1/2NS 1,000 ML IV SCH (05:22)
[2017-09-11 06:30] LABS: LYMPH # 0.6 K/uL (1.0-4.3); LYMPH % 2.4 % (20.0-40.0); MEAN CELL VOLUME 93.7 fl (81.0-99.0); MEAN CORPUSCULAR HGB CONC 33.1 g/dL (33.0-37.0); MEAN PLATELET VOLUME 9.9 fl (7.2-11.7); MONO # 0.7 K/uL (0.0-0.8); MONO % 2.7 % (0.0-10.0); NEUT # 24.1 K/uL (1.8-7.0); NEUT % 94.9 % (50.0-75.0); RBC 3.21 Mil/uL (3.80-5.20); RED CELL DISTRIBUTION WIDTH 16.9 % (11.5-14.5); WHITE BLOOD COUNT 25.4 K/uL (4.8-10.8)
[2017-09-11 06:31] LABS: CALCIUM 8.4 mg/dL (8.4-10.2)
--- NOTE | 2017-09-11 09:04 | CP.PCM.PN ---
Subjective - Date & Time of Evaluation Date of Evaluation: 09/11/17 Time of Evaluation: 08:30 - Subjective Subjective: I was asked to see the pt because she was treated for "ventricular tchycardia" Review of her EKG reveals a bout of A Fib in a pt with long standing LBBB on her EKG Pt had received IV Amiodarone followed by Amiodarone drip at this point She was still in A Fib at slower HR with a BP of 124/70 mm Hg She is not aware of her surroundings Does not respond to calling a responds sluggishly to painful stimuli Breathes at 18-20 BPM has copious bronchial secretions (Being suctioned by nurses repeatedly ) Being managed by nurology following a recent stroke Has multistroke dementia Family has requested DNR/DNI ?? Hospice Have discussed this with Dr. ANDREW Will order Digoxin for rate control Doubt if pt will benefit with chr anticoagulation. Objective - Vital Signs/Intake and Output Vital Signs (last 24 hours): Temp Pulse Resp BP Pulse Ox 98.5 F 98 H 18 117/67 100 09/11/17 08:00 09/11/17 08:00 09/11/17 08:00 09/11/17 08:00 09/11/17 08:00 Intake and Output: 09/11/17 09/11/17 06:59 18:59 Intake Total 1250 Balance 1250 - Medications Medications: Current Medications Albuterol/Ipratropium (Duoneb 3 Mg/0.5 Mg (3 Ml) Ud) 3 ml IH RQ6 PRN PRN Reason: Wheezing Last Admin: 09/10/17 00:43 Dose: 3 ml Aspirin (Aspirin Supp) 300 mg AR DAILY [facility] Last Admin: 09/10/17 09:47 Dose: 300 mg Docusate Sodium (Colace) 100 mg PO BID [facility] Last Admin: 09/10/17 19:17 Dose: Not Given Hydralazine HCl (Apresoline) 10 mg IV Q6 [facility] Last Admin: 09/11/17 05:20 Dose: 10 mg Piperacillin Sod/Tazobactam (Sod 2.25 gm/ Sodium Chloride) 100 mls @ 100 mls/ hr IVPB Q6 [facility] PRN Reason: Protocol Last Admin: 09/11/17 07:08 Dose: 100 mls/hr Vancomycin HCl 750 mg/ Sodium (Chloride) 250 mls @ 166.667 mls/hr IVPB Q12H [facility] PRN Reason: Protocol Last Admin: 09/11/17 04:00 Dose: 166.667 mls/hr Potassium Chloride/Dextrose/Sod Cl (Potassium Chl 20 Meq In D5-1/2ns) 1,000 mls @ 150 mls/hr IV .Q6H40M [facility] Stop: 09/11/17 10:41 Last Admin: 09/11/17 05:22 Dose: Not Given Insulin Human Regular (Humulin R) 0 units SC ACHS [facility] PRN Reason: Protocol Labetalol HCl (Trandate) 20 mg IVP Q6H PRN PRN Reason: FOR SBP >180 Levothyroxine Sodium (Synthroid) 75 mcg PO DAILY@0630 [facility] Last Admin: 09/10/17 06:05 Dose: Not Given Loperamide HCl (Imodium) 2 mg PO Q6 PRN PRN Reason: Diarrhea Losartan Potassium (Cozaar) 50 mg PO DAILY [facility] Last Admin: 09/10/17 09:40 Dose: Not Given Magnesium Hydroxide (Milk Of Magnesia) 30 ml PO HS PRN PRN Reason: Constipation Megestrol Acetate (Megace) 200 mg PO DAILY [facility] Last Admin: 09/10/17 09:48 Dose: Not Given Montelukast Sodium (Singulair) 10 mg PO HS [facility] Last Admin: 09/10/17 22:17 Dose: Not Given Prochlorperazine (Compazine Rectal Supp) 25 mg [place] Q12 PRN PRN Reason: Nausea/Vomiting Saccharomyces Boulardii (Florastor) 250 mg PO BID [facility] Last Admin: 09/10/17 19:17 Dose: Not Given - Labs Labs: 09/11/17 05:00 09/11/17 05:00 PT 11.5 Seconds (9.8-13.1) 09/06/17 12:39 INR 1.0 (0.9-1.2) 09/06/17 12:39 APTT 20.3 Seconds (25.6-37.1) L 09/06/17 12:39
[2017-09-11] MEDS: Enoxaparin 40 mg Syringe SC SCH (09:09)
[2017-09-11] MEDS: Insulin Regular 100 units/ml SC SCH ×2 (09:10→12:42)
[2017-09-11] MEDS: Saccharomyces Boulardi 250 mg Cap PO SCH ×2 (09:11→16:27)
[2017-09-11] MEDS: Megestrol Acetate 40 mg/ml Cup PO SCH (09:12)
[2017-09-11] MEDS: Levothyroxine 75 MCG TAB PO SCH (09:12)
[2017-09-11] MEDS ORDERED: Digoxin 500 mcg/2ml (0.5 mg/2ml) Inj IVP SCH (09:15)
[2017-09-11 09:20] VITALS: PULSE 98
--- NOTE | 2017-09-11 09:30 | CP.PCM.PN ---
Subjective - Date & Time of Evaluation Date of Evaluation: 09/11/17 Time of Evaluation: 09:26 - Subjective Subjective: Mr. Maciel was seen and examined at the bedside. She is very lethargic, on a ventimask for oxygen supplement saturating at 99%. She is not responsive to any painful stimuli with her pupils unequal 6 mm in her right eye and 2 mm in her left eye. The patient is a DNR but not DNI. There was no untoward events overnight. Objective - Vital Signs/Intake and Output Vital Signs (last 24 hours): Temp Pulse Resp BP Pulse Ox 98.5 F 98 H 18 117/67 100 09/11/17 08:00 09/11/17 09:17 09/11/17 08:00 09/11/17 09:17 09/11/17 08:00 Intake and Output: 09/11/17 09/11/17 06:59 18:59 Intake Total 1250 Balance 1250 - Medications Medications: Current Medications Albuterol/Ipratropium (Duoneb 3 Mg/0.5 Mg (3 Ml) Ud) 3 ml IH RQ6 PRN PRN Reason: Wheezing Last Admin: 09/10/17 00:43 Dose: 3 ml Aspirin (Aspirin Supp) 300 mg [place] DAILY [facility] Last Admin: 09/11/17 09:16 Dose: 300 mg Digoxin (Lanoxin) 0.125 mg IVP DAILY [facility] Last Admin: 09/11/17 09:19 Dose: 0.125 mg Docusate Sodium (Colace) 100 mg PO BID [facility] Last Admin: 09/11/17 09:13 Dose: Not Given Hydralazine HCl (Apresoline) 10 mg IV Q6 [facility] Last Admin: 09/11/17 09:17 Dose: 10 mg Piperacillin Sod/Tazobactam (Sod 2.25 gm/ Sodium Chloride) 100 mls @ 100 mls/ hr IVPB Q6 [facility] PRN Reason: Protocol Last Admin: 09/11/17 09:12 Dose: 100 mls/hr Vancomycin HCl 750 mg/ Sodium (Chloride) 250 mls @ 166.667 mls/hr IVPB Q12H [facility] PRN Reason: Protocol Last Admin: 09/11/17 04:00 Dose: 166.667 mls/hr Potassium Chloride/Dextrose/Sod Cl (Potassium Chl 20 Meq In D5-1/2ns) 1,000 mls @ 150 mls/hr IV .Q6H40M [facility] Stop: 09/11/17 10:41 Last Admin: 09/11/17 05:22 Dose: Not Given Insulin Human Regular (Humulin R) 0 units SC ACHS [facility] PRN Reason: Protocol Last Admin: 09/11/17 09:10 Dose: 4 units Labetalol HCl (Trandate) 20 mg IVP Q6H PRN PRN Reason: FOR SBP >180 Levothyroxine Sodium (Synthroid) 75 mcg PO DAILY@0630 [facility] Last Admin: 09/11/17 09:12 Dose: Not Given Loperamide HCl (Imodium) 2 mg PO Q6 PRN PRN Reason: Diarrhea Losartan Potassium (Cozaar) 50 mg PO DAILY [facility] Last Admin: 09/11/17 09:12 Dose: Not Given Magnesium Hydroxide (Milk Of Magnesia) 30 ml PO HS PRN PRN Reason: Constipation Megestrol Acetate (Megace) 200 mg PO DAILY [facility] Last Admin: 09/11/17 09:12 Dose: Not Given Montelukast Sodium (Singulair) 10 mg PO HS [facility] Last Admin: 09/10/17 22:17 Dose: Not Given Prochlorperazine (Compazine Rectal Supp) 25 mg CA Q12 PRN PRN Reason: Nausea/Vomiting Saccharomyces Boulardii (Florastor) 250 mg PO BID [facility] Last Admin: 09/11/17 09:11 Dose: Not Given - Labs Labs: 09/11/17 05:00 09/11/17 05:00 PT 11.5 Seconds (9.8-13.1) 09/06/17 12:39 INR 1.0 (0.9-1.2) 09/06/17 12:39 APTT 20.3 Seconds (25.6-37.1) L 09/06/17 12:39 - Constitutional Appears: Chronically Ill - Head Exam Head Exam: NORMAL INSPECTION - Neurological Exam Neuro motor strength exam: Left Upper Extremity: 0, Right Upper Extremity: 0, Left Lower Extremity: 0, Right Lower Extremity: 0 Additional comments: GCS-3 Assessment and Plan (1) CVA (cerebral vascular accident) Assessment & Plan: Case discussed with Dr. Vaughan, recommend repeat CT of the head without contrast stat, palliative care, and continue all current medical regimen. Recommend to discontinue depakote 500 mg IV Q 12. Status: Acute
--- NOTE | 2017-09-11 11:10 | CP.PCM.PN ---
Subjective - Date & Time of Evaluation Date of Evaluation: 09/11/17 Time of Evaluation: 10:30 - Subjective Subjective: Pt is unresponsive Spoke with daughter Maya and Dr Cohen - plan now is for Comfort Care - they dont want Hospice Care Prognosis is very poor Agreed to starting Morphine for Comfort cont Oxygen for comfort Objective - Vital Signs/Intake and Output Vital Signs (last 24 hours): Temp Pulse Resp BP Pulse Ox 98.5 F 98 H 18 117/67 100 09/11/17 08:00 09/11/17 09:17 09/11/17 08:00 09/11/17 09:17 09/11/17 08:00 Intake and Output: 09/11/17 09/11/17 06:59 18:59 Intake Total 1250 Balance 1250 - Medications Medications: Current Medications Albuterol/Ipratropium (Duoneb 3 Mg/0.5 Mg (3 Ml) Ud) 3 ml IH RQ6 PRN PRN Reason: Wheezing Last Admin: 09/10/17 00:43 Dose: 3 ml Aspirin (Aspirin Supp) 300 mg [place] DAILY [facility] Last Admin: 09/11/17 09:16 Dose: 300 mg Digoxin (Lanoxin) 0.125 mg IVP DAILY [facility] Last Admin: 09/11/17 09:19 Dose: 0.125 mg Docusate Sodium (Colace) 100 mg PO BID [facility] Last Admin: 09/11/17 09:13 Dose: Not Given Hydralazine HCl (Apresoline) 10 mg IV Q6 [facility] Last Admin: 09/11/17 09:17 Dose: 10 mg Piperacillin Sod/Tazobactam (Sod 2.25 gm/ Sodium Chloride) 100 mls @ 100 mls/ hr IVPB Q6 [facility] PRN Reason: Protocol Last Admin: 09/11/17 09:12 Dose: 100 mls/hr Vancomycin HCl 750 mg/ Sodium (Chloride) 250 mls @ 166.667 mls/hr IVPB Q12H [facility] PRN Reason: Protocol Last Admin: 09/11/17 04:00 Dose: 166.667 mls/hr Insulin Human Regular (Humulin R) 0 units SC ACHS [facility] PRN Reason: Protocol Last Admin: 09/11/17 09:10 Dose: 4 units Labetalol HCl (Trandate) 20 mg IVP Q6H PRN PRN Reason: FOR SBP >180 Levothyroxine Sodium (Synthroid) 75 mcg PO DAILY@0630 [facility] Last Admin: 09/11/17 09:12 Dose: Not Given Loperamide HCl (Imodium) 2 mg PO Q6 PRN PRN Reason: Diarrhea Losartan Potassium (Cozaar) 50 mg PO DAILY [facility] Last Admin: 09/11/17 09:12 Dose: Not Given Magnesium Hydroxide (Milk Of Magnesia) 30 ml PO HS PRN PRN Reason: Constipation Megestrol Acetate (Megace) 200 mg PO DAILY [facility] Last Admin: 09/11/17 09:12 Dose: Not Given Montelukast Sodium (Singulair) 10 mg PO HS [facility] Last Admin: 09/10/17 22:17 Dose: Not Given Prochlorperazine (Compazine Rectal Supp) 25 mg HI Q12 PRN PRN Reason: Nausea/Vomiting Saccharomyces Boulardii (Florastor) 250 mg PO BID [facility] Last Admin: 09/11/17 09:11 Dose: Not Given - Labs Labs: 09/11/17 05:00 09/11/17 05:00 PT 11.5 Seconds (9.8-13.1) 09/06/17 12:39 INR 1.0 (0.9-1.2) 09/06/17 12:39 APTT 20.3 Seconds (25.6-37.1) L 09/06/17 12:39 - Constitutional Appears: Toxic, Chronically Ill - Head Exam Head Exam: NORMAL INSPECTION, NORMOCEPHALIC - ENT Exam ENT Exam: Mucous Membranes Dry, Normal External Ear Exam - Respiratory Exam Respiratory Exam: Rales, Rhonchi, Respiratory Distress - Cardiovascular Exam Cardiovascular Exam: Irregular Rhythm, +S1, +S2 - GI/Abdominal Exam GI & Abdominal Exam: Soft - Neurological Exam Additional comments: unresponsive Assessment and Plan - Assessment and Plan (Free Text) Assessment: 82 yo female with Hx of HTN, DM, Dementia, CAD,CHF, Paroxysmal A Fib, CVA,CKD, COPD,Hypothyroidism sent in from SNF because of facial droop and aphasia. CT of Head : Acute/Subacute Infarct frontal lobe. 09/11 Pt is very lethargic , unresponsive , breathing labored. Discussed case with daughter Maya and Dr Cohen. They would like to proceed with just Comfort Care. Discussed starting Morphine IV . Understands very poor prognosis . Family do not want further treatment , no PEG. No further labs 1. Acute Right frontal lobe CVA/infarct will d/c ASA and Statin - Comfort Care - start Morphine IV q 2 prn for pain , agitation, May give Ativan prn for agitation 2. Elevated troponin - mild Trop elevation may be due to demand ischemia , unlikely ACS 3. Paroxysmal A Fib - has Pacemaker - previously on Eliquis- d/c due to hx of GI bleed and hx of fall 4. Stage III CHRONIC RENAL FAILURE at baseline 5. COPD - stable 6. DM Type II d/c accucheck 7. Dementia chronic , prob vascular 8. HTN 9. HYPOTHYROIDISM 10. History of GI BLEED 11. CHF DIASTOLIC DYSFUNCTION, chronic - stable 12. Agitation DVT proph : - d/c Lovenox
[2017-09-11] MEDS ORDERED: Morphine 4 MG/ML VIAL IVP PRN (12:19)
[2017-09-11 16:24] VITALS: O2SAT 100
[2017-09-11] MEDS ORDERED: Morphine 100 MG in Sodium Chloride 0.9% 100 ML IVPB SCH (20:00)
[2017-09-11 20:23] VITALS: BP 62/40; PULSE 83; RESP 10; TEMP 98.3
--- NOTE | 2017-09-11 23:38 | CP.PCM.PRO ---
Pronouncement of Note - Clinical Findings Physical Exam: No Response Verbal/Painful Stimuli, Absent Peripheral Pulses{ Carotid & Femoral}, Absent Heart & Breath Sounds, No Pupillary Light Reflex, No Corneal Reflex, Pupils Fixed & Dilated, Absence of Vital Signs - Pronouncement Time Time of Pronouncement of : 22:44 (Date Of 09/11/2017) - Notifications Pronouncement Notifications: Family Notified, Atending Notified Cyber Instructor Notified: No - Autopsy Autopsy Requested: No - [place] [id number] Additional Comments: This patient was DNR/DNI
--- NOTE | 2017-09-12 06:37 | CP.PCM.DIS ---
Provider - Provider Date of Admission: 09/06/17 13:43 Attending physician: Mendel Mcguire DO Primary care physician: Dr Cohen Consults: Neurology: Dr Valrea Cardiology: Dr William Gamez Time Spent in preparation of Discharge (in minutes): 35 (Including Pronouncing the ) Hospital Course - Lab Results Lab Results: Micro Results 09/10/17 17:15 Urine,Catheterized Urine Culture - Preliminary Gram Negative [place] 09/10/17 14:55 Blood Blood Culture - Preliminary NO GROWTH AFTER 24 HOURS 09/10/17 14:45 Blood Blood Culture - Preliminary NO GROWTH AFTER 24 HOURS Most Recent Lab Values WBC 25.4 K/uL (4.8-10.8) H 09/11/17 05:00 RBC 3.21 Mil/uL (3.80-5.20) L 09/11/17 05:00 Hgb 10.0 g/dL (12.0-16.0) L 09/11/17 05:00 Hct 30.1 % (34.0-47.0) L 09/11/17 05:00 MCV 93.7 fl (81.0-99.0) 09/11/17 05:00 MCH 31.0 pg (27.0-31.0) 09/11/17 05:00 MCHC 33.1 g/dL (33.0-37.0) 09/11/17 05:00 RDW 16.9 % (11.5-14.5) H 09/11/17 05:00 Plt Count 287 K/uL (130-400) 09/11/17 05:00 MPV 9.9 fl (7.2-11.7) 09/11/17 05:00 Neut % (Auto) 94.9 % (50.0-75.0) H 09/11/17 05:00 Lymph % (Auto) 2.4 % (20.0-40.0) L 09/11/17 05:00 [place] % (Auto) 2.7 % (0.0-10.0) 09/11/17 05:00 Eos % (Auto) 0.0 % (0.0-4.0) 09/11/17 05:00 Baso % (Auto) 0.0 % (0.0-2.0) 09/11/17 05:00 Neut # 24.1 K/uL (1.8-7.0) H 09/11/17 05:00 Lymph # 0.6 K/uL (1.0-4.3) L 09/11/17 05:00 [place] # 0.7 K/uL (0.0-0.8) 09/11/17 05:00 Eos # 0.0 K/uL (0.0-0.7) 09/11/17 05:00 Baso # 0.0 K/uL (0.0-0.2) 09/11/17 05:00 Total Counted Cancelled 09/11/17 05:00 Neutrophils % (Manual) 72 % (42-75) 09/10/17 12:40 Band Neutrophils % 23 % (0-2) H* 09/10/17 12:40 Lymphocytes % (Manual) 3 % (20-50) L 09/10/17 12:40 Reactive Lymphs % Cancelled 09/11/17 05:00 Monocytes % (Manual) 2 % (0-10) 09/10/17 12:40 Eosinophils % (Manual) Cancelled 09/11/17 05:00 Basophils % (Manual) Cancelled 09/11/17 05:00 Metamyelocytes % Cancelled 09/11/17 05:00 Myelocytes % Cancelled 09/11/17 05:00 Promyelocytes % Cancelled 09/11/17 05:00 Blast Cells % Cancelled 09/11/17 05:00 Plasma Cell % (Manual) Cancelled 09/11/17 05:00 Nucleated RBC % Cancelled 09/11/17 05:00 Hypersegmented Polys Cancelled 09/11/17 05:00 Smudge Cells Cancelled 09/11/17 05:00 Toxic Granulation Cancelled 09/11/17 05:00 Dohle Bodies Cancelled 09/11/17 05:00 Ramona Rods Cancelled 09/11/17 05:00 Platelet Estimate Normal (NORMAL) 09/10/17 12:40 Plt Clumps, EDTA Cancelled 09/11/17 05:00 Large Platelets Present 09/10/17 12:40 Giant Platelets Cancelled 09/11/17 05:00 RBC Morphology Cancelled 09/11/17 05:00 Polychromasia Cancelled 09/11/17 05:00 Hypochromasia (manual) Slight 09/06/17 12:39 Poikilocytosis (manual Slight 09/10/17 12:40 Basophilic Stippling Cancelled 09/11/17 05:00 Anisocytosis (manual) Slight 09/10/17 12:40 Microcytosis (manual) Cancelled 09/11/17 05:00 Macrocytosis (manual) Cancelled 09/11/17 05:00 Spherocytes Cancelled 09/11/17 05:00 Sickle Cells Cancelled 09/11/17 05:00 Target Cells Cancelled 09/11/17 05:00 Tear Drop Cells Cancelled 09/11/17 05:00 Ovalocytes Slight 09/10/17 12:40 Stomatocytes Cancelled 09/11/17 05:00 Helmet Cells Cancelled 09/11/17 05:00 [place] Bodies Cancelled 09/11/17 05:00 [place] Cells Slight 09/10/17 12:40 Acanthocytes (Spur) Cancelled 09/11/17 05:00 [place]leaux Cancelled 09/11/17 05:00 Schistocytes Cancelled 09/11/17 05:00 PT 11.5 Seconds (9.8-13.1) 09/06/17 12:39 INR 1.0 (0.9-1.2) 09/06/17 12:39 APTT 20.3 Seconds (25.6-37.1) L 09/06/17 12:39 pCO2 36 mm/Hg (35-45) 09/09/17 20:30 pO2 231 mm/Hg (80-100) H 09/09/17 20:30 HCO3 18.3 mmol/L (21-28) L 09/09/17 20:30 ABG pH 7.29 (7.35-7.45) L 09/09/17 20:30 ABG Total CO2 18.4 mmol/L (22-28) L 09/09/17 20:30 ABG O2 Saturation 100.9 % (95-98) H 09/09/17 20:30 ABG Base Excess -8.5 mmol/L (-2.0-3.0) L 09/09/17 20:30 ABG Hemoglobin 9.7 g/dL (11.7-17.4) L 09/09/17 20:30 ABG Carboxyhemoglobin 1.5 % (0.5-1.5) 09/09/17 20:30 POC ABG HHb (Measured) -0.9 % (0.0-5.0) L 09/09/17 20:30 ABG Methemoglobin 1.3 % (0.0-3.0) 09/09/17 20:30 Pan Test Yes 09/09/17 20:30 Hgb O2 Saturation 98.1 % (95.0-98.0) H 09/09/17 20:30 FiO2 100.0 % 09/09/17 20:30 Sodium 150 mmol/l (132-148) H 09/11/17 05:00 Potassium 4.5 MMOL/L (3.6-5.0) 09/11/17 05:00 Chloride 122 mmol/L (98-107) H 09/11/17 05:00 Carbon Dioxide 13 mmol/L (22-30) L 09/11/17 05:00 Anion Gap 20 (10-20) 09/11/17 05:00 BUN 26 mg/dl (7-17) H 09/11/17 05:00 Creatinine 2.2 mg/dl (0.7-1.2) H 09/11/17 05:00 Est GFR ( Amer) 26 09/11/17 05:00 Est GFR (Non-Af Amer) 21 09/11/17 05:00 POC Glucose (mg/dL) 303 mg/dL (65-110) H 09/11/17 05:20 Random Glucose 294 mg/dL (65-105) H 09/11/17 05:00 Hemoglobin A1c 6.0 % (4.2-6.5) 09/06/17 13:43 Lactic Acid 2.1 MMOL/L (0.7-2.1) 09/10/17 22:00 Calcium 8.4 mg/dL (8.4-10.2) 09/11/17 05:00 Total Bilirubin 0.6 mg/dl (0.2-1.3) 09/06/17 12:39 AST 16 U/L (14-36) 09/06/17 12:39 ALT 32 U/L (9-52) 09/06/17 12:39 Alkaline Phosphatase 50 U/L (38-126) 09/06/17 12:39 Troponin I 0.1290 ng/mL (0.00-0.120) H* 09/07/17 06:18 Total Protein 6.4 G/DL (6.3-8.2) 09/06/17 12:39 Albumin 3.1 g/dL (3.5-5.0) L 09/06/17 12:39 Globulin 3.3 gm/dL (2.2-3.9) 09/06/17 12:39 Albumin/Globulin Ratio 0.9 (1.0-2.1) L 09/06/17 12:39 Triglycerides 140 mg/DL (0-149) 09/06/17 12:39 Cholesterol 200 mg/dL (0-199) H 09/06/17 12:39 LDL Cholesterol Direct 137 mg/dL (0-129) H 09/06/17 12:39 HDL Cholesterol 27 MG/DL (30-70) L 09/06/17 12:39 Procalcitonin 4.46 NG/ML (0.19-0.49) H 09/10/17 12:40 TSH 3rd Generation 1.98 mIU/ML (0.46-4.68) 09/09/17 05:05 Urine Color Tammy (YELLOW) 09/10/17 17:15 Urine Clarity Turbid (Clear) 09/10/17 17:15 Urine pH 5.0 (5.0-8.0) 09/10/17 17:15 Ur Specific [place] 1.023 (1.003-1.030) 09/10/17 17:15 Urine Protein 100 mg/dL (NEGATIVE) 09/10/17 17:15 Urine Glucose (UA) 150 mg/dL (Normal) 09/10/17 17:15 Urine Ketones Negative mg/dL (NEGATIVE) 09/10/17 17:15 Urine Blood Moderate (NEGATIVE) 09/10/17 17:15 Urine Nitrate Negative (NEGATIVE) 09/10/17 17:15 Urine Bilirubin Small (NEGATIVE) 09/10/17 17:15 Urine Urobilinogen 4.0 mg/dL (0.2-1.0) H 09/10/17 17:15 Ur Leukocyte Esterase Mod Augie/uL (Negative) 09/10/17 17:15 Urine RBC (Auto) 88 /hpf (0-3) H 09/10/17 17:15 Urine WBC Clumps (Auto) Many /hpf (NONE) H 09/10/17 17:15 Urine Microscopic WBC 1040 /hpf (0-5) H 09/10/17 17:15 Ur Squamous Epith Cells 4 /hpf (0-5) 09/10/17 17:15 Urine Bacteria Many (<OCC) H 09/10/17 17:15 Urine Yeast (Budding) Many /hpf (NEGATIVE) H 09/10/17 17:15 Blood Type B POSITIVE 09/06/17 12:39 Antibody Screen Negative 09/06/17 12:39 BBK History Checked Patient has bt 09/06/17 12:39 - Hospital Course Hospital Course: 82 yo female with Hx of HTN, DM, Dementia, CAD,CHF, Paroxysmal A Fib, CVA,CKD, COPD,Hypothyroidism sent in from SNF because of facial droop and aphasia. CT of Head : Acute/Subacute Infarct frontal lobe. Dr Valera of Neurology was consulted and patient was treated conservatively with neuro checks,ASA, Statins, OT/PT and speech therapy consulted. Unable to do MRI because patient has Pacemaker. She developed elevated Troponin and Dr Gamez of cardiology was consulted and lovenox was stared. The patient's condition deteriorated with hen not able to swallow and increasing oropharyngeal secretion, later becoming unresponsive to verbal and tactil stimuli. She was DNR/DNI and the family decided to treat only for Comfort care. The Patient was started on los dose Morphine because of the Agonal respiration and to make her comfortable. She went in to Cardiopulmonary arest and was pronounced at 22:44 . The Family and Dr Cohen was informed. The Cause of Was Acute Stroke. Contributing factors were: CHF/ COPD/ CKD/ A Fib and DM Sam Storey MD \ - Date & Time of H&P Date of H&P: 09/06/17 Time of H&P: 14:37 Discharge Exam - Head Exam Head Exam: NORMAL INSPECTION, NORMOCEPHALIC Discharge Plan - Follow Up Plan Condition: Disposition: WITH WITHOUT AUTOPSY Instructions: Heart Failure (DC), Heart Failure (GEN), Pacemaker (DC), Pacemaker (GEN), Pulmonary Edema (DC), Pulmonary Edema (GEN), Ascites (DC), Ascites (GEN)
--- NOTE | 2017-09-12 18:27 | CARD ---
APPROVED REPORT EKG Measurement Heart [id number] <Conclusion> Atrial Fibrillation Left axis deviation Nonspecific intraventricular block Cannot rule out Septal infarct, age undetermined Possible Lateral infarct, age undetermined Abnormal ECG
== END 2017-09-12 00:55 | DRG 65 ==
LOC: H.ER 11:33 → H.ERHOLD 13:43 → H.TEL 16:37
PROVIDERS: ADMIT Internal Medicine; ATTEND Internal Medicine
DX: I63.531 Cerebral infarction due to unspecified occlusion or stenosis of right posterior cerebral artery (principal); I50.32 Chronic diastolic (congestive) heart failure; E11.22 Type 2 diabetes mellitus with diabetic chronic kidney disease; E11.51 Type 2 diabetes mellitus with diabetic peripheral angiopathy without gangrene; F03.91 Unspecified dementia, unspecified severity, with behavioral disturbance; I13.0 Hypertensive heart and chronic kidney disease with heart failure and stage 1 through stage 4 chronic kidney disease, or unspecified chronic kidney disease; I24.8 Other forms of acute ischemic heart disease; I48.0 Paroxysmal atrial fibrillation; I69.320 Aphasia following cerebral infarction; N18.3 Chronic kidney disease, stage 3 (moderate); I25.10 Atherosclerotic heart disease of native coronary artery without angina pectoris; E03.9 Hypothyroidism, unspecified; E78.00 Pure hypercholesterolemia, unspecified; I44.7 Left bundle-branch block, unspecified; J44.9 Chronic obstructive pulmonary disease, unspecified; I69.392 Facial weakness following cerebral infarction; R45.1 Restlessness and agitation; Z66 Do not resuscitate; Z95.810 Presence of automatic (implantable) cardiac defibrillator; Z89.422 Acquired absence of other left toe(s); Z88.6 Allergy status to analgesic agent; Z74.01 Bed confinement status; Z91.81 History of falling; Z79.4 Long term (current) use of insulin